=== PATIENT | male | born 1955 | race American Indian/Alaskan Native ===

== ENCOUNTER 2016-09-23 11:35 | Inpatient (IN) | payer BC, OTHER ==
[2016-09-23 11:38] VITALS: BMI 22.6
[2016-09-23] MEDS ORDERED: Albuterol-Ipratrop 3 mg / 0.5 (3 ml) UD ONE (11:41)
[2016-09-23] MEDS ORDERED: Amiodarone 150 mg/D5W 100 ml 150 MG/100 ML BAG ONE (11:45)
[2016-09-23] MEDS ORDERED: Amiodarone 360 mg/D5W 200 ml 360 MG/200 ML BAG IV ONE (11:45)
[2016-09-23] MEDS ORDERED: Amiodarone 150 mg/D5W 100 ml 150 MG/100 ML BAG IVPB ONE (11:51)
--- NOTE | 2016-09-23 11:56 | ED PDOC ---
Arrival/HPI - General Time Seen by Provider: 09/23/16 11:36 Historian: Patient EM Caveat: Respiratory Distress - Critical Care Critical Care Minutes: 45 minutes - History of Present Illness Narrative History of Present Illness (Text): 09/23/16 11:35 A 61 year old male whose past medical history includes a pacemaker, chf, alcoholic cardiomyopahty presents to the emergency department via EMS for shortness of breath and cough. pt was seen in his pmd office and sent to the er for tachypnea and tachycardia. upon arrival pt noted to be tachypneic with mild increased wob. pt placed on bipap on arrival. limted hx provided. PMD: Dr. Hermilo Ríos Time/Duration: 1/2 hour Symptom Onset: Sudden Symptom Course: Unchanged Activities at Onset: Rest, Light Context: Home Past Medical History - Provider Review Nursing Documentation Reviewed: Yes Family/Social History - Physician Review Nursing Documentation Reviewed: Yes Family/Social History: No Known Family HX Allergies/Home Meds Allergies/Adverse Reactions: Allergies No Known Allergies Allergy (Verified 09/23/16 17:21) Home Medications: Home Meds Medication Instructions Recorded Confirmed Furosemide [Lasix] 40 mg PO DAILY 09/23/16 09/23/16 Spironolactone [Aldactone] 25 mg PO DAILY 09/23/16 09/23/16 Review of Systems - Review of Systems Systems not reviewed;Unavailable: Respiratory Distress Respiratory: SOB Physical Exam - Physical Exam Physical Exam Limitations: Other (Respiratory Distress) Vital Signs Temp Pulse Resp BP Pulse Ox 09/23/16 16:04 105 H 16 110/69 95 09/23/16 15:43 112/67 09/23/16 15:01 118 H 09/23/16 15:00 105 H 18 112/67 95 09/23/16 14:35 118 H 123/77 09/23/16 14:30 110 H 16 108/59 L 95 09/23/16 14:00 118 H 16 123/77 93 L 09/23/16 13:30 135 H 20 98/69 L 93 L 09/23/16 13:00 140 H 09/23/16 12:59 140 H 34 H 131/72 93 L 09/23/16 11:45 98.9 F 135 H 36 H 117/81 88 L 09/23/16 11:39 22 93 L - Systems Exam Neck: Present: JVD Respiratory/Chest: Present: Rales (Rales Bilaterally) Medical Decision Making ED Course and Treatment: 09/23/16 12:03 Impression: A 61 year old male brought in via EMS for shortness of breath and cough. Differential Diagnosis included but are not limited to: ro chf, sepsis, cardiac , Plan: -- EKG -- Labs -- Chest X-ray -- Amiodarone -- Urinalysis -- Reassess and disposition Progress Notes: CHEST X-RAY IMPRESSION: Bilateral diffuse alveolar opacity with possible jade consolidation at right base. Nonspecific. Findings may reflect pulmonary edema , bilateral pneumonia, etc. Please correlate clinically. AICD. Dictator : Tyler Sahni MD Report Date : 09/23/2016 12:11:34 09/23/16 12:38: Code sepsis called. 09/23/16 12:47: Spoke hospitalist resident. 09/24/16 14:52 upon arrival, pt placed immediately on bipap. inital ekg concerning for wide complex tachycardia. amniodarone started. discussed case with dr george, who came bedside. recommends veraperil. ekg shows vt vs aflutter with bbb. during ed course. pt has loss of pulses. ACLS intiated, and rosc obtained after pea arreest, s/p 2 epi. pt intubated during code. icu bedside. recommends diuresis, ng tube, k replacement. dr ríos and icu attending accept case to icu. family updated about critical status of pt. - Critical Care Critical Care Minutes: 45 minutes - Lab Interpretations Microbiology Results: Microbiology Results 09/23/16 12:20 Blood Blood Culture - Preliminary NO GROWTH AFTER 24 HOURS 09/23/16 12:20 Blood Blood Culture - Preliminary NO GROWTH AFTER 24 HOURS Lab Results: 09/23/16 12:20 Lab Results 09/23/16 12:20: PT 19.9 H, INR 1.84 H, APTT 35.6 H 09/23/16 12:20: WBC 9.7, RBC 4.73, Hgb 16.8, Hct 48.1, MCV 101.7, MCH 35.5 H, MCHC 34.9, RDW 14.0, Plt Count 111 L, MPV 12.2 H, Gran % 66.0, Lymph % (Auto) 23.0, [place] % (Auto) 9.9 H, Eos % (Auto) 0.5 L, Baso % (Auto) 0.6, Gran # 6.43, Lymph # 2.2, [place] # 1.0 H, Eos # 0.1, Baso # 0.06 09/23/16 12:20: pO2 26 L, VBG pH 7.09 L*, VBG pCO2 71.0 H*, VBG HCO3 21.5, VBG Total CO2 23.7, VBG O2 Sat (Calc) 32.3 L, VBG Base Excess -9.5 L, VBG Potassium 4.3, Sodium 138.0, Chloride 90.0 L, Glucose 94, Lactate 12.0 H*, FiO2 21.0, Venous Blood Potassium 4.3 09/23/16 11:57: POC Glucose (mg/dL) 94 - RAD Interpretation Radiology Orders: 09/23/16 11:40 CXR [CHEST PORTABLE] [RAD] Stat - Medication Orders Current Medication Orders: Albuterol/Ipratropium (Duoneb 3 Mg/0.5 Mg (3 Ml) Ud) 3 ml IH [id number] [facility] Last Admin: 09/24/16 13:19 Dose: 3 ml Amiodarone HCl (Cordarone) 400 mg PO TID YEN Stop: 09/25/16 23:59 Last Admin: 09/24/16 17:47 Dose: 400 mg Amiodarone HCl (Cordarone) 200 mg PO DAILY [facility] Artificial Tears (Artificial Tears Opht Oint) 0 gm OU Q2 PRN PRN Reason: Dry eyes Last Admin: 09/24/16 15:29 Dose: 1 applic Aspirin (Aspirin Chewable) 81 mg PO DAILY [facility] Clopidogrel Bisulfate (Plavix) 75 mg PO DAILY [facility] Last Admin: 09/24/16 17:48 Dose: 75 mg Folic Acid (Folic Acid) 1 mg IVP DAILY [facility] Last Admin: 09/24/16 16:26 Dose: 1 mg Furosemide (Lasix) 40 mg IV 0800,1400 [facility] Last Admin: 09/24/16 15:12 Dose: 40 mg Propofol (Diprivan) 1,000 mg in 100 mls @ 2.395 mls/hr IV .Q24H PRN; Protocol; 5 MCG/KG/MIN PRN Reason: TITRATE PER MD ORDER Last Titration: 09/24/16 08:20 Dose: 18 mcg/kg/min, 8.622 mls/hr Midazolam 100 mg/100ml in NS (Midazolam 100 Mg/100ml In Ns) 100 mg in 100 mls @ 2 mls/hr IV .Q24H PRN; Protocol; 2 MG/HR PRN Reason: Sedation Last Admin: 09/23/16 18:30 Dose: 2 mg/hr, 2 mls/hr Azithromycin (Zithromax 500mg In Ns) 500 mg in 250 mls @ 167 mls/hr IVPB DAILY YEN PRN Reason: Protocol Last Admin: 09/24/16 10:00 Dose: 167 mls/hr Cefepime HCl (Maxipime 2gm) 2 gm in 100 mls @ 100 mls/hr IVPB Q8 YEN PRN Reason: Protocol Stop: 09/28/16 22:01 Last Admin: 09/24/16 15:00 Dose: 100 mls/hr Milrinone Lactate/Dextrose (Primacor 20mg/100ml D5w) 100 mls @ 5.987 mls/hr IV .[id number] PRN; Protocol; 0.25 MCG/KG/MIN PRN Reason: TITRATE PER MD ORDER Last Admin: 09/23/16 23:10 Dose: 0.25 mcg/kg/min, 5.987 mls/hr Clindamycin Phosphate 600 mg/ (Sodium Chloride) 54 mls @ 102 mls/hr IVPB Q8 YEN PRN Reason: Protocol Last Admin: 09/24/16 14:58 Dose: 102 mls/hr Heparin Sodium/Dextrose (Heparin 25,000 Units/250ml In D5w) 25,000 units in 250 mls @ 9.58 mls/hr IV .Q24H YEN; 12 UNITS/KG/HR PRN Reason: Protocol Last Admin: 09/24/16 15:25 Dose: 12 units/kg/hr, 9.58 mls/hr Pantoprazole Sodium (Protonix Inj) 40 mg IVP DAILY [facility] Last Admin: 09/24/16 09:02 Dose: 40 mg Spironolactone (Aldactone) 25 mg PO BID [facility] Last Admin: 09/24/16 17:46 Dose: 25 mg Thiamine HCl (Vitamin B1 Inj) 100 mg IM DAILY [facility] Last Admin: 09/24/16 09:02 Dose: 100 mg Discontinued Medications Albuterol/Ipratropium (Duoneb 3 Mg/0.5 Mg (3 Ml) Ud) Confirm Administered Dose 9 ml .ROUTE .STK-MED ONE Stop: 09/23/16 11:42 Last Admin: 09/23/16 11:58 Dose: 9 ml Aspirin (Ecotrin) 81 mg PO DAILY [facility] Last Admin: 09/24/16 15:47 Dose: 81 mg Comments: Barcode not scanning Digoxin (Lanoxin) 0.25 mg IVP STAT STA Stop: 09/23/16 13:52 Last Admin: 09/23/16 14:46 Dose: 0.25 mg Digoxin (Lanoxin) 0.25 mg IVP ONCE ONE Stop: 09/23/16 18:01 Last Admin: 09/23/16 18:46 Dose: 0.25 mg Diltiazem HCl (Cardizem) 10 mg IVP STAT STA Stop: 09/23/16 13:51 Last Admin: 09/23/16 14:35 Dose: 10 mg Enoxaparin Sodium (Lovenox) 30 mg SC DAILY [facility] PRN Reason: Protocol Last Admin: 09/24/16 09:03 Dose: 30 mg Furosemide (Lasix) 60 mg IVP STAT STA Stop: 09/23/16 14:53 Last Admin: 09/23/16 15:43 Dose: 60 mg Furosemide (Lasix) 40 mg IVP ONCE ONE Stop: 09/23/16 16:37 Last Admin: 09/23/16 16:39 Dose: 40 mg Heparin Sodium (Porcine) (Heparin) 5,600 units 70 units/kg (5600 units) IV ONCE ONE PRN Reason: Protocol Stop: 09/24/16 11:20 Last Admin: 09/24/16 15:15 Dose: 5,600 units Amiodarone HCl/Dextrose (Nexterone 360 Mg In D5w 200 Ml (Premix)) Confirm Administered Dose 360 mg in 200 mls @ ud IV .STK-MED ONE Stop: 09/23/16 11:46 Last Admin: 09/23/16 11:59 Dose: 360 mg Amiodarone HCl/Dextrose (Nexterone 150 Mg In Dextrose 100 Ml (Premix)) Confirm Administered Dose 150 mg in 100 mls @ ud .ROUTE .STK-MED ONE Stop: 09/23/16 11:46 Last Admin: 09/23/16 11:58 Dose: 150 mg Amiodarone HCl/Dextrose (Nexterone 150 Mg In Dextrose 100 Ml (Premix)) 150 mg in 100 mls @ 600 mls/hr IVPB ONCE ONE PRN Reason: Protocol Stop: 09/23/16 12:00 Last Admin: 09/23/16 11:58 Dose: 600 mls/hr Amiodarone HCl/Dextrose (Nexterone 360 Mg In D5w 200 Ml (Premix)) 360 mg in 200 mls @ 16.667 mls/hr IV .Q12H YEN; 0.5 MG/MIN PRN Reason: Protocol Last Admin: 09/23/16 12:10 Dose: 16.667 mls/hr Vancomycin HCl (Vancomycin 1gm) 1 gm in 250 mls @ 167 mls/hr IVPB STAT STA PRN Reason: Protocol Stop: 09/23/16 13:33 Last Admin: 09/23/16 13:15 Dose: 167 mls/hr Piperacillin Sod/Tazobactam Sod (Zosyn 3.375 In Ns 100ml) 100 mls @ 200 mls/hr IVPB STAT STA PRN Reason: Protocol Stop: 09/23/16 12:33 Last Admin: 09/23/16 12:24 Dose: 200 mls/hr Sodium Chloride (Sodium Chloride 0.9%) 1,000 mls @ 999 mls/hr IV .Q1H1M STA Stop: 09/23/16 14:47 Last Admin: 09/23/16 14:20 Dose: 999 mls/hr Potassium Chloride (Potassium Chloride 10 Meq/100 Ml) 10 meq in 100 mls @ 100 mls/hr IVPB Q2H YEN Stop: 09/23/16 16:59 diltiaZEM IVPB 100mg in NS (Cardizem 100mg In Ns) 100 mls @ 5 mls/hr IV .Q20H PRN; Protocol; 5 MG/HR PRN Reason: TITRATE PER MD ORDER Last Titration: 09/24/16 01:21 Dose: 0 mg/hr, 0 mls/hr Potassium Chloride (Potassium Chloride 20 Meq/100 Ml) 20 meq in 100 mls @ 50 mls/hr IVPB Q2H YEN Stop: 09/23/16 17:59 Last Admin: 09/23/16 19:37 Dose: Magnesium Sulfate 2 gm/ Sodium (Chloride) 104 mls @ 102 mls/hr IVPB ONCE ONE Stop: 09/23/16 18:25 Last Admin: 09/23/16 21:22 Dose: 102 mls/hr Multivitamins/Vitamin C 10 ml/ (Sodium Chloride) 1,010 mls @ 100 mls/hr IV ONCE ONE Stop: 09/24/16 03:42 Last Admin: 09/24/16 02:41 Dose: 100 mls/hr Cisatracurium Besylate 100 mg/ (Sodium Chloride) 260 mls @ 24.9 mls/hr IV .[id number] PRN; 2 MCG/KG/MIN PRN Reason: TITRATE PER MD ORDER Last Admin: 09/23/16 18:58 Dose: 24.9 mls/hr Potassium Chloride (Potassium Chloride 20 Meq/100 Ml) 20 meq in 100 mls @ 50 mls/hr IVPB Q2H YEN Stop: 09/24/16 00:44 Last Admin: 09/24/16 03:00 Dose: 50 mls/hr Sodium Chloride (Sodium Chloride 0.9%) 500 mls @ 500 mls/hr IV .Q1H ONE Stop: 09/24/16 15:59 Last Admin: 09/24/16 15:45 Dose: 500 mls/hr Sodium Chloride (Sodium Chloride 0.9%) 500 mls @ 999 mls/hr IV .Q31M STA Stop: 09/24/16 15:50 Last Admin: 09/24/16 16:30 Dose: Magnesium Sulfate 2 gm/ Sodium (Chloride) 104 mls @ 102 mls/hr IVPB ONCE ONE Stop: 09/24/16 17:55 Phytonadione (Vitamin K Inj) 10 mg SC ONCE ONE Stop: 09/24/16 11:08 Last Admin: 09/24/16 15:45 Dose: 10 mg Pneumococcal Polyvalent Vaccine (Pneumovax 23 Vaccine) 0.5 ml IM .ONCE ONE Stop: 09/23/16 19:23 Potassium Chloride (Potassium Chloride Oral Soln) 40 meq NG STAT STA Stop: 09/23/16 15:36 Last Admin: 09/23/16 15:45 Dose: 40 meq Verapamil HCl (Verapamil Inj) 2.5 mg IVP STAT STA Stop: 09/23/16 12:44 Last Admin: 09/23/16 13:00 Dose: 2.5 mg - Scribe Statement The provider has reviewed the documentation as recorded by the Gabiibe Maddi Pérez Provider Gabriel Attestation: All medical record entries made by the Gabriel were at my direction and personally dictated by me. I have reviewed the chart and agree that the record accurately reflects my personal performance of the history, physical exam, medical decision making, and the department course for this patient. I have also personally directed, reviewed, and agree with the discharge instructions and disposition. Disposition/Present on Arrival - Present on Arrival Any Indicators Present on Arrival: No - Disposition Have Diagnosis and Disposition been Completed?: Yes Diagnosis: Cardiac arrest, CHF (congestive heart failure), Pneumonia, Cardiomyopathy, Pulmonary edema Disposition: HOSPITALIZED Disposition Time: 03:00 Patient Problems: Current Active Problems Problem Status Onset Alcohol abuse Acute Aspiration pneumonia Acute Disseminated intravascular coagulation Acute Pulmonary edema Acute Ventilatory failure Acute Alcoholic cardiomyopathy Chronic Condition: CRITICAL
[2016-09-23] MEDS ORDERED: Amiodarone 360 mg/D5W 200 ml 360 MG/200 ML BAG IV SCH (12:00)
[2016-09-23] MEDS ORDERED: Vancomycin 1gm in NS 250ml 1 GM/250 ML BAG IVPB STA (12:04)
[2016-09-23] MEDS ORDERED: Piperacillin/Tazobact 3.375 gm 100 ML IVPB STA (12:04)
--- NOTE | 2016-09-23 12:13 | RAD ---
HISTORY: sob COMPARISON: No prior. FINDINGS: LUNGS: Bilateral flank pulmonary opacity, right greater than left. There is possible jade consolidation at the right base. Followup advised. PLEURA: No significant pleural effusion identified, no pneumothorax apparent. CARDIOVASCULAR: Normal heart size. No significant congestive change noted. AICD present. OSSEOUS STRUCTURES: No significant abnormalities. VISUALIZED UPPER ABDOMEN: Normal. OTHER FINDINGS: None. IMPRESSION: Bilateral diffuse alveolar opacity with possible jade consolidation at right base. Nonspecific. Findings may reflect pulmonary edema, bilateral pneumonia, etc. Please correlate clinically. AICD.
[2016-09-23 12:29] LABS: ADD MANUAL DIFF? NO
[2016-09-23 12:33] LABS: VENOUS BLOOD GAS BASE EXCESS -9.5 mmol/L (0.0-2.0)
[2016-09-23 12:37] LABS: VENOUS BLOOD PH 7.09 (7.32-7.43)
[2016-09-23 12:38] LABS: ARTERIAL BLOOD GAS HCO3 14.8 mmol/L (21-28); ARTERIAL BLOOD GAS O2 CAPACITY 23.4 mL/dl (16-24); ARTERIAL BLOOD GAS O2 CONTENT 20.8 ML/dl (15-23); ARTERIAL BLOOD GAS PH 7.21 (7.35-7.45); CARBOXYHEMOGLOBIN 2.6 % (0.5-1.5); HHB 10.7 % (0-5); METHEMOGLOBIN 0.7 % (0.0-3.0)
[2016-09-23 12:47] LABS: INR 1.84 (0.93-1.08); PARTIAL THROMBOPLASTIN TIME 35.6 Seconds (23.7-30.8)
[2016-09-23 13:24] LABS: BASO # 0.06 K/mm3 (0.0-2.0); BASO % 0.6 % (0.0-3.0); EOS # 0.1 (0.0-0.7); EOS % 0.5 % (1.5-5.0); GRAN # 6.43 (1.4-6.5); HEMATOCRIT 48.1 % (42.0-52.0); LYMPH # 2.2 (1.2-3.4); MEAN CELL VOLUME 101.7 fl (80.0-105.0); MEAN CORPUSCULAR HEMOGLOBIN 35.5 pg (25.0-35.0); MEAN CORPUSCULAR HGB CONC 34.9 g/dl (31.0-37.0); MEAN PLATELET VOLUME 12.2 fl (7.0-11.0); MONO % 9.9 % (1.0-6.0); PLATELET COUNT 111 10^3/uL (120.0-450.0); WHITE BLOOD COUNT 9.7 10^3/ul (4.5-11.0)
[2016-09-23 13:34] LABS: ALKALINE PHOSPHATASE 224 U/L (38-133); ALT/SGPT 94 U/L (7-56); AST/SGOT 302 U/L (15-59); BILIRUBIN,TOTAL 6.2 mg/dL (0.2-1.3); BLOOD UREA NITROGEN 9 mg/dL (7-21); CALCIUM 8.3 mg/dL (8.4-10.5); CARBON DIOXIDE 21 mmol/L (21-33); CHLORIDE 87 mmol/L (98-107); GFR AFRICAN-AMERICAN > 60; GLUCOSE,RANDOM 263 mg/dL (70-110); MAGNESIUM 1.6 mg/dL (1.7-2.2); SODIUM 134 mmol/L (132-148); TOTAL PROTEIN 8.4 g/dL (5.8-8.3)
[2016-09-23 13:44] LABS: TROPONIN I 0.09 ng/mL
[2016-09-23] MEDS ORDERED: Sodium Chloride 0.9% 1,000 ML IV STA (13:47)
[2016-09-23 13:49] LABS: POTASSIUM 2.7 mmol/L (3.6-5.0)
[2016-09-23] MEDS ORDERED: diltiaZEM IVPB 100mg in NS 100 ML IV PRN (13:50)
[2016-09-23] MEDS ORDERED: Digoxin 500 mcg/2ml (0.5 mg/2ml) Inj IVP STA (13:51)
--- NOTE | 2016-09-23 14:18 | RAD ---
HISTORY: intubation COMPARISON: 09/23/2016 at 12:01 p.m. FINDINGS: LUNGS: Extensive increased diffuse bilateral pulmonary opacity. The rapidity of change in this patient is concerning for pulmonary edema. However, this may also represent ARDS or bilateral pneumonia. PLEURA: Probable small bilateral pleural effusion. No pneumothorax.ll CARDIOVASCULAR: Mild cardiomegaly. Endotracheal tube tip 6.3 cm above tracheal blanquita. AICD noted. OSSEOUS STRUCTURES: No significant abnormalities. VISUALIZED UPPER ABDOMEN: Normal. OTHER FINDINGS: None. IMPRESSION: Extensive diffuse bilateral pulmonary alveolar opacity, nonspecific. Probable small bilateral pleural effusion. New endotracheal tube positioned 6.3 cm above the tracheal blanquita.
[2016-09-23 14:47] LABS: ABG MECHANICAL RATE 16; ARTERIAL BLOOD GAS HCO3 15.6 mmol/L (21-28); ATERIAL BLOOD GAS PEEP 10
[2016-09-23] MEDS: Propofol 10 mg/ml 1,000 MG/100 ML VIAL IV PRN ×3 (14:50→22:54)
[2016-09-23 15:01] LABS: ARTERIAL BLOOD GAS PH 7.11 (7.35-7.45)
[2016-09-23] MEDS ORDERED: Potassium Chloride 40 mEq/30 ml LIQ UD NG STA (15:35)
--- NOTE | 2016-09-23 15:37 | RAD ---
HISTORY: ng tube COMPARISON: 09/23/2016 at 1:55 p.m. FINDINGS: LUNGS: Extensive diffuse bilateral alveolar opacity mildly improved. . PLEURA: Possible trace bilateral pleural effusion. No pneumothorax. CARDIOVASCULAR: Normal heart size. AICD. ET tube unchanged. New nasogastric tube extends beyond the lower edge of this film, likely to the central abdomen. . OSSEOUS STRUCTURES: No significant abnormalities. VISUALIZED UPPER ABDOMEN: Normal. OTHER FINDINGS: None. IMPRESSION: Extensive diffuse bilateral alveolar opacity with mild improvement compared to earlier examination. Pulmonary edema versus ARDS versus bilateral pneumonia. ET tube, NG tube noted. AICD.
[2016-09-23 17:00] LABS: ABG MECHANICAL RATE 20; ATERIAL BLOOD GAS PEEP 12
[2016-09-23 17:00] LABS: URINE BILIRUBIN SMALL (NEGATIVE); URINE BLOOD LARGE (NEGATIVE); URINE GLUCOSE (UA) NEGATIVE (NEGATIVE); URINE KETONE NEGATIVE (NEGATIVE); URINE PROTEIN >=300 mg/dL (<30 mg/dL)
[2016-09-23 17:02] LABS: ARTERIAL BLOOD GAS PH 7.19 (7.35-7.45)
[2016-09-23 17:02] LABS: URINE APPEARANCE TURBID (CLEAR); URINE COLOR YELLOW (YELLOW)
[2016-09-23 17:12] LABS: VENOUS BLOOD GAS BASE EXCESS -13.5 mmol/L (0.0-2.0); VENOUS BLOOD PH 7.16 (7.32-7.43)
[2016-09-23] MEDS ORDERED: Midazolam 100 mg/100ml in NS 100 MG/100 ML SOL IV PRN (17:20)
[2016-09-23] MEDS ORDERED: Magnesium Sulfate 2 GM in Sodium Chloride 0.9% 100 ML IVPB ONE (17:24)
[2016-09-23 17:28] LABS: ALB/GLOB RATIO 0.9 (1.1-1.8); ALKALINE PHOSPHATASE 191 U/L (38-133); ALT/SGPT 125 U/L (7-56); AST/SGOT 398 U/L (15-59); BILIRUBIN,TOTAL 5.6 mg/dL (0.2-1.3); BLOOD UREA NITROGEN 12 mg/dL (7-21); CALCIUM 8.3 mg/dL (8.4-10.5); CARBON DIOXIDE 13 mmol/L (21-33); CHLORIDE 97 mmol/L (98-107); GFR AFRICAN-AMERICAN > 60; GLUCOSE,RANDOM 50 mg/dL (70-110); SODIUM 136 mmol/L (132-148); TOTAL PROTEIN 7.3 g/dL (5.8-8.3)
[2016-09-23 17:36] LABS: URINE RBC 20 - 25 /hpf (0-2)
[2016-09-23 17:37] LABS: URINE LEUKOCYTE ESTERASE MOD Leu/uL (NEGATIVE)
[2016-09-23] MEDS ORDERED: Multivitamin (MVI) 10 ML in Sodium Chloride 0.9% 1,000 ML IV ONE (17:37)
[2016-09-23 17:40] LABS: INR 3.17 (0.93-1.08); PARTIAL THROMBOPLASTIN TIME 58.2 Seconds (23.7-30.8)
[2016-09-23 17:46] LABS: HEMATOCRIT 45.9 % (42.0-52.0); MEAN CORPUSCULAR HEMOGLOBIN 37.8 pg (25.0-35.0); MEAN CORPUSCULAR HGB CONC 35.3 g/dl (31.0-37.0); MEAN PLATELET VOLUME 11.9 fl (7.0-11.0); PLATELET COUNT 109 10^3/uL (120.0-450.0); RED CELL DISTRIBUTION WIDTH 14.1 % (11.5-14.5); WHITE BLOOD COUNT 10.8 10^3/ul (4.5-11.0)
--- NOTE | 2016-09-23 17:47 | CP.PCM.CON ---
History of Present Illness - History of Present Illness History of Present Illness: Patient is 61yo male with PMhx of EtOH abuse, Systolic CHF, liver disease, HTN, presents fro PMDs office for SOB. History is limited to the ER staff and the patients /daughters who provided most of the history. In the ER patient was SOB, hypoxic, placed on BIPAP, went into wide complex tachycardia, given amiodarone, verapamil, converting back to NSR. Patient then had PEA arrest 2-3 min, given Epinephrine x 1, with ROSC, at which time pt was awake, and moving all 4 extremities, intubated. On the ventilator on 16/Peep10/100% peak pressure 35, Plateau 28-30, given Lasix 60mg IV, after K repleted. CXR with bilateral opacities, ARDS vs pulm edema. Bedside Echo done with EF 20-25%, RVSP 63, moderate MR/TR, office echo read pending. Currently the patient is intubated and sedated PMhx: EtOH abuse, Systolic CHF, Liver disease, HTN PSHx: NONE Allergies: NKDA FHx: NC ROS: pt intubated, cannot obtain Meds: as per EMR Review of Systems - Review of Systems Review of Systems: as per hpi Past Patient History - Past Social History Smoking Status: Never Smoked - CARDIAC Hx Cardiac Disorders: Yes Hx Congestive Heart Failure: Yes - PULMONARY Hx Respiratory Disorders: Yes Other/Comment: URI - PSYCHIATRIC Hx Substance Use: No - SURGICAL HISTORY Hx Surgeries: Yes Hx Cardiac Catheterization: Yes Meds Allergies/Adverse Reactions: Allergies Allergy/AdvReac Type Severity Reaction Status Date / Time No Known Allergies Allergy Verified 09/23/16 17:21 - Medications Medications: Current Medications Albuterol/Ipratropium (Duoneb 3 Mg/0.5 Mg (3 Ml) Ud) 3 ml IH [id number] YEN Amiodarone HCl (Cordarone) 400 mg PO TID YEN Stop: 09/25/16 23:59 Amiodarone HCl (Cordarone) 200 mg PO DAILY YEN Digoxin (Lanoxin) 0.25 mg IVP ONCE ONE Stop: 09/23/16 18:01 Furosemide (Lasix) 40 mg IV 0800,1400 YEN Heparin Sodium (Porcine) (Heparin) 5,000 units SC Q12 YEN PRN Reason: Protocol Amiodarone HCl/Dextrose (Nexterone 360 Mg In D5w 200 Ml (Premix)) 360 mg in 200 mls @ 16.667 mls/hr IV .Q12H YEN; 0.5 MG/MIN PRN Reason: Protocol Last Admin: 09/23/16 12:10 Dose: 16.667 mls/hr Propofol (Diprivan) 1,000 mg in 100 mls @ 2.395 mls/hr IV .Q24H PRN; Protocol; 5 MCG/KG/MIN PRN Reason: TITRATE PER MD ORDER Last Admin: 09/23/16 14:50 Dose: 20 mcg/kg/min, 9.58 mls/hr diltiaZEM IVPB 100mg in NS (Cardizem 100mg In Ns) 100 mls @ 5 mls/hr IV .Q20H PRN; Protocol; 5 MG/HR PRN Reason: TITRATE PER MD ORDER Last Admin: 09/23/16 15:00 Dose: 5 mg/hr, 5 mls/hr Potassium Chloride (Potassium Chloride 20 Meq/100 Ml) 20 meq in 100 mls @ 50 mls/hr IVPB Q2H YEN Stop: 09/23/16 17:59 Last Admin: 09/23/16 14:20 Dose: 50 mls/hr Lisinopril (Zestril) 2.5 mg PO DAILY YEN Pantoprazole Sodium (Protonix Inj) 40 mg IVP DAILY YEN Spironolactone (Aldactone) 25 mg PO BID YEN Verapamil HCl (Calan Tab) 40 mg PO TID YEN Physical Exam - Constitutional Additional comments: Intubated, sedated - Head Exam Head Exam: ATRAUMATIC - Eye Exam Eye Exam: Normal appearance - Neck Exam Additional comments: +JVD - Respiratory Exam Additional comments: bilateral rales - Cardiovascular Exam Cardiovascular Exam: JVD, RRR, +S1, +S2 - GI/Abdominal Exam GI & Abdominal Exam: Normal Bowel Sounds, Soft - Extremities Exam Additional comments: 3+ pitting edema bilateral - Neurological Exam Additional comments: intubated, sedated - Skin Skin Exam: Warm Results - Vital Signs Recent Vital Signs: Last Vital Signs Temp 98.9 F 09/23/16 11:45 Pulse 105 H 09/23/16 16:04 Resp 33 H 09/23/16 17:20 BP 103/45 L 09/23/16 16:39 Pulse Ox 93 L 09/23/16 17:20 - Labs Result Diagrams: 09/23/16 12:20 09/23/16 13:00 Labs: Laboratory Results - last 24 hr 09/23/16 09/23/16 09/23/16 12:30 13:00 14:40 pCO2 37 49 H pO2 62.0 L 51.0 L HCO3 14.8 L 15.6 L ABG pH 7.21 L 7.11 L* ABG Total CO2 15.9 L 17.1 L ABG O2 Saturation 88.9 L 79.3 L ABG O2 Content 20.8 ABG Base Excess -12.3 L -13.8 L ABG Hemoglobin 17.2 ABG Carboxyhemoglobin 2.6 H POC ABG HHb (Measured) 10.7 H ABG Methemoglobin 0.7 ABG O2 Capacity 23.4 ABG Potassium 2.9 L Hgb O2 Saturation 86.0 L Glucose 58 L Lactate 10.3 H* Mechanical Rate 16 FiO2 100.0 100.0 Tidal Volume 450 PEEP 10 Sodium 134 137.0 Potassium 2.7 L* Chloride 87 L 92.0 L Carbon Dioxide 21 Anion Gap 29 H BUN 9 Creatinine 1.2 Est GFR ( Amer) > 60 Est GFR (Non-Af Amer) > 60 Random Glucose 263 H Calcium 8.3 L Magnesium 1.6 L Total Bilirubin 6.2 H AST 302 H ALT 94 H Alkaline Phosphatase 224 H Lactate Dehydrogenase 1317 H Total Creatine Kinase 367 H CK-MB (CK-2) 2.3 CK-MB (CK-2) % Cancelled Troponin I 0.09 NT-Pro-B Natriuret Pep 86769 H Total Protein 8.4 H Albumin 4.3 Globulin 4.1 Albumin/Globulin Ratio 1.0 L Arterial Blood Potassium 2.9 L Urine Color Urine Appearance Urine pH Ur Specific [place] Urine Protein Urine Glucose (UA) Urine Ketones Urine Blood Urine Nitrate Urine Bilirubin Urine Urobilinogen 09/23/16 09/23/16 16:35 16:50 pCO2 34 L pO2 69.0 L HCO3 13.0 L ABG pH 7.19 L* ABG Total CO2 14.0 L ABG O2 Saturation 93.7 L ABG O2 Content ABG Base Excess -14.1 L ABG Hemoglobin ABG Carboxyhemoglobin POC ABG HHb (Measured) ABG Methemoglobin ABG O2 Capacity ABG Potassium 2.9 L Hgb O2 Saturation Glucose 50 L Lactate 10.5 H* Mechanical Rate 20 FiO2 100.0 Tidal Volume 450 PEEP 12 Sodium 137.0 Potassium Chloride 98.0 Carbon Dioxide Anion Gap BUN Creatinine Est GFR ( Amer) Est GFR (Non-Af Amer) Random Glucose Calcium Magnesium Total Bilirubin AST ALT Alkaline Phosphatase Lactate Dehydrogenase Total Creatine Kinase CK-MB (CK-2) CK-MB (CK-2) % Troponin I NT-Pro-B Natriuret Pep Total Protein Albumin Globulin Albumin/Globulin Ratio Arterial Blood Potassium 2.9 L Urine Color Yellow Urine Appearance Turbid Urine pH 6.0 Ur Specific [place] >= 1.030 Urine Protein >=300 H Urine Glucose (UA) Negative Urine Ketones Negative Urine Blood Large H Urine Nitrate Negative Urine Bilirubin Small H Urine Urobilinogen 2.0 H - Imaging and Cardiology Chest x-ray Status: Image reviewed by me, Report reviewed by me Assessment & Plan - Assessment and Plan (Free Text) Assessment: 61yo male a/w acute hypoxic resp failure Hypoxic Resp Failure Pulm edema vs ARDS PNA Lactic Acidosis Hypokalemia Systolic, CHF, acute decompensated EtOh abuse Severe Sepsis - currently intubated, sedated on PRVC 22/450/PEEP14/100% - CXR with bilateral opacities, ARDS vs Pulm edema, with superimposing PNA - currently afebrile, HD stable, in NSR - labs demonstrate hypokalemia, metablic acidosis with resp acidosis, lactate 10 - given broad spectrum abx in the ER Recommend: - keep intubated sedated - low tidal volume ventilation, 6cc/kg predicted body weight - patient with persistent pink frothy discharge from ETT, likely signifying pulm edema - keep plateu pressure <30 - may require paralytics - current Pplateu 28-30 - broad spectrum abx, Cefepime, Vanco, Azithro - check procalcitonin - ARDS vs Pulm edema, with concomitant PNA - broad spectrum abx, Cefepime, Vanco, Azithro - check procalcitonin - ID consult - patient with EF 20-25%, chronic, AICD - currently in NSR - Amiodarone per cardiology - would hold ionotropic agents for now as patient went into ventricular arrhythmia - given lasix 60mg IV x1, monitor UOP - follow up echo - follow up cardiology - repeat lactates, labs - renal sonogram - patient with elevated INR, likely 2/2 EtOH abuse vs congestion from CHF - RUQ sono - Folic Acid, MVT, Thiamine - monitor for EtOh withdrawal - keep NPO - DVT ppx - GI ppx - full code - family notified, , daughters - patient in critical condition, at high risk for morbidity motality Critical care time: 45minutes
[2016-09-23] MEDS ORDERED: Cisatracurium Besylate 100 MG in Sodium Chloride 0.9% 250 ML IV PRN (17:55)
[2016-09-23 17:56] LABS: ADD MANUAL DIFF? YES
[2016-09-23] MEDS ORDERED: Digoxin 500 mcg/2ml (0.5 mg/2ml) Inj IVP ONE (18:00)
[2016-09-23] MEDS: Thiamine 100 mg/ml Inj IM SCH (18:45)
[2016-09-23 18:56] LABS: BAND 8 % (0-2); NEUTROPHIL 79 % (50.0-70.0); PLATELET ESTIMATE LOW (NORMAL)
[2016-09-23] MEDS ORDERED: Pneumococcal 23-Valent Vaccine IM ONE (19:22)
[2016-09-23] MEDS: Albuterol-Ipratrop 3 mg / 0.5 (3 ml) UD IH SCH (20:00)
[2016-09-23 20:22] LABS: MAGNESIUM 1.4 mg/dL (1.7-2.2)
[2016-09-23 21:26] LABS: TROPONIN I 0.69 ng/mL
[2016-09-23] MEDS ORDERED: Cefepime 1gm in NS 100ml 1 GM/100 ML BAG IVPB SCH (22:00)
--- NOTE | 2016-09-23 22:31 | CARD ---
APPROVED REPORT EXAM: Two-dimensional and M-mode echocardiogram with Doppler and color Doppler. INDICATION CARDIAC ARREST 2D DIMENSIONS Left Atrium (2D)4.6 (1.6-4.0cm)IVSd1.4 (0.7-1.1cm) LVDd6.0 (3.9-5.9cm)PWd1.4 (0.7-1.1cm) LVDs5.4 (2.5-4.0cm)FS (%) 9.8 % LVEF (%)21.1 (>50%) M-Mode DIMENSIONS Aortic Root3.30 (2.2-3.7cm)Aortic Cusp Exc.2.10 (1.5-2.0cm) Aortic Valve AoV Peak Diexlnwr467.0cm/Timmy Peak GR.6mmHgAI P 1/2 [id number] Mitral Valve E/A ratio0.0 TDI E/Lateral E'0.0E/Medial E'0.0 Pulmonary Valve PV Peak Hwcpzybe75.9cm/sPV Peak Grad.3mmHg Tricuspid Valve TR Peak Dneqjetb419qi/sRAP [id number] Peak Gr.53mmHg [id number] LEFT VENTRICLE The Left Ventricle is moderately dilated. There is mild concentric left ventricular hypertrophy. The systolic function is severely impaired.EF-15 There is global hypokinesis of the left ventricle. A flutter No left ventricle thrombus noted on this study. There is no ventricular septal defect visualized. There is no left ventricular aneurysm. There is no mass noted in the left ventricle. RIGHT VENTRICLE The right ventricle is moderately to severely dilated. There is normal right ventricular wall thickness. Systolic function is moderately reduced. There is a pacemaker lead in the right ventricle. ATRIA The left atrium is severely dilated. The right atrium is severely dilated. There is a catheter/pacemaker lead seen in the right atrium. The interatrial septum is intact with no evidence for an atrial septal defect. AORTIC VALVE The aortic valve is thickened but opens well. There is mild aortic regurgitation. There is no aortic valvular stenosis. There is no aortic valvular vegetation. MITRAL VALVE The mitral valve is thickened but opens well. Mitral regurgitation is moderate. There is no mitral valve stenosis. There is no evidence of mitral valve prolapse. TRICUSPID VALVE The tricuspid valve leaflets are thickened , but open well. There is moderate to severe tricuspid regurgitation.RVSP-63 mmof hg. There is moderate to severe tricuspid regurgitation. There is no tricuspid valve stenosis. There is no tricuspid valve prolapse or vegetation. PULMONIC VALVE The pulmonic valve is not well visualized. GREAT VESSELS The aortic root is normal in size. The ascending aorta is normal in size. The pulmonary artery is normal. The IVC is dilated. PERICARDIAL EFFUSION There is large left pleural effusion. There is a trace circumferential pericardial effusion. <Conclusion> Four chamber dilatation. EF-15%. There is mild aortic regurgitation. Mitral regurgitation is moderate. There is moderate to severe tricuspid regurgitation.RVSP-63 mmof hg. There is moderate to severe tricuspid regurgitation. The IVC is dilated. There is large left pleural effusion. There is a trace circumferential pericardial effusion. No thrombus or vegetation noted.
[2016-09-23] MEDS: Cefepime IV 2 gm in NS 2 GM/100 ML BAG IVPB SCH (22:35)
[2016-09-23] MEDS: Milrinone 20mg/100ml D5W 100 ML IV PRN (23:10)
--- NOTE | 2016-09-24 00:19 | CARD ---
APPROVED REPORT EKG Measurement Heart [id number] <Conclusion> Wide complex tachycardia Left axis deviation Nonspecific intraventricular block Abnormal ECG
--- NOTE | 2016-09-24 00:24 | CARD ---
APPROVED REPORT EKG Measurement Heart [id number] <Conclusion> Wide QRS tachycardia Left axis deviation Nonspecific intraventricular block Lateral infarct, age undetermined Abnormal ECG
--- NOTE | 2016-09-24 00:27 | CARD ---
APPROVED REPORT EKG Measurement Heart [id number] <Conclusion> Wide QRS tachycardia with occasional premature ventricular complexes and fusion complexes Left axis deviation Nonspecific intraventricular block Inferior infarct, age undetermined Cannot rule out Anterior infarct, age undetermined Abnormal ECG
--- NOTE | 2016-09-24 01:58 | CON ---
DATE: 09/23/2016 CONSULTING PHYSICIAN: Dr. Meliton Saunders. REASON FOR CONSULTATION: Follow up wide complex tachycardia, shortness of breath, possible pneumonia, status post AICD, nonischemic cardiomyopathy. BRIEF CLINICAL HISTORY: This is a 61-year-old heavy alcohol abuse; occasional tobacco abuse; history of nonischemic cardiomyopathy, status post cardiac catheterization in 2005 with history of AICD, being followed by Dr. Hogan, EP, at [facility] last seen 3 months ago, came in with complaints of shortness of breath and wide complex tachycardia. Actually, EKG looks like bundle branch block, atrial flutter with 2:1 conduction. Family is at the bedside. Information obtained from the patient as well as the family, and 2 daughters. The patient on the CPAP. 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 History of nonischemic cardiomyopathy status post AICD, being followed by Dr. Hogan. SOCIAL HISTORY: Active alcohol abuse, heavy according to the family. Occasionally smokes cigarette as well. Denies any history of substance abuse. 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 CURRENT MEDICATIONS: The patient is taking at home is spironolactone and Lasix. REVIEW OF SYSTEMS: As per HPI. The patient is complaining of cough and shortness of breath of couple of days, went to Dr. Ríos, he thought it is pneumonia, so sent to the ER. PHYSICAL EXAMINATION VITAL SIGNS: Temperature is 98.5, heart rate 140, blood pressure 107/80. HEENT: PERRLA. Extraocular muscles are intact. NECK: Supple. No carotid bruit. No thyromegaly. CHEST: Clear to auscultation. E:A changes in the right lower lobe as well as left lower lobe, more so on the right lobe. Using accessory muscles. HEART: S1 and S2, tachycardic. ABDOMEN: Soft, distended. EXTREMITIES: 2+ pitting edema. DVT positive. LABORATORY DATA: Chest x-ray consistent with right and possibly left lower lobe pneumonia. EKG shows 2:1 flutter with a bundle branch block, heart rate 140. Blood workup as follows: WBC 9.7, hemoglobin 16.8, hematocrit 48.1, platelet count 111. Chemistry shows pending coagulation profile. INR 1.84. Blood gas shows pCO2 37, PO2 67, pH 7.21. IMPRESSION: Respiratory distress, bilateral possible pneumonia, congestive heart failure, cardiomyopathy, nonischemic cardiomyopathy, congestive heart failure secondary to acute on chronic systolic dysfunction, rule out sepsis, lactic level 12 on ABG, probably septic, decompensated congestive heart failure, wide complex tachycardia, possibly secondary to bundle branch block and atrial flutter. RECOMMENDATIONS: We will give 2.5 mg verapamil, continue IV amiodarone, CPAP, broad-spectrum antibiotics and panculture. Long-term prognosis guarded. Discuss with the and 2 daughters. Further recommendations when the labs are available. We will follow. Overall, the patient's condition is critical. Thank you Dr. Ríos for providing the opportunity in taking care of the patient. Meliton Saunders MD
[2016-09-24 01:59] LABS: ALB/GLOB RATIO 0.9 (1.1-1.8); BILIRUBIN,TOTAL 5.4 mg/dL (0.2-1.3); CALCIUM 7.7 mg/dL (8.4-10.5); POTASSIUM 3.8 mmol/L (3.6-5.0); TOTAL PROTEIN 6.3 g/dL (5.8-8.3)
[2016-09-24] MEDS: Albuterol-Ipratrop 3 mg / 0.5 (3 ml) UD IH SCH ×4 (02:25→20:10)
[2016-09-24 05:41] LABS: ARTERIAL BLOOD GAS HCO3 17.1 mmol/L (21-28); ARTERIAL BLOOD GAS PH 7.24 (7.35-7.45)
[2016-09-24] MEDS: Cefepime IV 2 gm in NS 2 GM/100 ML BAG IVPB SCH ×3 (05:47→21:56)
[2016-09-24 06:28] LABS: HEMATOCRIT 43.4 % (42.0-52.0); MEAN CELL VOLUME 104.3 fl (80.0-105.0); MEAN CORPUSCULAR HEMOGLOBIN 35.1 pg (25.0-35.0); MEAN CORPUSCULAR HGB CONC 33.6 g/dl (31.0-37.0); MEAN PLATELET VOLUME 11.1 fl (7.0-11.0); PLATELET COUNT 70 10^3/uL (120.0-450.0); RED CELL DISTRIBUTION WIDTH 14.1 % (11.5-14.5)
[2016-09-24 06:32] LABS: VENOUS BLOOD GAS BASE EXCESS -9.6 mmol/L (0.0-2.0)
[2016-09-24 06:38] LABS: VENOUS BLOOD PH 7.19 (7.32-7.43)
[2016-09-24 06:39] LABS: ALB/GLOB RATIO 0.9 (1.1-1.8); BILIRUBIN,TOTAL 5.5 mg/dL (0.2-1.3); CALCIUM 7.8 mg/dL (8.4-10.5); POTASSIUM 4.3 mmol/L (3.6-5.0); TOTAL PROTEIN 6.4 g/dL (5.8-8.3)
[2016-09-24 06:41] LABS: ADD MANUAL DIFF? YES
[2016-09-24] MEDS: Propofol 10 mg/ml 1,000 MG/100 ML VIAL IV PRN (06:41)
--- NOTE | 2016-09-24 08:22 | CON ---
ADDENDUM REASON FOR ADDENDUM: As soon as finishing the dictation, the patient was CODED in the ER. Family was at bedside. Also CPR in progress. A lab is not available. We will follow him closely after the CPR is completed. Meliton Saunders MD
[2016-09-24 08:28] LABS: TROPONIN I 1.37 ng/mL
[2016-09-24 08:52] LABS: BAND 7 % (0-2); METAMYELOCYTE 4 %; MYELOCYTE 1 %; NEUTROPHIL 59 % (50.0-70.0)
[2016-09-24] MEDS: Thiamine 100 mg/ml Inj IM SCH (09:02)
--- NOTE | 2016-09-24 09:09 | RAD ---
HISTORY: pulm edema COMPARISON: 09/23/2016 FINDINGS: LUNGS: Significant improvement in pulmonary edema. Residual infiltrates are still seen right greater than left PLEURA: No significant pleural effusion identified, no pneumothorax apparent. CARDIOVASCULAR: Mild cardiomegaly OSSEOUS STRUCTURES: No significant abnormalities. VISUALIZED UPPER ABDOMEN: Normal. OTHER FINDINGS: Endotracheal and nasogastric tube in satisfactory position IMPRESSION: Significant improvement in pulmonary edema. Residual infiltrates are still seen right greater than left
[2016-09-24] MEDS: Azithromycin 500MG/NS 250ml 500 MG/250 ML BAG IVPB SCH (10:00)
[2016-09-24] MEDS ORDERED: Enoxaparin 30 mg Syringe SC SCH (10:00)
--- NOTE | 2016-09-24 10:01 | CP.PCM.CON ---
History of Present Illness - History of Present Illness History of Present Illness: 61 year old male with PMH of alcohol abuse and alcoholic liver disease, CAD, chronic CHF, S/P pacemaker placement, HTN was brought in to [facility] because of SOB when he was seen in his PMD's office. Because he was in respiratory distress, he was immediately sent to the ED. In the ED, he had a cardiac arrest with PEA but was revived within a couple of minutes, and then he was placed on the ventilator and sent to the ICU for closer observation. There was no note of fevers, no convlusions, no head trauma, no diarrhea, no vomiting. CXR was done which showed pulmonary edema but cannot rule out pneumonia. Infectious diseases consult is requested to further evaluate and manage. Review of Systems - Review of Systems Systems not reviewed;Unavailable: Intubated Past Patient History - Past Social History Smoking Status: Never Smoked - CARDIAC Hx Cardiac Disorders: Yes Hx Congestive Heart Failure: Yes - PULMONARY Hx Respiratory Disorders: Yes Other/Comment: URI - PSYCHIATRIC Hx Substance Use: No - SURGICAL HISTORY Hx Surgeries: Yes Hx Cardiac Catheterization: Yes Meds Allergies/Adverse Reactions: Allergies Allergy/AdvReac Type Severity Reaction Status Date / Time No Known Allergies Allergy Verified 09/23/16 17:21 - Medications Medications: Current Medications Albuterol/Ipratropium (Duoneb 3 Mg/0.5 Mg (3 Ml) Ud) 3 ml IH [id number] YEN Amiodarone HCl (Cordarone) 400 mg PO TID YEN Stop: 09/25/16 23:59 Amiodarone HCl (Cordarone) 200 mg PO DAILY YEN Digoxin (Lanoxin) 0.25 mg IVP ONCE ONE Stop: 09/23/16 18:01 Folic Acid (Folic Acid) 1 mg IVP DAILY YEN Furosemide (Lasix) 40 mg IV 0800,1400 YEN Heparin Sodium (Porcine) (Heparin) 5,000 units SC Q12 YEN PRN Reason: Protocol Propofol (Diprivan) 1,000 mg in 100 mls @ 2.395 mls/hr IV .Q24H PRN; Protocol; 5 MCG/KG/MIN PRN Reason: TITRATE PER MD ORDER Last Admin: 09/23/16 14:50 Dose: 20 mcg/kg/min, 9.58 mls/hr diltiaZEM IVPB 100mg in NS (Cardizem 100mg In Ns) 100 mls @ 5 mls/hr IV .Q20H PRN; Protocol; 5 MG/HR PRN Reason: TITRATE PER MD ORDER Last Admin: 09/23/16 15:00 Dose: 5 mg/hr, 5 mls/hr Potassium Chloride (Potassium Chloride 20 Meq/100 Ml) 20 meq in 100 mls @ 50 mls/hr IVPB Q2H YEN Stop: 09/23/16 17:59 Last Admin: 09/23/16 14:20 Dose: 50 mls/hr Midazolam 100 mg/100ml in NS (Midazolam 100 Mg/100ml In Ns) 100 mg in 100 mls @ 2 mls/hr IV .Q24H PRN; Protocol; 2 MG/HR PRN Reason: Sedation Magnesium Sulfate 2 gm/ Sodium (Chloride) 104 mls @ 102 mls/hr IVPB ONCE ONE Stop: 09/23/16 18:25 Multivitamins/Vitamin C 10 ml/ (Sodium Chloride) 1,010 mls @ 100 mls/hr IV ONCE ONE Stop: 09/24/16 03:42 Azithromycin (Zithromax 500mg In Ns) 500 mg in 250 mls @ 167 mls/hr IVPB DAILY YEN PRN Reason: Protocol Cefepime HCl (Maxipime 2gm) 2 gm in 100 mls @ 100 mls/hr IVPB Q8 YEN PRN Reason: Protocol Stop: 09/28/16 22:01 Lisinopril (Zestril) 2.5 mg PO DAILY YEN Pantoprazole Sodium (Protonix Inj) 40 mg IVP DAILY YEN Spironolactone (Aldactone) 25 mg PO BID YEN Thiamine HCl (Vitamin B1 Inj) 100 mg IM DAILY YEN Verapamil HCl (Calan Tab) 40 mg PO TID YEN Physical Exam - Constitutional Appears: Other (on the ventilator, sedated and paralyzed) - Head Exam Head Exam: NORMAL INSPECTION - ENT Exam Additional comments: ET tube in place - Respiratory Exam Respiratory Exam: Rales (scattered) - Cardiovascular Exam Cardiovascular Exam: +S1, +S2 - GI/Abdominal Exam GI & Abdominal Exam: Soft. absent: Tenderness Results - Vital Signs Recent Vital Signs: Last Vital Signs Temp 98.9 F 09/23/16 11:45 Pulse 105 H 09/23/16 16:04 Resp 33 H 09/23/16 17:20 BP 103/45 L 09/23/16 16:39 Pulse Ox 93 L 09/23/16 17:20 - Labs Result Diagrams: 09/24/16 06:10 09/24/16 06:10 Labs: Laboratory Results - last 24 hr 09/23/16 09/23/16 09/23/16 12:30 13:00 14:40 pCO2 37 49 H pO2 62.0 L 51.0 L HCO3 14.8 L 15.6 L ABG pH 7.21 L 7.11 L* ABG Total CO2 15.9 L 17.1 L ABG O2 Saturation 88.9 L 79.3 L ABG O2 Content 20.8 ABG Base Excess -12.3 L -13.8 L ABG Hemoglobin 17.2 ABG Carboxyhemoglobin 2.6 H POC ABG HHb (Measured) 10.7 H ABG Methemoglobin 0.7 ABG O2 Capacity 23.4 ABG Potassium 2.9 L VBG pH VBG pCO2 VBG HCO3 VBG Total CO2 VBG O2 Sat (Calc) VBG Base Excess VBG Potassium Hgb O2 Saturation 86.0 L Glucose 58 L Lactate 10.3 H* Mechanical Rate 16 FiO2 100.0 100.0 Tidal Volume 450 PEEP 10 Sodium 134 137.0 Potassium 2.7 L* Chloride 87 L 92.0 L Carbon Dioxide 21 Anion Gap 29 H BUN 9 Creatinine 1.2 Est GFR ( Amer) > 60 Est GFR (Non-Af Amer) > 60 Random Glucose 263 H Lactic Acid Calcium 8.3 L Magnesium 1.6 L Total Bilirubin 6.2 H AST 302 H ALT 94 H Alkaline Phosphatase 224 H Lactate Dehydrogenase 1317 H Total Creatine Kinase 367 H CK-MB (CK-2) 2.3 CK-MB (CK-2) % Cancelled Troponin I 0.09 NT-Pro-B Natriuret Pep 49817 H Total Protein 8.4 H Albumin 4.3 Globulin 4.1 Albumin/Globulin Ratio 1.0 L Arterial Blood Potassium 2.9 L Venous Blood Potassium Urine Color Urine Appearance Urine pH Ur Specific [place] Urine Protein Urine Glucose (UA) Urine Ketones Urine Blood Urine Nitrate Urine Bilirubin Urine Urobilinogen Ur Leukocyte Esterase Urine RBC Urine WBC Ur Epithelial Cells Coarse Granular Casts Urine Other 09/23/16 09/23/16 09/23/16 16:35 16:50 17:08 pCO2 34 L pO2 69.0 L 57 H HCO3 13.0 L ABG pH 7.19 L* ABG Total CO2 14.0 L ABG O2 Saturation 93.7 L ABG O2 Content ABG Base Excess -14.1 L ABG Hemoglobin ABG Carboxyhemoglobin POC ABG HHb (Measured) ABG Methemoglobin ABG O2 Capacity ABG Potassium 2.9 L VBG pH 7.16 L* VBG pCO2 41.0 VBG HCO3 14.6 L VBG Total CO2 15.9 L VBG O2 Sat (Calc) 87.5 H VBG Base Excess -13.5 L VBG Potassium 3.1 L Hgb O2 Saturation Glucose 50 L 52 L Lactate 10.5 H* 12.4 H* Mechanical Rate 20 FiO2 100.0 21.0 Tidal Volume 450 PEEP 12 Sodium 137.0 137.0 Potassium Chloride 98.0 93.0 L Carbon Dioxide Anion Gap BUN Creatinine Est GFR ( Amer) Est GFR (Non-Af Amer) Random Glucose Lactic Acid Calcium Magnesium Total Bilirubin AST ALT Alkaline Phosphatase Lactate Dehydrogenase Total Creatine Kinase CK-MB (CK-2) CK-MB (CK-2) % Troponin I NT-Pro-B Natriuret Pep Total Protein Albumin Globulin Albumin/Globulin Ratio Arterial Blood Potassium 2.9 L Venous Blood Potassium 3.1 L Urine Color Yellow Urine Appearance Turbid Urine pH 6.0 Ur Specific [place] >= 1.030 Urine Protein >=300 H Urine Glucose (UA) Negative Urine Ketones Negative Urine Blood Large H Urine Nitrate Negative Urine Bilirubin Small H Urine Urobilinogen 2.0 H Ur Leukocyte Esterase Mod H Urine RBC 20 - 25 Urine WBC 10 - 15 Ur Epithelial Cells 1 - 3 Coarse Granular Casts Mod H Urine Other Usperm 09/23/16 17:08 pCO2 pO2 HCO3 ABG pH ABG Total CO2 ABG O2 Saturation ABG O2 Content ABG Base Excess ABG Hemoglobin ABG Carboxyhemoglobin POC ABG HHb (Measured) ABG Methemoglobin ABG O2 Capacity ABG Potassium VBG pH VBG pCO2 VBG HCO3 VBG Total CO2 VBG O2 Sat (Calc) VBG Base Excess VBG Potassium Hgb O2 Saturation Glucose Lactate Mechanical Rate FiO2 Tidal Volume PEEP Sodium Potassium Chloride Carbon Dioxide Anion Gap BUN Creatinine Est GFR ( Amer) Est GFR (Non-Af Amer) Random Glucose Lactic Acid 9.5 H* Calcium Magnesium Total Bilirubin AST ALT Alkaline Phosphatase Lactate Dehydrogenase Total Creatine Kinase CK-MB (CK-2) CK-MB (CK-2) % Troponin I NT-Pro-B Natriuret Pep Total Protein Albumin Globulin Albumin/Globulin Ratio Arterial Blood Potassium Venous Blood Potassium Urine Color Urine Appearance Urine pH Ur Specific [place] Urine Protein Urine Glucose (UA) Urine Ketones Urine Blood Urine Nitrate Urine Bilirubin Urine Urobilinogen Ur Leukocyte Esterase Urine RBC Urine WBC Ur Epithelial Cells Coarse Granular Casts Urine Other Assessment & Plan - Assessment and Plan (Free Text) Plan: Assessment systemic inflammatory response syndrome, consider due to acute decompensated heart failure with pulmonary edema, R/O severe sepsis with ventilator-dependent respiratory failure and acute renal failure from severe community-acquired pneumonia alcohol abuse and alcoholic liver disease CAD chronic CHF S/P pacemaker placement HTN Plan Gave a dose of IV Vancomycin and started Cefepime and Zithromax pending blood, sputum cx, urine Legionella Ag, PCT (which may be elevated because of the renal failure); reviewed CXR and will review repeat xrays will monitor clinically
[2016-09-24 10:20] LABS: ALB/GLOB RATIO 0.9 (1.1-1.8); BILIRUBIN,TOTAL 5.3 mg/dL (0.2-1.3); CALCIUM 7.8 mg/dL (8.4-10.5); MAGNESIUM 1.5 mg/dL (1.7-2.2); PHOSPHOROUS 6.8 mg/dL (2.5-4.5); POTASSIUM 4.3 mmol/L (3.6-5.0); TOTAL PROTEIN 6.4 g/dL (5.8-8.3)
--- NOTE | 2016-09-24 10:43 | RAD ---
HISTORY: F/U pulmonary edema COMPARISON: Earlier same day FINDINGS: LUNGS: Bilateral infiltrates are seen right greater than left. The findings are unchanged PLEURA: No significant pleural effusion identified, no pneumothorax apparent. CARDIOVASCULAR: Mild cardiomegaly OSSEOUS STRUCTURES: No significant abnormalities. VISUALIZED UPPER ABDOMEN: Normal. OTHER FINDINGS: Endotracheal tube and nasogastric tube in satisfactory position IMPRESSION: Bilateral infiltrates are seen right greater than left. The findings are unchanged
[2016-09-24] MEDS ORDERED: Phytonadione 10 mg/ml Inj (Adult) SC ONE (11:07)
--- NOTE | 2016-09-24 11:18 | CP.PCM.HP ---
History of Present Illness - History of Present Illness History of Present Illness: 61 yo male h/o alcoholic cardiomyopathy presents with vent failure, pulm edema, hemoptysis. Went on recent binge after in family. History of vent arrythmai s/b implanted defibrilator, COPD, alcoholic liver disease. Pt intubated and sedated at present Present on Admission - Present on Admission Any Indicators Present on Admission: No Past Patient History - Past Medical History & Family History Past Medical History?: No - Past Social History Smoking Status: Never Smoked Alcohol: > 2 Drinks/Day - CARDIAC Hx Cardiac Disorders: Yes Hx Congestive Heart Failure: Yes - PULMONARY Hx Respiratory Disorders: Yes Other/Comment: URI - MUSCULOSKELETAL/RHEUMATOLOGICAL Hx Falls: (UNKNOWN) - GASTROINTESTINAL Hx Gastrointestinal Disorders: Yes (HERNIORHAPPHY) - PSYCHIATRIC Hx Substance Use: No - SURGICAL HISTORY Hx Surgeries: Yes Hx Cardiac Catheterization: Yes Meds Allergies/Adverse Reactions: Allergies Allergy/AdvReac Type Severity Reaction Status Date / Time No Known Allergies Allergy Verified 09/23/16 17:21 Physical Exam - Constitutional Appears: Toxic - Head Exam Head Exam: ATRAUMATIC, NORMOCEPHALIC - Neck Exam Neck exam: Positive for: Normal Inspection - Respiratory Exam Respiratory Exam: Rales, Rhonchi - Cardiovascular Exam Cardiovascular Exam: Tachycardia - GI/Abdominal Exam GI & Abdominal Exam: Diminished Bowel Sounds - Extremities Exam Extremities exam: Positive for: pedal edema - Neurological Exam Neurological exam: Altered - Skin Skin Exam: Pallor Results - Vital Signs Recent Vital Signs: Last Vital Signs Temp 98.9 F 09/23/16 19:00 Pulse 92 H 09/24/16 08:20 Resp 24 09/24/16 07:29 BP 88/50 L 09/24/16 08:48 Pulse Ox 100 09/24/16 08:20 - Labs Result Diagrams: 09/24/16 06:10 09/24/16 06:10 Labs: Laboratory Results - last 24 hr 09/23/16 09/23/16 09/23/16 12:30 13:00 14:40 WBC RBC Hgb Hct MCV MCH MCHC RDW Plt Count MPV Neutrophils % (Manual) Band Neutrophils % Lymphocytes % (Manual) Monocytes % (Manual) Metamyelocytes % Myelocytes % Platelet Evaluation Macrocytosis (manual) PT INR APTT pCO2 37 49 H pO2 62.0 L 51.0 L HCO3 14.8 L 15.6 L ABG pH 7.21 L 7.11 L* ABG Total CO2 15.9 L 17.1 L ABG O2 Saturation 88.9 L 79.3 L ABG O2 Content 20.8 ABG Base Excess -12.3 L -13.8 L ABG Hemoglobin 17.2 ABG Carboxyhemoglobin 2.6 H POC ABG HHb (Measured) 10.7 H ABG Methemoglobin 0.7 ABG O2 Capacity 23.4 ABG Potassium 2.9 L VBG pH VBG pCO2 VBG HCO3 VBG Total CO2 VBG O2 Sat (Calc) VBG Base Excess VBG Potassium Hgb O2 Saturation 86.0 L Glucose 58 L Lactate 10.3 H* Mechanical Rate 16 FiO2 100.0 100.0 Tidal Volume 450 PEEP 10 Sodium 134 137.0 Potassium 2.7 L* Chloride 87 L 92.0 L Carbon Dioxide 21 Anion Gap 29 H BUN 9 Creatinine 1.2 Est GFR ( Amer) > 60 Est GFR (Non-Af Amer) > 60 Random Glucose 263 H Lactic Acid Calcium 8.3 L Phosphorus Magnesium 1.6 L Total Bilirubin 6.2 H AST 302 H ALT 94 H Alkaline Phosphatase 224 H Lactate Dehydrogenase 1317 H Total Creatine Kinase 367 H CK-MB (CK-2) 2.3 CK-MB (CK-2) % Cancelled Troponin I 0.09 NT-Pro-B Natriuret Pep 27594 H Total Protein 8.4 H Albumin 4.3 Globulin 4.1 Albumin/Globulin Ratio 1.0 L Triglycerides Cholesterol LDL Cholesterol Direct HDL Cholesterol Procalcitonin TSH 3rd Generation Arterial Blood Potassium 2.9 L Venous Blood Potassium Urine Color Urine Appearance Urine pH Ur Specific [place] Urine Protein Urine Glucose (UA) Urine Ketones Urine Blood Urine Nitrate Urine Bilirubin Urine Urobilinogen Ur Leukocyte Esterase Urine RBC Urine WBC Ur Epithelial Cells Coarse Granular Casts Urine Other 09/23/16 09/23/16 09/23/16 16:35 16:50 17:08 WBC RBC Hgb Hct MCV MCH MCHC RDW Plt Count MPV Neutrophils % (Manual) Band Neutrophils % Lymphocytes % (Manual) Monocytes % (Manual) Metamyelocytes % Myelocytes % Platelet Evaluation Macrocytosis (manual) PT INR APTT pCO2 34 L pO2 69.0 L HCO3 13.0 L ABG pH 7.19 L* ABG Total CO2 14.0 L ABG O2 Saturation 93.7 L ABG O2 Content ABG Base Excess -14.1 L ABG Hemoglobin ABG Carboxyhemoglobin POC ABG HHb (Measured) ABG Methemoglobin ABG O2 Capacity ABG Potassium 2.9 L VBG pH VBG pCO2 VBG HCO3 VBG Total CO2 VBG O2 Sat (Calc) VBG Base Excess VBG Potassium Hgb O2 Saturation Glucose 50 L Lactate 10.5 H* Mechanical Rate 20 FiO2 100.0 Tidal Volume 450 PEEP 12 Sodium 137.0 Potassium Chloride 98.0 Carbon Dioxide Anion Gap BUN Creatinine Est GFR ( Amer) Est GFR (Non-Af Amer) Random Glucose Lactic Acid Calcium Phosphorus Magnesium 1.4 L Total Bilirubin AST ALT Alkaline Phosphatase Lactate Dehydrogenase Total Creatine Kinase CK-MB (CK-2) CK-MB (CK-2) % Troponin I 0.69 H* D NT-Pro-B Natriuret Pep Total Protein Albumin Globulin Albumin/Globulin Ratio Triglycerides Cholesterol LDL Cholesterol Direct HDL Cholesterol Procalcitonin TSH 3rd Generation Arterial Blood Potassium 2.9 L Venous Blood Potassium Urine Color Yellow Urine Appearance Turbid Urine pH 6.0 Ur Specific [place] >= 1.030 Urine Protein >=300 H Urine Glucose (UA) Negative Urine Ketones Negative Urine Blood Large H Urine Nitrate Negative Urine Bilirubin Small H Urine Urobilinogen 2.0 H Ur Leukocyte Esterase Mod H Urine RBC 20 - 25 Urine WBC 10 - 15 Ur Epithelial Cells 1 - 3 Coarse Granular Casts Mod H Urine Other Usperm 09/23/16 09/23/16 09/23/16 17:08 17:08 17:08 WBC 10.8 RBC 4.29 Hgb 16.2 Hct 45.9 MCV 107.0 H D MCH 37.8 H MCHC 35.3 RDW 14.1 Plt Count 109 L MPV 11.9 H Neutrophils % (Manual) 79 H Band Neutrophils % 8 H Lymphocytes % (Manual) 4 L Monocytes % (Manual) 9 H Metamyelocytes % Myelocytes % Platelet Evaluation Low Macrocytosis (manual) Slight PT INR APTT pCO2 pO2 57 H HCO3 ABG pH ABG Total CO2 ABG O2 Saturation ABG O2 Content ABG Base Excess ABG Hemoglobin ABG Carboxyhemoglobin POC ABG HHb (Measured) ABG Methemoglobin ABG O2 Capacity ABG Potassium VBG pH 7.16 L* VBG pCO2 41.0 VBG HCO3 14.6 L VBG Total CO2 15.9 L VBG O2 Sat (Calc) 87.5 H VBG Base Excess -13.5 L VBG Potassium 3.1 L Hgb O2 Saturation Glucose 52 L Lactate 12.4 H* Mechanical Rate FiO2 21.0 Tidal Volume PEEP Sodium 137.0 136 Potassium 3.0 L Chloride 93.0 L 97 L Carbon Dioxide 13 L Anion Gap 29 H BUN 12 Creatinine 1.3 Est GFR ( Amer) > 60 Est GFR (Non-Af Amer) 56 Random Glucose 50 L Lactic Acid Calcium 8.3 L Phosphorus Magnesium Total Bilirubin 5.6 H AST 398 H ALT 125 H Alkaline Phosphatase 191 H Lactate Dehydrogenase Total Creatine Kinase CK-MB (CK-2) CK-MB (CK-2) % Troponin I NT-Pro-B Natriuret Pep Total Protein 7.3 Albumin 3.5 Globulin 3.8 Albumin/Globulin Ratio 0.9 L Triglycerides Cholesterol LDL Cholesterol Direct HDL Cholesterol Procalcitonin TSH 3rd Generation Arterial Blood Potassium Venous Blood Potassium 3.1 L Urine Color Urine Appearance Urine pH Ur Specific [place] Urine Protein Urine Glucose (UA) Urine Ketones Urine Blood Urine Nitrate Urine Bilirubin Urine Urobilinogen Ur Leukocyte Esterase Urine RBC Urine WBC Ur Epithelial Cells Coarse Granular Casts Urine Other 09/23/16 09/23/16 09/23/16 17:08 17:08 17:08 WBC RBC Hgb Hct MCV MCH MCHC RDW Plt Count MPV Neutrophils % (Manual) Band Neutrophils % Lymphocytes % (Manual) Monocytes % (Manual) Metamyelocytes % Myelocytes % Platelet Evaluation Macrocytosis (manual) PT 34.2 H* INR 3.17 H APTT 58.2 H pCO2 pO2 HCO3 ABG pH ABG Total CO2 ABG O2 Saturation ABG O2 Content ABG Base Excess ABG Hemoglobin ABG Carboxyhemoglobin POC ABG HHb (Measured) ABG Methemoglobin ABG O2 Capacity ABG Potassium VBG pH VBG pCO2 VBG HCO3 VBG Total CO2 VBG O2 Sat (Calc) VBG Base Excess VBG Potassium Hgb O2 Saturation Glucose Lactate Mechanical Rate FiO2 Tidal Volume PEEP Sodium Potassium Chloride Carbon Dioxide Anion Gap BUN Creatinine Est GFR ( Amer) Est GFR (Non-Af Amer) Random Glucose Lactic Acid 9.5 H* Calcium Phosphorus Magnesium Total Bilirubin AST ALT Alkaline Phosphatase Lactate Dehydrogenase Total Creatine Kinase CK-MB (CK-2) CK-MB (CK-2) % Troponin I NT-Pro-B Natriuret Pep Total Protein Albumin Globulin Albumin/Globulin Ratio Triglycerides Cholesterol LDL Cholesterol Direct HDL Cholesterol Procalcitonin 15.38 H TSH 3rd Generation Arterial Blood Potassium Venous Blood Potassium Urine Color Urine Appearance Urine pH Ur Specific [place] Urine Protein Urine Glucose (UA) Urine Ketones Urine Blood Urine Nitrate Urine Bilirubin Urine Urobilinogen Ur Leukocyte Esterase Urine RBC Urine WBC Ur Epithelial Cells Coarse Granular Casts Urine Other 09/24/16 09/24/16 09/24/16 01:30 05:20 06:00 WBC RBC Hgb Hct MCV MCH MCHC RDW Plt Count MPV Neutrophils % (Manual) Band Neutrophils % Lymphocytes % (Manual) Monocytes % (Manual) Metamyelocytes % Myelocytes % Platelet Evaluation Macrocytosis (manual) PT INR APTT pCO2 40 pO2 144.0 H HCO3 17.1 L ABG pH 7.24 L ABG Total CO2 18.3 L ABG O2 Saturation 99.8 H ABG O2 Content ABG Base Excess -9.8 L ABG Hemoglobin ABG Carboxyhemoglobin POC ABG HHb (Measured) ABG Methemoglobin ABG O2 Capacity ABG Potassium 4.1 VBG pH VBG pCO2 VBG HCO3 VBG Total CO2 VBG O2 Sat (Calc) VBG Base Excess VBG Potassium Hgb O2 Saturation Glucose 103 Lactate 7.4 H* Mechanical Rate FiO2 60.0 Tidal Volume PEEP Sodium 136 135.0 135 Potassium 3.8 4.3 Chloride 98 100.0 98 Carbon Dioxide 19 L 16 L Anion Gap 23 H 25 H BUN 16 18 Creatinine 1.7 H 2.0 H Est GFR ( Amer) 50 41 Est GFR (Non-Af Amer) 41 34 Random Glucose 83 94 Lactic Acid Calcium 7.7 L 7.8 L Phosphorus 6.8 H Magnesium 1.5 L Total Bilirubin 5.4 H 5.3 H AST 432 H 419 H ALT 137 H 134 H Alkaline Phosphatase 141 H 132 Lactate Dehydrogenase Total Creatine Kinase CK-MB (CK-2) CK-MB (CK-2) % Troponin I NT-Pro-B Natriuret Pep Total Protein 6.3 6.4 Albumin 2.9 L 2.9 L Globulin 3.4 3.4 Albumin/Globulin Ratio 0.9 L 0.9 L Triglycerides 161 H Cholesterol 87 L LDL Cholesterol Direct 36 HDL Cholesterol 29 Procalcitonin TSH 3rd Generation Arterial Blood Potassium 4.1 Venous Blood Potassium Urine Color Urine Appearance Urine pH Ur Specific [place] Urine Protein Urine Glucose (UA) Urine Ketones Urine Blood Urine Nitrate Urine Bilirubin Urine Urobilinogen Ur Leukocyte Esterase Urine RBC Urine WBC Ur Epithelial Cells Coarse Granular Casts Urine Other 09/24/16 09/24/16 09/24/16 06:10 06:10 06:10 WBC 12.0 H RBC 4.16 Hgb 14.6 Hct 43.4 MCV 104.3 MCH 35.1 H MCHC 33.6 RDW 14.1 Plt Count 70 L MPV 11.1 H Neutrophils % (Manual) 59 Band Neutrophils % 7 H Lymphocytes % (Manual) 5 L Monocytes % (Manual) 24 H Metamyelocytes % 4 Myelocytes % 1 Platelet Evaluation Macrocytosis (manual) Slight PT INR APTT pCO2 pO2 95 H HCO3 ABG pH ABG Total CO2 ABG O2 Saturation ABG O2 Content ABG Base Excess ABG Hemoglobin ABG Carboxyhemoglobin POC ABG HHb (Measured) ABG Methemoglobin ABG O2 Capacity ABG Potassium VBG pH 7.19 L* VBG pCO2 49.0 VBG HCO3 18.7 L VBG Total CO2 20.2 L VBG O2 Sat (Calc) 98.8 H VBG Base Excess -9.6 L VBG Potassium 4.3 Hgb O2 Saturation Glucose 104 Lactate 8.9 H* Mechanical Rate FiO2 21.0 Tidal Volume PEEP Sodium 134.0 Potassium Chloride 96.0 L Carbon Dioxide Anion Gap BUN Creatinine Est GFR ( Amer) Est GFR (Non-Af Amer) Random Glucose Lactic Acid Calcium Phosphorus Magnesium Total Bilirubin AST ALT Alkaline Phosphatase Lactate Dehydrogenase Total Creatine Kinase CK-MB (CK-2) CK-MB (CK-2) % Troponin I NT-Pro-B Natriuret Pep Total Protein Albumin Globulin Albumin/Globulin Ratio Triglycerides Cholesterol LDL Cholesterol Direct HDL Cholesterol Procalcitonin TSH 3rd Generation 0.81 Arterial Blood Potassium Venous Blood Potassium 4.3 Urine Color Urine Appearance Urine pH Ur Specific [place] Urine Protein Urine Glucose (UA) Urine Ketones Urine Blood Urine Nitrate Urine Bilirubin Urine Urobilinogen Ur Leukocyte Esterase Urine RBC Urine WBC Ur Epithelial Cells Coarse Granular Casts Urine Other 09/24/16 09/24/16 06:10 06:10 WBC RBC Hgb Hct MCV MCH MCHC RDW Plt Count MPV Neutrophils % (Manual) Band Neutrophils % Lymphocytes % (Manual) Monocytes % (Manual) Metamyelocytes % Myelocytes % Platelet Evaluation Macrocytosis (manual) PT INR APTT pCO2 pO2 HCO3 ABG pH ABG Total CO2 ABG O2 Saturation ABG O2 Content ABG Base Excess ABG Hemoglobin ABG Carboxyhemoglobin POC ABG HHb (Measured) ABG Methemoglobin ABG O2 Capacity ABG Potassium VBG pH VBG pCO2 VBG HCO3 VBG Total CO2 VBG O2 Sat (Calc) VBG Base Excess VBG Potassium Hgb O2 Saturation Glucose Lactate Mechanical Rate FiO2 Tidal Volume PEEP Sodium 136 Potassium 4.3 Chloride 98 Carbon Dioxide 17 L Anion Gap 25 H BUN 18 Creatinine 2.0 H Est GFR ( Amer) 41 Est GFR (Non-Af Amer) 34 Random Glucose 91 Lactic Acid Calcium 7.8 L Phosphorus Magnesium Total Bilirubin 5.5 H AST 401 H ALT 138 H Alkaline Phosphatase 128 Lactate Dehydrogenase 1186 H Total Creatine Kinase 477 H CK-MB (CK-2) 8.3 H CK-MB (CK-2) % 1.7 L Troponin I 1.37 H* D NT-Pro-B Natriuret Pep Total Protein 6.4 Albumin 3.0 Globulin 3.3 Albumin/Globulin Ratio 0.9 L Triglycerides Cholesterol LDL Cholesterol Direct HDL Cholesterol Procalcitonin TSH 3rd Generation Arterial Blood Potassium Venous Blood Potassium Urine Color Urine Appearance Urine pH Ur Specific [place] Urine Protein Urine Glucose (UA) Urine Ketones Urine Blood Urine Nitrate Urine Bilirubin Urine Urobilinogen Ur Leukocyte Esterase Urine RBC Urine WBC Ur Epithelial Cells Coarse Granular Casts Urine Other Assessment & Plan (1) Pulmonary edema Status: Acute (2) Alcoholic cardiomyopathy Status: Chronic (3) Ventilatory failure Status: Acute (4) Aspiration pneumonia Status: Acute (5) Disseminated intravascular coagulation Status: Acute (6) Alcohol abuse Status: Acute - Assessment and Plan (Free Text) Plan: continue mech vent/ICU, IV Abx, add clinda for anaerobic coverage, Vit K for coagulopathy, cardiology follow-up, prognosis poor, family aware - Date & Time Date: 09/24/16 Time: 11:00
[2016-09-24 11:36] LABS: ABG MECHANICAL RATE 24; ARTERIAL BLOOD GAS HCO3 16.2 mmol/L (21-28); ATERIAL BLOOD GAS PEEP 10
[2016-09-24 12:01] LABS: VENOUS BLOOD GAS BASE EXCESS -7.9 mmol/L (0.0-2.0); VENOUS BLOOD PH 7.28 (7.32-7.43)
--- NOTE | 2016-09-24 14:46 | CP.PCM.PN ---
<GIULIANO RODRIGUEZ - Last Filed: 09/24/16 14:59> Subjective - Date & Time of Evaluation Date of Evaluation: 09/24/16 Time of Evaluation: 07:30 - Subjective Subjective: Giuliano Rodriguez DO PGY1 - ICU Progress Note Patient seen and examined at bedside. Patient was admitted last night for hypoxic respiratory distress 2/2 ARDS vs cardiogenic pulmonary edema. Currently intubated, sedated and paralyzed on fentanyl, versed, and nimbex. Objective - Vital Signs/Intake and Output Vital Signs (last 24 hours): Temp Pulse Resp BP Pulse Ox 98.9 F 92 H 24 88/50 L 100 09/23/16 19:00 09/24/16 08:20 09/24/16 07:29 09/24/16 08:48 09/24/16 08:20 Intake and Output: 09/24/16 09/24/16 06:59 18:59 Intake Total 200 15 Balance 200 15 - Medications Medications: Current Medications Albuterol/Ipratropium (Duoneb 3 Mg/0.5 Mg (3 Ml) Ud) 3 ml IH [id number] [facility] Last Admin: 09/24/16 13:19 Dose: 3 ml Amiodarone HCl (Cordarone) 400 mg PO TID YEN Stop: 09/25/16 23:59 Last Admin: 09/23/16 18:45 Dose: 400 mg Amiodarone HCl (Cordarone) 200 mg PO DAILY [facility] Aspirin (Aspirin Supp) 600 mg RC DAILY [facility] Folic Acid (Folic Acid) 1 mg IVP DAILY [facility] Last Admin: 09/23/16 19:37 Dose: Not Given Furosemide (Lasix) 40 mg IV 0800,1400 [facility] Last Admin: 09/24/16 08:48 Dose: 40 mg Propofol (Diprivan) 1,000 mg in 100 mls @ 2.395 mls/hr IV .Q24H PRN; Protocol; 5 MCG/KG/MIN PRN Reason: TITRATE PER MD ORDER Last Titration: 09/24/16 08:20 Dose: 18 mcg/kg/min, 8.622 mls/hr [id number] IVPB 100mg in NS (Cardizem 100mg In Ns) 100 mls @ 5 mls/hr IV .Q20H PRN; Protocol; 5 MG/HR PRN Reason: TITRATE PER MD ORDER Last Titration: 09/24/16 01:21 Dose: Infused Midazolam 100 mg/100ml in NS (Midazolam 100 Mg/100ml In Ns) 100 mg in 100 mls @ 2 mls/hr IV .Q24H PRN; Protocol; 2 MG/HR PRN Reason: Sedation Last Admin: 09/23/16 18:30 Dose: 2 mg/hr, 2 mls/hr Azithromycin (Zithromax 500mg In Ns) 500 mg in 250 mls @ 167 mls/hr IVPB DAILY YEN PRN Reason: Protocol Cefepime HCl (Maxipime 2gm) 2 gm in 100 mls @ 100 mls/hr IVPB Q8 YEN PRN Reason: Protocol Stop: 09/28/16 22:01 Last Admin: 09/24/16 05:47 Dose: 100 mls/hr Cisatracurium Besylate 100 mg/ (Sodium Chloride) 260 mls @ 24.9 mls/hr IV .[id number] PRN; 2 MCG/KG/MIN PRN Reason: TITRATE PER MD ORDER Last Admin: 09/23/16 18:58 Dose: 24.9 mls/hr Milrinone Lactate/Dextrose (Primacor 20mg/100ml D5w) 100 mls @ 5.987 mls/hr IV .[id number] PRN; Protocol; 0.25 MCG/KG/MIN PRN Reason: TITRATE PER MD ORDER Last Admin: 09/23/16 23:10 Dose: 0.25 mcg/kg/min, 5.987 mls/hr Clindamycin Phosphate 600 mg/ (Sodium Chloride) 54 mls @ 102 mls/hr IVPB Q8 YEN PRN Reason: Protocol Heparin Sodium/Dextrose (Heparin 25,000 Units/250ml In D5w) 25,000 units in 250 mls @ 9.58 mls/hr IV .Q24H YEN; 12 UNITS/KG/HR PRN Reason: Protocol Lisinopril (Zestril) 2.5 mg PO DAILY [facility] Pantoprazole Sodium (Protonix Inj) 40 mg IVP DAILY [facility] Last Admin: 09/24/16 09:02 Dose: 40 mg Spironolactone (Aldactone) 25 mg PO BID [facility] Last Admin: 09/23/16 18:45 Dose: 25 mg Thiamine HCl (Vitamin B1 Inj) 100 mg IM DAILY YEN Last Admin: 09/24/16 09:02 Dose: 100 mg - Labs Labs: 09/24/16 06:10 09/24/16 06:10 PT 34.2 Seconds (9.9-11.8) H* 09/23/16 17:08 INR 3.17 (0.93-1.08) H 09/23/16 17:08 APTT 54.7 Seconds (23.7-30.8) H 09/24/16 11:40 - Constitutional Appears: Other (Currently sedated, intubated.) - Head Exam Head Exam: ATRAUMATIC, NORMOCEPHALIC - Eye Exam Eye Exam: PERRL Additional comments: Conjunctival edema - ENT Exam ENT Exam: Mucous Membranes Moist Additional comments: Currently intubated - Respiratory Exam Additional comments: Currently intubated, PRVC 45%/ - Cardiovascular Exam Cardiovascular Exam: Tachycardia, RRR, +S1, +S2 - GI/Abdominal Exam GI & Abdominal Exam: Soft. absent: Firm, Guarding, Rigid - Extremities Exam Extremities Exam: Normal Inspection. absent: Pedal Edema - Neurological Exam Additional comments: Sedated on fentanyl and versed - Skin Skin Exam: Dry, Intact Assessment and Plan - Assessment and Plan (Free Text) Assessment: 61 yo M with acute hypoxic respiratory failure 2/2 pulmonary edema vs ARDS, sepsis 2/2 PNA, acute decompensated CHF (LVEF 20% with severe pulm HTN) 2/2 NSTEMI vs arrhythmia vs PE in the setting of alcoholic cardiomyopathy, alcoholic hepatitis, and BARBRA. Neuro: - Patient is currently sedated on fentanyl and versed, with NMB on nimbex - Will d/c nimbex and wean off fentanyl and versed, and start propofol for sedation - Monitor neurological status CV: - Troponin 0.09>0.69>1.37, will continue trending - Repeat EKG shows wide complex NSR, with possible lateral wall ischemia - History of alcoholic cardiomyopathy. Echo completed yesterday shows LVEF 20% with severe tricuspid regurg and severe pulmonary HTN - Consider NSTEMI vs PE, will start heparin drip with bolus, ASA, plavix - Ordered LE venous duplex. Cannot order CTA due to renal status currently, will reconsider if renal status improves - Cardio (Chip) on consult, all recs appreciated - On amiodarone for vtach, milrinone for inotropic support, spironolactone - Maintain MAP>65 Pulm: - Acute hypoxic respiratory failure 2/2 pulmonary edema vs ARDS vs PE, improving - Currently intubated, PRVC 45%/24/10/400, on nimbex, which will be d/c'd - Question of flash pulmonary edema due to fluid overload in the setting of CHF vs ARDS vs PNA, but CXR today appears improved - On Duoneb PRN - Maintain O2 sat >90% - Continue with protective lung strategies, HOB>30 GI: - NG tube in place. Currently NPO except for meds. Will advance diet after extubation - Transaminitis, likely alcoholic hepatitis - Abdomen hyporesonant, distended, likely ascites 2/2 history of EtOH abuse, including recent binge drinking episode Renal: - BARBRA, likely prerenal 2/2 hypoperfusion and venous congestion 2/2 acute decompensation CHF - Poor urine output despite approximate 3L bolus and total 180mg Lasix, on milrinone drip - Will continue to hydrate gently, and diurese. Endo: - Maintain euglycemia with bg 140-180 Hem/Onc: - H/H stable - No signs of active bleeding - Mild thrombocytopenia, will continue to monitor ID: - SIRS, likely sepsis 2/2 CAP, vs ARDS vs acute decompensated CHF - Afebrile, mild leukocytosis, lactate downtrending - BCx no growth after 24hrs, UCx, Sputum Cx pending - On cleocin, cefepime, and zithromax - ID (Bubba) on consult, all recs appreciated. Ppx: Heparin drip covers for DVT, protonix for GI Seen, discussed, and reviewed with attending. <Onesimo OLIVAREZ,Inabo H - Last Filed: 09/24/16 18:34> Objective - Vital Signs/Intake and Output Vital Signs (last 24 hours): Temp Pulse Resp BP Pulse Ox 98.9 F 105 H 24 110/53 L 100 09/23/16 19:00 09/24/16 17:48 09/24/16 07:29 09/24/16 17:47 09/24/16 17:30 Intake and Output: 09/24/16 09/24/16 06:59 18:59 Intake Total 200 15 Balance 200 15 - Medications Medications: Current Medications Albuterol/Ipratropium (Duoneb 3 Mg/0.5 Mg (3 Ml) Ud) 3 ml IH [id number] [facility] Last Admin: 09/24/16 13:19 Dose: 3 ml Amiodarone HCl (Cordarone) 400 mg PO TID [facility] Stop: 09/25/16 23:59 Last Admin: 09/24/16 17:47 Dose: 400 mg Amiodarone HCl (Cordarone) 200 mg PO DAILY [facility] Artificial Tears (Artificial Tears Opht Oint) 0 gm OU Q2 PRN PRN Reason: Dry eyes Last Admin: 09/24/16 15:29 Dose: 1 applic Aspirin (Aspirin Chewable) 81 mg PO DAILY [facility] Clopidogrel Bisulfate (Plavix) 75 mg PO DAILY [facility] Last Admin: 09/24/16 17:48 Dose: 75 mg Folic Acid (Folic Acid) 1 mg IVP DAILY [facility] Last Admin: 09/24/16 16:26 Dose: 1 mg Furosemide (Lasix) 40 mg IV 0800,1400 [facility] Last Admin: 09/24/16 15:12 Dose: 40 mg Propofol (Diprivan) 1,000 mg in 100 mls @ 2.395 mls/hr IV .Q24H PRN; Protocol; 5 MCG/KG/MIN PRN Reason: TITRATE PER MD ORDER Last Titration: 09/24/16 08:20 Dose: 18 mcg/kg/min, 8.622 mls/hr Midazolam 100 mg/100ml in NS (Midazolam 100 Mg/100ml In Ns) 100 mg in 100 mls @ 2 mls/hr IV .Q24H PRN; Protocol; 2 MG/HR PRN Reason: Sedation Last Admin: 09/23/16 18:30 Dose: 2 mg/hr, 2 mls/hr Azithromycin (Zithromax 500mg In Ns) 500 mg in 250 mls @ 167 mls/hr IVPB DAILY [facility] PRN Reason: Protocol Last Admin: 09/24/16 10:00 Dose: 167 mls/hr Cefepime HCl (Maxipime 2gm) 2 gm in 100 mls @ 100 mls/hr IVPB Q8 YEN PRN Reason: Protocol Stop: 09/28/16 22:01 Last Admin: 09/24/16 15:00 Dose: 100 mls/hr Milrinone Lactate/Dextrose (Primacor 20mg/100ml D5w) 100 mls @ 5.987 mls/hr IV .[id number] PRN; Protocol; 0.25 MCG/KG/MIN PRN Reason: TITRATE PER MD ORDER Last Admin: 09/23/16 23:10 Dose: 0.25 mcg/kg/min, 5.987 mls/hr Clindamycin Phosphate 600 mg/ (Sodium Chloride) 54 mls @ 102 mls/hr IVPB Q8 YEN PRN Reason: Protocol Last Admin: 09/24/16 14:58 Dose: 102 mls/hr Heparin Sodium/Dextrose (Heparin 25,000 Units/250ml In D5w) 25,000 units in 250 mls @ 9.58 mls/hr IV .Q24H YEN; 12 UNITS/KG/HR PRN Reason: Protocol Last Admin: 09/24/16 15:25 Dose: 12 units/kg/hr, 9.58 mls/hr Pantoprazole Sodium (Protonix Inj) 40 mg IVP DAILY [facility] Last Admin: 09/24/16 09:02 Dose: 40 mg Spironolactone (Aldactone) 25 mg PO BID [facility] Last Admin: 09/24/16 17:46 Dose: 25 mg Thiamine HCl (Vitamin B1 Inj) 100 mg IM DAILY [facility] Last Admin: 09/24/16 09:02 Dose: 100 mg - Labs Labs: 09/24/16 06:10 09/24/16 06:10 PT 34.2 Seconds (9.9-11.8) H* 09/23/16 17:08 INR 3.17 (0.93-1.08) H 09/23/16 17:08 APTT 54.7 Seconds (23.7-30.8) H 09/24/16 11:40 Attending/Attestation - Attestation I have personally seen and examined this patient.: Yes I have fully participated in the care of the patient.: Yes I have reviewed all pertinent clinical information, including history, physical exam and plan: Yes Notes (Text): 09/24/16 18:25 61 y/o M admitted for Hypoxemic respiratory failure Presumed Cardiogenic Pulmonary edema w/ known low EF% and RV failure w/ Severe Pulm HTN On milrinone drip, heparin drip and Amiodarone . No further V-Tach noted. Post arrest 3 min , ROSC achieved. Barbra likely from ATN. Poor urine output oliguric. NSTEMI with elevated Troponin , unsure from post arrest, V-Tach or new ischemic coronary . Alcoholic liver Hepatitis w/ passive liver congestion. Hypoxemia improving on 40% 8 PEEP to keep Pao2> 55. Ph> 7.3 Lower ext doppler pending . cc nina e65 min
[2016-09-24] MEDS ORDERED: Sodium Chloride 0.9% 500 ML IV ONE (15:00)
[2016-09-24] MEDS ORDERED: Sodium Chloride 0.9% 500 ML IV STA (15:20)
[2016-09-24] MEDS: Heparin 25,000units in D5W 25,000 UNITS/250 ML BAG IV SCH (15:25)
[2016-09-24] MEDS: Mineral Oil/Petrolatum Opht Oint(3.5 gm) OU PRN (15:29)
[2016-09-24 15:30] LABS: VENOUS BLOOD GAS BASE EXCESS -4.5 mmol/L (0.0-2.0); VENOUS BLOOD PH 7.33 (7.32-7.43)
[2016-09-24] MEDS ORDERED: Magnesium Sulfate 2 GM in Sodium Chloride 0.9% 100 ML IVPB ONE (16:54)
[2016-09-24 18:10] LABS: ABG MECHANICAL RATE 24; ARTERIAL BLOOD GAS HCO3 19.9 mmol/L (21-28); ARTERIAL BLOOD GAS PH 7.35 (7.35-7.45); ATERIAL BLOOD GAS PEEP 10
--- NOTE | 2016-09-24 19:41 | US ---
HISTORY: Leg pain and swelling. Evaluate for DVT PHYSICIAN(S): Tyler Oleary MD. TECHNIQUE: Duplex sonography and color-flow Doppler with graded compression were used to evaluate the deep venous systems of both lower extremities. The exam is somewhat limited by edema. FINDINGS: The visualized deep venous systems of both lower extremities are sonographically normal and compressible. Normal wave forms and augmentation are seen. There is no sonographic evidence for deep venous thrombosis in the visualized segments of both lower extremities. IMPRESSION: No sonographic evidence for deep venous thrombosis in the visualized segments of both lower extremities.
--- NOTE | 2016-09-24 23:30 | CARD ---
APPROVED REPORT EKG Measurement Heart [id number] [id number] <Conclusion> Normal sinus rhythm Left axis deviation Nonspecific intraventricular block Possible Lateral infarct, age undetermined Abnormal ECG
[2016-09-25] MEDS: Albuterol-Ipratrop 3 mg / 0.5 (3 ml) UD IH SCH ×4 (02:35→19:15)
[2016-09-25] MEDS: Propofol 10 mg/ml 1,000 MG/100 ML VIAL IV PRN ×3 (02:38→22:32)
[2016-09-25] MEDS: Milrinone 20mg/100ml D5W 100 ML IV PRN (02:39)
[2016-09-25] MEDS: Cefepime IV 2 gm in NS 2 GM/100 ML BAG IVPB SCH ×3 (05:08→22:05)
[2016-09-25 05:39] LABS: HEMATOCRIT 36.1 % (42.0-52.0); MEAN CELL VOLUME 98.6 fl (80.0-105.0); MEAN CORPUSCULAR HEMOGLOBIN 34.4 pg (25.0-35.0); MEAN CORPUSCULAR HGB CONC 34.9 g/dl (31.0-37.0); MEAN PLATELET VOLUME 11.3 fl (7.0-11.0); PLATELET COUNT 77 10^3/uL (120.0-450.0); RED CELL DISTRIBUTION WIDTH 13.6 % (11.5-14.5); WHITE BLOOD COUNT 13.9 10^3/ul (4.5-11.0)
[2016-09-25 05:50] LABS: BILIRUBIN,TOTAL 5.8 mg/dL (0.2-1.3); CALCIUM 8.1 mg/dL (8.4-10.5); POTASSIUM 3.7 mmol/L (3.6-5.0); TOTAL PROTEIN 5.8 g/dL (5.8-8.3)
[2016-09-25 05:54] LABS: ADD MANUAL DIFF? YES
[2016-09-25 06:05] LABS: ARTERIAL BLOOD GAS HCO3 22.3 mmol/L (21-28)
[2016-09-25 07:56] LABS: NEUTROPHIL 77 % (50.0-70.0)
[2016-09-25 07:57] LABS: MYELOCYTE 2 %
[2016-09-25 07:58] LABS: GIANT PLATELETS PRESENT
[2016-09-25 07:59] LABS: PLATELET ESTIMATE LOW (NORMAL)
[2016-09-25 08:00] LABS: BAND 8 % (0-2)
[2016-09-25] MEDS: Azithromycin 500MG/NS 250ml 500 MG/250 ML BAG IVPB SCH (09:25)
--- NOTE | 2016-09-25 09:29 | CP.PCM.PN ---
Subjective - Date & Time of Evaluation Date of Evaluation: 09/25/16 Time of Evaluation: 09:00 - Subjective Subjective: on vent, sedated Objective - Vital Signs/Intake and Output Vital Signs (last 24 hours): Temp Pulse Resp BP Pulse Ox 98.3 F 111 H 24 109/55 L 98 09/25/16 04:00 09/25/16 05:38 09/24/16 07:29 09/25/16 05:30 09/25/16 05:30 Intake and Output: 09/25/16 09/25/16 06:59 18:59 Intake Total 1930 215 Output Total 600 Balance 1330 215 - Medications Medications: Current Medications Albuterol/Ipratropium (Duoneb 3 Mg/0.5 Mg (3 Ml) Ud) 3 ml IH [id number] [facility] Last Admin: 09/25/16 08:19 Dose: 3 ml Amiodarone HCl (Cordarone) 400 mg PO TID [facility] Stop: 09/25/16 23:59 Last Admin: 09/24/16 17:47 Dose: 400 mg Amiodarone HCl (Cordarone) 200 mg PO DAILY [facility] Artificial Tears (Artificial Tears Opht Oint) 0 gm OU Q2 PRN PRN Reason: Dry eyes Last Admin: 09/24/16 15:29 Dose: 1 applic Aspirin (Aspirin Chewable) 81 mg PO DAILY [facility] Clopidogrel Bisulfate (Plavix) 75 mg PO DAILY [facility] Last Admin: 09/24/16 17:48 Dose: 75 mg Folic Acid (Folic Acid) 1 mg IVP DAILY [facility] Last Admin: 09/24/16 16:26 Dose: 1 mg Furosemide (Lasix) 40 mg IV 0800,1400 [facility] Last Admin: 09/24/16 15:12 Dose: 40 mg Propofol (Diprivan) 1,000 mg in 100 mls @ 2.395 mls/hr IV .Q24H PRN; Protocol; 5 MCG/KG/MIN PRN Reason: TITRATE PER MD ORDER Last Admin: 09/25/16 02:38 Dose: 20 mcg/kg/min, 9.58 mls/hr Midazolam 100 mg/100ml in NS (Midazolam 100 Mg/100ml In Ns) 100 mg in 100 mls @ 2 mls/hr IV .Q24H PRN; Protocol; 2 MG/HR PRN Reason: Sedation Last Admin: 09/23/16 18:30 Dose: 2 mg/hr, 2 mls/hr Azithromycin (Zithromax 500mg In Ns) 500 mg in 250 mls @ 167 mls/hr IVPB DAILY YEN PRN Reason: Protocol Last Admin: 09/24/16 10:00 Dose: 167 mls/hr Cefepime HCl (Maxipime 2gm) 2 gm in 100 mls @ 100 mls/hr IVPB Q8 YEN PRN Reason: Protocol Stop: 09/28/16 22:01 Last Admin: 09/25/16 05:08 Dose: 100 mls/hr Milrinone Lactate/Dextrose (Primacor 20mg/100ml D5w) 100 mls @ 5.987 mls/hr IV .[id number] PRN; Protocol; 0.25 MCG/KG/MIN PRN Reason: TITRATE PER MD ORDER Last Admin: 09/25/16 02:39 Dose: 0.25 mcg/kg/min, 5.987 mls/hr Heparin Sodium/Dextrose (Heparin 25,000 Units/250ml In D5w) 25,000 units in 250 mls @ 9.58 mls/hr IV .Q24H YEN; 12 UNITS/KG/HR PRN Reason: Protocol Last Titration: 09/25/16 07:45 Dose: 4 units/kg/hr, 3.193 mls/hr Metronidazole (Flagyl) 500 mg in 100 mls @ 100 mls/hr IVPB Q8 YEN PRN Reason: Protocol Pantoprazole Sodium (Protonix Inj) 40 mg IVP DAILY YEN Last Admin: 09/24/16 09:02 Dose: 40 mg Spironolactone (Aldactone) 25 mg PO BID YEN Last Admin: 09/24/16 17:46 Dose: 25 mg Thiamine HCl (Vitamin B1 Inj) 100 mg IM DAILY YEN Last Admin: 09/24/16 09:02 Dose: 100 mg - Labs Labs: 09/25/16 05:00 09/25/16 05:00 PT 34.2 Seconds (9.9-11.8) H* 09/23/16 17:08 INR 3.17 (0.93-1.08) H 09/23/16 17:08 APTT 88.2 Seconds (23.7-30.8) H* 09/25/16 07:10 - Respiratory Exam Respiratory Exam: Rales Additional comments: ET tube intact - Cardiovascular Exam Cardiovascular Exam: Tachycardia - GI/Abdominal Exam GI & Abdominal Exam: Soft, Normal Bowel Sounds - Extremities Exam Extremities Exam: Pedal Edema - Neurological Exam Neurological Exam: Altered - Skin Skin Exam: Dry, Warm Assessment and Plan (1) Pulmonary edema Status: Acute (2) Alcoholic cardiomyopathy Status: Chronic (3) Ventilatory failure Status: Acute (4) Aspiration pneumonia Status: Acute (5) Disseminated intravascular coagulation Status: Acute (6) Alcohol abuse Status: Acute - Assessment and Plan (Free Text) Plan: cont vent support, IV Abx, cardiology follow-up, prognosis guarded, start enteral feeding
[2016-09-25 09:43] LABS: VENOUS BLOOD GAS BASE EXCESS 0.3 mmol/L (0.0-2.0); VENOUS BLOOD PH 7.39 (7.32-7.43)
[2016-09-25] MEDS: Thiamine 100 mg/ml Inj IM SCH (09:50)
--- NOTE | 2016-09-25 10:22 | CP.PCM.PN ---
Subjective - Date & Time of Evaluation Date of Evaluation: 09/25/16 Time of Evaluation: 10:00 - Subjective Subjective: Continues to be intubated and sedated. No fevers overnight. Objective - Vital Signs/Intake and Output Vital Signs (last 24 hours): Temp Pulse Resp BP Pulse Ox 98.3 F 103 H 24 113/60 98 09/25/16 04:00 09/25/16 09:53 09/24/16 07:29 09/25/16 09:53 09/25/16 09:50 Intake and Output: 09/25/16 09/25/16 06:59 18:59 Intake Total 1930 215 Output Total 600 Balance 1330 215 - Medications Medications: Current Medications Albuterol/Ipratropium (Duoneb 3 Mg/0.5 Mg (3 Ml) Ud) 3 ml IH [id number] [facility] Last Admin: 09/25/16 08:19 Dose: 3 ml Amiodarone HCl (Cordarone) 400 mg PO TID [facility] Stop: 09/25/16 23:59 Last Admin: 09/25/16 09:53 Dose: 400 mg Amiodarone HCl (Cordarone) 200 mg PO DAILY [facility] Artificial Tears (Artificial Tears Opht Oint) 0 gm OU Q2 PRN PRN Reason: Dry eyes Last Admin: 09/24/16 15:29 Dose: 1 applic Aspirin (Aspirin Chewable) 81 mg PO DAILY [facility] Last Admin: 09/25/16 09:53 Dose: 81 mg Clopidogrel Bisulfate (Plavix) 75 mg PO DAILY [facility] Last Admin: 09/25/16 09:52 Dose: 75 mg Folic Acid (Folic Acid) 1 mg IVP DAILY [facility] Last Admin: 09/24/16 16:26 Dose: 1 mg Furosemide (Lasix) 40 mg IV 0800,1400 [facility] Last Admin: 09/25/16 09:51 Dose: 40 mg Propofol (Diprivan) 1,000 mg in 100 mls @ 2.395 mls/hr IV .Q24H PRN; Protocol; 5 MCG/KG/MIN PRN Reason: TITRATE PER MD ORDER Last Admin: 09/25/16 02:38 Dose: 20 mcg/kg/min, 9.58 mls/hr Midazolam 100 mg/100ml in NS (Midazolam 100 Mg/100ml In Ns) 100 mg in 100 mls @ 2 mls/hr IV .Q24H PRN; Protocol; 2 MG/HR PRN Reason: Sedation Last Admin: 09/23/16 18:30 Dose: 2 mg/hr, 2 mls/hr Azithromycin (Zithromax 500mg In Ns) 500 mg in 250 mls @ 167 mls/hr IVPB DAILY YEN PRN Reason: Protocol Last Admin: 09/25/16 09:25 Dose: 167 mls/hr Cefepime HCl (Maxipime 2gm) 2 gm in 100 mls @ 100 mls/hr IVPB Q8 YEN PRN Reason: Protocol Stop: 09/28/16 22:01 Last Admin: 09/25/16 05:08 Dose: 100 mls/hr Milrinone Lactate/Dextrose (Primacor 20mg/100ml D5w) 100 mls @ 5.987 mls/hr IV .[id number] PRN; Protocol; 0.25 MCG/KG/MIN PRN Reason: TITRATE PER MD ORDER Last Admin: 09/25/16 02:39 Dose: 0.25 mcg/kg/min, 5.987 mls/hr Heparin Sodium/Dextrose (Heparin 25,000 Units/250ml In D5w) 25,000 units in 250 mls @ 9.58 mls/hr IV .Q24H YEN; 12 UNITS/KG/HR PRN Reason: Protocol Last Titration: 09/25/16 07:45 Dose: 4 units/kg/hr, 3.193 mls/hr Metronidazole (Flagyl) 500 mg in 100 mls @ 100 mls/hr IVPB Q8 YEN PRN Reason: Protocol Pantoprazole Sodium (Protonix Inj) 40 mg IVP DAILY YEN Last Admin: 09/25/16 09:50 Dose: 40 mg Spironolactone (Aldactone) 25 mg PO BID YEN Last Admin: 09/25/16 09:53 Dose: 25 mg Thiamine HCl (Vitamin B1 Inj) 100 mg IM DAILY YEN Last Admin: 09/25/16 09:50 Dose: 100 mg - Labs Labs: 09/25/16 05:00 09/25/16 05:00 PT 34.2 Seconds (9.9-11.8) H* 09/23/16 17:08 INR 3.17 (0.93-1.08) H 08/10/17 17:08 APTT 88.2 Seconds (23.7-30.8) H* 09/25/16 07:10 - Constitutional Appears: Other (Intubated, sedated and on the ventilator) - Head Exam Head Exam: NORMAL INSPECTION - ENT Exam Additional comments: ET tube in place - Neck Exam Neck Exam: absent: Meningismus - Respiratory Exam Respiratory Exam: Decreased Breath Sounds - Cardiovascular Exam Cardiovascular Exam: +S1, +S2 - GI/Abdominal Exam GI & Abdominal Exam: Soft. absent: Tenderness Assessment and Plan - Assessment and Plan (Free Text) Plan: Assessment systemic inflammatory response syndrome, consider due to acute decompensated heart failure with pulmonary edema, R/O severe sepsis with ventilator-dependent respiratory failure and acute renal failure from severe community-acquired pneumonia alcohol abuse and alcoholic liver disease CAD chronic CHF S/P pacemaker placement HTN Plan continue Cefepime and Zithromax and added Flagyl (day 2) pending final blood, sputum cx results (which are negative so far), urine Legionella Ag; PCT is elevated (but probably because of the renal failure); reviewed CXR and will review repeat xrays will continue to monitor clinically Patient continues to be in critical condition
--- NOTE | 2016-09-25 10:39 | RAD ---
HISTORY: Follow-up pneumonia COMPARISON: Multiple serial examinations preceding the most recent study: September 24, 2016. FINDINGS: LUNGS: Improving pulmonary infiltrates. PLEURA: No significant pleural effusion identified, no pneumothorax apparent. CARDIOVASCULAR: No radiographic findings to suggest acute or significant cardiovascular disease. Position/ configuration of pacemaker device: Satisfactory. OSSEOUS STRUCTURES: No significant abnormalities. VISUALIZED UPPER ABDOMEN: Normal. OTHER FINDINGS: Satisfactory position of endotracheal tube/nasogastric tube unchanged. IMPRESSION: Improving bilateral pulmonary infiltrates. Stable/ satisfactory position of support apparatus.
[2016-09-25 12:27] LABS: INR 2.25 (0.93-1.08); PARTIAL THROMBOPLASTIN TIME 65.8 Seconds (23.7-30.8)
[2016-09-25] MEDS: DOBUTamine 500mg/250ml D5W 500 MG/250 ML BAG IV PRN (12:29)
--- NOTE | 2016-09-25 13:48 | PN ---
DATE: 09/25/2016 CARBONIZER NOTE SUBJECTIVE: The patient is on ventilator of 40% FiO2 and unresponsive at this time. He is on sedation of Diprivan and is on IV heparin as well. Hemodynamically, the patient is stable. PHYSICAL EXAMINATION: VITAL SIGNS: Temperature is 98.3, pulse is 111, respirations are 14, BP is 109/55 and O2 saturation is 98%. HEENT: Head is atraumatic and normocephalic. Eyes reactive to light. Ears, nose and throat seem to be within normal limits. NECK: Supple. No JVD, no thyroid enlargement, no lymph nodes. HEART: Has regular rate and rhythm. Normal S1 and S2, but mildly tachycardic. LUNGS: Reveal good breath sounds bilaterally. ABDOMEN: Soft, nontender, normal bowel sounds. GENITALIA AND RECTAL: Deferred. MUSCULOSKELETAL: No joint deformities. EXTREMITIES: Reveal no significant edema. NEUROLOGIC: The patient is unresponsive, on a ventilator with sedation. LABORATORY DATA: White count is 13.9, hemoglobin is 12.6, hematocrit 36.1 with platelets of 177,000. Arterial blood gas reveals a pH of 7.40, pCO2 of 36, pO2 of 122. Sodium is 136, potassium 3.7, chloride 98, CO2 of 32 with a BUN of 35, creatinine of 3.0 and glucose of 99. Chest x-ray is pending. IMPRESSION: The patient has respiratory failure with pulmonary edema. The patient had an episode of cardiopulmonary resuscitation with ventricular tachycardia and has a history of acute tubular necrosis as well as liver disease. Note, the patient also has a history of ETOH abuse. He has coronary artery disease with past history of congestive heart failure. Noted cardiac ejection fraction being significantly decreased. The patient has a history of pacemaker being placed and hypotension. PLAN: We will continue with aspirin. The patient is getting spironolactone as well as amiodarone and bronchodilators of DuoNeb. He is on metronidazole as well as Zithromax and continues to get Protonix as well as Diprivan and milrinone. The patient is on antibiotics of cefepime, and he is getting Plavix and Lasix for appropriate diuresis. We will continue to treat aggressively along with the other consultants and the primary care doctor. Julio Rankin MD [facility] # [id number]
--- NOTE | 2016-09-25 15:10 | PN ---
CARDIOLOGY FOLLOWUP DATE: SUBJECTIVE: The patient is on a ventilator and sedated. PHYSICAL EXAMINATION: VITAL SIGNS: Blood pressure is 87 systolic, the heart rate is sinus tachycardia at 100. NECK: Negative JVD. LUNGS: Clear to auscultation. HEART: Reveal S1, S2. EXTREMITIES: Without edema. LABORATORY DATA: White count is 13.9, hemoglobin is 12.6. Chemistries: BUN is 35 with a creatinine of 3.0. LFTs are elevated. IMPRESSION: 1. Status post cardiopulmonary arrest. 2. End-stage dilated cardiomyopathy. 3. Hypotension. 4. Renal insufficiency. PLAN: Given these findings, we will discontinue his diuretics. Given his hypotension, we will change his milrinone to IV dobutamine. Tyler Chavira MD
[2016-09-25] MEDS: metroNIDAZOLE IV 500 mg/100 ml 500 MG/100 ML BAG IVPB SCH ×2 (16:10→22:05)
[2016-09-26] MEDS: Albuterol-Ipratrop 3 mg / 0.5 (3 ml) UD IH SCH ×4 (01:33→19:30)
[2016-09-26 05:55] LABS: ADD MANUAL DIFF? NO
[2016-09-26] MEDS: metroNIDAZOLE IV 500 mg/100 ml 500 MG/100 ML BAG IVPB SCH ×3 (06:01→22:05)
[2016-09-26] MEDS: Cefepime IV 2 gm in NS 2 GM/100 ML BAG IVPB SCH ×2 (06:01→18:23)
[2016-09-26 06:02] LABS: BASO # 0.03 K/mm3 (0.0-2.0); BASO % 0.2 % (0.0-3.0); EOS # 0.1 (0.0-0.7); EOS % 0.4 % (1.5-5.0); GRAN # 11.27 (1.4-6.5); GRAN % 86.3 % (50.0-68.0); HEMATOCRIT 33.7 % (42.0-52.0); LYMPH # 0.7 (1.2-3.4); LYMPH % 5.7 % (22.0-35.0); MEAN CELL VOLUME 97.1 fl (80.0-105.0); MEAN CORPUSCULAR HEMOGLOBIN 34.6 pg (25.0-35.0); MEAN CORPUSCULAR HGB CONC 35.6 g/dl (31.0-37.0); MEAN PLATELET VOLUME 11.2 fl (7.0-11.0); MONO % 7.4 % (1.0-6.0); PLATELET COUNT 73 10^3/uL (120.0-450.0); WHITE BLOOD COUNT 13.1 10^3/ul (4.5-11.0)
[2016-09-26 06:08] LABS: BILIRUBIN,TOTAL 6.2 mg/dL (0.2-1.3); CALCIUM 8.5 mg/dL (8.4-10.5); POTASSIUM 3.8 mmol/L (3.6-5.0); TOTAL PROTEIN 5.8 g/dL (5.8-8.3)
[2016-09-26 06:10] LABS: ARTERIAL BLOOD GAS HCO3 23.5 mmol/L (21-28)
[2016-09-26] MEDS: Mineral Oil/Petrolatum Opht Oint(3.5 gm) OU PRN ×2 (08:00→18:18)
[2016-09-26 08:11] LABS: MAGNESIUM 2.1 mg/dL (1.7-2.2); PHOSPHOROUS 4.1 mg/dL (2.5-4.5)
[2016-09-26] MEDS: Propofol 10 mg/ml 1,000 MG/100 ML VIAL IV PRN (08:13)
[2016-09-26] MEDS: DOBUTamine 500mg/250ml D5W 500 MG/250 ML BAG IV PRN (08:13)
[2016-09-26] MEDS: Heparin 25,000units in D5W 25,000 UNITS/250 ML BAG IV SCH ×2 (08:19→18:20)
[2016-09-26] MEDS: Azithromycin 500MG/NS 250ml 500 MG/250 ML BAG IVPB SCH (09:00)
--- NOTE | 2016-09-26 09:29 | PN ---
DATE: 09/26/2016 PUMP OPERATOR NOTE SUBJECTIVE: The patient is still on ventilator support and unresponsive, FiO2 of 40%. He is getting IV heparin and no noticeable blade changer the last 24 hours. PHYSICAL EXAMINATION: VITAL SIGNS: His temperature is 97.7, pulse is 102, respirations are 12 and his BP is 136/73. SKIN: Warm and dry. HEENT: Head is atraumatic and normocephalic. Eyes somewhat reactive to light. Ears, nose and throat seem to be within normal limits. NECK: Supple. No JVD, no thyroid enlargement, no lymph nodes. HEART: Has regular rate and rhythm. Normal S1 and S2, but tachycardic. LUNGS: Reveal mild rhonchi bilaterally. ABDOMEN: Soft, decreased bowel sounds. GENITALIA AND RECTAL: Deferred. MUSCULOSKELETAL: No joint deformities. EXTREMITIES: Reveal trace lower extremity edema. NEUROLOGIC: The patient is unresponsive, on a ventilator. LABORATORY DATA: White count is 13.1, hemoglobin is 12.0, hematocrit 33.7 with platelets of 73,000. Arterial blood gas reveals a pH of 7.40, pCO2 of 38, pO2 of 67. Sodium is 136, potassium 3.9, chloride 99, CO2 of 23 with a BUN of 56, creatinine of 3.9 and a glucose of 96. Chest x-ray is pending. IMPRESSION: The patient has respiratory failure with improving pulmonary edema. He is status post cardiopulmonary resuscitation secondary to ventricular tachycardia. The patient has increasing BUN and creatinine with acute tubular necrosis as well as liver disease. He has a history of ETOH abuse, coronary artery disease, congestive heart failure, pacemaker. The patient has respiratory failure and is ventilator dependent. PLAN: We will continue with vent support. Follow his chest x-ray and arterial blood gas closely. Continue with amiodarone and spironolactone as well as aspirin and DuoNeb. He is also getting metronidazole and Zithromax as well as Protonix and Diprivan and milrinone. The patient is on cefepime, Plavix and Lasix, and we will continue to treat along with the other consultants and the primary care doctor. Julio Rankin MD
[2016-09-26] MEDS: Thiamine 100 mg/ml Inj IM SCH (09:44)
[2016-09-26] MEDS ORDERED: Cefepime IV 2 gm in NS 2 GM/100 ML BAG IVPB SCH (10:00)
--- NOTE | 2016-09-26 12:17 | RAD ---
HISTORY: Follow-up pneumonia, edema. Portable study 06:29. COMPARISON: September 25, 2016. 05:04. Multiple serial examinations preceding the most recent study: FINDINGS: LUNGS: Stable bilateral pulmonary infiltrates bibasilar distribution. PLEURA: No significant interval change compared to the prior examination(s). CARDIOVASCULAR: Stable cardiomegaly. Position/ configuration of pacemaker device: Satisfactory. OSSEOUS STRUCTURES: No significant abnormalities. VISUALIZED UPPER ABDOMEN: Normal. OTHER FINDINGS: Stable position of endotracheal tube and nasogastric tube both in satisfactory position. IMPRESSION: No significant interval change compared to the prior examination(s).
--- NOTE | 2016-09-26 12:56 | CP.PCM.PN ---
Subjective - Date & Time of Evaluation Date of Evaluation: 09/26/16 Time of Evaluation: 12:30 - Subjective Subjective: on vent, sedated Objective - Vital Signs/Intake and Output Vital Signs (last 24 hours): Temp Pulse Resp BP Pulse Ox 97.7 F 102 H 24 126/70 98 09/25/16 16:36 09/26/16 09:50 09/24/16 07:29 09/26/16 09:43 09/26/16 09:50 Intake and Output: 09/26/16 09/26/16 06:59 18:59 Intake Total 100 1210 Output Total 925 Balance 100 285 - Medications Medications: Current Medications Albuterol/Ipratropium (Duoneb 3 Mg/0.5 Mg (3 Ml) Ud) 3 ml IH [id number] [facility] Last Admin: 09/26/16 07:52 Dose: 3 ml Amiodarone HCl (Cordarone) 200 mg PO DAILY [facility] Last Admin: 09/26/16 09:43 Dose: 200 mg Artificial Tears (Artificial Tears Opht Oint) 0 gm OU Q2 PRN PRN Reason: Dry eyes Last Admin: 09/24/16 15:29 Dose: 1 applic Aspirin (Aspirin Chewable) 81 mg PO DAILY [facility] Last Admin: 09/26/16 09:43 Dose: 81 mg Clopidogrel Bisulfate (Plavix) 75 mg PO DAILY [facility] Last Admin: 09/26/16 09:43 Dose: 75 mg Folic Acid (Folic Acid) 1 mg IVP DAILY [facility] Last Admin: 09/25/16 11:05 Dose: 1 mg Propofol (Diprivan) 1,000 mg in 100 mls @ 2.395 mls/hr IV .Q24H PRN; Protocol; 5 MCG/KG/MIN PRN Reason: TITRATE PER MD ORDER Last Admin: 09/26/16 08:13 Dose: 20 mcg/kg/min, 9.58 mls/hr Midazolam 100 mg/100ml in NS (Midazolam 100 Mg/100ml In Ns) 100 mg in 100 mls @ 2 mls/hr IV .Q24H PRN; Protocol; 2 MG/HR PRN Reason: Sedation Last Admin: 09/23/16 18:30 Dose: 2 mg/hr, 2 mls/hr Azithromycin (Zithromax 500mg In Ns) 500 mg in 250 mls @ 167 mls/hr IVPB DAILY YEN PRN Reason: Protocol Last Admin: 09/25/16 09:25 Dose: 167 mls/hr Heparin Sodium/Dextrose (Heparin 25,000 Units/250ml In D5w) 25,000 units in 250 mls @ 9.58 mls/hr IV .Q24H YEN; 12 UNITS/KG/HR PRN Reason: Protocol Last Admin: 09/26/16 08:19 Dose: 4 units/kg/hr, 3.193 mls/hr Metronidazole (Flagyl) 500 mg in 100 mls @ 100 mls/hr IVPB Q8 YEN PRN Reason: Protocol Last Admin: 09/26/16 06:01 Dose: 100 mls/hr Dobutamine HCl/Dextrose (Dobutamine/Dextrose 5% 500mg/250ml) 500 mg in 250 mls @ 12.9 mls/hr IV .[id number] PRN; Protocol; 5 MCG/KG/MIN PRN Reason: TITRATE PER PROTOCOL Last Admin: 09/26/16 08:13 Dose: 12.9 mls/hr Cefepime HCl (Maxipime 2gm) 2 gm in 100 mls @ 100 mls/hr IVPB 0600,1800 YEN PRN Reason: Protocol Stop: 10/01/16 10:01 Pantoprazole Sodium (Protonix Inj) 40 mg IVP DAILY [facility] Last Admin: 09/26/16 09:44 Dose: 40 mg Thiamine HCl (Vitamin B1 Inj) 100 mg IM DAILY [facility] Last Admin: 09/26/16 09:44 Dose: 100 mg - Labs Labs: 09/26/16 05:30 09/26/16 05:30 PT 24.3 Seconds (9.9-11.8) H 09/25/16 12:00 INR 2.25 (0.93-1.08) H 09/25/16 12:00 APTT 51.5 Seconds (23.7-30.8) H 09/26/16 05:30 - Respiratory Exam Respiratory Exam: Rhonchi Additional comments: on vent, ET tube intact - Cardiovascular Exam Cardiovascular Exam: REGULAR RHYTHM - GI/Abdominal Exam GI & Abdominal Exam: Soft, Normal Bowel Sounds - Extremities Exam Extremities Exam: Pedal Edema - Neurological Exam Neurological Exam: Altered - Skin Skin Exam: Dry, Warm Assessment and Plan (1) Pulmonary edema Status: Acute (2) Alcoholic cardiomyopathy Status: Chronic (3) Ventilatory failure Status: Acute (4) Aspiration pneumonia Status: Acute (5) Disseminated intravascular coagulation Status: Acute (6) Alcohol abuse Status: Acute (7) Acute renal failure Status: Acute - Assessment and Plan (Free Text) Plan: advance enteral feeding as tolerated, renal consult, cont vent support, IV Abx, prognosis remains guarded
--- NOTE | 2016-09-26 14:03 | CP.PCM.PN ---
Subjective - Date & Time of Evaluation Date of Evaluation: 09/26/16 Time of Evaluation: 10:00 - Subjective Subjective: Patient continues to be on the ventilator. Renal function is worsening. No fevers overnight. Objective - Vital Signs/Intake and Output Vital Signs (last 24 hours): Temp Pulse Resp BP Pulse Ox 97.7 F 102 H 24 136/73 96 09/25/16 16:36 09/26/16 07:00 09/24/16 07:29 09/26/16 07:00 09/26/16 07:00 Intake and Output: 09/26/16 09/26/16 06:59 18:59 Intake Total 100 1110 Output Total 800 Balance 100 310 - Medications Medications: Current Medications Albuterol/Ipratropium (Duoneb 3 Mg/0.5 Mg (3 Ml) Ud) 3 ml IH [id number] [facility] Last Admin: 09/26/16 01:33 Dose: 3 ml Amiodarone HCl (Cordarone) 200 mg PO DAILY [facility] Artificial Tears (Artificial Tears Opht Oint) 0 gm OU Q2 PRN PRN Reason: Dry eyes Last Admin: 09/24/16 15:29 Dose: 1 applic Aspirin (Aspirin Chewable) 81 mg PO DAILY [facility] Last Admin: 09/25/16 09:53 Dose: 81 mg Clopidogrel Bisulfate (Plavix) 75 mg PO DAILY [facility] Last Admin: 09/25/16 09:52 Dose: 75 mg Folic Acid (Folic Acid) 1 mg IVP DAILY [facility] Last Admin: 09/25/16 11:05 Dose: 1 mg Furosemide (Lasix) 40 mg IV DAILY [facility] Propofol (Diprivan) 1,000 mg in 100 mls @ 2.395 mls/hr IV .Q24H PRN; Protocol; 5 MCG/KG/MIN PRN Reason: TITRATE PER MD ORDER Last Admin: 09/25/16 22:32 Dose: 20 mcg/kg/min, 9.58 mls/hr Midazolam 100 mg/100ml in NS (Midazolam 100 Mg/100ml In Ns) 100 mg in 100 mls @ 2 mls/hr IV .Q24H PRN; Protocol; 2 MG/HR PRN Reason: Sedation Last Admin: 09/23/16 18:30 Dose: 2 mg/hr, 2 mls/hr Azithromycin (Zithromax 500mg In Ns) 500 mg in 250 mls @ 167 mls/hr IVPB DAILY YEN PRN Reason: Protocol Last Admin: 09/25/16 09:25 Dose: 167 mls/hr Cefepime HCl (Maxipime 2gm) 2 gm in 100 mls @ 100 mls/hr IVPB Q8 YEN PRN Reason: Protocol Stop: 09/28/16 22:01 Last Admin: 09/26/16 06:01 Dose: 100 mls/hr Heparin Sodium/Dextrose (Heparin 25,000 Units/250ml In D5w) 25,000 units in 250 mls @ 9.58 mls/hr IV .Q24H YEN; 12 UNITS/KG/HR PRN Reason: Protocol Last Titration: 09/25/16 07:45 Dose: 4 units/kg/hr, 3.193 mls/hr Metronidazole (Flagyl) 500 mg in 100 mls @ 100 mls/hr IVPB Q8 YEN PRN Reason: Protocol Last Admin: 09/26/16 06:01 Dose: 100 mls/hr Dobutamine HCl/Dextrose (Dobutamine/Dextrose 5% 500mg/250ml) 500 mg in 250 mls @ 12.9 mls/hr IV .[id number] PRN; Protocol; 5 MCG/KG/MIN PRN Reason: TITRATE PER PROTOCOL Last Admin: 09/25/16 12:29 Dose: 12.9 mls/hr Pantoprazole Sodium (Protonix Inj) 40 mg IVP DAILY [facility] Last Admin: 09/25/16 09:50 Dose: 40 mg Thiamine HCl (Vitamin B1 Inj) 100 mg IM DAILY [facility] Last Admin: 09/25/16 09:50 Dose: 100 mg - Labs Labs: 09/26/16 05:30 09/26/16 05:30 PT 24.3 Seconds (9.9-11.8) H 09/25/16 12:00 INR 2.25 (0.93-1.08) H 09/25/16 12:00 APTT 51.5 Seconds (23.7-30.8) H 09/26/16 05:30 - Constitutional Appears: Other (Intubated, sedated) - Head Exam Head Exam: NORMAL INSPECTION - ENT Exam Additional comments: ET tube in place - Neck Exam Neck Exam: absent: Meningismus - Respiratory Exam Respiratory Exam: Decreased Breath Sounds - Cardiovascular Exam Cardiovascular Exam: +S1, +S2 - GI/Abdominal Exam GI & Abdominal Exam: Soft. absent: Tenderness Assessment and Plan - Assessment and Plan (Free Text) Plan: Assessment systemic inflammatory response syndrome, consider due to acute decompensated heart failure with pulmonary edema, R/O severe sepsis with ventilator-dependent respiratory failure and worsening acute renal failure from severe community- acquired pneumonia alcohol abuse and alcoholic liver disease CAD chronic CHF S/P pacemaker placement HTN Plan continue Cefepime and Zithromax and added Flagyl (day 3) pending final blood, sputum cx results (which are negative so far), urine Legionella Ag; PCT is elevated (but probably because of the renal failure); reviewed CXR and will review repeat xrays will continue to monitor clinically follow up Renal recommendations Patient continues to be in critical condition
--- NOTE | 2016-09-26 15:35 | PN ---
DATE: 09/26/2016 Cardiology follow up for Dr. Saunders. SUBJECTIVE: The patient remains on a ventilator. Hemodynamics has improved with decreasing diuretics and change from milrinone to IV dobutamine. PHYSICAL EXAMINATION: VITAL SIGNS: Blood pressure is 126/70, heart rate is in the 90s. NECK: Negative JVD. LUNGS: No rales noted. HEART: Reveal S1 and S2. EXTREMITIES: Without change. LABORATORY DATA: Hemoglobin is 12. The white count is 13. BUN and creatinine is up to 56 and 3.9 IMPRESSION 1. Resolution of hypotension with change of inotropic therapy and decreasing diuretics. 2. End-stage dilated cardiomyopathy. 3. Prerenal azotemia. 4. Renal insufficiency. 5. Status post cardiopulmonary arrest. PLAN: Given these findings, we will discontinue diuretics completely today given his change of his renal numbers. We will continue the IV dobutamine. In the morning, we will transfer the care back to Dr. Saunders. Tyler Chavira MD
[2016-09-27] MEDS: Albuterol-Ipratrop 3 mg / 0.5 (3 ml) UD IH SCH ×4 (01:53→20:09)
[2016-09-27] MEDS: Propofol 10 mg/ml 1,000 MG/100 ML VIAL IV PRN ×2 (02:10→22:28)
[2016-09-27] MEDS: DOBUTamine 500mg/250ml D5W 500 MG/250 ML BAG IV PRN ×2 (04:03→22:33)
[2016-09-27] MEDS: metroNIDAZOLE IV 500 mg/100 ml 500 MG/100 ML BAG IVPB SCH ×3 (05:14→22:25)
[2016-09-27] MEDS: Cefepime IV 2 gm in NS 2 GM/100 ML BAG IVPB SCH ×2 (05:18→17:19)
[2016-09-27 05:45] LABS: ARTERIAL BLOOD GAS HCO3 22.8 mmol/L (21-28); ARTERIAL BLOOD GAS PH 7.41 (7.35-7.45)
[2016-09-27 05:54] LABS: ADD MANUAL DIFF? NO
[2016-09-27 06:03] LABS: BASO # 0.03 K/mm3 (0.0-2.0); BASO % 0.2 % (0.0-3.0); EOS # 0.1 (0.0-0.7); EOS % 0.8 % (1.5-5.0); GRAN # 10.02 (1.4-6.5); HEMATOCRIT 34.7 % (42.0-52.0); LYMPH # 0.6 (1.2-3.4); LYMPH % 4.7 % (22.0-35.0); MEAN CELL VOLUME 98.6 fl (80.0-105.0); MEAN CORPUSCULAR HEMOGLOBIN 34.9 pg (25.0-35.0); MEAN CORPUSCULAR HGB CONC 35.4 g/dl (31.0-37.0); MEAN PLATELET VOLUME 11.4 fl (7.0-11.0); MONO # 1.7 (0.1-0.6); MONO % 13.3 % (1.0-6.0); PLATELET COUNT 71 10^3/uL (120.0-450.0); RED CELL DISTRIBUTION WIDTH 14.6 % (11.5-14.5); WHITE BLOOD COUNT 12.4 10^3/ul (4.5-11.0)
[2016-09-27 06:44] LABS: ALB/GLOB RATIO 0.9 (1.1-1.8); CALCIUM 8.9 mg/dL (8.4-10.5); POTASSIUM 3.9 mmol/L (3.6-5.0); TOTAL PROTEIN 6.4 g/dL (5.8-8.3)
--- NOTE | 2016-09-27 07:42 | PN ---
DATE: 09/24/2016 REASON FOR THE CONSULTATION: Followup status post intubated, admitted with acute pulmonary edema, right lower lobe pneumonia, nonischemic cardiomyopathy, status post AICD. SUBJECTIVE: The patient is on the vent, intubated, sedated, Pulmicort started last night. OBJECTIVE: GENERAL: On vent, sedated. VITAL SIGNS: Temperature afebrile, heart rate 92, blood pressure 80/50. HEENT: PERRLA. Extraocular muscles intact. NECK: Supple. No carotid bruits or thyromegaly. CHEST: Clear to auscultation. HEART: S1 and S2 regular. ABDOMEN: Soft. EXTREMITIES: Clubbing and cyanosis negative. LABORATORY DATA: Blood workup as follows: WBC 12, hemoglobin 14, hematocrit 43.4, platelet count 70. Chemistry showed sodium 136, potassium 4.3, chloride 90, carbon dioxide 17, anion gap of 25, BUN 18, creatinine 2. Troponin 0.09, 0.69, now is 1.37. IMPRESSION: A 61-year-old male with the past medical history significant for alcohol-related nonischemic cardiomyopathy, status post cardiac catheterization, normal coronaries 2 to 3 years ago, history of AICD placement, being followed by Dr. Hogan, recently saw 3 months ago, who came in yesterday with shortness of breath found to be pulmonary edema as well as possible right lower lobe pneumonia. While the patient was in ER few minutes later on the patient was coded, cardiopulmonary resuscitation, intubated, IV amiodarone started, stat echo was done that shows significantly decreased LV function, ejection fraction of 15%, [id number] tricuspid regurgitation, moderate mitral regurgitation, significant large pleural effusion left pericardial effusion, RV systolic pressure 63. Positive troponin most likely secondary to CPR in the face of acute renal failure because the patient had a cardiac catheterization two or three years ago and was mentioned normal coronaries as per the patient before intubation. RECOMMENDATION: Continue p.o. amiodarone. Continue Verapamil to control heart rate. Continue digoxin. Continue broad-spectrum antibiotic. Continue Lasix, amiodarone. We will give 500 bolus since the patient has no urine output. We will follow with you. We will put Lovenox DVT prophylaxis dose, and we will hold lisinopril because of the worsening renal insufficiency. Received a call from [facility] and CCU referred Dr. Giuliano Carbajal. The plan for possible cardiac catheterization. Explained that the patient had a cardiac catheterization two or three years ago as per the patient before intubation and alcohol-related cardiomyopathy and AICD. Probably, this positive troponin is secondary to post CPR and most likely in face of acute renal failure whatever the troponin still in the system. So, at this point no plan is for cardiac catheterization as the troponin trend keeps on up. Aggressively treat pulmonary edema, broad-spectrum antibiotics for pneumonia, arrhythmia, and renal insufficiency will be treated aggressively. May be patient volume depleted, will give 500 bolus saline and monitor electrolytes and monitor lab closely. Overall, the patient's condition is critical, long-term prognosis is guarded. Total CPK is 477 and still CPK-MB is 1.7, so still does not fit into the significant STEMI. We will follow with you. Thank you Dr. Hermilo Ríos for providing us the opportunity in taking care of Mr. Garth Mariee. Meliton Saunders MD
--- NOTE | 2016-09-27 08:09 | RAD ---
HISTORY: fu pna edema COMPARISON: September 26, 2016. FINDINGS: LUNGS: Worsening pulmonary edema. PLEURA: No significant pleural effusion identified, no pneumothorax apparent. CARDIOVASCULAR: Cardiomegaly. Position/ configuration of pacemaker Satisfactory. OSSEOUS STRUCTURES: No significant abnormalities. VISUALIZED UPPER ABDOMEN: Normal. OTHER FINDINGS: Stable position of support apparatus including endotracheal tube and nasogastric tube. IMPRESSION: Worsening pulmonary edema presumed to be cardiogenic.
[2016-09-27] MEDS: Azithromycin 500MG/NS 250ml 500 MG/250 ML BAG IVPB SCH (09:30)
--- NOTE | 2016-09-27 10:02 | CP.PCM.PN ---
Subjective - Date & Time of Evaluation Date of Evaluation: 09/27/16 Time of Evaluation: 09:10 - Subjective Subjective: Patient is still on the ventilator but is a little more awake today. No fevers overnight. Objective - Vital Signs/Intake and Output Vital Signs (last 24 hours): Temp Pulse Resp BP Pulse Ox 97.8 F 84 24 124/77 92 L 09/26/16 16:00 09/27/16 04:03 09/24/16 07:29 09/27/16 04:03 09/27/16 01:40 Intake and Output: 09/26/16 09/27/16 18:59 06:59 Intake Total 2779 972 Output Total 2075 750 Balance 704 222 - Medications Medications: Current Medications Albuterol/Ipratropium (Duoneb 3 Mg/0.5 Mg (3 Ml) Ud) 3 ml IH [id number] [facility] Last Admin: 09/27/16 01:53 Dose: 3 ml Amiodarone HCl (Cordarone) 200 mg PO DAILY [facility] Last Admin: 09/26/16 09:43 Dose: 200 mg Artificial Tears (Artificial Tears Opht Oint) 0 gm OU Q2 PRN PRN Reason: Dry eyes Last Admin: 09/26/16 18:18 Dose: 1 applic Aspirin (Aspirin Chewable) 81 mg PO DAILY [facility] Last Admin: 09/26/16 09:43 Dose: 81 mg Clopidogrel Bisulfate (Plavix) 75 mg PO DAILY [facility] Last Admin: 09/26/16 09:43 Dose: 75 mg Folic Acid (Folic Acid) 1 mg IVP DAILY [facility] Last Admin: 09/25/16 11:05 Dose: 1 mg Propofol (Diprivan) 1,000 mg in 100 mls @ 2.395 mls/hr IV .Q24H PRN; Protocol; 5 MCG/KG/MIN PRN Reason: TITRATE PER MD ORDER Last Admin: 09/27/16 02:10 Dose: 20 mcg/kg/min, 9.58 mls/hr Midazolam 100 mg/100ml in NS (Midazolam 100 Mg/100ml In Ns) 100 mg in 100 mls @ 2 mls/hr IV .Q24H PRN; Protocol; 2 MG/HR PRN Reason: Sedation Last Admin: 09/23/16 18:30 Dose: 2 mg/hr, 2 mls/hr Azithromycin (Zithromax 500mg In Ns) 500 mg in 250 mls @ 167 mls/hr IVPB DAILY YEN PRN Reason: Protocol Last Admin: 09/26/16 09:00 Dose: 167 mls/hr Heparin Sodium/Dextrose (Heparin 25,000 Units/250ml In D5w) 25,000 units in 250 mls @ 9.58 mls/hr IV .Q24H YEN; 12 UNITS/KG/HR PRN Reason: Protocol Last Admin: 09/26/16 18:20 Dose: 4 units/kg/hr, 3.193 mls/hr Metronidazole (Flagyl) 500 mg in 100 mls @ 100 mls/hr IVPB Q8 YEN PRN Reason: Protocol Last Admin: 09/27/16 05:14 Dose: 100 mls/hr Dobutamine HCl/Dextrose (Dobutamine/Dextrose 5% 500mg/250ml) 500 mg in 250 mls @ 12.9 mls/hr IV .[id number] PRN; Protocol; 5 MCG/KG/MIN PRN Reason: TITRATE PER PROTOCOL Last Admin: 09/27/16 04:03 Dose: 12.9 mls/hr Cefepime HCl (Maxipime 2gm) 2 gm in 100 mls @ 100 mls/hr IVPB 0600,1800 YEN PRN Reason: Protocol Stop: 10/01/16 10:01 Last Admin: 09/27/16 05:18 Dose: 100 mls/hr Pantoprazole Sodium (Protonix Inj) 40 mg IVP DAILY [facility] Last Admin: 09/26/16 09:44 Dose: 40 mg Thiamine HCl (Vitamin B1 Inj) 100 mg IM DAILY [facility] Last Admin: 09/26/16 09:44 Dose: 100 mg - Labs Labs: 09/27/16 05:10 09/26/16 05:30 PT 24.3 Seconds (9.9-11.8) H 09/25/16 12:00 INR 2.25 (0.93-1.08) H 09/25/16 12:00 APTT 51.5 Seconds (23.7-30.8) H 09/26/16 05:30 - Constitutional Appears: Other (intubated and on the ventilator) - Head Exam Head Exam: NORMAL INSPECTION - ENT Exam Additional comments: ET tube in place - Neck Exam Neck Exam: absent: Meningismus - Respiratory Exam Respiratory Exam: Decreased Breath Sounds - Cardiovascular Exam Cardiovascular Exam: +S1, +S2 - GI/Abdominal Exam GI & Abdominal Exam: Soft. absent: Tenderness Assessment and Plan - Assessment and Plan (Free Text) Plan: Assessment systemic inflammatory response syndrome, consider due to acute decompensated heart failure with pulmonary edema, R/O severe sepsis with ventilator-dependent respiratory failure and worsening acute renal failure from severe community- acquired pneumonia alcohol abuse and alcoholic liver disease CAD chronic CHF S/P pacemaker placement HTN Plan continue Cefepime and Zithromax and added Flagyl (day 4) pending final blood, sputum cx results (which are negative so far), urine Legionella Ag; PCT is elevated (but probably because of the renal failure); reviewed CXR will continue to monitor clinically follow up Renal recommendations since his renal function is worsening Patient continues to be in critical condition
[2016-09-27] MEDS: Thiamine 100 mg/ml Inj IM SCH (11:02)
--- NOTE | 2016-09-27 13:08 | CP.PCM.PN ---
<JUANPABLOJOHNNYKATARINA - Last Filed: 09/27/16 12:59> Subjective - Date & Time of Evaluation Date of Evaluation: 09/27/16 Time of Evaluation: 07:30 - Subjective Subjective: Giuliano Rodriugez DO PGY1 - ICU Progress Note Patient seen and examined at bedside. Patient remains intubated, comfortably sedated on propofol, though arousable and responsive. Patient indicates no pain. Later, patient did well on reduced sedation and ventilator set to pressure support, without desaturating or tachypnea. He still has a high risk of reintubation due to poor respiratory effort. Objective - Vital Signs/Intake and Output Vital Signs (last 24 hours): Temp Pulse Resp BP Pulse Ox 97.8 F 107 H 24 151/76 H 96 09/26/16 16:00 09/27/16 11:10 09/24/16 07:29 09/27/16 11:02 09/27/16 11:10 Intake and Output: 09/27/16 09/27/16 06:59 18:59 Intake Total 972 392 Output Total 750 500 Balance 222 -108 - Medications Medications: Current Medications Albuterol/Ipratropium (Duoneb 3 Mg/0.5 Mg (3 Ml) Ud) 3 ml IH [id number] COUNT INCLUDES [facility] Last Admin: 09/27/16 07:36 Dose: 3 ml Amiodarone HCl (Cordarone) 200 mg PO DAILY [facility] Last Admin: 09/27/16 11:02 Dose: 200 mg Artificial Tears (Artificial Tears Opht Oint) 0 gm OU Q2 PRN PRN Reason: Dry eyes Last Admin: 09/26/16 18:18 Dose: 1 applic Aspirin (Aspirin Chewable) 81 mg PO DAILY [facility] Last Admin: 09/27/16 11:03 Dose: 81 mg Clopidogrel Bisulfate (Plavix) 75 mg PO DAILY [facility] Last Admin: 09/27/16 11:02 Dose: 75 mg Folic Acid (Folic Acid) 1 mg IVP DAILY [facility] Last Admin: 09/27/16 11:53 Dose: 1 mg Propofol (Diprivan) 1,000 mg in 100 mls @ 2.395 mls/hr IV .Q24H PRN; Protocol; 5 MCG/KG/MIN PRN Reason: TITRATE PER MD ORDER Last Admin: 09/27/16 02:10 Dose: 20 mcg/kg/min, 9.58 mls/hr Azithromycin (Zithromax 500mg In Ns) 500 mg in 250 mls @ 167 mls/hr IVPB DAILY YEN PRN Reason: Protocol Last Admin: 09/27/16 09:30 Dose: 167 mls/hr Heparin Sodium/Dextrose (Heparin 25,000 Units/250ml In D5w) 25,000 units in 250 mls @ 9.58 mls/hr IV .Q24H YEN; 12 UNITS/KG/HR PRN Reason: Protocol Last Admin: 09/26/16 18:20 Dose: 4 units/kg/hr, 3.193 mls/hr Metronidazole (Flagyl) 500 mg in 100 mls @ 100 mls/hr IVPB Q8 YEN PRN Reason: Protocol Last Admin: 09/27/16 05:14 Dose: 100 mls/hr Dobutamine HCl/Dextrose (Dobutamine/Dextrose 5% 500mg/250ml) 500 mg in 250 mls @ 12.9 mls/hr IV .[id number] PRN; Protocol; 5 MCG/KG/MIN PRN Reason: TITRATE PER PROTOCOL Last Admin: 09/27/16 04:03 Dose: 12.9 mls/hr Cefepime HCl (Maxipime 2gm) 2 gm in 100 mls @ 100 mls/hr IVPB 0600,1800 YEN PRN Reason: Protocol Stop: 10/01/16 10:01 Last Admin: 09/27/16 05:18 Dose: 100 mls/hr Pantoprazole Sodium (Protonix Inj) 40 mg IVP DAILY [facility] Last Admin: 09/27/16 11:02 Dose: 40 mg Thiamine HCl (Vitamin B1 Inj) 100 mg IM DAILY [facility] Last Admin: 09/27/16 11:02 Dose: 100 mg - Labs Labs: 09/27/16 05:10 09/27/16 05:10 PT 24.3 Seconds (9.9-11.8) H 09/25/16 12:00 INR 2.25 (0.93-1.08) H 09/25/16 12:00 APTT 51.5 Seconds (23.7-30.8) H 09/26/16 05:30 - Constitutional Appears: Chronically Ill, Other (intubated, sedated) - Head Exam Head Exam: ATRAUMATIC, NORMOCEPHALIC - Eye Exam Eye Exam: EOMI, Normal appearance, PERRL - ENT Exam ENT Exam: Mucous Membranes Moist - Neck Exam Neck Exam: absent: Lymphadenopathy, Meningismus - Respiratory Exam Respiratory Exam: Clear to Ausculation Bilateral. absent: Rales, Rhonchi - Cardiovascular Exam Cardiovascular Exam: RRR, +S1, +S2 - GI/Abdominal Exam GI & Abdominal Exam: Distended, Soft. absent: Firm, Guarding, Rigid Additional comments: Shifting dullness, fluid wave - Extremities Exam Extremities Exam: Pedal Edema - Neurological Exam Neuro motor strength exam: Left Upper Extremity: 5, Right Upper Extremity: 5, Left Lower Extremity: 5, Right Lower Extremity: 5 - Skin Skin Exam: Dry, Intact Assessment and Plan - Assessment and Plan (Free Text) Assessment: 61 yo M with acute hypoxic respiratory failure 2/2 pulmonary edema vs ARDS vs PNA, sepsis 2/2 PNA vs cholecystitis, acute decompensated CHF (LVEF 20% with severe pulm HTN) 2/2 NSTEMI vs arrhythmia vs PE in the setting of alcoholic cardiomyopathy, alcoholic hepatitis, and BARBRA. Plan: Neuro: - Patient is currently lightly sedated on propofol, arousable and responsive - Monitor neurological status CV: - Troponin 0.09>0.69>1.37, possible NSTEMI vs demand ischemia in acute decompensated CHF exacerbation - History of alcoholic cardiomyopathy. Echo shows LVEF 20% with severe tricuspid regurg and severe pulmonary HTN - LE venous duplex negative for DVT, unlikely to have PE - On heparin drip, ASA, plavix for NSTEMI - Cardio (Chip) on consult, all recs appreciated - On amiodarone for vtach, dobutamine for inotropic support - Maintain MAP>65 Pulm: - Acute hypoxic respiratory failure 2/2 pulmonary edema vs ARDS vs PNA, improving - Currently intubated, PRVC 45%/24/10/400 - CXR today appears worse, but clinically improving. Maintained O2 sat on pressure support on FiO2 40%, but had poor respiratory effort, so will maintain on PRVC for another day - Question of flash pulmonary edema due to fluid overload in the setting of CHF vs ARDS vs PNA - On Duoneb PRN - Maintain O2 sat >90% - Continue with protective lung strategies, HOB>30 GI: - NG tube in place, on tube feeds - Persistent transaminitis with increasing total bilirubin, cannot r/o gallbladder pathology as source of sepsis/SIRS - Will obtain abdominal US and hepatitis panel to evaluate further - Abdomen hyporesonant, distended, likely ascites 2/2 history of EtOH abuse, including recent binge drinking episode Renal: - BARBRA with worsening creatinine, but urine output improving - Likely ATN 2/2 hypoperfusion and venous congestion 2/2 acute decompensation CHF - Urine output improved, but still maintaining a positive fluid balance, d/c'd Lasix Endo: - Maintain euglycemia with bg 140-180 Hem/Onc: - H/H stable - Mild persistent thrombocytopenia likely 2/2 to chronic liver disease, will continue to monitor - On heparin drip, therapeutic PTT ID: - SIRS, likely sepsis 2/2 CAP vs cholecystitis - Afebrile, mild persistent leukocytosis - BCx no growth after 4 days, UCx no growth, Sputum Cx pending - On Flagyl, cefepime, and zithromax - ID (Bubba) on consult, all recs appreciated. Ppx: Heparin drip covers for DVT, protonix for GI Seen, discussed, and reviewed with attending. <Onesimo OLIVAREZ,Harriett - Last Filed: 09/27/16 16:09> Objective - Vital Signs/Intake and Output Vital Signs (last 24 hours): Temp Pulse Resp BP Pulse Ox 97.8 F 107 H 24 151/76 H 96 09/26/16 16:00 09/27/16 11:10 09/24/16 07:29 09/27/16 11:02 09/27/16 11:10 Intake and Output: 09/27/16 09/27/16 06:59 18:59 Intake Total 972 392 Output Total 750 500 Balance 222 -108 - Medications Medications: Current Medications Albuterol/Ipratropium (Duoneb 3 Mg/0.5 Mg (3 Ml) Ud) 3 ml IH [id number] COUNT [facility]CLUDES [facility] Last Admin: 09/27/16 13:52 Dose: 3 ml Amiodarone HCl (Cordarone) 200 mg PO DAILY [facility] Last Admin: 09/27/16 11:02 Dose: 200 mg Artificial Tears (Artificial Tears Opht Oint) 0 gm OU Q2 PRN PRN Reason: Dry eyes Last Admin: 09/26/16 18:18 Dose: 1 applic Aspirin (Aspirin Chewable) 81 mg PO DAILY [facility] Last Admin: 09/27/16 11:03 Dose: 81 mg Clopidogrel Bisulfate (Plavix) 75 mg PO DAILY [facility] Last Admin: 09/27/16 11:02 Dose: 75 mg Folic Acid (Folic Acid) 1 mg IVP DAILY [facility] Last Admin: 09/27/16 11:53 Dose: 1 mg Propofol (Diprivan) 1,000 mg in 100 mls @ 2.395 mls/hr IV .Q24H PRN; Protocol; 5 MCG/KG/MIN PRN Reason: TITRATE PER MD ORDER Last Admin: 09/27/16 02:10 Dose: 20 mcg/kg/min, 9.58 mls/hr Azithromycin (Zithromax 500mg In Ns) 500 mg in 250 mls @ 167 mls/hr IVPB DAILY YEN PRN Reason: Protocol Last Admin: 09/27/16 09:30 Dose: 167 mls/hr Heparin Sodium/Dextrose (Heparin 25,000 Units/250ml In D5w) 25,000 units in 250 mls @ 9.58 mls/hr IV .Q24H YEN; 12 UNITS/KG/HR PRN Reason: Protocol Last Admin: 09/26/16 18:20 Dose: 4 units/kg/hr, 3.193 mls/hr Metronidazole (Flagyl) 500 mg in 100 mls @ 100 mls/hr IVPB Q8 YEN PRN Reason: Protocol Last Admin: 09/27/16 05:14 Dose: 100 mls/hr Dobutamine HCl/Dextrose (Dobutamine/Dextrose 5% 500mg/250ml) 500 mg in 250 mls @ 12.9 mls/hr IV .[id number] PRN; Protocol; 5 MCG/KG/MIN PRN Reason: TITRATE PER PROTOCOL Last Admin: 09/27/16 04:03 Dose: 12.9 mls/hr Cefepime HCl (Maxipime 2gm) 2 gm in 100 mls @ 100 mls/hr IVPB 0600,1800 YEN PRN Reason: Protocol Stop: 10/01/16 10:01 Last Admin: 09/27/16 05:18 Dose: 100 mls/hr Pantoprazole Sodium (Protonix Inj) 40 mg IVP DAILY [facility] Last Admin: 09/27/16 11:02 Dose: 40 mg Thiamine HCl (Vitamin B1 Inj) 100 mg IM DAILY [facility] Last Admin: 09/27/16 11:02 Dose: 100 mg - Labs Labs: 09/27/16 05:10 09/27/16 05:10 PT 24.3 Seconds (9.9-11.8) H 09/25/16 12:00 INR 2.25 (0.93-1.08) H 09/25/16 12:00 APTT 51.5 Seconds (23.7-30.8) H 09/26/16 05:30 Attending/Attestation - Attestation I have personally seen and examined this patient.: Yes I have fully participated in the care of the patient.: Yes I have reviewed all pertinent clinical information, including history, physical exam and plan: Yes Notes (Text): 09/27/16 16:07 61 y/o M w/ Respiratory failure day #5 Intubated and hypoxemia is improved. Passed SBT today but was too weak to extubate. Continued on ABX without a source of infection. NSTEMI w/ reduced EF on Dobutamine and cardiology following Transaminitis w/ elevated T.Bili , could be from hepatic congestion and or obstruction. US RUQ pending. Plan for minimal sedation and SBT to ABT for possible extubation in the a.m ppi cc time 65 min
--- NOTE | 2016-09-27 15:53 | CP.PCM.PN ---
Subjective - Date & Time of Evaluation Date of Evaluation: 09/27/16 Time of Evaluation: 14:00 - Subjective Subjective: awake and responsive to verbal commands, remains intubated Objective - Vital Signs/Intake and Output Vital Signs (last 24 hours): Temp Pulse Resp BP Pulse Ox 97.8 F 107 H 24 151/76 H 96 09/26/16 16:00 09/27/16 11:10 09/24/16 07:29 09/27/16 11:02 09/27/16 11:10 Intake and Output: 09/27/16 09/27/16 06:59 18:59 Intake Total 972 392 Output Total 750 500 Balance 222 -108 - Medications Medications: Current Medications Albuterol/Ipratropium (Duoneb 3 Mg/0.5 Mg (3 Ml) Ud) 3 ml IH [id number] [facility] Last Admin: 09/27/16 13:52 Dose: 3 ml Amiodarone HCl (Cordarone) 200 mg PO DAILY [facility] Last Admin: 09/27/16 11:02 Dose: 200 mg Artificial Tears (Artificial Tears Opht Oint) 0 gm OU Q2 PRN PRN Reason: Dry eyes Last Admin: 09/26/16 18:18 Dose: 1 applic Aspirin (Aspirin Chewable) 81 mg PO DAILY [facility] Last Admin: 09/27/16 11:03 Dose: 81 mg Clopidogrel Bisulfate (Plavix) 75 mg PO DAILY [facility] Last Admin: 09/27/16 11:02 Dose: 75 mg Folic Acid (Folic Acid) 1 mg IVP DAILY [facility] Last Admin: 09/27/16 11:53 Dose: 1 mg Propofol (Diprivan) 1,000 mg in 100 mls @ 2.395 mls/hr IV .Q24H PRN; Protocol; 5 MCG/KG/MIN PRN Reason: TITRATE PER MD ORDER Last Admin: 09/27/16 02:10 Dose: 20 mcg/kg/min, 9.58 mls/hr Azithromycin (Zithromax 500mg In Ns) 500 mg in 250 mls @ 167 mls/hr IVPB DAILY [facility] PRN Reason: Protocol Last Admin: 09/27/16 09:30 Dose: 167 mls/hr Heparin Sodium/Dextrose (Heparin 25,000 Units/250ml In D5w) 25,000 units in 250 mls @ 9.58 mls/hr IV .Q24H YEN; 12 UNITS/KG/HR PRN Reason: Protocol Last Admin: 09/26/16 18:20 Dose: 4 units/kg/hr, 3.193 mls/hr Metronidazole (Flagyl) 500 mg in 100 mls @ 100 mls/hr IVPB Q8 YEN PRN Reason: Protocol Last Admin: 09/27/16 05:14 Dose: 100 mls/hr Dobutamine HCl/Dextrose (Dobutamine/Dextrose 5% 500mg/250ml) 500 mg in 250 mls @ 12.9 mls/hr IV .[id number] PRN; Protocol; 5 MCG/KG/MIN PRN Reason: TITRATE PER PROTOCOL Last Admin: 09/27/16 04:03 Dose: 12.9 mls/hr Cefepime HCl (Maxipime 2gm) 2 gm in 100 mls @ 100 mls/hr IVPB 0600,1800 YEN PRN Reason: Protocol Stop: 10/01/16 10:01 Last Admin: 09/27/16 05:18 Dose: 100 mls/hr Pantoprazole Sodium (Protonix Inj) 40 mg IVP DAILY [facility] Last Admin: 09/27/16 11:02 Dose: 40 mg Thiamine HCl (Vitamin B1 Inj) 100 mg IM DAILY [facility] Last Admin: 09/27/16 11:02 Dose: 100 mg - Labs Labs: 09/27/16 05:10 09/27/16 05:10 PT 24.3 Seconds (9.9-11.8) H 09/25/16 12:00 INR 2.25 (0.93-1.08) H 09/25/16 12:00 APTT 51.5 Seconds (23.7-30.8) H 09/26/16 05:30 - Respiratory Exam Respiratory Exam: Rhonchi - Cardiovascular Exam Cardiovascular Exam: REGULAR RHYTHM - GI/Abdominal Exam GI & Abdominal Exam: Soft, Normal Bowel Sounds - Extremities Exam Extremities Exam: Pedal Edema - Neurological Exam Neurological Exam: Awake - Skin Skin Exam: Dry, Warm Assessment and Plan (1) Pulmonary edema Status: Acute (2) Alcoholic cardiomyopathy Status: Chronic (3) Ventilatory failure Status: Acute (4) Aspiration pneumonia Status: Acute (5) Disseminated intravascular coagulation Status: Acute (6) Alcohol abuse Status: Acute (7) Acute renal failure Status: Acute - Assessment and Plan (Free Text) Assessment: r/o hepatorenal syndrome, renal w/u in progress Plan: wean as tolerated, advance enteral feeding, monitor kidney function
[2016-09-27 16:22] LABS: ADD MANUAL DIFF? NO
[2016-09-27 16:26] LABS: BASO # 0.03 K/mm3 (0.0-2.0); BASO % 0.3 % (0.0-3.0); EOS # 0.1 (0.0-0.7); EOS % 0.7 % (1.5-5.0); GRAN # 8.73 (1.4-6.5); GRAN % 77.8 % (50.0-68.0); HEMATOCRIT 35.4 % (42.0-52.0); LYMPH % 8.6 % (22.0-35.0); MEAN CELL VOLUME 96.7 fl (80.0-105.0); MEAN CORPUSCULAR HGB CONC 36.2 g/dl (31.0-37.0); MEAN PLATELET VOLUME 11.2 fl (7.0-11.0); MONO # 1.4 (0.1-0.6); MONO % 12.6 % (1.0-6.0); PLATELET COUNT 69 10^3/uL (120.0-450.0); RED CELL DISTRIBUTION WIDTH 14.4 % (11.5-14.5); WHITE BLOOD COUNT 11.2 10^3/ul (4.5-11.0)
[2016-09-27 16:59] LABS: TROPONIN I 0.23 ng/mL
[2016-09-27] MEDS: Heparin 25,000units in D5W 25,000 UNITS/250 ML BAG IV SCH (17:20)
[2016-09-27 17:42] LABS: ERYTHROCYTE SEDIMENTATION RATE 2 mm/hr (0.00-15.0)
--- NOTE | 2016-09-27 19:17 | US ---
HISTORY: transaminits COMPARISON: None. TECHNIQUE: Sonographic evaluation of the abdomen. FINDINGS: LIVER: Liver demonstrates increased echogenicity, likely representing hepatic parenchymal disease or fatty infiltration. This limits evaluation for small masses. No focal large liver mass is identified. No intrahepatic biliary ductal dilatation is identified. . Portal vein is patent with normal hepatopetal flow. Small perihepatic ascites. GALLBLADDER: The gallbladder is physiologically distended. Stones and sludge noted within the gallbladder. No gallbladder wall thickening, or pericholecystic fluid is identified.No sonographic Castillo's sign was appreciated during the exam. COMMON BILE DUCT: Normal in caliber measuring 0.5 cm. PANCREAS: The visualized portions are unremarkable in echogenicity. The remainder of the pancreas is obscured by bowel gas. RIGHT KIDNEY: Measures 12.6cm. Increased in echogenicity which can be seen in medical renal disease. No shadowing renal stone, cyst, or hydronephrosis is identified LEFT KIDNEY: Measures 11.6cm. Increased in echogenicity which can be seen in medical renal disease. No shadowing renal stone, cyst, or hydronephrosis is identified SPLEEN: Measures 11.2cm. Normal in size and unremarkable in echotexture. AORTA: No aneurysmal dilatation of the visualized portions. IVC: Visualized portions are unremarkable.. OTHER FINDINGS: Small volume ascites. IMPRESSION: Echogenic liver, likely representing fatty infiltration or hepatic parenchymal disease. Cholelithiasis and biliary sludge. Small volume ascites. Kidneys are Increased in echogenicity which can be seen in medical renal disease.
--- NOTE | 2016-09-27 19:27 | PN ---
DATE: 09/27/2016 REASON FOR THE CONSULTATION: Follow up status post respiratory failure, intubated; pulmonary edema; pneumonia; nonischemic cardiomyopathy, status post AICD. SUBJECTIVE: The patient is awake and alert. Denies any chest been. Still on vent. PHYSICAL EXAMINATION: VITAL SIGNS: Heart rate 107, blood pressure 151/76. HEENT: PERRLA. Extraocular muscles intact. NECK: Supple. No carotid bruits or thyromegaly. CHEST: Clear to auscultation. HEART: S1 and S2 regular. ABDOMEN: Soft. EXTREMITIES: Clubbing and cyanosis negative. LABORATORY DATA: Blood workup as follows: WBC 12.8, hemoglobin 12.7, hematocrit 34.7, platelet count 71. Chemistry shows sodium 130, potassium 3.9, chloride 100, carbon dioxide 21, anion gap of 21, BUN 73, creatinine 4.7. IMPRESSION: A 61-year-old male with past medical history of nonischemic cardiomyopathy, status post AICD, possibly related to alcohol-related cardiomyopathy, admitted with congestive heart failure, pneumonia requiring intubation status post cardiopulmonary resuscitation, coded, went into acute kidney injury, worsening, status post intubated, still on vent. Chest x-ray confirmed positive pulmonary infiltrate, aspiration pneumonia versus congestive heart failure. Echocardiography on admission shows severely decreased LV function, ejection fraction 15%, [id number] tricuspid regurgitation, cwdeauuy-vn-kppyty pulmonary hypertension, large pleural effusion, pericardial effusion, moderate mitral regurgitation, ejection fraction 15%, four-chamber dilatation, mild aortic regurgitation, history of AICD placed being followed by Dr. Headley, end-stage cardiomyopathy, status post cardiopulmonary resuscitation. RECOMMENDATION: Initially, the patient started changed to Dobutrex. Since then, the patient is hemodynamically a little bit stable. Continue p.o. amiodarone. The patient is still on heparin, changed to DVT prophylaxis. The borderline positive troponin is probably secondary to CPR and increase of acute renal failure. We will add on CPK troponin today. If the trend is down, we will change to subcu heparin 5000 for DVT prophylaxis. Try to wean off the vent as tolerated. Continue Dobutrex. Not on JUAN inhibitors because of renal insufficiency. Further recommendation based on hospital course. We will follow with you. Continue broad spectrum antibiotic. Overall, the patient's condition is critical, long-term prognosis is guarded. AST, ALT elevated but trending down. Overall, CPK was elevated, MB fraction was very low, so doubt it is VT because it was borderline troponin initially, then later on 1.375 in face of creatinine clearance 20 mL is not significant and also MB fraction was low, so doubt it is VT. Thank you Dr. Ríos for providing us the opportunity in taking care of the patient. Meliton Saunders MD cc: Dr. Ríos.
[2016-09-27 22:10] LABS: PH,URINE 5.5 (4.7-8.0); URINE BILIRUBIN NEGATIVE (NEGATIVE); URINE BLOOD LARGE (NEGATIVE); URINE GLUCOSE (UA) NEGATIVE (NEGATIVE); URINE KETONE NEGATIVE (NEGATIVE); URINE LEUKOCYTE ESTERASE TRACE Leu/uL (NEGATIVE); URINE PROTEIN 30 mg/dL (<30 mg/dL); URINE UROBILINOGEN 0.2 E.U./dL (<1 E.U./dL)
[2016-09-27 22:20] LABS: URINE APPEARANCE CLOUDY (CLEAR); URINE COLOR YELLOW (YELLOW)
[2016-09-27 22:39] LABS: URINE EPITHELIAL CELLS 0 - 2 /hpf (0-5); URINE RBC TNTC /hpf (0-2)
[2016-09-28] MEDS: Albuterol-Ipratrop 3 mg / 0.5 (3 ml) UD IH SCH ×4 (01:48→20:13)
--- NOTE | 2016-09-28 02:07 | CON ---
DATE: 09/27/2016 REASON FOR CONSULTATION: Acute kidney injury, worsening renal function, respiratory failure and ascites. HISTORY OF PRESENT ILLNESS: A 61-year-old male previously unknown to me. Initially, presented to the emergency room on 09/23/2016 because of shortness of breath. He was seen in PMD's office was found to be shortness of breath and was advising come to the emergency room. In the emergency room, he had a cardiac arrest with PEA, he was reviewed within a couple of minutes. Then, he was put on mechanical ventilation and sent to the ICU. There was no history of fever, chills, nausea, vomiting or diarrhea. There was no history of any urinary complaints. There was no history of head trauma nor convulsions. Initial x-ray showed pulmonary edema. He was found to be afebrile. Vital signs were within normal limits. Subsequently, the patient was found to have leukocytosis with bandemia. He was started on empiric antibiotics. His initial creatinine was 1.2. Creatinine has been progressively getting worse, today's creatinine is 4.7. Hence, consultation is requested. The patient is also found to be somewhat oliguric. His urine output is recorded as 600 mL on the 09/25/2016 and 700 mL on 09/26/2016. Subsequently, he was started on pressors and Lasix and his urine output in the last 24 hours was 2825. His cultures are all negative. He was started on cefepime yesterday. He was started on azithromycin on 09/24/2016. He also received clindamycin. Got a dose of vancomycin on 09/23/2016 and Zosyn on 09/23/2016. Currently, he is on dobutamine at 5 mcg per kg per minute also he is sedated with propofol. He was also receiving heparin for acute coronary syndrome/elevated troponins. PAST MEDICAL AND SURGICAL HISTORY: All obtained from the chart and is listed as; alcohol abuse, alcoholic liver disease, CAD, CHF, pacemaker placement, hypertension, history of herniorrhaphy. FAMILY HISTORY: Not available. SOCIAL HISTORY: Alcohol abuse, occasional smoker, no history of other substance abuse. MEDICATIONS AT HOME: Aldactone and Lasix. CURRENT MEDICATIONS: Aspirin, Cordarone 200 daily, Diprivan, dobutamine, DuoNeb, Flagyl 500 q. 8, folic acid, heparin at 40 units per kg per hour, Maxipime 2 g q. 12, Plavix 75, Protonix, thiamine and azithromycin 500. REVIEW OF SYSTEMS: Unavailable as the patient is sedated and intubated in the ICU. PHYSICAL EXAMINATION: GENERAL: Middle-aged male lying in the bed, in the ICU, eyes are open, seems to be awake. VITAL SIGNS: Blood pressure 151/76, heart rate 107, respiratory rate 24 and temperature 97.8. HEENT: Normocephalic and atraumatic, positive pallor. NECK: Supple. No JVD. LUNGS: Bilateral equal air entry. Bilateral rhonchi. Equal expansion. No rales appreciated in the anterior. CARDIAC: S1 and S2. Regular rate and rhythm, no murmur, no rub. ABDOMEN: Obese, distended, soft, positive fluid thrill. EXTREMITIES: 3+ pitting edema of the lower extremities. INTAKE AND OUTPUT: 3751/2825. LABORATORY DATA: WBC 12.4, hemoglobin 12.3, hematocrit 34.7 and platelets 71. Sodium 138, potassium 3.9, chloride 100, CO2 of 21, BUN 73, creatinine 4.7, glucose 118, calcium 8.9, phosphorous 4.2, magnesium 2.1. AST 183, ALT 109, albumin 3.0 and corrected calcium is 9.6. Blood gas; pH 7.4, pCO2 36 and pO2 122. Stool occult is positive. Urinalysis yellow turbid. PH 6.0, specific gravity greater than 1030, protein greater than 300, blood large, bilirubin small, leukocyte esterase moderate. ASSESSMENT: 1. Hypoxic respiratory failure. 2. Pulmonary edema versus acute respiratory distress syndrome. 3. Multiorgan dysfunction. 4. Progressive acute kidney injury, worsening renal function. 5. Systolic hear failure. 6. History of alcohol abuse, alcoholic liver disease/ascites. 7. Sepsis. 8. Proteinuria. 9. Hematuria. PLAN: 1. In the setting of acute kidney injury rapidly worsening renal function, proteinuria, hematuria, need to consider vasculitis in the deferential diagnosis. 2. Check ANCA, anti-GBM antibody, C3, C4. 3. Check rheumatoid factor. 4. Check cryoglobulins. 5. ? HUS versus TTP. 6. Monitor urine output closely. 7. Monitor daily labs. 8. Renal ultrasound STAT. 9. Kidney biopsy, if possible. 10. Case discussed with ICU residence at length at bedside. 11. Case discussed with ICU staff. 12. More than 35 minutes was spent on the care of this critically ill patient. Lakesha Enciso MD
[2016-09-28] MEDS: metroNIDAZOLE IV 500 mg/100 ml 500 MG/100 ML BAG IVPB SCH ×3 (05:27→21:54)
[2016-09-28] MEDS: Cefepime IV 2 gm in NS 2 GM/100 ML BAG IVPB SCH ×2 (05:28→11:01)
[2016-09-28 05:56] LABS: ARTERIAL BLOOD GAS HCO3 22.3 mmol/L (21-28)
[2016-09-28 06:32] LABS: HEMATOCRIT 35.5 % (42.0-52.0); MEAN CELL VOLUME 95.9 fl (80.0-105.0); MEAN CORPUSCULAR HEMOGLOBIN 33.8 pg (25.0-35.0); MEAN CORPUSCULAR HGB CONC 35.2 g/dl (31.0-37.0); MEAN PLATELET VOLUME 10.6 fl (7.0-11.0); PLATELET COUNT 62 10^3/uL (120.0-450.0); RED CELL DISTRIBUTION WIDTH 14.7 % (11.5-14.5); WHITE BLOOD COUNT 9.7 10^3/ul (4.5-11.0)
[2016-09-28 06:35] LABS: ADD MANUAL DIFF? YES
[2016-09-28 06:49] LABS: BILIRUBIN,TOTAL 5.2 mg/dL (0.2-1.3); CALCIUM 9.1 mg/dL (8.4-10.5)
[2016-09-28 06:59] LABS: TOTAL PROTEIN 6.4 g/dL (5.8-8.3)
[2016-09-28 07:47] LABS: TROPONIN I 0.25 ng/mL
--- NOTE | 2016-09-28 07:53 | CP.PCM.PN ---
Subjective - Date & Time of Evaluation Date of Evaluation: 09/28/16 Time of Evaluation: 07:20 - Subjective Subjective: awake and responsive, tolerating CPAP Objective - Vital Signs/Intake and Output Vital Signs (last 24 hours): Temp Pulse Resp BP Pulse Ox 97.6 F 101 H 24 140/87 98 09/27/16 16:00 09/28/16 07:10 09/28/16 07:39 09/28/16 07:00 09/28/16 07:39 Intake and Output: 09/28/16 09/28/16 06:59 18:59 Intake Total 100 0 Balance 100 0 - Medications Medications: Current Medications Albuterol/Ipratropium (Duoneb 3 Mg/0.5 Mg (3 Ml) Ud) 3 ml IH [id number] [facility] Last Admin: 09/28/16 07:28 Dose: 3 ml Amiodarone HCl (Cordarone) 200 mg PO DAILY [facility] Last Admin: 09/27/16 11:02 Dose: 200 mg Artificial Tears (Artificial Tears Opht Oint) 0 gm OU Q2 PRN PRN Reason: Dry eyes Last Admin: 09/26/16 18:18 Dose: 1 applic Aspirin (Aspirin Chewable) 81 mg PO DAILY [facility] Last Admin: 09/27/16 11:03 Dose: 81 mg Clopidogrel Bisulfate (Plavix) 75 mg PO DAILY [facility] Last Admin: 09/27/16 11:02 Dose: 75 mg Folic Acid (Folic Acid) 1 mg IVP DAILY [facility] Last Admin: 09/27/16 11:53 Dose: 1 mg Propofol (Diprivan) 1,000 mg in 100 mls @ 2.395 mls/hr IV .Q24H PRN; Protocol; 5 MCG/KG/MIN PRN Reason: TITRATE PER MD ORDER Last Admin: 09/27/16 22:28 Dose: 20 mcg/kg/min, 9.58 mls/hr Azithromycin (Zithromax 500mg In Ns) 500 mg in 250 mls @ 167 mls/hr IVPB DAILY [facility] PRN Reason: Protocol Last Admin: 09/27/16 09:30 Dose: 167 mls/hr Metronidazole (Flagyl) 500 mg in 100 mls @ 100 mls/hr IVPB Q8 YEN PRN Reason: Protocol Last Admin: 09/28/16 05:27 Dose: 100 mls/hr Dobutamine HCl/Dextrose (Dobutamine/Dextrose 5% 500mg/250ml) 500 mg in 250 mls @ 12.9 mls/hr IV .[id number] PRN; Protocol; 5 MCG/KG/MIN PRN Reason: TITRATE PER PROTOCOL Last Admin: 09/27/16 22:33 Dose: 12.9 mls/hr Cefepime HCl (Maxipime 2gm) 2 gm in 100 mls @ 100 mls/hr IVPB DAILY YEN PRN Reason: Protocol Stop: 10/03/16 10:01 Pantoprazole Sodium (Protonix Inj) 40 mg IVP DAILY [facility] Last Admin: 09/27/16 11:02 Dose: 40 mg Thiamine HCl (Vitamin B1 Inj) 100 mg IM DAILY [facility] Last Admin: 09/27/16 11:02 Dose: 100 mg - Labs Labs: 09/28/16 05:45 09/28/16 05:45 PT 24.3 Seconds (9.9-11.8) H 09/25/16 12:00 INR 2.25 (0.93-1.08) H 09/25/16 12:00 APTT 42.7 Seconds (23.7-30.8) H 09/28/16 05:45 - Respiratory Exam Respiratory Exam: Clear to Ausculation Bilateral Additional comments: ET tube intact - Cardiovascular Exam Cardiovascular Exam: REGULAR RHYTHM - GI/Abdominal Exam GI & Abdominal Exam: Soft, Normal Bowel Sounds - Extremities Exam Extremities Exam: Pedal Edema - Neurological Exam Neurological Exam: Alert, Awake - Skin Skin Exam: Dry, Warm Assessment and Plan (1) Pulmonary edema Status: Acute (2) Alcoholic cardiomyopathy Status: Chronic (3) Ventilatory failure Status: Acute (4) Aspiration pneumonia Status: Acute (5) Disseminated intravascular coagulation Status: Acute (6) Alcohol abuse Status: Acute (7) Acute renal failure Assessment & Plan: r/o hepatorenal synd Status: Acute - Assessment and Plan (Free Text) Plan: wean as tolerated, may need temporary hemodialysis
[2016-09-28] MEDS: Azithromycin 500MG/NS 250ml 500 MG/250 ML BAG IVPB SCH ×2 (08:15→11:05)
[2016-09-28] MEDS: Thiamine 100 mg/ml Inj IM SCH ×2 (08:19→11:05)
[2016-09-28 08:57] LABS: NEUTROPHIL 75 % (50.0-70.0)
[2016-09-28 08:58] LABS: ANISOCYTOSIS 1+; POIKILOCYTOSIS SLIGHT
--- NOTE | 2016-09-28 09:29 | RAD ---
HISTORY: intub COMPARISON: 09/27/2016 FINDINGS: LUNGS: There is an infiltrate at the left lung base that obscures the diaphragm. Endotracheal tube in satisfactory position. Nasogastric tube is just beyond the GE junction and should be advanced PLEURA: No significant pleural effusion identified, no pneumothorax apparent. CARDIOVASCULAR: Mild cardiomegaly. Single lead pacemaker OSSEOUS STRUCTURES: No significant abnormalities. VISUALIZED UPPER ABDOMEN: Normal. OTHER FINDINGS: None. IMPRESSION: There is an infiltrate at the left lung base that obscures the diaphragm. Endotracheal tube in satisfactory position. Nasogastric tube is just beyond the GE junction and should be advanced
--- NOTE | 2016-09-28 09:37 | CP.PCM.PN ---
Subjective - Date & Time of Evaluation Date of Evaluation: 09/28/16 Time of Evaluation: 09:30 - Subjective Subjective: Patient continues to be on the ventilator, arousable by verbal and tactile stimuli, no fevers overnight. Objective - Vital Signs/Intake and Output Vital Signs (last 24 hours): Temp Pulse Resp BP Pulse Ox 97.6 F 84 24 127/77 96 09/27/16 16:00 09/27/16 22:33 09/24/16 07:29 09/27/16 22:33 09/27/16 11:10 Intake and Output: 09/27/16 09/28/16 18:59 06:59 Intake Total 1399 100 Output Total 1550 Balance -151 100 - Medications Medications: Current Medications Albuterol/Ipratropium (Duoneb 3 Mg/0.5 Mg (3 Ml) Ud) 3 ml IH [id number] [facility] Last Admin: 09/28/16 01:48 Dose: 3 ml Amiodarone HCl (Cordarone) 200 mg PO DAILY [facility] [place] Last Admin: 09/27/16 11:02 Dose: 200 mg Artificial Tears (Artificial Tears Opht Oint) 0 gm OU Q2 PRN PRN Reason: Dry eyes Last Admin: 09/26/16 18:18 Dose: 1 applic Aspirin (Aspirin Chewable) 81 mg PO DAILY [facility] [place] Last Admin: 09/27/16 11:03 Dose: 81 mg Clopidogrel Bisulfate (Plavix) 75 mg PO DAILY [facility] [place] Last Admin: 09/27/16 11:02 Dose: 75 mg Folic Acid (Folic Acid) 1 mg IVP DAILY [facility] [place] Last Admin: 09/27/16 11:53 Dose: 1 mg Propofol (Diprivan) 1,000 mg in 100 mls @ 2.395 mls/hr IV .Q24H PRN; Protocol; 5 MCG/KG/MIN PRN Reason: TITRATE PER MD ORDER Last Admin: 09/27/16 22:28 Dose: 20 mcg/kg/min, 9.58 mls/hr Azithromycin (Zithromax 500mg In Ns) 500 mg in 250 mls @ 167 mls/hr IVPB DAILY [facility] [place] PRN Reason: Protocol Last Admin: 09/27/16 09:30 Dose: 167 mls/hr Heparin Sodium/Dextrose (Heparin 25,000 Units/250ml In D5w) 25,000 units in 250 mls @ 9.58 mls/hr IV .Q24H YEN; 12 UNITS/KG/HR PRN Reason: Protocol Last Admin: 09/27/16 17:20 Dose: 4 units/kg/hr, 3.193 mls/hr Metronidazole (Flagyl) 500 mg in 100 mls @ 100 mls/hr IVPB Q8 YEN PRN Reason: Protocol Last Admin: 09/28/16 05:27 Dose: 100 mls/hr Dobutamine HCl/Dextrose (Dobutamine/Dextrose 5% 500mg/250ml) 500 mg in 250 mls @ 12.9 mls/hr IV .[id number] PRN; Protocol; 5 MCG/KG/MIN PRN Reason: TITRATE PER PROTOCOL Last Admin: 09/27/16 22:33 Dose: 12.9 mls/hr Cefepime HCl (Maxipime 2gm) 2 gm in 100 mls @ 100 mls/hr IVPB DAILY YEN PRN Reason: Protocol Stop: 10/03/16 10:01 Pantoprazole Sodium (Protonix Inj) 40 mg IVP DAILY YEN Last Admin: 09/27/16 11:02 Dose: 40 mg Thiamine HCl (Vitamin B1 Inj) 100 mg IM DAILY YEN Last Admin: 09/27/16 11:02 Dose: 100 mg - Labs Labs: 09/28/16 05:45 09/27/16 05:10 PT 24.3 Seconds (9.9-11.8) H 09/25/16 12:00 INR 2.25 (0.93-1.08) H 09/25/16 12:00 APTT 42.7 Seconds (23.7-30.8) H 09/28/16 05:45 - Constitutional Appears: Other (Intubated ) - Head Exam Head Exam: NORMAL INSPECTION - ENT Exam Additional comments: ET tube in place - Neck Exam Neck Exam: absent: Meningismus - Respiratory Exam Respiratory Exam: Decreased Breath Sounds - Cardiovascular Exam Cardiovascular Exam: +S1, +S2 - GI/Abdominal Exam GI & Abdominal Exam: Soft. absent: Tenderness Assessment and Plan - Assessment and Plan (Free Text) Plan: Assessment systemic inflammatory response syndrome, consider due to acute decompensated heart failure with pulmonary edema, R/O severe sepsis with ventilator-dependent respiratory failure and worsening acute renal failure from severe community- acquired pneumonia alcohol abuse and alcoholic liver disease CAD chronic CHF S/P pacemaker placement HTN Plan continue Cefepime and Zithromax and added Flagyl (day 5) pending final blood, sputum cx results (which are negative so far), urine Legionella Ag; PCT is elevated (but probably because of the renal failure); reviewed repeat CXR's will continue to monitor clinically follow up Renal recommendations since his renal function is worsening Patient continues to be in critical condition
[2016-09-28] MEDS ORDERED: Albuterol-Ipratrop 3 mg / 0.5 (3 ml) UD IH PRN (10:43)
[2016-09-28] MEDS: Enoxaparin 30 mg Syringe SC SCH (11:04)
--- NOTE | 2016-09-28 14:07 | PN ---
DATE: 09/28/2016 REASON FOR THE CONSULTATION: Followup status post respiratory failure, intubated; pulmonary edema; pneumonia; nonischemic cardiomyopathy, status post AICD. SUBJECTIVE: The patient denies any chest pain. He is awake and alert, being intubated. OBJECTIVE: GENERAL: He is still being intubated, but he is awake and alert. Not in apparent distress. VITAL SIGNS: Temperature afebrile, heart rate 100, blood pressure 145/90. HEENT: PERRLA. Extraocular muscles intact. NECK: Supple. No carotid bruits or thyromegaly. CHEST: Clear to auscultation. HEART: S1 and S2 regular. ABDOMEN: Soft. EXTREMITIES: Clubbing and cyanosis negative. LABORATORY DATA: Blood workup as follows: WBC 9.7, hemoglobin 12.5, hematocrit 35.5, platelet count 62. Chemistry showed sodium 139, potassium 4, chloride 101, carbon dioxide 21, anion gap of 21, BUN 84, creatinine 5.5. Troponin 0.25. IMPRESSION: A 61-year-old male with past medical history significant for hypertension; nonischemic cardiomyopathy, possibly alcohol related; status post AICD, who came with shortness of breath, pneumonia, congestive heart failure, positive troponin most likely secondary to hemodynamic instability and acute renal failure because MB fraction was low at 1.7, I doubt is it CA, because the patient had a cardiac catheterization a couple of years ago, normal coronaries according to the patient before intubation, the patient mentioned. Acute kidney injury, hypertension, severely decreased LV function, echo shows ejection fraction 15% pulmonary pressure, [id number] pulmonary hypertension, RV systolic pressure 63, he was started on Primacor. The patient blood pressure changed to Dobutrex. RECOMMENDATIONS: Discontinue heparin. Continue p.o. amiodarone, continue Dobutrex, we will change to Lovenox 30 mg every 48 hours as the patient has worsening renal insufficiency. Continue aspirin, continue amiodarone, try to wean off the vent. I started to continue broad-spectrum antibiotic. Further recommendation after the patient is extubated. We will follow with you. Once the patient extubated we will put digoxin, diuretics, JUAN inhibitors depending on the renal function. The patient is being followed by Dr. Hogan as outpatient. History of heavy alcohol abuse as per family. Thank you Dr. Ríos for providing us the opportunity in taking care of the patient, Kodi Liang. Meliton Saunders MD
--- NOTE | 2016-09-28 15:20 | CP.PCM.PN ---
<JUANPABLOJOHNNYKATARINA - Last Filed: 09/28/16 15:06> Subjective - Date & Time of Evaluation Date of Evaluation: 09/28/16 Time of Evaluation: 07:30 - Subjective Subjective: Giuliano Rodriguez DO PGY1 - ICU Progress Note Patient seen and examined at bedside. Nurses report no acute events overnight. He is currently off sedation and feeds have been turned off for approximately 24 hours. He was following commands, and was switched to pressure support mode, which he tolerated well. Subsequently extubated to HFNC, which he is tolerating well, and maintain saturation on 40% FiO2. He denies confusion, CP, SOB, F/C, N/ V, abdominal pain. He is still somewhat lethargic. Objective - Vital Signs/Intake and Output Vital Signs (last 24 hours): Temp Pulse Resp BP Pulse Ox 98.2 F 96 H 24 134/86 98 09/28/16 12:00 09/28/16 12:40 09/28/16 13:20 09/28/16 12:30 09/28/16 12:40 Intake and Output: 09/28/16 09/28/16 06:59 18:59 Intake Total 100 0 Balance 100 0 - Medications Medications: Current Medications Albuterol/Ipratropium (Duoneb 3 Mg/0.5 Mg (3 Ml) Ud) 3 ml IH [id number] [facility] Last Admin: 09/28/16 13:17 Dose: 3 ml Albuterol/Ipratropium (Duoneb 3 Mg/0.5 Mg (3 Ml) Ud) 3 ml IH Q2H PRN PRN Reason: Shortness of Breath Last Admin: 09/28/16 11:21 Dose: 3 ml Amiodarone HCl (Cordarone) 200 mg PO DAILY [facility] Last Admin: 09/28/16 11:00 Dose: Not Given Artificial Tears (Artificial Tears Opht Oint) 0 gm OU Q2 PRN PRN Reason: Dry eyes Last Admin: 09/26/16 18:18 Dose: 1 applic Aspirin (Aspirin Chewable) 81 mg PO DAILY [facility] Last Admin: 09/28/16 10:59 Dose: Not Given Clopidogrel Bisulfate (Plavix) 75 mg PO DAILY [facility] Last Admin: 09/28/16 11:04 Dose: Not Given Enoxaparin Sodium (Lovenox) 30 mg SC QOTHERDAY [facility] PRN Reason: Protocol Last Admin: 09/28/16 11:04 Dose: 30 mg Fentanyl (Fentanyl) 100 mcg IVP Q1 PRN PRN Reason: Agitation Folic Acid (Folic Acid) 1 mg IVP DAILY [facility] Last Admin: 09/28/16 11:00 Dose: 1 mg Propofol (Diprivan) 1,000 mg in 100 mls @ 2.395 mls/hr IV .Q24H PRN; Protocol; 5 MCG/KG/MIN PRN Reason: TITRATE PER MD ORDER Last Admin: 09/27/16 22:28 Dose: 20 mcg/kg/min, 9.58 mls/hr Azithromycin (Zithromax 500mg In Ns) 500 mg in 250 mls @ 167 mls/hr IVPB DAILY [facility] PRN Reason: Protocol Last Admin: 09/28/16 11:05 Dose: Not Given Metronidazole (Flagyl) 500 mg in 100 mls @ 100 mls/hr IVPB Q8 [facility] PRN Reason: Protocol Last Admin: 09/28/16 05:27 Dose: 100 mls/hr Dobutamine HCl/Dextrose (Dobutamine/Dextrose 5% 500mg/250ml) 500 mg in 250 mls @ 12.9 mls/hr IV .[id number] PRN; Protocol; 5 MCG/KG/MIN PRN Reason: TITRATE PER PROTOCOL Last Admin: 09/27/16 22:33 Dose: 12.9 mls/hr Cefepime HCl (Maxipime 2gm) 2 gm in 100 mls @ 100 mls/hr IVPB DAILY [facility] PRN Reason: Protocol Stop: 10/03/16 10:01 Last Admin: 09/28/16 11:01 Dose: 100 mls/hr Pantoprazole Sodium (Protonix Inj) 40 mg IVP DAILY [facility] Last Admin: 09/28/16 11:05 Dose: Not Given Thiamine HCl (Vitamin B1 Inj) 100 mg IM DAILY [facility] Last Admin: 09/28/16 11:05 Dose: Not Given - Labs Labs: 09/28/16 05:45 09/28/16 05:45 PT 24.3 Seconds (9.9-11.8) H 09/25/16 12:00 INR 2.25 (0.93-1.08) H 09/25/16 12:00 APTT 39.9 Seconds (23.7-30.8) H 09/28/16 13:30 - Constitutional Appears: Non-toxic, No Acute Distress, Chronically Ill - Head Exam Head Exam: ATRAUMATIC, NORMOCEPHALIC - Eye Exam Eye Exam: EOMI, Normal appearance, PERRL - ENT Exam ENT Exam: Mucous Membranes Moist, Normal Exam - Respiratory Exam Respiratory Exam: Clear to Ausculation Bilateral. absent: Rales, Rhonchi, Wheezes - Cardiovascular Exam Cardiovascular Exam: RRR, +S1, +S2 - GI/Abdominal Exam GI & Abdominal Exam: Distended, Soft. absent: Firm, Guarding, Rigid - Extremities Exam Extremities Exam: absent: Calf Tenderness, Pedal Edema - Neurological Exam Neurological Exam: Awake Neuro motor strength exam: Left Upper Extremity: 5, Right Upper Extremity: 5, Left Lower Extremity: 5, Right Lower Extremity: 5 Additional comments: Lethargic. Oriented to person and time. - Skin Skin Exam: Dry, Intact Assessment and Plan - Assessment and Plan (Free Text) Assessment: 61 yo M with acute hypoxic respiratory failure 2/2 pulmonary edema vs ARDS vs PNA, sepsis 2/2 PNA vs cholecystitis, acute decompensated CHF (LVEF 20% with severe pulm HTN) 2/2 NSTEMI vs arrhythmia vs PE in the setting of alcoholic cardiomyopathy, alcoholic hepatitis, and BARBRA. Plan: Neuro: - Patient is currently off sedation, awake, but lethargic. AAOx2. - Continue to monitor neurological status CV: - Troponin 0.09>0.69>1.37, possible NSTEMI vs demand ischemia in acute decompensated CHF exacerbation - History of alcoholic cardiomyopathy. Echo shows LVEF 20% with severe tricuspid regurg and severe pulmonary HTN - LE venous duplex negative for DVT, unlikely to have PE - On ASA, plavix for NSTEMI. Heparin drip stopped by cardio. Started SQ Lovenox 30mg QOD - Cardio (Chip) on consult, all recs appreciated - On amiodarone for vtach, dobutamine for inotropic support - Maintain MAP>65 Pulm: - Acute hypoxic respiratory failure 2/2 pulmonary edema vs ARDS vs PNA, improving - Now extubated, maintaining O2 sat>90% on HFNC 40% - CXR today appears improved. - Question of flash pulmonary edema due to fluid overload in the setting of CHF vs ARDS vs PNA - On Duoneb PRN - Maintain O2 sat >90% - Continue with protective lung strategies, HOB>30 GI: - NG tube out after extubation, will advance diet as tolerated - Persistent transaminitis and elevated total bilirubin, though improved since yesterday - Abdominal US shows no cholecystitis or cholangitis, hepatitis panel negative, unlikely to be source of SIRS - Abdomen hyporesonant, distended, likely ascites 2/2 history of EtOH abuse, including recent binge drinking episode Renal: - BARBRA with worsening creatinine, but urine output improving - Likely ATN 2/2 hypoperfusion and venous congestion 2/2 acute decompensation CHF - Urine output improved, small negative fluid balance past 24 hours - Continue to monitor fluid output Endo: - Maintain euglycemia with bg 140-180 Hem/Onc: - H/H stable - Mild persistent thrombocytopenia likely 2/2 to chronic liver disease, will continue to monitor - On SQ Lovenox, therapeutic PTT ID: - SIRS, likely sepsis 2/2 CAP, resolved - Afebrile, leukocytosis resolved - BCx no growth after 4 days, UCx no growth, Sputum Cx pending - On cefepime, and zithromax - ID (Bubba) on consult, all recs appreciated. Ppx: Lovenox covers for DVT, protonix for GI Seen, discussed, and reviewed with attending. <Onesimo OLIVAREZ,[facility], [facility] - Last Filed: 09/28/16 19:05> Objective - Vital Signs/Intake and Output Vital Signs (last 24 hours): Temp Pulse Resp BP Pulse Ox 98.8 F 94 H 26 H 132/90 98 09/28/16 16:00 09/28/16 18:40 09/28/16 18:40 09/28/16 18:30 09/28/16 18:40 Intake and Output: 09/28/16 09/28/16 06:59 18:59 Intake Total 100 200 Output Total 450 Balance 100 -250 - Medications Medications: Current Medications Albuterol/Ipratropium (Duoneb 3 Mg/0.5 Mg (3 Ml) Ud) 3 ml IH [id number] Last Admin: 09/28/16 13:17 Dose: 3 ml Albuterol/Ipratropium (Duoneb 3 Mg/0.5 Mg (3 Ml) Ud) 3 ml IH Q2H PRN PRN Reason: Shortness of Breath Last Admin: 09/28/16 11:21 Dose: 3 ml Amiodarone HCl (Cordarone) 200 mg PO DAILY [facility] Last Admin: 09/28/16 11:00 Dose: Not Given Artificial Tears (Artificial Tears Opht Oint) 0 gm OU Q2 PRN PRN Reason: Dry eyes Last Admin: 09/26/16 18:18 Dose: 1 applic Aspirin (Aspirin Chewable) 81 mg PO DAILY [facility] Last Admin: 09/28/16 10:59 Dose: Not Given Clopidogrel Bisulfate (Plavix) 75 mg PO DAILY [facility] Last Admin: 09/28/16 11:04 Dose: Not Given Enoxaparin Sodium (Lovenox) 30 mg SC QOTHERDAY [facility] PRN Reason: Protocol Last Admin: 09/28/16 11:04 Dose: 30 mg Fentanyl (Fentanyl) 100 mcg IVP Q1 PRN PRN Reason: Agitation Folic Acid (Folic Acid) 1 mg IVP DAILY [facility] Last Admin: 09/28/16 11:00 Dose: 1 mg Propofol (Diprivan) 1,000 mg in 100 mls @ 2.395 mls/hr IV .Q24H PRN; Protocol; 5 MCG/KG/MIN PRN Reason: TITRATE PER MD ORDER Last Admin: 09/27/16 22:28 Dose: 20 mcg/kg/min, 9.58 mls/hr Azithromycin (Zithromax 500mg In Ns) 500 mg in 250 mls @ 167 mls/hr IVPB DAILY [facility] PRN Reason: Protocol Last Admin: 09/28/16 11:05 Dose: Not Given Metronidazole (Flagyl) 500 mg in 100 mls @ 100 mls/hr IVPB Q8 [facility] PRN Reason: Protocol Last Admin: 09/28/16 17:59 Dose: 100 mls/hr Dobutamine HCl/Dextrose (Dobutamine/Dextrose 5% 500mg/250ml) 500 mg in 250 mls @ 12.9 mls/hr IV .[id number] PRN; Protocol; 5 MCG/KG/MIN PRN Reason: TITRATE PER PROTOCOL Last Admin: 09/28/16 18:48 Dose: 12.9 mls/hr Cefepime HCl (Maxipime 2gm) 2 gm in 100 mls @ 100 mls/hr IVPB DAILY [facility] PRN Reason: Protocol Stop: 10/03/16 10:01 Last Admin: 09/28/16 11:01 Dose: 100 mls/hr Pantoprazole Sodium (Protonix Inj) 40 mg IVP DAILY [facility] Last Admin: 09/28/16 11:05 Dose: Not Given Thiamine HCl (Vitamin B1 Inj) 100 mg IM DAILY [facility] Last Admin: 09/28/16 11:05 Dose: Not Given - Labs Labs: 09/28/16 05:45 09/28/16 05:45 PT 24.3 Seconds (9.9-11.8) H 09/25/16 12:00 INR 2.25 (0.93-1.08) H 09/25/16 12:00 APTT 39.9 Seconds (23.7-30.8) H 09/28/16 13:30 Attending/Attestation - Attestation I have personally seen and examined this patient.: Yes I have fully participated in the care of the patient.: Yes I have reviewed all pertinent clinical information, including history, physical exam and plan: Yes Notes (Text): 09/28/16 18:57 61 y/o M w/ Resolved ARDS and extubated on HFNC to keep o2 sat > 92% Lethargic due to prolonged ICu stay , ICu polyneuropathy and mild encephalopathy On empiric abx w/ ID coverage. Need Pt/Ot needed ICS and flutter valve needed Marked transaminitis w/ T Bili elevation . US shows liver congestion in the setting of alcohol . Thrombocytopenia without bleeding, off heparin currently . Low EF on Dobutamine drip on cardiology . cc time 65 min
[2016-09-28] MEDS ORDERED: Phenylephrine 10 mg/ml Inj ONE (17:04)
[2016-09-28] MEDS: DOBUTamine 500mg/250ml D5W 500 MG/250 ML BAG IV PRN (18:48)
--- NOTE | 2016-09-28 22:07 | PN ---
DATE: 09/28/2016 SUBJECTIVE: The patient is currently seen together with his daughter in ICU bed 3. The patient was extubated earlier today. He remains on Dobutrex to improve his cardiac output. He remains on IV antibiotics. His renal parameters are worsening. MEDICATIONS: Medication lists reviewed. The patient is on Artificial Tears, chewable aspirin, amiodarone, Diprivan, Dobutrex, DuoNeb, fentanyl p.r.n., Flagyl, folic acid, Lovenox, dose was adjusted for renal failure, Maxipime, Plavix, Protonix, vitamin B1, thiamine injection, and Zithromax. PHYSICAL EXAMINATION INTAKE/OUTPUT: Intake 1499, output 1550. VITAL SIGNS: Blood pressure 134/86, heart rate 91 and regular, temperature 98.2, respiratory rate is 24, with an oxygen saturation 98%. The patient is on high flow oxygen. HEENT: The patient is normocephalic, atraumatic. Conjunctivae pink. Sclerae nonicteric. NECK: Supple. No neck vein distention. CHEST: Decreased breath sounds at the left base. Scattered rhonchi. No wheezing. CARDIOVASCULAR: Normal S1 and S2. No S3, no S4. No rub. Tricuspid regurgitation, mitral regurgitation. ABDOMEN: Soft. Bowel sounds are normal. No rebound. No guarding. No masses. EXTREMITIES: Show puffy lower extremity, but no pitting edema. No cyanosis. No clubbing. NEUROLOGIC: Minimally responsive post sedation, post intubation. LABORATORY DATA AND IMAGING: Abdominal ultrasound showed echogenic liver and increased echogenicity of his kidneys, no obstructive uropathy. Chest x-ray showed a left lower lobe infiltrate. CBC; white blood cell count 9.7, hemoglobin 12.5 with a platelet count down to 62,000 which was down from a high of 111,000. ESR is 2. Coags show a PTT of 39.9, admitting PT was 24.3. Blood gas today; pH 7.40, PO2 of 155, PCO2 of 36, calculated bicarb is 23.4. Lactic acid is now normal, it was 4.5 on admission. Chemistry showed normal electrolytes. BUN is up to 84 with a creatinine of 5.5. Glucose is 79, calcium 91, previous phosphorus 4.11, magnesium of 2.1. Elevated liver enzymes bilirubin is 5.2. Troponin levels are mildly elevated, but flat. CK-MB is negative. Repeat urinalysis trace protein. Admitting urine showed coarse granular casts. Urine electrolytes were not done. Stool is positive for blood. WILSON was negative. ANCA titers are pending, anti GBM is pending. C3 level is low at 47, C4 level is normal at 15. Hepatitis serologies were negative. Urine legionella antigen was negative. ASSESSMENT: Acute renal failure in a patient who presents with a cardiac arrest in the emergency room with pulseless electrical activity. His presentation might be consistent with renal hypoperfusion with acute tubular necrosis. There was also some concern that this might be consistent with sepsis, possible disseminated intravascular coagulation with low platelet counts and elevated PT/PTT. Performance of blood products will be checked. There was also a concern that the patient might be developing hemolytic uremic syndrome or thrombotic thrombocytopenic purpura. Peripheral smear needs to be looked at for schistocytes. There is also some consideration that he might have a pulmonary renal syndrome, vasculitis, such as Goodpasture's syndrome. Anti-GBM titers are pending. Concern is that he has a raising creatinine. As discussed with his daughter and intensive care unit staff, we can support the patient with dialysis if necessary, hoping this will not be the case. His urine output appears to be picking up. Underlying liver disease likely from alcohol consumption. No evidence presently for cirrhosis. There was some possible concern of hepatorenal syndrome. We will obtain urine electrolytes to rule this out. The patients with hepatorenal syndrome have extremely well urine sodium levels. The patients with acute tubular necrosis have elevated sodium levels. History of alcoholic cardiomyopathy status post permanent pacemaker, automatic implantable cardioverter-defibrillator 10 years ago. The patient has an ejection fraction of approximately 15% with global hypokinesis of all four chambers. Apparently, he had a cardiac catheterization several years ago, which showed no significant coronary artery disease. His echocardiogram shows pulmonary hypertension with significant tricuspid regurgitation and mitral regurgitation. Possible left lower lobe community acquired pneumonia. The patient is being treated with appropriate antibiotics. Status post hypoxic respiratory failure in the setting of cardiac arrest with pulseless electrical activity. PLAN: 1. Await for serologies to return. 2. Differential diagnoses for his acute renal failure was noted above. 3. Encouraging to see increase in his urine output; however, we would like to see plateauing of his creatinine. If not, the patient might require a short course of dialysis as noted in Dr. Ríos's note. This also had been discussed with the patient's daughter. 4. If it appears that the patient has a pulmonary renal vasculitis, if the patient should stabilize further a renal biopsy would be indicated. I will order a 24-hour urine for creatinine clearance and protein, mostly interested in the amount of protein in the urine. 5. Continue antibiotic therapy for his community-acquired pneumonia. 6. Discussed with the patient's daughter the need for him to curtail all alcohol intake. Apparently, he continues to drink heavily, even at this point in time. 7. Continue ionotropic support with Dobutrex as per cardiology note. 8. All medications should be dosed to his level of renal function. 9. Case discussed with ICU house staff in detail. Greater than 35 minutes was spent in the care of this critically ill patient. Kenan Dvais MD
[2016-09-29] MEDS: Albuterol-Ipratrop 3 mg / 0.5 (3 ml) UD IH SCH ×4 (02:20→20:49)
[2016-09-29 07:30] LABS: BILIRUBIN,TOTAL 5.3 mg/dL (0.2-1.3); CALCIUM 9.3 mg/dL (8.4-10.5); MAGNESIUM 2.5 mg/dL (1.7-2.2); PHOSPHOROUS 6.7 mg/dL (2.5-4.5); POTASSIUM 4.9 mmol/L (3.6-5.0); TOTAL PROTEIN 6.9 g/dL (5.8-8.3); URIC ACID 9.8 mg/dL (3.5-8.5)
[2016-09-29] MEDS ORDERED: Sodium Bicarbonate (8.4%) 50 Meq Syringe IVP STA (07:39)
[2016-09-29 07:57] LABS: MEAN CORPUSCULAR HEMOGLOBIN 34.2 pg (25.0-35.0); MEAN CORPUSCULAR HGB CONC 35.2 g/dl (31.0-37.0); MEAN PLATELET VOLUME 10.6 fl (7.0-11.0); PLATELET COUNT 71 10^3/uL (120.0-450.0); RED CELL DISTRIBUTION WIDTH 14.9 % (11.5-14.5); WHITE BLOOD COUNT 11.8 10^3/ul (4.5-11.0)
[2016-09-29 08:05] LABS: ADD MANUAL DIFF? YES
[2016-09-29 08:37] LABS: BAND 2 % (0-2); NEUTROPHIL 78 % (50.0-70.0); PLATELET ESTIMATE D (NORMAL)
[2016-09-29 08:38] LABS: ANISOCYTOSIS 1+; LARGE PLATELETS PRESENT; POLYCHROMASIA SLIGHT
[2016-09-29 08:43] LABS: HEMATOCRIT 38.3 % (42.0-52.0)
--- NOTE | 2016-09-29 09:42 | CP.PCM.PN ---
Subjective - Date & Time of Evaluation Date of Evaluation: 09/29/16 Time of Evaluation: 09:30 - Subjective Subjective: lethargic, poorly responsive, confused ?s/p IV fentanyl, extubated, on nasal CPAP Objective - Vital Signs/Intake and Output Vital Signs (last 24 hours): Temp Pulse Resp BP Pulse Ox 98.8 F 89 24 138/91 H 98 09/28/16 16:00 09/29/16 06:40 09/29/16 07:25 09/29/16 08:38 09/29/16 06:40 - Medications Medications: Current Medications Albuterol/Ipratropium (Duoneb 3 Mg/0.5 Mg (3 Ml) Ud) 3 ml IH [id number] [facility] Last Admin: 09/29/16 07:22 Dose: 3 ml Albuterol/Ipratropium (Duoneb 3 Mg/0.5 Mg (3 Ml) Ud) 3 ml IH Q2H PRN PRN Reason: Shortness of Breath Last Admin: 09/28/16 11:21 Dose: 3 ml Amiodarone HCl (Cordarone) 200 mg PO DAILY [facility] Last Admin: 09/28/16 11:00 Dose: Not Given Artificial Tears (Artificial Tears Opht Oint) 0 gm OU Q2 PRN PRN Reason: Dry eyes Last Admin: 09/26/16 18:18 Dose: 1 applic Aspirin (Aspirin Chewable) 81 mg PO DAILY [facility] Last Admin: 09/28/16 10:59 Dose: Not Given Clopidogrel Bisulfate (Plavix) 75 mg PO DAILY [facility] Last Admin: 09/28/16 11:04 Dose: Not Given Enoxaparin Sodium (Lovenox) 30 mg SC QOTHERDAY [facility] PRN Reason: Protocol Last Admin: 09/28/16 11:04 Dose: 30 mg Fentanyl (Fentanyl) 100 mcg IVP Q1 PRN PRN Reason: Agitation Folic Acid (Folic Acid) 1 mg IVP DAILY [facility] Last Admin: 09/28/16 11:00 Dose: 1 mg Propofol (Diprivan) 1,000 mg in 100 mls @ 2.395 mls/hr IV .Q24H PRN; Protocol; 5 MCG/KG/MIN PRN Reason: TITRATE PER MD ORDER Last Admin: 09/27/16 22:28 Dose: 20 mcg/kg/min, 9.58 mls/hr Azithromycin (Zithromax 500mg In Ns) 500 mg in 250 mls @ 167 mls/hr IVPB DAILY [facility] PRN Reason: Protocol Last Admin: 09/28/16 11:05 Dose: Not Given Metronidazole (Flagyl) 500 mg in 100 mls @ 100 mls/hr IVPB Q8 [facility] PRN Reason: Protocol Last Admin: 09/28/16 21:54 Dose: 100 mls/hr Dobutamine HCl/Dextrose (Dobutamine/Dextrose 5% 500mg/250ml) 500 mg in 250 mls @ 12.9 mls/hr IV .[id number] PRN; Protocol; 5 MCG/KG/MIN PRN Reason: TITRATE PER PROTOCOL Last Admin: 09/28/16 18:48 Dose: 12.9 mls/hr Cefepime HCl (Maxipime 2gm) 2 gm in 100 mls @ 100 mls/hr IVPB DAILY [facility] PRN Reason: Protocol Stop: 10/03/16 10:01 Last Admin: 09/28/16 11:01 Dose: 100 mls/hr Lactulose (Enulose) 10 gm PO TID [facility] Pantoprazole Sodium (Protonix Inj) 40 mg IVP DAILY [facility] Last Admin: 09/28/16 11:05 Dose: Not Given Thiamine HCl (Vitamin B1 Inj) 100 mg IM DAILY [facility] Last Admin: 09/28/16 11:05 Dose: Not Given - Labs Labs: 09/29/16 06:15 09/29/16 06:15 PT 24.3 Seconds (9.9-11.8) H 09/25/16 12:00 INR 2.25 (0.93-1.08) H 09/25/16 12:00 APTT 39.5 Seconds (23.7-30.8) H 09/29/16 06:15 - Respiratory Exam Respiratory Exam: Rhonchi - Cardiovascular Exam Cardiovascular Exam: REGULAR RHYTHM - GI/Abdominal Exam GI & Abdominal Exam: Soft, Normal Bowel Sounds - Extremities Exam Extremities Exam: Pedal Edema - Neurological Exam Neurological Exam: Altered - Skin Skin Exam: Dry, Warm Assessment and Plan (1) Pulmonary edema Status: Acute (2) Alcoholic cardiomyopathy Status: Chronic (3) Ventilatory failure Status: Acute (4) Aspiration pneumonia Status: Acute (5) Disseminated intravascular coagulation Status: Acute (6) Alcohol abuse Status: Acute (7) Acute renal failure Status: Acute (8) Encephalopathy due to metabolic factor or toxin Status: Acute - Assessment and Plan (Free Text) Plan: dc fentanyl, observe mental status, may need hemodialysis
--- NOTE | 2016-09-29 10:37 | RAD ---
HISTORY: NGT placement COMPARISON: 09/28/2016 at 5:10 a.m. FINDINGS: LUNGS: The bibasilar infiltrate appear increased. The central pulmonary vascular congestion appears slightly increased as well. These findings are probably in part due to differences in technique and more shallow inspiration. PLEURA: Bilateral pleural effusions are present that on the right appears increased. The left is probably similar. No pneumothorax apparent. CARDIOVASCULAR: Cardiomegaly with AICD pacemaker device in place. OSSEOUS STRUCTURES: No significant abnormalities. VISUALIZED UPPER ABDOMEN: Normal. OTHER FINDINGS: Endotracheal tube removal. NG tube tip probably at or just distal to the GE junction. IMPRESSION: Interval increased basilar infiltrates. Interval increased pulmonary vascular congestion. Interval increased right pleural effusion. Left pleural effusion similar. Interval more shallow inspiration -possibly contributing to some of the accentuated changes above Interval endotracheal tube removal NG tube tip probably at or just distal to the GE junction
[2016-09-29] MEDS: metroNIDAZOLE IV 500 mg/100 ml 500 MG/100 ML BAG IVPB SCH ×4 (10:40→21:49)
[2016-09-29] MEDS: Thiamine 100 mg/ml Inj IM SCH (10:44)
[2016-09-29] MEDS: Digoxin 125 mcg (0.125 mg) Tab PO SCH (10:45)
[2016-09-29] MEDS: Cefepime IV 2 gm in NS 2 GM/100 ML BAG IVPB SCH (10:47)
[2016-09-29] MEDS: Azithromycin 500MG/NS 250ml 500 MG/250 ML BAG IVPB SCH (11:00)
[2016-09-29 11:17] LABS: INR 1.5 (0.93-1.08)
--- NOTE | 2016-09-29 12:12 | CT ---
PROCEDURE: CT HEAD WITHOUT CONTRAST. HISTORY: ams COMPARISON: None available. TECHNIQUE: Axial computed tomography images were obtained through the head/brain without intravenous contrast. Radiation dose: Total exam DLP = 757 mGy-cm. This CT exam was performed using one or more of the following dose reduction techniques: Automated exposure control, adjustment of the mA and/or kV according to patient size, and/or use of iterative reconstruction technique. FINDINGS: HEMORRHAGE: No intracranial hemorrhage. BRAIN: No mass effect or edema. Mild atrophy. VENTRICLES: Unremarkable. No hydrocephalus. CALVARIUM: Unremarkable. PARANASAL SINUSES: There is extensive sinusitis. There is complete opacification of the sphenoid sinuses MASTOID AIR CELLS: There is left-sided mastoiditis with bony sclerosis and opacification of the mastoid air cells. There is also cholescintigraphy cells. There is also opacification of the middle ear cavity OTHER FINDINGS: None. IMPRESSION: Left-sided otomastoiditis. Pansinusitis. No acute intracranial findings
--- NOTE | 2016-09-29 15:09 | CP.PCM.PN ---
Subjective - Date & Time of Evaluation Date of Evaluation: 09/29/16 Time of Evaluation: 09:20 - Subjective Subjective: Patient is now extubated, still a little groggy, afebrile overnight. Objective - Vital Signs/Intake and Output Vital Signs (last 24 hours): Temp Pulse Resp BP Pulse Ox 98.8 F 89 23 136/85 98 09/28/16 16:00 09/29/16 06:40 09/29/16 06:40 09/29/16 06:30 09/29/16 06:40 - Medications Medications: Current Medications Albuterol/Ipratropium (Duoneb 3 Mg/0.5 Mg (3 Ml) Ud) 3 ml IH [id number] [facility] Last Admin: 09/29/16 02:20 Dose: 3 ml Albuterol/Ipratropium (Duoneb 3 Mg/0.5 Mg (3 Ml) Ud) 3 ml IH Q2H PRN PRN Reason: Shortness of Breath Last Admin: 09/28/16 11:21 Dose: 3 ml Amiodarone HCl (Cordarone) 200 mg PO DAILY [facility] Last Admin: 09/28/16 11:00 Dose: Not Given Artificial Tears (Artificial Tears Opht Oint) 0 gm OU Q2 PRN PRN Reason: Dry eyes Last Admin: 09/26/16 18:18 Dose: 1 applic Aspirin (Aspirin Chewable) 81 mg PO DAILY [facility] Last Admin: 09/28/16 10:59 Dose: Not Given Clopidogrel Bisulfate (Plavix) 75 mg PO DAILY [facility] Last Admin: 09/28/16 11:04 Dose: Not Given Enoxaparin Sodium (Lovenox) 30 mg SC QOTHERDAY [facility] PRN Reason: Protocol Last Admin: 09/28/16 11:04 Dose: 30 mg Fentanyl (Fentanyl) 100 mcg IVP Q1 PRN PRN Reason: Agitation Folic Acid (Folic Acid) 1 mg IVP DAILY [facility] Last Admin: 09/28/16 11:00 Dose: 1 mg Propofol (Diprivan) 1,000 mg in 100 mls @ 2.395 mls/hr IV .Q24H PRN; Protocol; 5 MCG/KG/MIN PRN Reason: TITRATE PER MD ORDER Last Admin: 09/27/16 22:28 Dose: 20 mcg/kg/min, 9.58 mls/hr Azithromycin (Zithromax 500mg In Ns) 500 mg in 250 mls @ 167 mls/hr IVPB DAILY [facility]EN PRN Reason: Protocol Last Admin: 09/28/16 11:05 Dose: Not Given Metronidazole (Flagyl) 500 mg in 100 mls @ 100 mls/hr IVPB Q8 [facility]EN PRN Reason: Protocol Last Admin: 09/28/16 21:54 Dose: 100 mls/hr Dobutamine HCl/Dextrose (Dobutamine/Dextrose 5% 500mg/250ml) 500 mg in 250 mls @ 12.9 mls/hr IV .[id number] PRN; Protocol; 5 MCG/KG/MIN PRN Reason: TITRATE PER PROTOCOL Last Admin: 09/28/16 18:48 Dose: 12.9 mls/hr Cefepime HCl (Maxipime 2gm) 2 gm in 100 mls @ 100 mls/hr IVPB DAILY [facility]EN PRN Reason: Protocol Stop: 10/03/16 10:01 Last Admin: 09/28/16 11:01 Dose: 100 mls/hr Lactulose (Enulose) 10 gm PO TID [facility] Pantoprazole Sodium (Protonix Inj) 40 mg IVP DAILY [facility] Last Admin: 09/28/16 11:05 Dose: Not Given Thiamine HCl (Vitamin B1 Inj) 100 mg IM DAILY [facility] Last Admin: 09/28/16 11:05 Dose: Not Given - Labs Labs: 09/28/16 05:45 09/28/16 05:45 PT 24.3 Seconds (9.9-11.8) H 09/25/16 12:00 INR 2.25 (0.93-1.08) H 09/25/16 12:00 APTT 39.9 Seconds (23.7-30.8) H 09/28/16 13:30 - Constitutional Appears: Non-toxic, No Acute Distress - Head Exam Head Exam: NORMAL INSPECTION - ENT Exam ENT Exam: Mucous Membranes Moist - Neck Exam Neck Exam: absent: Lymphadenopathy, Meningismus - Respiratory Exam Respiratory Exam: Decreased Breath Sounds - Cardiovascular Exam Cardiovascular Exam: +S1, +S2 - GI/Abdominal Exam GI & Abdominal Exam: Soft. absent: Tenderness Assessment and Plan - Assessment and Plan (Free Text) Plan: Assessment systemic inflammatory response syndrome, consider due to acute decompensated heart failure with pulmonary edema, R/O severe sepsis S/P ventilator-dependent respiratory failure and worsening acute renal failure from severe community- acquired pneumonia - clinically improving and now extubarted alcohol abuse and alcoholic liver disease CAD chronic CHF S/P pacemaker placement HTN Plan continue Cefepime and Zithromax (day 6) to complete 7 days of therapy; cultures have been negative; PCT is elevated (but probably because of the renal failure) ; reviewed repeat CXR's will continue to monitor clinically follow up Renal recommendations since his renal function is worsening
[2016-09-29] MEDS: DOBUTamine 500mg/250ml D5W 500 MG/250 ML BAG IV PRN (15:13)
--- NOTE | 2016-09-29 15:13 | PN ---
DATE: 09/29/2016 REASON FOR CONSULTATION: Followup status post respiratory failure, intubated; pulmonary edema; pneumonia; nonischemic cardiomyopathy, status post successfully extubated, status post AICD. SUBJECTIVE: Denies any chest pain, shortness of breath, or any palpitations. OBJECTIVE: GENERAL: Status post extubated. lying flat in the bed. VITAL SIGNS: As follows; temperature afebrile, heart rate 80, and blood pressure 132/85. HEENT: PERRLA. Extraocular muscles intact. NECK: Supple. No carotid bruit or thyromegaly. CHEST: Clear to auscultation. HEART: S1 and S2 regular. ABDOMEN: Soft. EXTREMITIES: Clubbing and cyanosis negative. LABORATORY DATA: Blood workup; WBC 11.8, hemoglobin 13.5, hematocrit 38.3, and platelet count 71. Chemistry shows sodium 130, potassium 4.3, chloride 104, carbon dioxide 17, anion gap of 13, BUN 105, and creatinine 6.1. IMPRESSION: Acute kidney injury, hypertension, cardiomyopathy, severely decreased left ventricular function, ejection fraction 15%, status post automatic implantable cardioverter-defibrillator, nonischemic cardiomyopathy, status post cardiac catheterization, nonobstructive coronary artery disease, positive troponin secondary to patient's cardiopulmonary resuscitation and shock. Maximum troponin was 0.25. History of automatic implantable cardioverter-defibrillator being followed by Dr. Hogan at [facility]. RECOMMENDATIONS: Avoid nephrotoxic medication. Continue Lovenox 30 subcutaneously q.48 hours, renal dose, avoid because of renal insufficiency, continue Dobutrex for now, possible the patient may need the dialysis if renal function keeps her deteriorating. We will put hydralazine p.r.n. for systolic blood pressure more than 170. Also, we will put digoxin every 48 hours Tuesday, Tuesday, and Tuesday. We will follow with you. Thank you Dr. Ríos for providing the opportunity in taking care of the patient, Garth Mariee. Meliton Saunders MD
--- NOTE | 2016-09-29 15:30 | CP.PCM.PN ---
<JUANPABLOGIULIANO - Last Filed: 09/29/16 16:19> Subjective - Date & Time of Evaluation Date of Evaluation: 09/29/16 Time of Evaluation: 07:30 - Subjective Subjective: Giuliano Rodriguez DO PGY1 - ICU Progress Note Patient seen and examined at bedside. Nurses report that patient had some weakness, difficulty moving whenever trying to clean or reposition him. Continues to be slightly confused, lethargic, slow responses. AAOx2. He denies any CP, SOB, abdominal pain, n/v/d. Later in the day, daughter at bedside, consented to port placement for emergent dialysis. Also, throughout the day, neuro status gradually worsened. Objective - Vital Signs/Intake and Output Vital Signs (last 24 hours): Temp Pulse Resp BP Pulse Ox 98.8 F 86 29 H 134/85 97 09/28/16 16:00 09/29/16 15:13 09/29/16 14:50 09/29/16 15:13 09/29/16 14:30 - Medications Medications: Current Medications Albuterol/Ipratropium (Duoneb 3 Mg/0.5 Mg (3 Ml) Ud) 3 ml IH [id number] [facility] Last Admin: 09/29/16 13:21 Dose: 3 ml Albuterol/Ipratropium (Duoneb 3 Mg/0.5 Mg (3 Ml) Ud) 3 ml IH Q2H PRN PRN Reason: Shortness of Breath Last Admin: 09/28/16 11:21 Dose: 3 ml Amiodarone HCl (Cordarone) 200 mg PO DAILY [facility] Last Admin: 09/29/16 10:48 Dose: 200 mg Artificial Tears (Artificial Tears Opht Oint) 0 gm OU Q2 PRN PRN Reason: Dry eyes Last Admin: 09/26/16 18:18 Dose: 1 applic Carvedilol (Coreg) 3.125 mg PO BID [facility] Last Admin: 09/29/16 10:45 Dose: 3.125 mg Digoxin (Lanoxin) 0.125 mg PO MWF [facility] Last Admin: 09/29/16 10:45 Dose: 0.125 mg Enoxaparin Sodium (Lovenox) 30 mg SC QOTHERDAY [facility] PRN Reason: Protocol Last Admin: 09/28/16 11:04 Dose: 30 mg Folic Acid (Folic Acid) 1 mg IVP DAILY [facility] Last Admin: 09/29/16 12:42 Dose: 1 mg Azithromycin (Zithromax 500mg In Ns) 500 mg in 250 mls @ 167 mls/hr IVPB DAILY [facility] PRN Reason: Protocol Last Admin: 09/28/16 11:05 Dose: Not Given Metronidazole (Flagyl) 500 mg in 100 mls @ 100 mls/hr IVPB Q8 [facility] PRN Reason: Protocol Last Admin: 09/29/16 10:40 Dose: Not Given Dobutamine HCl/Dextrose (Dobutamine/Dextrose 5% 500mg/250ml) 500 mg in 250 mls @ 12.9 mls/hr IV .[id number] PRN; Protocol; 5 MCG/KG/MIN PRN Reason: TITRATE PER PROTOCOL Last Admin: 09/29/16 15:13 Dose: 12.9 mls/hr Cefepime HCl (Maxipime 2gm) 2 gm in 100 mls @ 100 mls/hr IVPB DAILY [facility] PRN Reason: Protocol Stop: 10/03/16 10:01 Last Admin: 09/29/16 10:47 Dose: 100 mls/hr Lactulose (Enulose) 10 gm PO TID [facility] Last Admin: 09/29/16 10:50 Dose: 10 gm Pantoprazole Sodium (Protonix Inj) 40 mg IVP DAILY [facility] Last Admin: 09/29/16 10:44 Dose: 40 mg Thiamine HCl (Vitamin B1 Inj) 100 mg IM DAILY [facility] Last Admin: 09/29/16 10:44 Dose: 100 mg - Labs Labs: 09/29/16 06:15 09/29/16 06:15 PT 16.2 Seconds (9.9-11.8) H 09/29/16 10:50 INR 1.50 (0.93-1.08) H 09/29/16 10:50 APTT 39.5 Seconds (23.7-30.8) H 09/29/16 06:15 - Constitutional Appears: No Acute Distress, Confused, Chronically Ill - Head Exam Head Exam: ATRAUMATIC, NORMOCEPHALIC - Eye Exam Eye Exam: PERRL - ENT Exam ENT Exam: Mucous Membranes Moist - Neck Exam Neck Exam: absent: Lymphadenopathy, Thyromegaly - Respiratory Exam Respiratory Exam: Clear to Ausculation Bilateral Additional comments: Irregular breathing pattern, likely 2/2 to costochondral pain 2/2 CPR - Cardiovascular Exam Cardiovascular Exam: JVD, RRR, +S1, +S2 - GI/Abdominal Exam GI & Abdominal Exam: Distended, Soft. absent: Firm, Guarding Additional comments: Mild diffuse tenderness, worst is suprapubic, mild involuntary gaurding. No rigidity, no rebound. - Extremities Exam Extremities Exam: Pedal Edema (mild). absent: Calf Tenderness - Neurological Exam Neurological Exam: Alert, Awake Additional comments: Oriented x2 this AM GCS 13-14, later in the day, no longer responding verbally, but opens eyes to verbal stimuli, GCS 11-12 - Skin Skin Exam: Dry, Intact Assessment and Plan - Assessment and Plan (Free Text) Assessment: 61 yo M with acute hypoxic respiratory failure 2/2 pulmonary edema vs ARDS vs PNA, now resolved, extubated; sepsis 2/2 PNA vs cholecystitis, acute decompensated CHF (LVEF 20% with severe pulm HTN) 2/2 NSTEMI vs arrhythmia in the setting of alcoholic cardiomyopathy, alcoholic hepatitis, and BARBRA. On empiric abx w/ ID coverage. Need Pt/Ot needed ICS and flutter valve needed Marked transaminitis w/ T Bili elevation . US shows liver congestion in the setting of alcohol . Thrombocytopenia without bleeding, off heparin currently . Low EF on Dobutamine drip on cardiology . Plan: Neuro: - Patient is currently off sedation, awake, but lethargic. GCS 13-14 this AM, worsened to 11-12 later in the day. Likely 2/2 hypoxic brain injury vs encephalopathy 2/2 acute hepatic congestion and hepatitis vs uremia, with ICu polyneuropathy and prolonged ICu stay. - Head CT done today to r/o CVA, negative for acute abnormalities - Ammonia level 14, not grossly elevated, but does not r/o hepatic encephalopathy. Will start lactulose today. - Uremia worsening, likely cause of AMS, will start dialysis today. - Continue to monitor neurological status CV: - Troponin 0.09>0.69>1.37, possible NSTEMI vs demand ischemia in acute decompensated CHF exacerbation - History of alcoholic cardiomyopathy. Echo shows LVEF 20% with severe tricuspid regurg and severe pulmonary HTN - LE venous duplex negative for DVT, unlikely to have PE - On ASA, plavix, Lovenox 30mg QOD for NSTEMI. - Cardio (Chip) on consult, all recs appreciated - On amiodarone for vtach, dobutamine for inotropic support - Maintain MAP>65 Pulm: - Acute hypoxic respiratory failure 2/2 pulmonary edema vs ARDS vs PNA, resolved - On 3LNC, maintaining saturations well, s/p extubation yesterday - CXR today shows worsened vascular congestion - Question of flash pulmonary edema due to fluid overload in the setting of CHF vs ARDS vs PNA - Given lasix once to improve fluid overload. Cannot continue scheduled lasix due to poor renal function, maintaining good urine output. Will start dialysis today. - On Duoneb PRN - Maintain O2 sat >90% - Continue with protective lung strategies, HOB>30 GI: - NG tube replaced, will advance diet as tolerated - Persistent transaminitis and elevated total bilirubin, though improved since yesterday. - Abdominal US shows no cholecystitis or cholangitis, hepatitis panel negative, unlikely to be source of SIRS. - Ammonia 14 today. Will start lactulose today to treat for possible hepatic encephalopathy - Abdomen hyporesonant, distended, likely ascites 2/2 history of EtOH abuse, including recent binge drinking episode Renal: - BARBRA with worsening creatinine and BUN, but urine output improving - Likely ATN 2/2 hypoperfusion and venous congestion 2/2 acute decompensation CHF - FeNa 5.9%, but no obstruction, indicates ATN. - Noted eosinophiluria today, may indicate AIN - Nephro on consult, all recs appreciated - Urine output improved, small negative fluid balance past 24 hours - Daughter consented for catheter placement and emergent dialysis, maxwell start today - Continue to monitor fluid output Endo: - Maintain euglycemia with bg 140-180 Hem/Onc: - H/H stable - Mild persistent thrombocytopenia likely 2/2 to chronic liver disease, will continue to monitor - On SQ Lovenox, therapeutic PTT ID: - SIRS, likely sepsis 2/2 CAP, resolved - Afebrile, with leukocytosis 11.8, on empiric abx - BCx no growth after 4 days, UCx no growth, Sputum Cx pending - On cefepime, zithromax, and flagyl - ID (Bubba) on consult, all recs appreciated. Ppx: Lovenox covers for DVT, protonix for GI Seen, discussed, and reviewed with attending. <Onesimo OLIVAREZ,Harriett H - Last Filed: 09/29/16 18:01> Objective - Vital Signs/Intake and Output Vital Signs (last 24 hours): Temp Pulse Resp BP Pulse Ox 98.0 F 86 26 H 122/77 95 09/29/16 16:00 09/29/16 16:50 09/29/16 16:50 09/29/16 16:49 09/29/16 16:50 - Medications Medications: Current Medications Albuterol/Ipratropium (Duoneb 3 Mg/0.5 Mg (3 Ml) Ud) 3 ml IH [id number] [facility] Last Admin: 09/29/16 13:21 Dose: 3 ml Albuterol/Ipratropium (Duoneb 3 Mg/0.5 Mg (3 Ml) Ud) 3 ml IH Q2H PRN PRN Reason: Shortness of Breath Last Admin: 09/28/16 11:21 Dose: 3 ml Amiodarone HCl (Cordarone) 200 mg PO DAILY [facility] Last Admin: 09/29/16 10:48 Dose: 200 mg Artificial Tears (Artificial Tears Opht Oint) 0 gm OU Q2 PRN PRN Reason: Dry eyes Last Admin: 09/26/16 18:18 Dose: 1 applic Carvedilol (Coreg) 3.125 mg PO BID [facility] Last Admin: 09/29/16 17:15 Dose: Not Given Digoxin (Lanoxin) 0.125 mg PO MWF [facility] Last Admin: 09/29/16 10:45 Dose: 0.125 mg Enoxaparin Sodium (Lovenox) 30 mg SC QOTHERDAY [facility] PRN Reason: Protocol Last Admin: 09/28/16 11:04 Dose: 30 mg Folic Acid (Folic Acid) 1 mg IVP DAILY [facility] Last Admin: 09/29/16 12:42 Dose: 1 mg Azithromycin (Zithromax 500mg In Ns) 500 mg in 250 mls @ 167 mls/hr IVPB DAILY [facility] PRN Reason: Protocol Last Admin: 09/29/16 11:00 Dose: 167 mls/hr Metronidazole (Flagyl) 500 mg in 100 mls @ 100 mls/hr IVPB Q8 [facility] PRN Reason: Protocol Last Admin: 09/29/16 17:14 Dose: Not Given Dobutamine HCl/Dextrose (Dobutamine/Dextrose 5% 500mg/250ml) 500 mg in 250 mls @ 12.9 mls/hr IV .[id number] PRN; Protocol; 5 MCG/KG/MIN PRN Reason: TITRATE PER PROTOCOL Last Admin: 09/29/16 15:13 Dose: 12.9 mls/hr Cefepime HCl (Maxipime 2gm) 2 gm in 100 mls @ 100 mls/hr IVPB DAILY [facility] PRN Reason: Protocol Stop: 10/03/16 10:01 Last Admin: 09/29/16 10:47 Dose: 100 mls/hr Lactulose (Enulose) 10 gm PO TID [facility] Last Admin: 09/29/16 17:21 Dose: 10 gm Pantoprazole Sodium (Protonix Inj) 40 mg IVP DAILY [facility] Last Admin: 09/29/16 10:44 Dose: 40 mg Thiamine HCl (Vitamin B1 Inj) 100 mg IM DAILY [facility] Last Admin: 09/29/16 10:44 Dose: 100 mg - Labs Labs: 09/29/16 06:15 09/29/16 06:15 PT 16.2 Seconds (9.9-11.8) H 09/29/16 10:50 INR 1.50 (0.93-1.08) H 09/29/16 10:50 APTT 39.5 Seconds (23.7-30.8) H 09/29/16 06:15 Attending/Attestation - Attestation I have personally seen and examined this patient.: Yes I have fully participated in the care of the patient.: Yes I have reviewed all pertinent clinical information, including history, physical exam and plan: Yes Notes (Text): 09/29/16 17:54 61 y/o M w/ resolving ARDS S/P extubation and on NC. AMS with signs of Uremia and possible hepatic encephalopathy . BARBRA w/ increasing BUN w/ likely ATN Plan for HD today MODS - CHF , Likely alcoholic hepatic cirrhosis and now Renal failure Plans to place HD catheter and to start HD. Poor prognosis . I had a discussion with the daughter at bedside . cc time 65 min
--- NOTE | 2016-09-29 16:31 | PCM.PROC ---
Procedures Attestation:: I certify that I have explained the specified Operation(s) or Procedure(s), risks, benefits and reasonable alternatives to the Patient and/or other person responsible. The opportunity was given to ask questions and all questions answered - Central Line Placement Right Internal Jugular Hemodialysis Access Aseptic technique was employed throughout the procedure: Hand Hygiene done prior to procedure, Full sterile barriers (mask, hair cover, sterile gown, sterile gloves), Chloraprep Antiseptic: 30 second prep for IJ or SC sites, Chloraprep Antiseptic: 2 minute prep for Femoral CVP Time Out Performed: Yes Pt. Placed on Pulse Ox Monitor: Yes Central Line Prep: Chlorhexidine-Alcohol Combination Local Anesthesia Used: Lidocaine 1% Ultrasound Used for Placement: Yes Central Line Lumen Inserted: triple Central Line Length: 16 cm Post Procedure: Sutured in Place, Good Blood Return, All Ports Aspirated, Flushed, Capped, Sterile Dressing Applied Secured by: Suture Post Procedure X-Ray: Yes Patient Tolerated Procedure: Well Immediate Complications: None
--- NOTE | 2016-09-29 17:38 | RAD ---
HISTORY: dialysis cath insertion COMPARISON: 09/29/2016 FINDINGS: The right jugular line terminates in the SVC. The nasogastric tube terminates in the stomach. LUNGS: There is haziness in both perihilar regions and lower lobes. PLEURA: There are moderate pleural effusions. No pneumothorax. CARDIOVASCULAR: There is mild cardiomegaly. Stable position of a left-sided AICD. OSSEOUS STRUCTURES: No significant abnormalities. VISUALIZED UPPER ABDOMEN: Normal. OTHER FINDINGS: None. IMPRESSION: Findings are most compatible with perihilar and lower lobe pulmonary edema and moderate pleural effusions. Follow-up is advised.
--- NOTE | 2016-09-29 18:44 | PN ---
DATE: 09/29/2016 SUBJECTIVE: The patient is seen in the ICU. He is sitting up in bed. He has nebulizer. He is very groggy. He is not really following commands. Daughter is at bedside. He is responding to pain. He appears to be in mild to moderate respiratory distress. PHYSICAL EXAMINATION GENERAL: Thinly-built elderly male lying in bed in the ICU with nebulizer on right now. VITAL SIGNS: Blood pressure 133/89, heart rate 88, respiratory rate 20, temperature 98.2. HEENT: Normocephalic, atraumatic, positive pallor, positive icterus. NECK: Supple, no JVD. LUNGS: Bilateral crackles, coarse breath sounds, bilateral rhonchi. CARDIAC: S1 and S2, regular rate and rhythm, no murmur, no rub. ABDOMEN: Distended, soft, bowel sounds present, positive fluid thrill. EXTREMITIES: 3+ pitting edema of the lower extremities. No clubbing, no cyanosis. INTAKE AND OUTPUT: 1499/1550. LABORATORY DATA: WBC 11.8, hemoglobin 13.5, hematocrit 38, platelets 71. Sodium 139, potassium 4.9, chloride 104, CO2 is 17, BUN 105, creatinine 6.1, glucose 103, uric acid 9.8, calcium 9.3, phosphorus 6.7, magnesium 2.5, AST 110, ALT 82. Troponin 0.25 yesterday. Urine eosinophils positive, urine sodium 64, urine creatinine 48. Stool occults positive. C3 is 47 which is low. C4 15, which is borderline low. WILSON negative. Rheumatoid factor pending. ANCA pending. Hepatitis negative. Cultures no growth so far. CT of the head left-sided otomastoiditis, pansinusitis, no intracranial findings. CURRENT MEDICATIONS: Cordarone 200 mg daily, Coreg 3.125 b.i.d., dobutamine is discontinued, DuoNeb, lactulose, Flagyl 500 q. 8 hours, folic acid, digoxin, Lovenox, Maxipime 2 g daily, Protonix, thiamine, Zithromax. ASSESSMENT AND PLAN: Acute kidney injury status post cardiac arrest in the emergency room with pulseless electrical activity. Suspect renal hypoperfusion, acute tubular necrosis. Urine electrolytes also consistent with acute tubular necrosis. ? sepsis/disseminated intravascular coagulation/thrombocytopenia. Cultures are all negative. TTP? ? vasculitis, hypocomplementemia, but ESR is normal, WILSON is negative. Cirrhosis of the liver, transaminitis, coagulopathy. Unlikely hepatorenal syndrome because urine sodium is 68. History of alcoholic cardiomyopathy, pacemaker placement, AICD. Severe CHF, EF 15%, global hypokinesis. Acute hypoxic respiratory failure, improving. Possible left lower lobe pneumonia. At this time, a long discussion has had with ICU team. The patient has deteriorating renal function. His mental status is deteriorating. There may be a component of uremia which is contributing to his altered mental status. His urine output is improved. But in light of worsening uremia, we will consider dialysis. Case is discussed at the bedside with daughter at length. Case is discussed with the via phone. Consent is obtained for dialysis. Case was discussed with dialysis staff. We will initiate dialysis when catheter is available. At this time. the patient is critically ill. He has worsening renal function. He has worsening liver function. Prognosis is grave. We will continue to follow closely. More than 35 minutes was spent in the care of this critically ill patient. Lakesha Enciso MD
[2016-09-30] MEDS: Albuterol-Ipratrop 3 mg / 0.5 (3 ml) UD IH SCH ×4 (02:50→19:55)
[2016-09-30] MEDS: metroNIDAZOLE IV 500 mg/100 ml 500 MG/100 ML BAG IVPB SCH ×3 (05:40→21:42)
[2016-09-30 06:26] LABS: ADD MANUAL DIFF? NO
[2016-09-30 06:32] LABS: BASO # 0.05 K/mm3 (0.0-2.0); BASO % 0.5 % (0.0-3.0); EOS # 0.2 (0.0-0.7); EOS % 1.6 % (1.5-5.0); GRAN # 7.96 (1.4-6.5); GRAN % 72.6 % (50.0-68.0); HEMATOCRIT 36.6 % (42.0-52.0); LYMPH # 0.6 (1.2-3.4); LYMPH % 5.7 % (22.0-35.0); MEAN CELL VOLUME 97.3 fl (80.0-105.0); MEAN CORPUSCULAR HEMOGLOBIN 34.6 pg (25.0-35.0); MEAN CORPUSCULAR HGB CONC 35.5 g/dl (31.0-37.0); MEAN PLATELET VOLUME 12.1 fl (7.0-11.0); MONO # 2.1 (0.1-0.6); MONO % 19.6 % (1.0-6.0); PLATELET COUNT 66 10^3/uL (120.0-450.0); RED CELL DISTRIBUTION WIDTH 14.9 % (11.5-14.5); WHITE BLOOD COUNT 10.9 10^3/ul (4.5-11.0)
[2016-09-30 07:05] LABS: ALB/GLOB RATIO 0.9 (1.1-1.8); BILIRUBIN,TOTAL 4.5 mg/dL (0.2-1.3); POTASSIUM 4.2 mmol/L (3.6-5.0)
--- NOTE | 2016-09-30 07:46 | CP.PCM.PN ---
<GIULIANO GERONIMO - Last Filed: 09/30/16 11:22> Subjective - Date & Time of Evaluation Date of Evaluation: 09/30/16 Time of Evaluation: 07:30 - Subjective Subjective: Giuliano Michael DO PGY1 - ICU Progress Note Patient seen and examined at bedside. Nurses report that overnight, he was responsive, obeying simple commands, including movements of his left hand, which was weak previously. Also reported several loose green BMs through the night. Today, he is minimally responsive to verbal stimuli, not obeying simple commands. But he appears to be awake, with spontaneous eye opening and movements. Continues to have abdominal pain and tenderness Objective - Vital Signs/Intake and Output Vital Signs (last 24 hours): Temp Pulse Resp BP Pulse Ox 98.0 F 89 25 H 131/82 96 09/29/16 16:00 09/30/16 05:30 09/30/16 05:30 09/30/16 05:30 09/30/16 05:30 - Medications Medications: Current Medications Albuterol/Ipratropium (Duoneb 3 Mg/0.5 Mg (3 Ml) Ud) 3 ml [id number] Last Admin: 09/30/16 02:50 Dose: 3 ml Albuterol/Ipratropium (Duoneb 3 Mg/0.5 Mg (3 Ml) Ud) 3 ml IH Q2H PRN PRN Reason: Shortness of Breath Last Admin: 09/28/16 11:21 Dose: 3 ml Amiodarone HCl (Cordarone) 200 mg PO DAILY [facility] Last Admin: 09/29/16 10:48 Dose: 200 mg Artificial Tears (Artificial Tears Opht Oint) 0 gm OU Q2 PRN PRN Reason: Dry eyes Last Admin: 09/26/16 18:18 Dose: 1 applic Carvedilol (Coreg) 3.125 mg PO BID [facility] Last Admin: 09/29/16 19:04 Dose: 3.125 mg Digoxin (Lanoxin) 0.125 mg PO MWF [facility] Last Admin: 09/29/16 10:45 Dose: 0.125 mg Enoxaparin Sodium (Lovenox) 30 mg SC QOTHERDAY [facility] PRN Reason: Protocol Last Admin: 09/28/16 11:04 Dose: 30 mg Folic Acid (Folic Acid) 1 mg IVP DAILY [facility] Last Admin: 09/29/16 12:42 Dose: 1 mg Azithromycin (Zithromax 500mg In Ns) 500 mg in 250 mls @ 167 mls/hr IVPB DAILY [facility] PRN Reason: Protocol Last Admin: 09/29/16 11:00 Dose: 167 mls/hr Metronidazole (Flagyl) 500 mg in 100 mls @ 100 mls/hr IVPB Q8 [facility] PRN Reason: Protocol Last Admin: 09/30/16 05:40 Dose: 100 mls/hr Dobutamine HCl/Dextrose (Dobutamine/Dextrose 5% 500mg/250ml) 500 mg in 250 mls @ 12.9 mls/hr IV .[id number] PRN; Protocol; 5 MCG/KG/MIN PRN Reason: TITRATE PER PROTOCOL Last Admin: 09/29/16 15:13 Dose: 12.9 mls/hr Cefepime HCl (Maxipime 2gm) 2 gm in 100 mls @ 100 mls/hr IVPB DAILY [facility] PRN Reason: Protocol Stop: 10/03/16 10:01 Last Admin: 09/29/16 10:47 Dose: 100 mls/hr Lactulose (Enulose) 10 gm PO TID [facility] Last Admin: 09/29/16 17:21 Dose: 10 gm Pantoprazole Sodium (Protonix Inj) 40 mg IVP DAILY [facility] Last Admin: 09/29/16 10:44 Dose: 40 mg Thiamine HCl (Vitamin B1 Inj) 100 mg IM DAILY [facility] Last Admin: 09/29/16 10:44 Dose: 100 mg - Labs Labs: 09/30/16 06:20 09/30/16 06:20 PT 16.2 Seconds (9.9-11.8) H 09/29/16 10:50 INR 1.50 (0.93-1.08) H 09/29/16 10:50 APTT 37.4 Seconds (23.7-30.8) H 09/30/16 06:20 - Constitutional Appears: Non-toxic, Confused, Chronically Ill - Head Exam Head Exam: ATRAUMATIC, NORMOCEPHALIC - Eye Exam Eye Exam: EOMI, PERRL - ENT Exam ENT Exam: Mucous Membranes Moist - Neck Exam Neck Exam: absent: Lymphadenopathy, Thyromegaly - Respiratory Exam Respiratory Exam: Clear to Ausculation Bilateral. absent: Rales, Rhonchi, Wheezes - Cardiovascular Exam Cardiovascular Exam: RRR, +S1, +S2 - GI/Abdominal Exam GI & Abdominal Exam: Distended Additional comments: Hyperresonant with shifting dullness. Diffusely tender, especially RLQ - Extremities Exam Extremities Exam: Normal Inspection. absent: Calf Tenderness, Pedal Edema - Neurological Exam Additional comments: Awake, but lethargic, confused, not obeying simple commands. Few spontaneous movements. Wincing and grimacing to pain. - Psychiatric Exam Psychiatric exam: Flat Affect - Skin Skin Exam: Dry, Intact Assessment and Plan - Assessment and Plan (Free Text) Assessment: 61 yo M with acute hypoxic respiratory failure 2/2 pulmonary edema vs ARDS vs PNA, now resolved, extubated; sepsis 2/2 PNA vs cholecystitis, acute decompensated CHF (LVEF 20% with severe pulm HTN) 2/2 NSTEMI vs arrhythmia in the setting of alcoholic cardiomyopathy, alcoholic hepatitis, and BARBRA. Worsening neurological status despite improving vitals and lab values. Plan: Neuro: - Patient is currently off sedation, awake, but lethargic. GCS 10-11. Likely 2/ 2 hypoxic brain injury vs encephalopathy 2/2 acute hepatic congestion and hepatitis vs uremia, with ICu polyneuropathy and prolonged ICu stay. - Head CT done yesterday negative for acute abnormalities. Consider EEG and MRI if no improvement after dialysis today. - No change in mental status after one day of lactulose. Will d/c that today. - Uremia improved slightly after dialysis yesterday, likely cause of AMS, HD again today. - Continue to monitor neurological status CV: - Troponin 0.09>0.69>1.37, possible NSTEMI vs demand ischemia in acute decompensated CHF exacerbation - History of alcoholic cardiomyopathy. Echo shows LVEF 20% with severe tricuspid regurg and severe pulmonary HTN - On ASA, plavix, Lovenox 30mg QOD for NSTEMI. - Cardio (Chip) on consult, all recs appreciated - On amiodarone for vtach, dobutamine for inotropic support - Maintain MAP>65 Pulm: - Acute hypoxic respiratory failure 2/2 pulmonary edema vs ARDS vs PNA, resolved - On 3LNC, maintaining saturations well, s/p extubation two days ago - Resolving pulmonary edema due to fluid overload in the setting of CHF vs ARDS vs PNA - Fluid status improving, continues to make urine, will take off more fluid today during HD - On Duoneb PRN - Maintain O2 sat >90% - Continue with protective lung strategies, HOB>30 GI: - NG tube in place, advance diet as tolerated - Persistent transaminitis and elevated total bilirubin, though improved slightly since yesterday. - Abdominal US shows no cholecystitis or cholangitis, hepatitis panel negative, unlikely to be source of SIRS. - d/c lactulose - Abdomen hyporesonant with shifting dullness, distended, likely ascites 2/2 history of EtOH abuse, including recent binge drinking episode Renal: - BARBRA improving slightly since starting HD, maintaining urine output - Likely ATN 2/2 hypoperfusion and venous congestion 2/2 acute decompensation CHF, but serologic workup pending to r/o autoimmune diseases, vasculopathies, and other reversible causes - FeNa 5.9%, but no obstruction, indicates ATN. - Nephro on consult, all recs appreciated - Urine output improved, small negative fluid balance past 24 hours - Continue daily HD per nephro - Continue to monitor fluid output Endo: - Maintain euglycemia with bg 140-180 Hem/Onc: - H/H stable - Mild persistent thrombocytopenia likely 2/2 to chronic liver disease, will continue to monitor - On SQ Lovenox, therapeutic PTT ID: - SIRS, likely sepsis 2/2 CAP vs SBP, resolved - Afebrile, with leukocytosis 11.8, on empiric abx - BCx no growth after 5 days, UCx no growth, Sputum Cx no growth, stool for C diff negative - On cefepime, zithromax, and flagyl - ID (Bubba) on consult, all recs appreciated. Ppx: Lovenox covers for DVT, protonix for GI Seen, discussed, and reviewed with attending. <Onesimo OLIVAREZ,Damarisoctavio H - Last Filed: 09/30/16 12:39> Objective - Vital Signs/Intake and Output Vital Signs (last 24 hours): Temp Pulse Resp BP Pulse Ox 98.0 F 98 H 25 H 140/87 96 09/29/16 16:00 09/30/16 10:10 09/30/16 05:30 09/30/16 10:10 09/30/16 05:30 - Medications Medications: Current Medications Albuterol/Ipratropium (Duoneb 3 Mg/0.5 Mg (3 Ml) Ud) 3 ml [id number] Last Admin: 09/30/16 08:26 Dose: 3 ml Albuterol/Ipratropium (Duoneb 3 Mg/0.5 Mg (3 Ml) Ud) 3 ml IH Q2H PRN PRN Reason: Shortness of Breath Last Admin: 09/28/16 11:21 Dose: 3 ml Amiodarone HCl (Cordarone) 200 mg PO DAILY [facility] Last Admin: 09/30/16 10:09 Dose: 200 mg Artificial Tears (Artificial Tears Opht Oint) 0 gm OU Q2 PRN PRN Reason: Dry eyes Last Admin: 09/26/16 18:18 Dose: 1 applic Carvedilol (Coreg) 3.125 mg PO BID [facility] Last Admin: 09/30/16 10:10 Dose: 3.125 mg Digoxin (Lanoxin) 0.125 mg PO MWF [facility] Last Admin: 09/29/16 10:45 Dose: 0.125 mg Enoxaparin Sodium (Lovenox) 30 mg SC QOTHERDAY [facility] PRN Reason: Protocol Last Admin: 09/30/16 10:09 Dose: 30 mg Folic Acid (Folic Acid) 1 mg IVP DAILY [facility] Last Admin: 09/29/16 12:42 Dose: 1 mg Azithromycin (Zithromax 500mg In Ns) 500 mg in 250 mls @ 167 mls/hr IVPB [facility] PRN Reason: Protocol Last Admin: 09/30/16 10:11 Dose: 167 mls/hr Metronidazole (Flagyl) 500 mg in 100 mls @ 100 mls/hr IVPB Q8 [facility] PRN Reason: Protocol Last Admin: 09/30/16 05:40 Dose: 100 mls/hr Dobutamine HCl/Dextrose (Dobutamine/Dextrose 5% 500mg/250ml) 500 mg in 250 mls @ 12.9 mls/hr IV .[id number] PRN; Protocol; 5 MCG/KG/MIN PRN Reason: TITRATE PER PROTOCOL Last Admin: 09/29/16 15:13 Dose: 12.9 mls/hr Cefepime HCl (Maxipime 2gm) 2 gm in 100 mls @ 100 mls/hr IVPB [facility] PRN Reason: Protocol Stop: 10/03/16 10:01 Last Admin: 09/30/16 10:08 Dose: 100 mls/hr Pantoprazole Sodium (Protonix Inj) 40 mg IVP DAILY [facility] Last Admin: 09/30/16 10:08 Dose: 40 mg Thiamine HCl (Vitamin B1 Inj) 100 mg IM DAILY [facility] Last Admin: 09/30/16 10:10 Dose: 100 mg - Labs Labs: 09/30/16 06:20 09/30/16 06:20 PT 16.2 Seconds (9.9-11.8) H 09/29/16 10:50 INR 1.50 (0.93-1.08) H 09/29/16 10:50 APTT 37.4 Seconds (23.7-30.8) H 09/30/16 06:20 Attending/Attestation - Attestation I have personally seen and examined this patient.: Yes I have fully participated in the care of the patient.: Yes I have reviewed all pertinent clinical information, including history, physical exam and plan: Yes Notes (Text): 09/30/16 12:36 61 y/o M w/ MODS Cardiac cirrhosis EF20% Likely alcohololic hepatitis and early signs of Cirrhosis BARBRA w/ New renal failure started on HD yesterday . Uremia present. Mental status not improved despite lactulose and HD x1. Renal workup pending for all other secondary causes of Renal failure. Poor prognosis. Family meeting has taken place and prognosis has been discussed. If stable in the near future , the family will have to discuss goals fo care, residential HD, PEG placement if swallow is not safe. and LTAC placement. cc time 65 min
--- NOTE | 2016-09-30 08:41 | CT ---
PROCEDURE: CT Abdomen and Pelvis without intravenous contrast HISTORY: abdominal pain COMPARISON: None. TECHNIQUE: Without contrast.. Contrast Dose: 0 Radiation dose: Total exam DLP = 863.05 mGy-cm. This CT exam was performed using one or more of the following dose reduction techniques: Automated exposure control, adjustment of the mA and/or kV according to patient size, and/or use of iterative reconstruction technique. FINDINGS: LOWER THORAX: Marked cardiomegaly. AICD. Bilateral pleural effusion. Bilateral lower lobe atelectasis, right greater than left. AICD. Nasogastric tube traverses the thoracic esophagus. LIVER: Unremarkable. No gross lesion or ductal dilatation. GALLBLADDER AND BILE DUCTS: Possible tiny dependent calculi. Versus high density bile. PANCREAS: Unremarkable. No gross lesion or ductal dilatation. SPLEEN: Unremarkable. ADRENALS: Unremarkable. No mass. KIDNEYS AND URETERS: Unremarkable. No hydronephrosis. No solid mass. VASCULATURE: Unremarkable. No aortic aneurysm. BOWEL: No bowel obstruction. Nasogastric tube extends to duodenum. APPENDIX: Not identified. No findings to suggest acute appendicitis. PERITONEUM: Extensive ascites. LYMPH NODES: Unremarkable. No enlarged lymph nodes. BLADDER: Bladder decompressed around a French catheter balloon. Gas seen within urinary bladder anteriorly, possibly from recent French catheter placement or instrumentation. Alternatively, this could represent a gas-filled bladder diverticulum. REPRODUCTIVE: Unremarkable prostate. BONES: No acute fracture. OTHER FINDINGS: None. IMPRESSION: No evidence of bowel obstruction. Extensive ascites. Bilateral pleural effusion with lower lobe atelectasis, right greater than left. Marked cardiomegaly. AICD. Nasogastric tube. Possible tiny gallstones versus high density bile. Questionable anterior bladder diverticulum.
[2016-09-30 08:50] LABS: ARTERIAL BLOOD GAS HCO3 21.7 mmol/L (21-28); ARTERIAL BLOOD GAS O2 CAPACITY 18.7 mL/dl (16-24); ARTERIAL BLOOD GAS O2 CONTENT 18.6 ML/dl (15-23)
[2016-09-30 08:51] LABS: ARTERIAL BLOOD HGB O2 SAT 95.9 % (95.0-98.0); CARBOXYHEMOGLOBIN 2.6 % (0.5-1.5); HHB 0.4 % (0-5); METHEMOGLOBIN 1.2 % (0.0-3.0)
--- NOTE | 2016-09-30 09:28 | CP.PCM.PN ---
Subjective - Date & Time of Evaluation Date of Evaluation: 09/30/16 Time of Evaluation: 09:10 - Subjective Subjective: Comfortable in bed, but somewhat lethargic, no fevers overnight, off the ventilator. Objective - Vital Signs/Intake and Output Vital Signs (last 24 hours): Temp Pulse Resp BP Pulse Ox 98.0 F 89 25 H 131/82 96 09/29/16 16:00 09/30/16 05:30 09/30/16 05:30 09/30/16 05:30 09/30/16 05:30 Intake and Output: 09/29/16 09/30/16 18:59 06:59 Intake Total 500 Output Total 475 Balance 25 - Medications Medications: Current Medications Albuterol/Ipratropium (Duoneb 3 Mg/0.5 Mg (3 Ml) Ud) 3 ml IH [id number] [facility] Last Admin: 09/30/16 02:50 Dose: 3 ml Albuterol/Ipratropium (Duoneb 3 Mg/0.5 Mg (3 Ml) Ud) 3 ml IH Q2H PRN PRN Reason: Shortness of Breath Last Admin: 09/28/16 11:21 Dose: 3 ml Amiodarone HCl (Cordarone) 200 mg PO DAILY [facility] Last Admin: 09/29/16 10:48 Dose: 200 mg Artificial Tears (Artificial Tears Opht Oint) 0 gm OU Q2 PRN PRN Reason: Dry eyes Last Admin: 09/26/16 18:18 Dose: 1 applic Carvedilol (Coreg) 3.125 mg PO BID [facility] Last Admin: 09/29/16 19:04 Dose: 3.125 mg Digoxin (Lanoxin) 0.125 mg PO MWF [facility] Last Admin: 09/29/16 10:45 Dose: 0.125 mg Enoxaparin Sodium (Lovenox) 30 mg SC QOTHERDAY [facility] PRN Reason: Protocol Last Admin: 09/28/16 11:04 Dose: 30 mg Folic Acid (Folic Acid) 1 mg IVP DAILY [facility] Last Admin: 09/29/16 12:42 Dose: 1 mg Azithromycin (Zithromax 500mg In Ns) 500 mg in 250 mls @ 167 mls/hr IVPB DAILY [facility] PRN Reason: Protocol Last Admin: 09/29/16 11:00 Dose: 167 mls/hr Metronidazole (Flagyl) 500 mg in 100 mls @ 100 mls/hr IVPB Q8 [facility] PRN Reason: Protocol Last Admin: 09/30/16 05:40 Dose: 100 mls/hr Dobutamine HCl/Dextrose (Dobutamine/Dextrose 5% 500mg/250ml) 500 mg in 250 mls @ 12.9 mls/hr IV .[id number] PRN; Protocol; 5 MCG/KG/MIN PRN Reason: TITRATE PER PROTOCOL Last Admin: 09/29/16 15:13 Dose: 12.9 mls/hr Cefepime HCl (Maxipime 2gm) 2 gm in 100 mls @ 100 mls/hr IVPB DAILY [facility] PRN Reason: Protocol Stop: 10/03/16 10:01 Last Admin: 09/29/16 10:47 Dose: 100 mls/hr Lactulose (Enulose) 10 gm PO TID [facility] Last Admin: 09/29/16 17:21 Dose: 10 gm Pantoprazole Sodium (Protonix Inj) 40 mg IVP DAILY [facility] Last Admin: 09/29/16 10:44 Dose: 40 mg Thiamine HCl (Vitamin B1 Inj) 100 mg IM DAILY [facility] Last Admin: 09/29/16 10:44 Dose: 100 mg - Labs Labs: 09/29/16 06:15 09/29/16 06:15 PT 16.2 Seconds (9.9-11.8) H 09/29/16 10:50 INR 1.50 (0.93-1.08) H 09/29/16 10:50 APTT 39.5 Seconds (23.7-30.8) H 09/29/16 06:15 - Constitutional Appears: Non-toxic, No Acute Distress - Head Exam Head Exam: NORMAL INSPECTION - Neck Exam Neck Exam: absent: Meningismus - Respiratory Exam Respiratory Exam: Decreased Breath Sounds - Cardiovascular Exam Cardiovascular Exam: +S1, +S2 - GI/Abdominal Exam GI & Abdominal Exam: Soft. absent: Tenderness Assessment and Plan - Assessment and Plan (Free Text) Plan: Assessment systemic inflammatory response syndrome, consider due to acute decompensated heart failure with pulmonary edema, R/O severe sepsis S/P ventilator-dependent respiratory failure and worsening acute renal failure from severe community- acquired pneumonia - clinically improving and now extubated but has encephalopathy consider secondary to uremia, for dialysis but need to rule out other causes alcohol abuse and alcoholic liver disease CAD chronic CHF S/P pacemaker placement HTN Plan continue Cefepime and Zithromax and Flagyl (day 7) to complete 7-10 days of therapy; cultures have been negative; PCT is elevated (but probably because of the renal failure); reviewed repeat CXR's CT head done which shows left sided mastoiditis will continue to monitor clinically patient is for dialysis today suggest Neurology evaluation for encephalopathy
[2016-09-30] MEDS: Cefepime IV 2 gm in NS 2 GM/100 ML BAG IVPB SCH (10:08)
[2016-09-30] MEDS: Enoxaparin 30 mg Syringe SC SCH (10:09)
[2016-09-30] MEDS: Thiamine 100 mg/ml Inj IM SCH (10:10)
[2016-09-30] MEDS: Azithromycin 500MG/NS 250ml 500 MG/250 ML BAG IVPB SCH (10:11)
--- NOTE | 2016-09-30 13:22 | PN ---
DATE: 09/30/2016 SUBJECTIVE: The patient is seen in the ICU. He is sitting up in the bed, eyes are open, he does not follow any commands. He is nonresponsive to any verbal commands. He responds to pain. He is receiving dialysis today. He received the first dialysis treatment yesterday. There seems to be no improvement in his mental status. He remains on dobutamine at 5 mcg/kg per minute. PHYSICAL EXAMINATION GENERAL: Thinly built, elderly male, sitting up in bed in the ICU. VITAL SIGNS: Blood pressure 140/87, heart rate 98, respiratory rate 25, temperature 98. HEENT: Normocephalic, atraumatic. Pupils sluggish, reactive to light, positive pallor, positive icterus. NECK: Supple, no JVD, no bruits. LUNGS: Bilateral equal air entry, bilateral rhonchi, bilateral crackles. CARDIAC: S1, S2, regular rate and rhythm, no murmur, no rub. ABDOMEN: Distended, soft, bowel sounds present, positive fluid thrill. EXTREMITIES: 2+ pitting edema of the lower extremities. INTAKE AND OUTPUT: 500/475. LABORATORY DATA: WBC 10.9, hemoglobin 13, hematocrit 36.6, platelets 66. Sodium 142, potassium 4.2, chloride 102, CO2 of 21, BUN 88, creatinine 5.7, glucose 97. Uric acid 9.3, calcium 9.3, phosphorus 6.7, magnesium 2.5, AST 95, ALT 77, total bilirubin 4.5, albumin 3.4. Cultures negative. CT of the abdomen and pelvis, marked cardiomegaly, bilateral pleural effusions, bilateral lower lobe atelectasis, AICD. No evidence of bowel obstruction, extensive ascites, bilateral pleural effusions. CURRENT MEDICATIONS: Amiodarone 200 mg, Coreg 3.125 b.i.d., dobutamine, DuoNeb, Enulose, Flagyl 500 q.8, folic acid, Lanoxin, Lovenox, cefepime 2 g daily, Protonix, vitamin, Zithromax 500 daily. ASSESSMENT AND PLAN: A 61-year-old male with alcoholic cardiomyopathy, AICD placement, severe CHF, ejection fraction of 15%, is status post cardiac arrest in the emergency room with pulseless electrical activity. Multiorgan dysfunction. Progressive acute kidney injury. Transaminitis, ascites, alcoholic cirrhosis, coagulopathy, thrombocytopenia. The patient is critically ill. The patient has altered mental status. CAT scan is normal. His ammonia level is normal. There has been no improvement after one dialysis treatment. The patient is currently receiving the second dialysis treatment. 1. Continue empiric antibiotics. 2. Continue daily dialysis. 3. Ultrafiltration 1 kg on dialysis tomorrow. 4. Continue inotropic support. 5. Dose all antibiotics for creatinine clearance less than 10 mL/minute. 6. Remains critically ill. 7. Case discussed with ICU team at length. 8. Case discussed with dialysis staff at length. More than 35 minutes was spent in the care of this critically ill patient. Lakesha Enciso MD
--- NOTE | 2016-09-30 13:45 | CP.PCM.PN ---
Subjective - Date & Time of Evaluation Date of Evaluation: 09/30/16 Time of Evaluation: 13:00 - Subjective Subjective: remains obtunded, no distress Objective - Vital Signs/Intake and Output Vital Signs (last 24 hours): Temp Pulse Resp BP Pulse Ox 98.0 F 98 H 25 H 140/87 96 09/29/16 16:00 09/30/16 10:10 09/30/16 05:30 09/30/16 10:10 09/30/16 05:30 - Medications Medications: Current Medications Albuterol/Ipratropium (Duoneb 3 Mg/0.5 Mg (3 Ml) Ud) 3 ml IH [id number] [facility] Last Admin: 09/30/16 13:16 Dose: 3 ml Albuterol/Ipratropium (Duoneb 3 Mg/0.5 Mg (3 Ml) Ud) 3 ml IH Q2H PRN PRN Reason: Shortness of Breath Last Admin: 09/28/16 11:21 Dose: 3 ml Amiodarone HCl (Cordarone) 200 mg PO DAILY [facility] Last Admin: 09/30/16 10:09 Dose: 200 mg Artificial Tears (Artificial Tears Opht Oint) 0 gm OU Q2 PRN PRN Reason: Dry eyes Last Admin: 09/26/16 18:18 Dose: 1 applic Carvedilol (Coreg) 3.125 mg PO BID [facility] Last Admin: 09/30/16 10:10 Dose: 3.125 mg Digoxin (Lanoxin) 0.125 mg PO MWF [facility] Last Admin: 09/29/16 10:45 Dose: 0.125 mg Enoxaparin Sodium (Lovenox) 30 mg SC QOTHERDAY [facility] PRN Reason: Protocol Last Admin: 09/30/16 10:09 Dose: 30 mg Folic Acid (Folic Acid) 1 mg IVP DAILY [facility] Last Admin: 09/29/16 12:42 Dose: 1 mg Azithromycin (Zithromax 500mg In Ns) 500 mg in 250 mls @ 167 mls/hr IVPB DAILY [facility] PRN Reason: Protocol Last Admin: 09/30/16 10:11 Dose: 167 mls/hr Metronidazole (Flagyl) 500 mg in 100 mls @ 100 mls/hr IVPB Q8 [facility] PRN Reason: Protocol Last Admin: 09/30/16 05:40 Dose: 100 mls/hr Dobutamine HCl/Dextrose (Dobutamine/Dextrose 5% 500mg/250ml) 500 mg in 250 mls @ 12.9 mls/hr IV .[id number] PRN; Protocol; 5 MCG/KG/MIN PRN Reason: TITRATE PER PROTOCOL Last Admin: 09/29/16 15:13 Dose: 12.9 mls/hr Cefepime HCl (Maxipime 2gm) 2 gm in 100 mls @ 100 mls/hr IVPB DAILY [facility] PRN Reason: Protocol Stop: 10/03/16 10:01 Last Admin: 09/30/16 10:08 Dose: 100 mls/hr Pantoprazole Sodium (Protonix Inj) 40 mg IVP DAILY [facility] Last Admin: 09/30/16 10:08 Dose: 40 mg Thiamine HCl (Vitamin B1 Inj) 100 mg IM DAILY [facility] Last Admin: 09/30/16 10:10 Dose: 100 mg - Labs Labs: 09/30/16 06:20 09/30/16 06:20 PT 16.2 Seconds (9.9-11.8) H 09/29/16 10:50 INR 1.50 (0.93-1.08) H 09/29/16 10:50 APTT 37.4 Seconds (23.7-30.8) H 09/30/16 06:20 - Respiratory Exam Respiratory Exam: Clear to Ausculation Bilateral, NORMAL BREATHING PATTERN - Cardiovascular Exam Cardiovascular Exam: REGULAR RHYTHM - GI/Abdominal Exam GI & Abdominal Exam: Soft, Normal Bowel Sounds - Extremities Exam Extremities Exam: Pedal Edema - Neurological Exam Neurological Exam: Altered - Skin Skin Exam: Dry, Warm Assessment and Plan (1) Pulmonary edema Status: Resolved (2) Alcoholic cardiomyopathy Status: Chronic (3) Ventilatory failure Status: Resolved (4) Aspiration pneumonia Status: Resolved (5) Disseminated intravascular coagulation Status: Resolved (6) Alcohol abuse Status: Chronic (7) Acute renal failure Status: Acute (8) Encephalopathy due to metabolic factor or toxin Status: Acute - Assessment and Plan (Free Text) Plan: continue dialysis, CT head if mental status doesn't improve, prognosis remains guarded, family aware
--- NOTE | 2016-09-30 18:47 | PN ---
DATE: 09/30/2016 REASON FOR CONSULTATION: Followup, status post respiratory failure, extubated, cardiomyopathy with multiorgan dysfunction, status post AICD. SUBJECTIVE: Minimally responsive to verbal stimuli. OBJECTIVE: GENERAL: Not in apparent distress. Lying flat on the bed. VITAL SIGNS: Temperature afebrile, heart rate 98, blood pressure 140/87. HEENT: PERRLA. Extraocular muscles intact. NECK: Supple. No carotid bruits or thyromegaly. CHEST: Clear to auscultation. HEART: S1 and S2 regular. ABDOMEN: Soft. EXTREMITIES: Clubbing and cyanosis negative. LABORATORY DATA: Blood workup as follows: WBC 10.9, hemoglobin 13, hematocrit 36.6, platelet count 66. Chemistry showed sodium 140, potassium 4.2, chloride 102, carbon dioxide 21, anion gap of 23, BUN 88, creatinine 5.7. IMPRESSION: A 61-year-old male with history of nonischemic cardiomyopathy, status post AICD, status post cardiac catheterization couple of years ago; nonischemic, nonobstructive coronary artery disease, being followed by Dr. Hogan at [facility], admitted with acute pulmonary edema, multilobar pneumonia, intubated . The patient is now minimally responsive to verbal stimuli, not following simple command, multiorgan dysfunction, elevated LFTs, acute kidney injury. RECOMMENDATION: Continue Dobutrex, monitor renal function, possible dialysis. Once the dialysis start, we will discontinue Dobutrex. Overall, the patient's condition is critical, long-term prognosis guarded. Continue subcu heparin q.48 hours, continue amiodarone 200 mg daily. The patient had the dialysis yesterday and further dialysis as per switchboard troubleshooter. I discussed with dental technology advisor, Dr. Bass will followup with you. Thank you Dr. Ríos for providing us the opportunity in taking care of the patient. Overall, the patient's condition critical, prognosis is extremely guarded. Meliton Saunders MD
[2016-10-01] MEDS: Albuterol-Ipratrop 3 mg / 0.5 (3 ml) UD IH SCH ×4 (01:49→20:01)
[2016-10-01] MEDS: metroNIDAZOLE IV 500 mg/100 ml 500 MG/100 ML BAG IVPB SCH ×4 (05:24→21:16)
[2016-10-01 06:38] LABS: HEMATOCRIT 35.8 % (42.0-52.0); MEAN CELL VOLUME 103.8 fl (80.0-105.0); MEAN CORPUSCULAR HEMOGLOBIN 37.7 pg (25.0-35.0); MEAN CORPUSCULAR HGB CONC 36.3 g/dl (31.0-37.0); MEAN PLATELET VOLUME 12.5 fl (7.0-11.0); PLATELET COUNT 64 10^3/uL (120.0-450.0); RED CELL DISTRIBUTION WIDTH 16.5 % (11.5-14.5); WHITE BLOOD COUNT 12.6 10^3/ul (4.5-11.0)
[2016-10-01 06:44] LABS: ADD MANUAL DIFF? YES
[2016-10-01 06:59] LABS: BILIRUBIN,TOTAL 4.4 mg/dL (0.2-1.3); POTASSIUM 4.4 mmol/L (3.6-5.0); TOTAL PROTEIN 7.1 g/dL (5.8-8.3)
[2016-10-01 07:22] LABS: ANISOCYTOSIS 1+; EOSINOPHIL 2 % (0.0-3.0); NEUTROPHIL 80 % (50.0-70.0); PLATELET ESTIMATE LOW (NORMAL)
[2016-10-01 07:23] LABS: LARGE PLATELETS PRESENT
[2016-10-01] MEDS: Digoxin 125 mcg (0.125 mg) Tab PO SCH (09:55)
[2016-10-01] MEDS: Cefepime IV 2 gm in NS 2 GM/100 ML BAG IVPB SCH (09:56)
[2016-10-01] MEDS: Thiamine 100 mg/ml Inj IM SCH (09:56)
[2016-10-01] MEDS: Azithromycin 500MG/NS 250ml 500 MG/250 ML BAG IVPB SCH (09:57)
--- NOTE | 2016-10-01 11:05 | CP.PCM.PN ---
Subjective - Date & Time of Evaluation Date of Evaluation: 10/01/16 Time of Evaluation: 09:10 - Subjective Subjective: Comfortable in bed, no fevers, still confused, no respiratory distress, no vomiting, no diarrhea. Objective - Vital Signs/Intake and Output Vital Signs (last 24 hours): Temp Pulse Resp BP Pulse Ox 99.9 F H 102 H 35 H 143/86 94 L 10/01/16 00:00 10/01/16 02:15 10/01/16 02:15 10/01/16 02:15 10/01/16 02:15 Intake and Output: 09/30/16 10/01/16 18:59 06:59 Intake Total 610 Output Total 125 Balance 485 - Medications Medications: Current Medications Albuterol/Ipratropium (Duoneb 3 Mg/0.5 Mg (3 Ml) Ud) 3 ml IH [id number] [facility] Last Admin: 10/01/16 01:49 Dose: 3 ml Albuterol/Ipratropium (Duoneb 3 Mg/0.5 Mg (3 Ml) Ud) 3 ml IH Q2H PRN PRN Reason: Shortness of Breath Last Admin: 09/28/16 11:21 Dose: 3 ml Amiodarone HCl (Cordarone) 200 mg PO DAILY [facility] Last Admin: 09/30/16 10:09 Dose: 200 mg Artificial Tears (Artificial Tears Opht Oint) 0 gm OU Q2 PRN PRN Reason: Dry eyes Last Admin: 09/26/16 18:18 Dose: 1 applic Carvedilol (Coreg) 3.125 mg PO BID [facility] Last Admin: 09/30/16 18:35 Dose: 3.125 mg Digoxin (Lanoxin) 0.125 mg PO MWF [facility] Last Admin: 09/29/16 10:45 Dose: 0.125 mg Enoxaparin Sodium (Lovenox) 30 mg SC QOTHERDAY [facility] PRN Reason: Protocol Last Admin: 09/30/16 10:09 Dose: 30 mg Folic Acid (Folic Acid) 1 mg IVP DAILY [facility] Last Admin: 09/30/16 18:24 Dose: Not Given Azithromycin (Zithromax 500mg In Ns) 500 mg in 250 mls @ 167 mls/hr IVPB DAILY [facility] PRN Reason: Protocol Last Admin: 09/30/16 10:11 Dose: 167 mls/hr Metronidazole (Flagyl) 500 mg in 100 mls @ 100 mls/hr IVPB Q8 [facility] PRN Reason: Protocol Last Admin: 10/01/16 05:24 Dose: 100 mls/hr Dobutamine HCl/Dextrose (Dobutamine/Dextrose 5% 500mg/250ml) 500 mg in 250 mls @ 12.9 mls/hr IV .[id number] PRN; Protocol; 5 MCG/KG/MIN PRN Reason: TITRATE PER PROTOCOL Last Admin: 09/29/16 15:13 Dose: 12.9 mls/hr Cefepime HCl (Maxipime 2gm) 2 gm in 100 mls @ 100 mls/hr IVPB DAILY [facility] PRN Reason: Protocol Stop: 10/03/16 10:01 Last Admin: 09/30/16 10:08 Dose: 100 mls/hr Pantoprazole Sodium (Protonix Inj) 40 mg IVP DAILY [facility] Last Admin: 09/30/16 10:08 Dose: 40 mg Thiamine HCl (Vitamin B1 Inj) 100 mg IM DAILY [facility] Last Admin: 09/30/16 10:10 Dose: 100 mg - Labs Labs: 09/30/16 06:20 09/30/16 06:20 PT 16.2 Seconds (9.9-11.8) H 09/29/16 10:50 INR 1.50 (0.93-1.08) H 09/29/16 10:50 APTT 37.4 Seconds (23.7-30.8) H 09/30/16 06:20 - Constitutional Appears: Non-toxic, Confused - Head Exam Head Exam: NORMAL INSPECTION - ENT Exam ENT Exam: Mucous Membranes Moist - Neck Exam Neck Exam: absent: Meningismus Additional comments: right sided HD catheter in place - Respiratory Exam Respiratory Exam: Decreased Breath Sounds - Cardiovascular Exam Cardiovascular Exam: +S1, +S2 - GI/Abdominal Exam GI & Abdominal Exam: Soft. absent: Tenderness Assessment and Plan - Assessment and Plan (Free Text) Plan: Assessment systemic inflammatory response syndrome, consider due to acute decompensated heart failure with pulmonary edema, R/O severe sepsis S/P ventilator-dependent respiratory failure and worsening acute renal failure from severe community- acquired pneumonia - clinically improving and now extubated but has encephalopathy probably multifactorial alcohol abuse and alcoholic liver disease CAD chronic CHF S/P pacemaker placement HTN Plan on Cefepime and Zithromax and Flagyl (day 8) to complete 7-10 days of therapy ( CT head also showing left sided mastoiditis); cultures have been negative; PCT is elevated (but probably because of the renal failure); reviewed repeat CXR's will continue to monitor clinically patient is on intermittent dialysis for now follow up Neurology evaluation for encephalopathy (awaiting EEG results)
--- NOTE | 2016-10-01 11:08 | CP.PCM.PN ---
<GIULIANO RODRIGUEZ - Last Filed: 10/01/16 12:11> Subjective - Date & Time of Evaluation Date of Evaluation: 10/01/16 Time of Evaluation: 07:30 - Subjective Subjective: Giuliano Rodriguez DO PGY1 - ICU Progress Note Patient seen and examined at bedside. Nurses report no acute events overnight. Patient remains verbally unresponsive. Appears to be awake, but totally unalert. Reponsive to painful stimuli, but otherwise unresponsive. No change in mental status since yesterday. Objective - Vital Signs/Intake and Output Vital Signs (last 24 hours): Temp Pulse Resp BP Pulse Ox 99.9 F H 105 H 37 H 142/92 H 90 L 10/01/16 00:00 10/01/16 10:15 10/01/16 10:15 10/01/16 10:15 10/01/16 10:15 Intake and Output: 10/01/16 10/01/16 06:59 18:59 Intake Total 544 Output Total 500 Balance 44 - Medications Medications: Current Medications Albuterol/Ipratropium (Duoneb 3 Mg/0.5 Mg (3 Ml) Ud) 3 ml IH [id number] [facility] Last Admin: 10/01/16 07:20 Dose: 3 ml Albuterol/Ipratropium (Duoneb 3 Mg/0.5 Mg (3 Ml) Ud) 3 ml IH Q2H PRN PRN Reason: Shortness of Breath Last Admin: 09/28/16 11:21 Dose: 3 ml Amiodarone HCl (Cordarone) 200 mg PO DAILY [facility] Last Admin: 10/01/16 09:58 Dose: 200 mg Artificial Tears (Artificial Tears Opht Oint) 0 gm OU Q2 PRN PRN Reason: Dry eyes Last Admin: 09/26/16 18:18 Dose: 1 applic Carvedilol (Coreg) 3.125 mg PO BID [facility] Last Admin: 10/01/16 09:57 Dose: 3.125 mg Digoxin (Lanoxin) 0.125 mg PO MWF [facility] Last Admin: 10/01/16 09:55 Dose: 0.125 mg Enoxaparin Sodium (Lovenox) 30 mg SC QOTHERDAY [facility] PRN Reason: Protocol Last Admin: 09/30/16 10:09 Dose: 30 mg Folic Acid (Folic Acid) 1 mg IVP DAILY [facility] Last Admin: 10/01/16 10:14 Dose: 1 mg Azithromycin (Zithromax 500mg In Ns) 500 mg in 250 mls @ 167 mls/hr IVPB DAILY [facility] PRN Reason: Protocol Last Admin: 10/01/16 09:57 Dose: 167 mls/hr Metronidazole (Flagyl) 500 mg in 100 mls @ 100 mls/hr IVPB Q8 [facility] PRN Reason: Protocol Last Admin: 10/01/16 05:24 Dose: 100 mls/hr Cefepime HCl (Maxipime 2gm) 2 gm in 100 mls @ 100 mls/hr IVPB DAILY [facility] PRN Reason: Protocol Stop: 10/03/16 10:01 Last Admin: 10/01/16 09:56 Dose: 100 mls/hr Lactulose (Enulose) 20 gm PO BID [facility] Multivitamins/Minerals (Therapeutic-M Tab) 1 tab PO 0800 [facility] Pantoprazole Sodium (Protonix Ec Tab) 40 mg PO 0600,1600 [facility] Thiamine HCl (Vitamin B1 Inj) 100 mg IM DAILY [facility] Last Admin: 10/01/16 09:56 Dose: 100 mg - Labs Labs: 10/01/16 06:20 10/01/16 06:20 PT 16.2 Seconds (9.9-11.8) H 09/29/16 10:50 INR 1.50 (0.93-1.08) H 09/29/16 10:50 APTT 37.4 Seconds (23.7-30.8) H 09/30/16 06:20 - Constitutional Appears: Non-toxic, Confused, Chronically Ill - Head Exam Head Exam: ATRAUMATIC, NORMOCEPHALIC - Eye Exam Eye Exam: PERRL - ENT Exam ENT Exam: Mucous Membranes Moist - Respiratory Exam Respiratory Exam: Clear to Ausculation Bilateral, Rales (mild, diffuse). absent : Rhonchi, Wheezes - Cardiovascular Exam Cardiovascular Exam: RRR, +S1, +S2 - GI/Abdominal Exam GI & Abdominal Exam: Distended, Soft, Tenderness. absent: Firm, Guarding, Rigid Additional comments: Diffuse, but mostly in RLQ - Extremities Exam Extremities Exam: Pedal Edema (mild, b/l) - Neurological Exam Neurological Exam: Awake. absent: Alert, Oriented x3 Additional comments: GCS 10 - Skin Skin Exam: Dry, Intact, Normal Color Assessment and Plan - Assessment and Plan (Free Text) Assessment: 61 yo M with acute hypoxic respiratory failure 2/2 pulmonary edema vs ARDS vs PNA, now resolved, extubated; sepsis 2/2 PNA vs cholecystitis, acute decompensated CHF (LVEF 20% with severe pulm HTN) 2/2 NSTEMI vs arrhythmia in the setting of alcoholic cardiomyopathy, alcoholic hepatitis, and BARBRA. Worsening neurological status despite improving vitals and lab values. Plan: Neuro: - Patient is currently off sedation, awake, but lethargic. GCS 10. Neuro status unchanged since yesterday, despite lactulose and HDx2. Likely 2/2 anoxic brain injury vs encephalopathy 2/2 acute hepatic congestion and hepatitis vs uremia, with ICu polyneuropathy and prolonged ICu stay. - Head CT negative for acute abnormalities. EEG done yesterday, pending read, to r/o nonconvulsive status epilipticus - Uremia improved slightly after dialysis yesterday, likely cause of AMS, HD again today. - Continue to monitor neurological status - Will require further discussion with family to discuss goals for care, including half-way HD, possible PEG placement if no improvement in neuro status , and possible LTAC placement. CV: - Troponin 0.09>0.69>1.37, possible NSTEMI vs demand ischemia in acute decompensated CHF exacerbation - History of alcoholic cardiomyopathy. Echo shows LVEF 20% with severe tricuspid regurg and severe pulmonary HTN - On ASA, plavix, for NSTEMI. - Cardio (Chip) on consult, all recs appreciated - On amiodarone and started on coreg for vtach. Dobutamine stopped by cardio. - Maintain MAP>65 Pulm: - Acute hypoxic respiratory failure 2/2 pulmonary edema vs ARDS vs PNA, resolved - On 3LNC, maintaining saturations well, s/p extubation two days ago - Resolving pulmonary edema due to fluid overload in the setting of CHF vs ARDS vs PNA - Fluid status improving, continues to make urine, will take off more fluid today during HD - On Duoneb PRN - Start chest PT - Maintain O2 sat >90% - Continue with protective lung strategies, HOB>30 GI: - NG tube in place, advance diet as tolerated, consult sports agent - Persistent transaminitis and elevated total bilirubin, though improved slightly since yesterday. - Likely cirrhosis 2/2 alcoholic hepatitis, will start steroids today - Abdominal US shows no cholecystitis or cholangitis, hepatitis panel negative, unlikely to be source of SIRS. - Restart lactulose 20 BID to treat hepatic encephalopathy as potential cause of AMS - Abdomen hyporesonant with shifting dullness, distended, likely ascites 2/2 history of EtOH abuse, including recent binge drinking episode Renal: - BARBRA improving slightly since starting HD, maintaining urine output - Likely ATN 2/2 hypoperfusion and venous congestion 2/2 acute decompensation CHF, but serologic workup pending to r/o autoimmune diseases, vasculopathies, and other reversible causes, though negative so far. - FeNa 5.9%, but no obstruction, indicates ATN. - Nephro on consult, all recs appreciated - Urine output improved, small negative fluid balance past 24 hours - Continue daily HD per nephro - Continue to monitor fluid output Endo: - Maintain euglycemia with bg 140-180 Hem/Onc: - H/H stable - Mild persistent thrombocytopenia likely 2/2 to chronic liver disease, will continue to monitor - On SQ Lovenox, therapeutic PTT ID: - SIRS, likely sepsis 2/2 CAP vs SBP, resolved - Afebrile, with leukocytosis 11.8, on empiric abx - Repeat procal - BCx no growth after 5 days, UCx no growth, Sputum Cx no growth, stool for C diff negative - On cefepime, zithromax, and flagyl - ID (Bubba) on consult, all recs appreciated. Ppx: SCDs for DVT, protonix for GI Seen, discussed, and reviewed with attending <Ke Hawthorne - Last Filed: 10/01/16 14:30> Objective - Vital Signs/Intake and Output Vital Signs (last 24 hours): Temp Pulse Resp BP Pulse Ox 99.9 F H 105 H 37 H 142/92 H 90 L 10/01/16 00:00 10/01/16 10:15 10/01/16 10:15 10/01/16 10:15 10/01/16 10:15 Intake and Output: 10/01/16 10/01/16 06:59 18:59 Intake Total 544 Output Total 500 Balance 44 - Medications Medications: Current Medications Albuterol/Ipratropium (Duoneb 3 Mg/0.5 Mg (3 Ml) Ud) 3 ml IH [id number] [facility] Last Admin: 10/01/16 13:41 Dose: 3 ml Albuterol/Ipratropium (Duoneb 3 Mg/0.5 Mg (3 Ml) Ud) 3 ml IH Q2H PRN PRN Reason: Shortness of Breath Last Admin: 09/28/16 11:21 Dose: 3 ml Amiodarone HCl (Cordarone) 200 mg PO DAILY [facility] Last Admin: 10/01/16 09:58 Dose: 200 mg Artificial Tears (Artificial Tears Opht Oint) 0 gm OU Q2 PRN PRN Reason: Dry eyes Last Admin: 09/26/16 18:18 Dose: 1 applic Carvedilol (Coreg) 3.125 mg PO BID [facility] Last Admin: 10/01/16 09:57 Dose: 3.125 mg Digoxin (Lanoxin) 0.125 mg PO MWF [facility] Last Admin: 10/01/16 09:55 Dose: 0.125 mg Enoxaparin Sodium (Lovenox) 30 mg SC QOTHERDAY [facility] PRN Reason: Protocol Last Admin: 09/30/16 10:09 Dose: 30 mg Folic Acid (Folic Acid) 1 mg IVP DAILY [facility] Last Admin: 10/01/16 10:14 Dose: 1 mg Azithromycin (Zithromax 500mg In Ns) 500 mg in 250 mls @ 167 mls/hr IVPB DAILY [facility] PRN Reason: Protocol Last Admin: 10/01/16 09:57 Dose: 167 mls/hr Cefepime HCl (Maxipime 2gm) 2 gm in 100 mls @ 100 mls/hr IVPB DAILY [facility] PRN Reason: Protocol Stop: 10/03/16 10:01 Last Admin: 10/01/16 09:56 Dose: 100 mls/hr Lactulose (Enulose) 20 gm PO BID [facility] Methylprednisolone (Solu-Medrol) 100 mg IVP Q12 [facility] Multivitamins/Minerals (Therapeutic-M Tab) 1 tab PO 0800 [facility] Pantoprazole Sodium (Protonix Ec Tab) 40 mg PO 0600,1600 [facility] Thiamine HCl (Vitamin B1 Inj) 100 mg IM DAILY [facility] Last Admin: 10/01/16 09:56 Dose: 100 mg - Labs Labs: 10/01/16 06:20 10/01/16 06:20 PT 16.2 Seconds (9.9-11.8) H 09/29/16 10:50 INR 1.50 (0.93-1.08) H 09/29/16 10:50 APTT 37.4 Seconds (23.7-30.8) H 09/30/16 06:20 Assessment and Plan - Assessment and Plan (Free Text) Assessment: Patient seen and examined on rounds with resident, agree with A/P. m Patient remains minimally interactive, responsive to painful stimuli. AMS likely 2/2 anoxic brain injury, encephalopathy, uremia, with ICu polyneuropathy and prolonged ICu stay. Currently off pressors, dobutamine, tolerating HD well, resp status stable Head CT negative for acute abnormalities. EEG done yesterday, pending read, to r /o nonconvulsive status epilipticus AMS Renal Failure, on HD Systolic CHF, EF 20% Pulm HTN PNA ARDS, resolved Pulm edema Alcoholic hepatitis Recommend: - cont with supp o2, monitor resp status - abx as per ID, repeat procalcitonin - follow up VEEG - Lactulose - DC dobutamine - cont with Coreg - Chest PT - HD today as per renal - monitor HH, Platelets - PPI BID - Duonebs - follow up cultures - poor prognosis, patient will likely need PEG placement, and half-way care center, will discuss with family critcal care time: 40minutes
--- NOTE | 2016-10-01 13:47 | CP.PCM.PN ---
Subjective - Date & Time of Evaluation Date of Evaluation: 10/01/16 Time of Evaluation: 10:30 - Subjective Subjective: more responsive this am Objective - Vital Signs/Intake and Output Vital Signs (last 24 hours): Temp Pulse Resp BP Pulse Ox 99.9 F H 105 H 37 H 142/92 H 90 L 10/01/16 00:00 10/01/16 10:15 10/01/16 10:15 10/01/16 10:15 10/01/16 10:15 Intake and Output: 10/01/16 10/01/16 06:59 18:59 Intake Total 544 Output Total 500 Balance 44 - Medications Medications: Current Medications Albuterol/Ipratropium (Duoneb 3 Mg/0.5 Mg (3 Ml) Ud) 3 ml IH [id number] [facility] Last Admin: 10/01/16 13:41 Dose: 3 ml Albuterol/Ipratropium (Duoneb 3 Mg/0.5 Mg (3 Ml) Ud) 3 ml IH Q2H PRN PRN Reason: Shortness of Breath Last Admin: 09/28/16 11:21 Dose: 3 ml Amiodarone HCl (Cordarone) 200 mg PO DAILY [facility] Last Admin: 10/01/16 09:58 Dose: 200 mg Artificial Tears (Artificial Tears Opht Oint) 0 gm OU Q2 PRN PRN Reason: Dry eyes Last Admin: 09/26/16 18:18 Dose: 1 applic Carvedilol (Coreg) 3.125 mg PO BID [facility] Last Admin: 10/01/16 09:57 Dose: 3.125 mg Digoxin (Lanoxin) 0.125 mg PO MWF [facility] Last Admin: 10/01/16 09:55 Dose: 0.125 mg Enoxaparin Sodium (Lovenox) 30 mg SC QOTHERDAY [facility] PRN Reason: Protocol Last Admin: 09/30/16 10:09 Dose: 30 mg Folic Acid (Folic Acid) 1 mg IVP DAILY [facility] Last Admin: 10/01/16 10:14 Dose: 1 mg Azithromycin (Zithromax 500mg In Ns) 500 mg in 250 mls @ 167 mls/hr IVPB DAILY [facility] PRN Reason: Protocol Last Admin: 10/01/16 09:57 Dose: 167 mls/hr Metronidazole (Flagyl) 500 mg in 100 mls @ 100 mls/hr IVPB Q8 [facility] PRN Reason: Protocol Last Admin: 10/01/16 05:24 Dose: 100 mls/hr Cefepime HCl (Maxipime 2gm) 2 gm in 100 mls @ 100 mls/hr IVPB DAILY [facility] PRN Reason: Protocol Stop: 10/03/16 10:01 Last Admin: 10/01/16 09:56 Dose: 100 mls/hr Lactulose (Enulose) 20 gm PO BID [facility] Methylprednisolone (Solu-Medrol) 100 mg IVP Q12 [facility] Multivitamins/Minerals (Therapeutic-M Tab) 1 tab PO 0800 [facility] Pantoprazole Sodium (Protonix Ec Tab) 40 mg PO 0600,1600 [facility] Thiamine HCl (Vitamin B1 Inj) 100 mg IM DAILY [facility] Last Admin: 10/01/16 09:56 Dose: 100 mg - Labs Labs: 10/01/16 06:20 10/01/16 06:20 PT 16.2 Seconds (9.9-11.8) H 09/29/16 10:50 INR 1.50 (0.93-1.08) H 09/29/16 10:50 APTT 37.4 Seconds (23.7-30.8) H 09/30/16 06:20 - Constitutional Appears: Cachectic - Respiratory Exam Respiratory Exam: Rhonchi - Cardiovascular Exam Cardiovascular Exam: REGULAR RHYTHM - GI/Abdominal Exam GI & Abdominal Exam: Soft, Normal Bowel Sounds - Extremities Exam Extremities Exam: Pedal Edema - Neurological Exam Neurological Exam: Altered - Skin Skin Exam: Dry, Warm Assessment and Plan (1) Pulmonary edema Status: Resolved (2) Alcoholic cardiomyopathy Status: Chronic (3) Ventilatory failure Status: Resolved (4) Aspiration pneumonia Status: Resolved (5) Disseminated intravascular coagulation Status: Resolved (6) Alcohol abuse Status: Chronic (7) Acute renal failure Status: Acute (8) Encephalopathy due to metabolic factor or toxin Status: Acute - Assessment and Plan (Free Text) Plan: continue dialysis, enteral feeding as tolerated, prognosis very poor
--- NOTE | 2016-10-01 14:37 | PN ---
DATE: 10/01/2016 REASON FOR CONSULTATION: Status post respiratory failure, extubated; cardiomyopathy; multiorgan dysfunction, status pos AICD; not responsive appropriately to verbal stimuli. SUBJECTIVE: The patient is minimally responsive to verbal stimuli. OBJECTIVE: GENERAL: Lying flat in the bed. Not in apparent distress. VITAL SIGNS: Temperature afebrile, heart rate 100, blood pressure 136/96. HEENT: PERRLA. Extraocular muscles intact. NECK: Supple. No carotid bruits or thyromegaly. CHEST: Clear to auscultation. HEART: S1 and S2 regular. ABDOMEN: Soft. EXTREMITIES: Clubbing and cyanosis negative. LABORATORY DATA: Blood workup as follows: WBC 12.6, hemoglobin 13, hematocrit 35.8, platelet count 64. Chemistry showed sodium 140, potassium 4.4, chloride 103, carbon dioxide 21, anion gap of 23, BUN 82, creatinine 5.6. IMPRESSION: A 61-year-old male with past medical history significant for nonobstructive coronary artery disease; nonischemic cardiomyopathy most likely secondary to alcohol related; cardiomyopathy, status post AICD, being followed by Dr. Hogan at [facility], admitted with acute pulmonary edema, multilobar pneumonia, intubated, hospitalized because of complicated multiorgan dysfunction, acute kidney injury, status post dialysis. Now the patient has change in mental status, status post extubated, not responsive to verbal stimuli. RECOMMENDATIONS: Continue dialyzable, discontinue Dobutrex, continue Tuesday, Tuesday, Tuesday. Continue Lovenox every other day. Overall, the patient's condition is critical. Prognosis is guarded. If the patient remains unresponsive, I will consider PEG and tracheostomy. I will start NG feeding to prevent malnutrition. Continue carvedilol, continue p.o. amiodarone, continue digoxin. We will follow with you. The patient's condition is critical. Long-term prognosis is guarded. Thank you, Dr. Ríos, for providing us the opportunity in taking care of the patient. We will start feeding. Meliton Saunders MD
[2016-10-01] MEDS ORDERED: Pantoprazole 40 mg EC Tab PO SCH (16:00)
[2016-10-01 16:57] LABS: INR 1.53 (0.93-1.08)
[2016-10-01] MEDS ORDERED: metroNIDAZOLE IV 500 mg/100 ml 500 MG/100 ML BAG IVPB SCH (17:45)
--- NOTE | 2016-10-01 20:39 | PN ---
DATE: 10/01/2016 SUBJECTIVE: The patient is seen sitting up in bed in the ICU. His eyes are open. He responds to painful stimuli. He grimaces to pain. The patient is not following any commands. Daughter is at bedside. He is receiving dialysis. He had an EEG done. PHYSICAL EXAMINATION: GENERAL: Cachectic, thinly built elderly male sitting up in bed in the ICU. VITAL SIGNS: Blood pressure 142/92, heart rate 105, respiratory rate 36, temperature 99.8, T max is 99.9. HEENT: Normocephalic, atraumatic, positive pallor, positive icterus. NECK: Supple, no JVD. LUNGS: Bilateral equal air entry, bilateral crackles, bilateral rhonchi. CARDIAC: S1 and S2, regular rate and rhythm, no murmur, no rub. ABDOMEN: Obese, distended, soft, positive fluid thrill, bowel sounds present. EXTREMITIES: 3+ pitting edema of the lower extremities. INTAKE AND OUTPUT: 500/475. LABORATORY DATA: WBC 12.6, hemoglobin 13, hematocrit 36, platelets 64. Sodium 143, potassium 4.4, chloride 103, CO2 21, BUN 82, creatinine 5.6, glucose 98, calcium 9.0, phosphorus 6.7, magnesium 2.5, total bilirubin 4.4, AST 74, ALT 68, albumin 3.5. Stool occults positive. CURRENT MEDICATIONS: Cordarone, Coreg 3.125 mg b.i.d., DuoNeb, Enulose, folic acid, digoxin, Lovenox, cefepime, Protonix, Solu-Medrol, multivitamin, Zithromax. ASSESSMENT: 1. Altered mental status, status post cardiac arrest, severe cardiomyopathy. 2. Multiorgan dysfunction. 3. Respiratory failure. 4. Acute kidney injury, decreased urine output. 5. History of alcoholic cardiomyopathy. 6. Alcoholic liver disease, cirrhosis, ascites. 7. ?sepsis/pneumonia. 8. Workup for vasculitis all negative, including WILSON is negative, ANCA is negative, ESR is 5, rheumatoid factor is negative. C3 is low. C4 is borderline. PLAN: 1. The patient remains critically ill. Mental status is not improving with dialysis. 2. The patient is receiving third dialysis treatment now. 3. Follow up EEG. 4. Continue empiric antibiotics. 5. Continue amiodarone/Coreg. 6. Prognosis is guarded. Case discussed with daughter at bedside. Case discussed with dental hygiene professor. Case discussed with dialysis nurse. More than 35 minutes spent in the care of this critically ill patient. Lakesha Enciso MD
[2016-10-02] MEDS: Albuterol-Ipratrop 3 mg / 0.5 (3 ml) UD IH SCH ×4 (01:13→20:05)
[2016-10-02] MEDS: metroNIDAZOLE IV 500 mg/100 ml 500 MG/100 ML BAG IVPB SCH ×3 (05:49→22:21)
[2016-10-02] MEDS: Pantoprazole 40 mg Susp UD GT SCH ×2 (06:09→15:59)
[2016-10-02 06:18] LABS: ALB/GLOB RATIO 0.9 (1.1-1.8); BILIRUBIN,TOTAL 3.7 mg/dL (0.2-1.3); CALCIUM 8.9 mg/dL (8.4-10.5); POTASSIUM 4.5 mmol/L (3.6-5.0); TOTAL PROTEIN 7.1 g/dL (5.8-8.3)
[2016-10-02 08:01] LABS: BASO # 0.03 K/mm3 (0.0-2.0); BASO % 0.2 % (0.0-3.0); EOS % 0.1 % (1.5-5.0); GRAN # 11.74 (1.4-6.5); GRAN % 91.7 % (50.0-68.0); LYMPH # 0.7 (1.2-3.4); LYMPH % 5.3 % (22.0-35.0); MEAN CELL VOLUME 96.9 fl (80.0-105.0); MEAN CORPUSCULAR HEMOGLOBIN 34.1 pg (25.0-35.0); MEAN CORPUSCULAR HGB CONC 35.1 g/dl (31.0-37.0); MEAN PLATELET VOLUME 11.9 fl (7.0-11.0); MONO # 0.4 (0.1-0.6); MONO % 2.7 % (1.0-6.0); WHITE BLOOD COUNT 12.8 10^3/ul (4.5-11.0)
[2016-10-02 08:13] LABS: HEMATOCRIT 40.4 % (42.0-52.0)
[2016-10-02] MEDS: Cefepime IV 2 gm in NS 2 GM/100 ML BAG IVPB SCH ×2 (09:37→12:00)
[2016-10-02] MEDS: Azithromycin 500MG/NS 250ml 500 MG/250 ML BAG IVPB SCH ×2 (09:37→12:00)
[2016-10-02] MEDS: Enoxaparin 30 mg Syringe SC SCH (09:54)
[2016-10-02] MEDS: Multivitamin With Minerals Tab PO SCH (09:55)
[2016-10-02] MEDS: Thiamine 100 mg/ml Inj IM SCH (10:16)
--- NOTE | 2016-10-02 11:04 | PN ---
DATE: 10/02/2016 SUBJECTIVE: The patient is resting in bed with O2 support, still very, very lethargic and at present hemodynamically stable. O2 saturation is good and no obvious distress. PHYSICAL EXAMINATION: VITAL SIGNS: His temperature is 98, his pulse is 88, respirations are 22 and BP is 136/87. SKIN: Warm and dry. HEENT: Head is atraumatic, normocephalic. Eyes reactive to light. Ears, nose and throat seen to be within normal limits. NECK: Supple, no JVD, no thyroid enlargement, no lymph nodes. HEART: Has regular rate and rhythm. Normal S1 and S2. LUNGS: Reveal mild bilateral rhonchi. ABDOMEN: Soft, nontender, decreased bowel sounds. GENITALIA AND RECTAL: Deferred. MUSCULOSKELETAL: No joint deformities. EXTREMITIES: Revealed positive lower extremity edema. NEUROLOGIC: He is very, very lethargic and response with movement to painful stimuli. LABORATORY DATA: Reveal a white count of 12.6, hemoglobin of 13.0, hematocrit 35.8 with platelets of 64,000. His sodium is 141, potassium 4.5, chloride 103, CO2 of 20 with a BUN of 71, creatinine of 5.0 and a glucose of 165. IMPRESSION: The patient has respiratory failure with pulmonary edema. He is status post cardiopulmonary resuscitation secondary to ventricular tachycardia. The patient has acute tubular necrosis and has a history of liver disease. He also has a history of EtOH abuse, coronary artery disease, congestive heart failure and has a pacemaker. PLAN: We will continue with O2 support and aggressive pulmonary toilet. We will follow his O2 saturation closely as well as his chest x-ray. The patient is on amiodarone as well as DuoNeb and he is getting metronidazole, digoxin, Lovenox as well as antibiotics of cefepime and azithromycin. Also, the patient is on Solu-Medrol. We will continue to treat aggressively along with the other consultants and the primary care doctor. Julio Rankin MD
--- NOTE | 2016-10-02 11:56 | CP.PCM.CON ---
History of Present Illness - History of Present Illness History of Present Illness: Mr. Mariee is a 61-year-old man with multiple medical co-morbidities including ESRD, CHF, cirrhosis, s/p vent dependent respiratory failure after cardiac arrest who was intubated on the and extubated on the . Currently, he is responsive, but does not follow commands and has generalized weakness that is worse on the left with anasarca. Review of Systems - Review of Systems All systems: reviewed and no additional remarkable complaints except Past Patient History - Past Medical History & Family History Past Medical History?: No - Past Social History Smoking Status: Never Smoked Alcohol: > 2 Drinks/Day - CARDIAC Hx Cardiac Disorders: Yes Hx Congestive Heart Failure: Yes - PULMONARY Hx Respiratory Disorders: Yes Other/Comment: URI - MUSCULOSKELETAL/RHEUMATOLOGICAL Hx Falls: (UNKNOWN) - GASTROINTESTINAL Hx Gastrointestinal Disorders: Yes (HERNIORHAPPHY) - PSYCHIATRIC Hx Substance Use: No - SURGICAL HISTORY Hx Surgeries: Yes Hx Cardiac Catheterization: Yes Meds Allergies/Adverse Reactions: Allergies Allergy/AdvReac Type Severity Reaction Status Date / Time No Known Allergies Allergy Verified 09/23/16 17:21 - Medications Medications: Current Medications Albuterol/Ipratropium (Duoneb 3 Mg/0.5 Mg (3 Ml) Ud) 3 ml IH [id number] [facility] Last Admin: 10/02/16 07:02 Dose: 3 ml Albuterol/Ipratropium (Duoneb 3 Mg/0.5 Mg (3 Ml) Ud) 3 ml IH Q2H PRN PRN Reason: Shortness of Breath Last Admin: 09/28/16 11:21 Dose: 3 ml Amiodarone HCl (Cordarone) 200 mg PO DAILY [facility] Last Admin: 10/02/16 09:56 Dose: 200 mg Artificial Tears (Artificial Tears Opht Oint) 0 gm OU Q2 PRN PRN Reason: Dry eyes Last Admin: 09/26/16 18:18 Dose: 1 applic Carvedilol (Coreg) 6.25 mg PO BID [facility] Digoxin (Lanoxin) 0.125 mg PO MWF [facility] Last Admin: 10/01/16 09:55 Dose: 0.125 mg Enoxaparin Sodium (Lovenox) 30 mg SC QOTHERDAY [facility] PRN Reason: Protocol Last Admin: 10/02/16 09:54 Dose: 30 mg Folic Acid (Folic Acid) 1 mg IVP DAILY [facility] Last Admin: 10/01/16 10:14 Dose: 1 mg Azithromycin (Zithromax 500mg In Ns) 500 mg in 250 mls @ 167 mls/hr IVPB DAILY [facility] PRN Reason: Protocol Last Admin: 10/02/16 09:37 Dose: Not Given Cefepime HCl (Maxipime 2gm) 2 gm in 100 mls @ 100 mls/hr IVPB DAILY [facility] PRN Reason: Protocol Stop: 10/03/16 10:01 Last Admin: 10/02/16 09:37 Dose: Not Given Metronidazole (Flagyl) 500 mg in 100 mls @ 100 mls/hr IVPB Q8 [facility] PRN Reason: Protocol Last Admin: 10/02/16 05:49 Dose: 100 mls/hr Lactulose (Enulose) 20 gm PO BID [facility] Last Admin: 10/02/16 09:54 Dose: 20 gm Methylprednisolone (Solu-Medrol) 100 mg IVP Q12 [facility] Last Admin: 10/02/16 09:54 Dose: 100 mg Multivitamins/Minerals (Therapeutic-M Tab) 1 tab PO 0800 [facility] Last Admin: 10/02/16 09:55 Dose: 1 tab Pantoprazole Sodium (Protonix Susp) 40 mg GT 0600,1600 [facility] Last Admin: 10/02/16 06:09 Dose: 40 mg Thiamine HCl (Vitamin B1 Inj) 100 mg IM DAILY [facility] Last Admin: 10/02/16 10:16 Dose: 100 mg Physical Exam - Constitutional Appears: No Acute Distress - Head Exam Head Exam: ATRAUMATIC, NORMAL INSPECTION, NORMOCEPHALIC - Eye Exam Eye Exam: EOMI, Normal appearance, PERRL - ENT Exam ENT Exam: Mucous Membranes Moist, Normal Exam - Respiratory Exam Respiratory Exam: Clear to Auscultation Bilateral, NORMAL BREATHING PATTERN - Cardiovascular Exam Cardiovascular Exam: REGULAR RHYTHM, +S1, +S2 - GI/Abdominal Exam GI & Abdominal Exam: Normal Bowel Sounds, Soft. absent: Tenderness - Rectal Exam Rectal Exam: Deferred - Neurological Exam Additional comments: Opens eyes spontaneously, tracks, but does not follow any commands. Grimaces to pain, and withdraws on the right, but not the left. Plantar responses are muted on the right and downgoing on the right. Hyporeflexive throughout. - Psychiatric Exam Psychiatric exam: Flat Affect - Skin Skin Exam: Dry, Intact, Normal Color, Warm Results - Vital Signs Recent Vital Signs: Last Vital Signs Temp 97.3 F L 10/02/16 08:00 Pulse 88 10/02/16 10:45 Resp 27 H 10/02/16 10:45 BP 133/88 10/02/16 10:45 Pulse Ox 95 10/02/16 10:45 - Labs Result Diagrams: 10/02/16 05:30 10/02/16 05:30 Labs: Laboratory Results - last 24 hr 10/01/16 10/01/16 10/02/16 16:43 16:43 05:30 WBC 12.8 H RBC 4.17 Hgb 14.2 Hct 40.4 L MCV 96.9 D MCH 34.1 MCHC 35.1 RDW 15.0 H Plt Count 57 L MPV 11.9 H Gran % 91.7 H Lymph % (Auto) 5.3 L [place] % (Auto) 2.7 Eos % (Auto) 0.1 L Baso % (Auto) 0.2 Gran # 11.74 H Lymph # 0.7 L [place] # 0.4 Eos # 0.0 Baso # 0.03 PT 16.5 H INR 1.53 H Sodium Potassium Chloride Carbon Dioxide Anion Gap BUN Creatinine Est GFR ( Amer) Est GFR (Non-Af Amer) Random Glucose Calcium Total Bilirubin AST ALT Alkaline Phosphatase Total Protein Albumin Globulin Albumin/Globulin Ratio Digoxin 1.4 10/02/16 05:30 WBC RBC Hgb Hct MCV MCH MCHC RDW Plt Count MPV Gran % Lymph % (Auto) [place] % (Auto) Eos % (Auto) Baso % (Auto) Gran # Lymph # [place] # Eos # Baso # PT INR Sodium 141 Potassium 4.5 Chloride 103 Carbon Dioxide 20 L Anion Gap 23 H BUN 71 H Creatinine 5.0 H Est GFR ( Amer) 14 Est GFR (Non-Af Amer) 12 Random Glucose 165 H Calcium 8.9 Total Bilirubin 3.7 H AST 72 H ALT 65 H Alkaline Phosphatase 196 H Total Protein 7.1 Albumin 3.3 Globulin 3.8 Albumin/Globulin Ratio 0.9 L Digoxin - Imaging and Cardiology CT scan - head Status: Image reviewed by me, Report reviewed by me (No acute findings on CTH from 09/29) Assessment & Plan (1) Encephalopathy due to metabolic factor or toxin Assessment and Plan: Continue conservative management to treat underlying metabolic derangements. Obtain repeat CT head to evaluate. Thank you. Status: Acute Priority: Medium
--- NOTE | 2016-10-02 12:06 | CP.PCM.PN ---
Subjective - Date & Time of Evaluation Date of Evaluation: 10/02/16 Time of Evaluation: 11:30 - Subjective Subjective: NAD, remains somewhat lethargic and confused Objective - Vital Signs/Intake and Output Vital Signs (last 24 hours): Temp Pulse Resp BP Pulse Ox 97.3 F L 88 27 H 133/88 95 10/02/16 08:00 10/02/16 10:45 10/02/16 10:45 10/02/16 10:45 10/02/16 10:45 Intake and Output: 10/02/16 10/02/16 06:59 18:59 Intake Total 620 Output Total 100 Balance 520 - Medications Medications: Current Medications Albuterol/Ipratropium (Duoneb 3 Mg/0.5 Mg (3 Ml) Ud) 3 ml IH [id number] [facility] Last Admin: 10/02/16 07:02 Dose: 3 ml Albuterol/Ipratropium (Duoneb 3 Mg/0.5 Mg (3 Ml) Ud) 3 ml IH Q2H PRN PRN Reason: Shortness of Breath Last Admin: 09/28/16 11:21 Dose: 3 ml Amiodarone HCl (Cordarone) 200 mg PO DAILY [facility] Last Admin: 10/02/16 09:56 Dose: 200 mg Artificial Tears (Artificial Tears Opht Oint) 0 gm OU Q2 PRN PRN Reason: Dry eyes Last Admin: 09/26/16 18:18 Dose: 1 applic Carvedilol (Coreg) 6.25 mg PO BID [facility] Digoxin (Lanoxin) 0.125 mg PO MWF [facility] Last Admin: 10/01/16 09:55 Dose: 0.125 mg Enoxaparin Sodium (Lovenox) 30 mg SC QOTHERDAY [facility] PRN Reason: Protocol Last Admin: 10/02/16 09:54 Dose: 30 mg Folic Acid (Folic Acid) 1 mg IVP DAILY [facility] Last Admin: 10/02/16 11:58 Dose: 1 mg Azithromycin (Zithromax 500mg In Ns) 500 mg in 250 mls @ 167 mls/hr IVPB DAILY [facility] PRN Reason: Protocol Last Admin: 10/02/16 12:00 Dose: 167 mls/hr Cefepime HCl (Maxipime 2gm) 2 gm in 100 mls @ 100 mls/hr IVPB DAILY [facility] PRN Reason: Protocol Stop: 10/03/16 10:01 Last Admin: 10/02/16 12:00 Dose: 100 mls/hr Metronidazole (Flagyl) 500 mg in 100 mls @ 100 mls/hr IVPB Q8 [facility] PRN Reason: Protocol Last Admin: 10/02/16 05:49 Dose: 100 mls/hr Lactulose (Enulose) 20 gm PO BID [facility] Last Admin: 10/02/16 09:54 Dose: 20 gm Methylprednisolone (Solu-Medrol) 100 mg IVP Q12 [facility] Last Admin: 10/02/16 09:54 Dose: 100 mg Multivitamins/Minerals (Therapeutic-M Tab) 1 tab PO 0800 [facility] Last Admin: 10/02/16 09:55 Dose: 1 tab Pantoprazole Sodium (Protonix Susp) 40 mg GT 0600,1600 [facility] Last Admin: 10/02/16 06:09 Dose: 40 mg Thiamine HCl (Vitamin B1 Inj) 100 mg IM DAILY [facility] Last Admin: 10/02/16 10:16 Dose: 100 mg - Labs Labs: 10/02/16 05:30 10/02/16 05:30 PT 16.5 Seconds (9.9-11.8) H 10/01/16 16:43 INR 1.53 (0.93-1.08) H 10/01/16 16:43 APTT 37.4 Seconds (23.7-30.8) H 09/30/16 06:20 - Respiratory Exam Respiratory Exam: Rhonchi - Cardiovascular Exam Cardiovascular Exam: REGULAR RHYTHM - GI/Abdominal Exam GI & Abdominal Exam: Soft, Normal Bowel Sounds - Extremities Exam Extremities Exam: Pedal Edema - Neurological Exam Neurological Exam: Altered - Skin Skin Exam: Dry, Warm Assessment and Plan (1) Pulmonary edema Status: Resolved (2) Alcoholic cardiomyopathy Status: Chronic (3) Ventilatory failure Status: Resolved (4) Aspiration pneumonia Status: Resolved (5) Disseminated intravascular coagulation Status: Resolved (6) Alcohol abuse Status: Chronic (7) Acute renal failure Status: Acute (8) Encephalopathy due to metabolic factor or toxin Status: Acute - Assessment and Plan (Free Text) Plan: IV Abx restarted for poss recurrent aspiration, continue hemodialysis, prognosis remains poor
--- NOTE | 2016-10-02 14:04 | CT ---
PROCEDURE: CT HEAD WITHOUT CONTRAST. HISTORY: ich prog COMPARISON: 09/29/2016 TECHNIQUE: Axial computed tomography images were obtained through the head/brain without intravenous contrast. Radiation dose: Total exam DLP = 813.15 mGy-cm. This CT exam was performed using one or more of the following dose reduction techniques: Automated exposure control, adjustment of the mA and/or kV according to patient size, and/or use of iterative reconstruction technique. FINDINGS: HEMORRHAGE: No intracranial hemorrhage. BRAIN: No mass effect or edema. Mild atrophy consistent with age. No evidence of acute infarct. VENTRICLES: Unremarkable. No hydrocephalus. CALVARIUM: Unremarkable. PARANASAL SINUSES: Chronic frontal, ethmoid and maxillary sinusitis. Air-fluid levels in both sphenoid sinuses are concerning for acute sinusitis. Please correlate. MASTOID AIR CELLS: Left otomastoiditis as described on prior examination with opacification of mastoid air cells and opacification of left middle ear cavity. There is trace right mastoid effusion as well. OTHER FINDINGS: None. IMPRESSION: No intracranial mass, hemorrhage or evidence of acute infarct. Possible acute sphenoid sinusitis. Please correlate. Extensive chronic paranasal sinusitis elsewhere. Left otomastoiditis. No significant change from 09/29/2016.
--- NOTE | 2016-10-02 16:47 | PN ---
DATE OF SERVICE: 10/02/2016 CONSULTING PHYSICIAN: Dr. Saunders. REASON FOR CONSULTATION: Followup, status post respiratory failure, status post extubated, not properly responsive to verbal stimuli, nonischemic cardiomyopathy, status post AICD. SUBJECTIVE: The patient responded to verbal stimuli, opened eye, but did not communicate, having dialysis now. OBJECTIVE: GENERAL: Lying flat in the bed, having dialysis. VITAL SIGNS: Temperature afebrile, heart rate 91, blood pressure 136/90. HEENT: PERRLA. Extraocular muscles intact. NECK: Supple. No carotid bruits. No thyromegaly. CHEST: Clear to auscultation. HEART: S1 and S2 regular. ABDOMEN: Soft. EXTREMITIES: Clubbing and cyanosis negative. LABORATORY DATA: Blood workup as follows, WBC 12.8, hemoglobin 14, hematocrit 40.4, platelet count 57. Chemistry shows sodium 141, potassium 4.5, chloride 103, carbon dioxide 20, anion gap of 23, BUN 71, creatinine 5. IMPRESSION: A 61-year-old male with past medical history significant for active tobacco abuse, nonischemic cardiomyopathy, status post cardiac catheterization, nonobstructive coronary artery disease, followed by Dr. Victoria Hobson's group and Dr. Beth, admitted with pneumonia, congestive heart failure, intubated, hospital course complicated by acute kidney injury, now on dialysis, multiorgan dysfunction. RECOMMENDATIONS: Continue dialysis. Discontinue Dobutrex. Continue digoxin Tuesday, Tuesday, Tuesday. Continue Lovenox for DVT prophylaxis every 24. Continue Coreg, we will increase. Continue amiodarone. The patient is not on JUAN because of renal insufficiency, because of acute kidney injury. We will monitor. If kidney function is either improved or becomes dialysis dependent, start JUAN for now, his JUAN is on hold. We will change Coreg to 6.25 b.i.d. from afternoon with holding parameter. Meliton Saunders MD
--- NOTE | 2016-10-02 19:56 | PN ---
DATE: 10/02/2016 SUBJECTIVE: The patient seen earlier this morning in the ICU, 128, bed #3. The patient is responsive somewhat, does not verbalize. There has been no fevers reported. No diarrhea reported. PHYSICAL EXAMINATION: VITAL SIGNS: Temperature is 97, blood pressure is 141/96, respiratory rate of 22, heart rate of 93. HEENT: There is an NG tube. NECK: Supple. LUNGS: Decreased breath sounds. HEART: Sounds normal S1 and S2. ABDOMEN: Soft and nontender. LABORATORY DATA: Examination reveals a white count of 12,800, hemoglobin of 14, and platelets of 57. Coagulation is noted. BUN of 71, creatinine of 5.0. LFTs are noted. Troponin is elevated at 0.25 and the patient does have an elevated procalcitonin of 15.38. Urinalysis is noted and immunology is reviewed. Urine for Legionella antigen is negative. Hepatitis profile is negative. MEDICATIONS: On reviewing medications reveal the patient to be on Flagyl, , cefepime, Solu-Medrol, IV azithromycin. IMAGING: Review of the patient's CAT scan of the abdomen and pelvis from the , no evidence of bowel obstruction, extensive ascites, bilateral pleural effusion, lower atelectasis, and LFTs are mildly elevated; alk phos of 196. ASSESSMENT AND PLAN: This is a 61-year-old male, seen earlier this morning in the ICU with systemic inflammatory response syndrome due to acute decompensated congestive heart failure with pulmonary edema, status post ventilatory dependant respiratory failure and acute renal failure with severe community-acquired pneumonia. The patient is extubated and does have encephalopathy. History of alcohol abuse, liver disease, day #9 of Flagyl, cefepime and Zithromax. With the last x-ray from the , right jugular line terminates in superior vena cava, haziness in both perihilar regions and with negative blood cultures, negative nasal MRSA and negative urine cultures, negative C. diff antigen and toxin. We will continue present course. Feliz Montalvo MD
[2016-10-03] MEDS: Albuterol-Ipratrop 3 mg / 0.5 (3 ml) UD IH SCH ×4 (02:17→19:50)
--- NOTE | 2016-10-03 04:00 | PN ---
DATE: 10/02/2016 SUBJECTIVE: The patient is seen in the ICU. He is awake. Eyes are open. Minimal response. He turns his head to name calling, but does not follow any commands. The patient received dialysis three days in a row. Today, he received his fourth dialysis session. Ultrafiltration about [address] scan of his head did not reveal any acute abnormality. PHYSICAL EXAMINATION: GENERAL: Thinly built, cachectic-appearing, elderly male, lying in bed. VITAL SIGNS: Blood pressure 130/83, heart rate 80, respiratory rate 26, temperature 97.3. HEENT: Normocephalic, atraumatic. Pupils are sluggishly reactive to light. NECK: Supple, no JVD. LUNGS: Bilateral equal air entry, bilateral rhonchi, bilateral coarse crackles. CARDIAC: S1 and S2, regular rate and rhythm, no murmur, no rub. ABDOMEN: Obese, distended, soft, bowel sounds present, positive fluid thrill. EXTREMITIES: 2+ pitting edema of the lower extremities. INTAKE AND OUTPUT: 1140/ , urine output only 200 cc. LABORATORY DATA: WBC 12.8, hemoglobin 14, hematocrit 40, and platelets 57. Sodium 141, potassium 4.5, chloride 103, CO2 of 20, BUN 71, creatinine 5.0, glucose 165, calcium 8.9, total bili 3.7, AST 72, and ALT 65. Stool occult positive. Digoxin 1.4. Rheumatoid factor is negative. WILSON negative. ANCA negative. Anti-GBM negative. Hepatitis profile negative. CURRENT MEDICATIONS: Cordarone 200 mg daily, Coreg 6.25 b.i.d., DuoNeb inhalers, Flagyl, folic acid, digoxin, Lovenox, cefepime, Protonix, Solu-Medrol, thiamine, and Zithromax. ASSESSMENT: 1. Alcoholic cardiomyopathy, decreased ejection fraction, history of automatic implantable cardioverter defibrillator. 2. Status post cardiac arrest. 3. Anoxic brain injury? 4. Multiorgan dysfunction. 5. Alcoholic cirrhosis/transaminitis/ascites. 6. Oliguric acute kidney injury. 7. Altered mental status. 8. Leukocytosis. 9. Thrombocytopenia. PLAN: 1. Continue empiric antibiotics, although cultures are all negative. 2. Dose all antibiotics for creatinine clearance less than 10 mL/minute. 3. Dialysis today, ultrafiltration 1500. 4. ? EEG. 5. Prognosis remains guarded. 6. Case discussed with ICU nurses. 7. Case discussed with dialysis nurse at length. 8. More than 35 minutes was spent in the care of this critically ill patient. Lakesha Enciso MD
[2016-10-03] MEDS: metroNIDAZOLE IV 500 mg/100 ml 500 MG/100 ML BAG IVPB SCH ×3 (05:33→21:35)
[2016-10-03 05:35] LABS: BASO # 0.02 K/mm3 (0.0-2.0); BASO % 0.1 % (0.0-3.0); EOS % 0.1 % (1.5-5.0); GRAN # 17.19 (1.4-6.5); LYMPH # 0.6 (1.2-3.4); MEAN CORPUSCULAR HEMOGLOBIN 35.4 pg (25.0-35.0); MEAN CORPUSCULAR HGB CONC 35.8 g/dl (31.0-37.0); MEAN PLATELET VOLUME 13.1 fl (7.0-11.0); MONO # 1.3 (0.1-0.6); MONO % 6.8 % (1.0-6.0); RED CELL DISTRIBUTION WIDTH 14.7 % (11.5-14.5); WHITE BLOOD COUNT 19.1 10^3/ul (4.5-11.0)
[2016-10-03 05:44] LABS: ALB/GLOB RATIO 0.9 (1.1-1.8); BILIRUBIN,TOTAL 2.9 mg/dL (0.2-1.3); CALCIUM 8.8 mg/dL (8.4-10.5); POTASSIUM 4.1 mmol/L (3.6-5.0); TOTAL PROTEIN 6.7 g/dL (5.8-8.3)
[2016-10-03] MEDS: Pantoprazole 40 mg Susp UD GT SCH ×2 (05:54→18:20)
[2016-10-03] MEDS: Multivitamin With Minerals Tab PO SCH (07:54)
--- NOTE | 2016-10-03 10:00 | CP.PCM.PN ---
Subjective - Date & Time of Evaluation Date of Evaluation: 10/03/16 Time of Evaluation: 09:45 - Subjective Subjective: more awake and responsive today Objective - Vital Signs/Intake and Output Vital Signs (last 24 hours): Temp Pulse Resp BP Pulse Ox 98.3 F 69 18 122/75 97 10/03/16 04:00 10/03/16 07:00 10/03/16 07:00 10/03/16 07:00 10/03/16 07:00 Intake and Output: 10/03/16 10/03/16 06:59 18:59 Intake Total 1715 Output Total 85 Balance 1630 - Medications Medications: Current Medications Albuterol/Ipratropium (Duoneb 3 Mg/0.5 Mg (3 Ml) Ud) 3 ml IH [id number] [facility] Last Admin: 10/03/16 07:09 Dose: 3 ml Albuterol/Ipratropium (Duoneb 3 Mg/0.5 Mg (3 Ml) Ud) 3 ml IH Q2H PRN PRN Reason: Shortness of Breath Last Admin: 09/28/16 11:21 Dose: 3 ml Amiodarone HCl (Cordarone) 200 mg PO DAILY [facility] Last Admin: 10/02/16 09:56 Dose: 200 mg Artificial Tears (Artificial Tears Opht Oint) 0 gm OU Q2 PRN PRN Reason: Dry eyes Last Admin: 09/26/16 18:18 Dose: 1 applic Carvedilol (Coreg) 6.25 mg PO BID [facility] Last Admin: 10/02/16 17:14 Dose: 6.25 mg Digoxin (Lanoxin) 0.125 mg PO MWF [facility] Last Admin: 10/01/16 09:55 Dose: 0.125 mg Enoxaparin Sodium (Lovenox) 30 mg SC QOTHERDAY [facility] PRN Reason: Protocol Last Admin: 10/02/16 09:54 Dose: 30 mg Folic Acid (Folic Acid) 1 mg IVP DAILY [facility] Last Admin: 10/02/16 11:58 Dose: 1 mg Azithromycin (Zithromax 500mg In Ns) 500 mg in 250 mls @ 167 mls/hr IVPB DAILY [facility] PRN Reason: Protocol Last Admin: 10/02/16 12:00 Dose: 167 mls/hr Cefepime HCl (Maxipime 2gm) 2 gm in 100 mls @ 100 mls/hr IVPB DAILY [facility] PRN Reason: Protocol Stop: 10/03/16 10:01 Last Admin: 10/02/16 12:00 Dose: 100 mls/hr Metronidazole (Flagyl) 500 mg in 100 mls @ 100 mls/hr IVPB Q8 [facility] PRN Reason: Protocol Last Admin: 10/03/16 05:33 Dose: 100 mls/hr Lactulose (Enulose) 20 gm PO BID [facility] Last Admin: 10/02/16 17:15 Dose: Not Given Methylprednisolone (Solu-Medrol) 100 mg IVP Q12 [facility] Last Admin: 10/02/16 23:00 Dose: 100 mg Multivitamins/Minerals (Therapeutic-M Tab) 1 tab PO 0800 [facility] Last Admin: 10/03/16 07:54 Dose: 1 tab Pantoprazole Sodium (Protonix Susp) 40 mg GT 0600,1600 [facility] Last Admin: 10/02/16 15:59 Dose: 40 mg Thiamine HCl (Vitamin B1 Inj) 100 mg IM DAILY [facility] Last Admin: 10/02/16 10:16 Dose: 100 mg - Labs Labs: 10/03/16 05:15 10/03/16 05:15 PT 16.5 Seconds (9.9-11.8) H 10/01/16 16:43 INR 1.53 (0.93-1.08) H 10/01/16 16:43 APTT 37.4 Seconds (23.7-30.8) H 09/30/16 06:20 - Respiratory Exam Respiratory Exam: Rhonchi - Cardiovascular Exam Cardiovascular Exam: REGULAR RHYTHM - GI/Abdominal Exam GI & Abdominal Exam: Soft, Normal Bowel Sounds - Extremities Exam Extremities Exam: Pedal Edema - Neurological Exam Neurological Exam: Awake - Skin Skin Exam: Dry, Warm Assessment and Plan (1) Pulmonary edema Status: Resolved (2) Alcoholic cardiomyopathy Status: Chronic (3) Ventilatory failure Status: Resolved (4) Aspiration pneumonia Status: Resolved (5) Disseminated intravascular coagulation Status: Resolved (6) Alcohol abuse Status: Chronic (7) Acute renal failure Status: Acute (8) Encephalopathy due to metabolic factor or toxin Status: Acute - Assessment and Plan (Free Text) Plan: continue hemodialysis, OOB as tolerated, SW for dc planning
[2016-10-03] MEDS: Cefepime IV 2 gm in NS 2 GM/100 ML BAG IVPB SCH (10:09)
[2016-10-03] MEDS: Thiamine 100 mg/ml Inj IM SCH (10:11)
[2016-10-03] MEDS: Azithromycin 500MG/NS 250ml 500 MG/250 ML BAG IVPB SCH (10:12)
--- NOTE | 2016-10-03 12:27 | PN ---
DATE: 10/03/2016 SUBJECTIVE: The patient is resting in bed, awake, and responding to the spoken word, still seems to be slightly confused. The patient has no respiratory distress at this time with O2 via nasal cannula and continues to have the NG tube in place. No nausea, vomiting. No complaints of pain, but still continues to have some loose stool. PHYSICAL EXAMINATION: VITAL SIGNS: Temperature is 98.3, his pulse is 68, respirations are 18, and BP is 122/75. SKIN: Warm and dry. HEAD: Atraumatic, normocephalic. Eyes: Reactive to light. Ears, nose, and throat seemed to be within normal limits. NECK: Supple. No JVD. No thyroid enlargement. No lymph nodes. HEART: Has regular rate, and rhythm. Normal S1 and S2. LUNGS: Reveal rare rhonchi at the bases. ABDOMEN: Soft, decreased bowel sounds. GENITALIA: Deferred. RECTAL: Deferred. MUSCULOSKELETAL: No joint deformities. EXTREMITIES: Reveal lower extremity edema. NEUROLOGIC: He is awake, but slightly confused, moving all extremities. LABORATORY DATA: Reveal a white count of 19.1, hemoglobin of 13.6, hematocrit 38.0, with platelets of 60,000. Sodium is 133, potassium 4.1, chloride 102, CO2 of 23 with a BUN of 72, creatinine of 4.5, and a glucose of 182. IMPRESSION: This patient is status post respiratory failure with pulmonary edema, status post cardiopulmonary resuscitation secondary to ventricular tachycardia. He has acute tubular necrosis with a history of liver disease, and EtOH abuse. The patient also has a history of coronary artery disease, congestive heart failure, and has a pacemaker. PLAN: As far as our plan, we will continue with O2 support, continue with aggressive pulmonary toilet and he will continue on his amiodarone, DuoNeb, metronidazole, digoxin, Lovenox, cefepime, and azithromycin. The patient is also on Solu-Medrol and we will continue to treat aggressively and follow closely along with the consultants and the primary care doctor. Julio Rankin MD
--- NOTE | 2016-10-03 14:47 | PN ---
DATE: 10/03/2016 SUBJECTIVE: The patient is on bed in room 128, bed 3. He is awake. He feels better, more responsive with no fevers documented. PHYSICAL EXAMINATION: VITAL SIGNS: Temperature is 98, blood pressure is 126/70, respiratory rate of 21, and heart rate of 73. HEENT: Unremarkable. NECK: Supple. LUNGS: Decreased breath sounds. HEART: Exam normal S1 and S2. ABDOMEN: Soft and nontender. LABORATORY DATA: Examination reveals the patient's white count of 19,000, hemoglobin of 13, and platelets of 60. Chemistry reveals BUN of 72, creatinine of 4.5. Alkaline phosphatase is 218. Blood cultures are negative. Stool for C. diff negative. Dr. Enciso's note is reviewed from yesterday. Dr. Ríos's note is reviewed from yesterday. The patient had CAT scan of the head yesterday and results are noted, no change from earlier CAT scan. Review of orders; reveals the patient to be on Flagyl, Solu-Medrol, azithromycin, and cefepime, cefepime requiring renewal, i will order so. ASSESSMENT AND PLAN: This is a 61-year-old male with systemic inflammatory response syndrome, acute decompensated congestive heart failure with pulmonary edema, status post ventilatory dependant respiratory failure, acute renal failure with severe community-acquired pneumonia. The patient is extubated now and appears to be comfortable, history of alcohol abuse, liver disease, day #10 of Flagyl, cefepime and Zithromax, and the patient is also on Solu-Medrol which may explain the increasing leukocytosis in case of antibiotic therapy. We will follow with you. Feliz Montalvo MD
--- NOTE | 2016-10-03 15:38 | US ---
HISTORY: Arm pain and swelling. Evaluate for deep venous thrombosis. PHYSICIAN(S): Tyler Oleary MD. FINDINGS: The visualized internal jugular veins are sonographically normal and compressible. No evidence of obstruction or thrombus this is seen. The visualized segments of the subclavian veins are patent with normal waveforms. No sonographic evidence of obstruction or thrombosis is seen. The visualized deep venous systems of both upper extremities proximally are sonographically normal and compressible. IMPRESSION: 1. No sonographic evidence for deep venous thrombosis in the visualized segments of both upper strategies.
--- NOTE | 2016-10-03 22:30 | PN ---
DATE: 10/03/2016 SUBJECTIVE: The patient is seen in the ICU. He is awake, he is alert. He is sitting up in bed. is at bedside. He is answering simple questions. Not really following complex commands. That is definitely a delayed mentation, but he is much more awake than before. PHYSICAL EXAMINATION: GENERAL: Elderly male, thinly built, sitting in bed. VITAL SIGNS: Blood pressure 133/82, heart rate 71, respiratory rate 18, and temperature 97.6. HEENT: Normocephalic and atraumatic. NECK: Supple. No JVD. LUNGS: Bilateral rhonchi, bilateral crackles, equal expansion bilaterally. CARDIOVASCULAR: S1 and S2, regular rate and rhythm. No murmurs, no rub. ABDOMEN: Distended, soft, nontender, bowel sounds present. EXTREMITIES: 2+ pitting edema of the lower extremities. INTAKE AND OUTPUT: 1750/85. LABORATORY DATA: WBC 19, hemoglobin 13.6, hematocrit 38, platelets 60. Sodium 139, potassium 4.1, chloride 102, CO2 of 23, BUN 72, creatinine 4.5, glucose 182, calcium 8.8, total bilirubin 2.9, AST 83, ALT 66, albumin 3.1. CURRENT MEDICATIONS: Cordarone, Coreg 6.25 mg b.i.d., DuoNeb, Ecotrin, lactulose, Flagyl, folic acid, Lanoxin, Lovenox, Protonix, Solu-Medrol, thiamine, Zithromax, and cefepime 2 g daily. ASSESSMENT: 1. Oliguric acute kidney injury, statue post dialysis x4. 2. Altered mental status, etiology likely anoxic encephalopathy. 3. Alcoholic cardiomyopathy, decreased ejection fraction, congestive heart failure, history of automatic implantable cardioverter defibrillator. 4. Alcoholic cirrhosis, transaminitis, ascites, coagulopathy. 5. Status post cardiac arrest. 6. Sepsis. 7. Thrombocytopenia. 8. Anemia. PLAN: 1. No dialysis today. 2. Continue to monitor closely in the ICU. 3. Next dialysis will be tomorrow. We will try to ultrafiltrate 2 kg. 4. Neurological followup. 5. Continue antibiotic. 6. Case discussed at bedside at length with . 7. Case discussed with the ICU attending and residence. 8. Case discussed with the ICU nurses. More than 35 minutes was spent in the care of this critically ill patient. Lakesha Enciso MD [facility] # [id number]
[2016-10-04] MEDS: Albuterol-Ipratrop 3 mg / 0.5 (3 ml) UD IH SCH ×4 (02:45→20:20)
[2016-10-04] MEDS: metroNIDAZOLE IV 500 mg/100 ml 500 MG/100 ML BAG IVPB SCH (05:55)
[2016-10-04] MEDS: Pantoprazole 40 mg Susp UD GT SCH ×2 (05:56→16:35)
[2016-10-04 06:50] LABS: BASO # 0.01 K/mm3 (0.0-2.0); BASO % 0.1 % (0.0-3.0); GRAN # 16.22 (1.4-6.5); GRAN % 94.1 % (50.0-68.0); HEMATOCRIT 40.4 % (42.0-52.0); LYMPH # 0.5 (1.2-3.4); LYMPH % 2.7 % (22.0-35.0); MEAN CELL VOLUME 99.8 fl (80.0-105.0); MEAN CORPUSCULAR HEMOGLOBIN 35.3 pg (25.0-35.0); MEAN CORPUSCULAR HGB CONC 35.4 g/dl (31.0-37.0); MONO # 0.5 (0.1-0.6); MONO % 3.1 % (1.0-6.0); PLATELET COUNT 68 10^3/uL (120.0-450.0); WHITE BLOOD COUNT 17.2 10^3/ul (4.5-11.0)
[2016-10-04 07:01] LABS: ALB/GLOB RATIO 0.9 (1.1-1.8); BILIRUBIN,TOTAL 2.6 mg/dL (0.2-1.3); CALCIUM 8.6 mg/dL (8.4-10.5); MAGNESIUM 2.6 mg/dL (1.7-2.2); PHOSPHOROUS 7.4 mg/dL (2.5-4.5); POTASSIUM 4.2 mmol/L (3.6-5.0); TOTAL PROTEIN 6.7 g/dL (5.8-8.3)
--- NOTE | 2016-10-04 07:27 | PN ---
DATE: 10/03/2016 REASON FOR CONSULTATION: Followup status post respiratory failure, status post extubated, nonischemic cardiomyopathy, status post AICD and status post dialysis. SUBJECTIVE: The patient has minimal response to verbal stimuli, opened eye, but does not follow simple command. OBJECTIVE: GENERAL: Lying flat in the bed, not on apparent distress, had dialysis yesterday. VITAL SIGNS: Temperature afebrile, heart rate 71, blood pressure 133/82. HEENT: PERRLA. Extraocular muscles intact. NECK: Supple. No carotid bruits. No thyromegaly. CHEST: Clear to auscultation. HEART: S1 and S2 regular. ABDOMEN: Soft. EXTREMITIES: Clubbing and cyanosis negative. LABORATORY DATA: Blood workup as follows, WBC 19.1, hemoglobin 13.6, hematocrit 38, platelet count 60. Chemistry shows sodium 139, potassium 4.1, chloride 102, carbon dioxide 23, anion gap of 18, BUN 72, creatinine 4.5. IMPRESSION: Acute kidney injury, status post dialysis x2-3, nonischemic cardiomyopathy, normal coronaries, status post automatic implantable cardioverter-defibrillator, status post respiratory failure, pneumonia, pulmonary edema, mentally sluggish, not responding properly to verbal stimuli, and does not follow simple command, history of catheterization in 2 to 3 years ago, nonobstructive coronary artery disease, being followed by Dr. Victoria Hobson's group and Dr. Beth. RECOMMENDATIONS: Continue dialysis as noted. Dobutrex was discontinued. Continue digoxin Tuesday, Tuesday, Tuesday. Continue Lovenox for DVT prophylaxis every 48 hours. Continue amiodarone. The patient is not on JUAN inhibitor because of acute kidney injury. When the renal function stabilizes, we will resume back Coumadin for the heart failure treatment. For now, he is not on JUAN inhibitors. We will continue Coreg, add on the aspirin as well. We will follow with you. Continue antibiotic. Overall, the patient's condition is critical. Long-term prognosis is guarded and needs some point of rehab facility for discharge planning. Thank you Dr. Ríos for providing us the opportunity in taking care of the patient, Garth. Meliton Saunders MD
[2016-10-04] MEDS: Enoxaparin 30 mg Syringe SC SCH (09:20)
[2016-10-04] MEDS: Thiamine 100 mg/ml Inj IM SCH (09:20)
[2016-10-04] MEDS: Digoxin 125 mcg (0.125 mg) Tab PO SCH (09:25)
[2016-10-04] MEDS: Multivitamin With Minerals Tab PO SCH (09:25)
--- NOTE | 2016-10-04 09:35 | CP.PCM.PN ---
Subjective - Date & Time of Evaluation Date of Evaluation: 10/04/16 Time of Evaluation: 09:15 - Subjective Subjective: awake and responsive Objective - Vital Signs/Intake and Output Vital Signs (last 24 hours): Temp Pulse Resp BP Pulse Ox 97.7 F 75 18 122/89 97 10/04/16 08:00 10/04/16 09:25 10/04/16 08:00 10/04/16 09:25 10/04/16 08:00 Intake and Output: 10/04/16 10/04/16 06:59 18:59 Intake Total 750 Output Total 45 Balance 705 - Medications Medications: Current Medications Albuterol/Ipratropium (Duoneb 3 Mg/0.5 Mg (3 Ml) Ud) 3 ml IH [id number] REPLACED BY [facility] Last Admin: 10/04/16 07:42 Dose: 3 ml Albuterol/Ipratropium (Duoneb 3 Mg/0.5 Mg (3 Ml) Ud) 3 ml IH Q2H PRN PRN Reason: Shortness of Breath Last Admin: 09/28/16 11:21 Dose: 3 ml Amiodarone HCl (Cordarone) 200 mg PO DAILY REPLACED BY [facility] Last Admin: 10/04/16 09:24 Dose: 200 mg Artificial Tears (Artificial Tears Opht Oint) 0 gm OU Q2 PRN PRN Reason: Dry eyes Last Admin: 09/26/16 18:18 Dose: 1 applic Aspirin (Ecotrin) 81 mg PO DAILY REPLACED BY [facility] Last Admin: 10/04/16 09:24 Dose: 81 mg Carvedilol (Coreg) 6.25 mg PO BID REPLACED BY [facility] Last Admin: 10/04/16 09:25 Dose: 6.25 mg Digoxin (Lanoxin) 0.125 mg PO MWF REPLACED BY [facility] Last Admin: 10/04/16 09:25 Dose: 0.125 mg Enoxaparin Sodium (Lovenox) 30 mg SC QOTHERDAY REPLACED BY [facility] PRN Reason: Protocol Last Admin: 10/04/16 09:20 Dose: 30 mg Folic Acid (Folic Acid) 1 mg PO DAILY REPLACED BY [facility] Lactulose (Enulose) 20 gm PO BID REPLACED BY [facility] Last Admin: 10/02/16 17:15 Dose: Not Given Methylprednisolone (Solu-Medrol) 100 mg IVP Q12 REPLACED BY [facility] Last Admin: 10/04/16 09:21 Dose: 100 mg Multivitamins/Minerals (Therapeutic-M Tab) 1 tab PO 0800 REPLACED BY [facility] Last Admin: 10/04/16 09:25 Dose: 1 tab Pantoprazole Sodium (Protonix Susp) 40 mg GT 0600,1600 REPLACED BY [facility] Last Admin: 10/04/16 05:56 Dose: 40 mg Thiamine HCl (Vitamin B1 Inj) 100 mg IM DAILY REPLACED BY [facility] Last Admin: 10/04/16 09:20 Dose: 100 mg - Labs Labs: 10/04/16 06:20 10/04/16 06:20 PT 16.5 Seconds (9.9-11.8) H 10/01/16 16:43 INR 1.53 (0.93-1.08) H 10/01/16 16:43 APTT 37.4 Seconds (23.7-30.8) H 09/30/16 06:20 - Respiratory Exam Respiratory Exam: Rhonchi - Cardiovascular Exam Cardiovascular Exam: REGULAR RHYTHM - GI/Abdominal Exam GI & Abdominal Exam: Soft, Normal Bowel Sounds - Extremities Exam Extremities Exam: Pedal Edema - Neurological Exam Neurological Exam: Altered, Awake - Skin Skin Exam: Dry, Warm Assessment and Plan (1) Pulmonary edema Status: Resolved (2) Alcoholic cardiomyopathy Status: Chronic (3) Ventilatory failure Status: Resolved (4) Aspiration pneumonia Status: Resolved (5) Disseminated intravascular coagulation Status: Resolved (6) Alcohol abuse Status: Chronic (7) Acute renal failure Status: Acute (8) Encephalopathy due to metabolic factor or toxin Status: Acute - Assessment and Plan (Free Text) Plan: continue hemodialysis, THERESA rushing dc planning
--- NOTE | 2016-10-04 09:42 | CP.PCM.PN ---
Subjective - Date & Time of Evaluation Date of Evaluation: 10/04/16 Time of Evaluation: 09:10 - Subjective Subjective: Patient is awake but does not follow commands. No fevers overnight, not in distress. Objective - Vital Signs/Intake and Output Vital Signs (last 24 hours): Temp Pulse Resp BP Pulse Ox 97.9 F 68 20 126/83 89 L 10/04/16 04:00 10/04/16 04:00 10/04/16 02:00 10/04/16 02:00 10/04/16 02:00 - Medications Medications: Current Medications Albuterol/Ipratropium (Duoneb 3 Mg/0.5 Mg (3 Ml) Ud) 3 ml IH [id number] [facility] Last Admin: 10/04/16 02:45 Dose: 3 ml Albuterol/Ipratropium (Duoneb 3 Mg/0.5 Mg (3 Ml) Ud) 3 ml IH Q2H PRN PRN Reason: Shortness of Breath Last Admin: 09/28/16 11:21 Dose: 3 ml Amiodarone HCl (Cordarone) 200 mg PO DAILY [facility] Last Admin: 10/03/16 10:10 Dose: 200 mg Artificial Tears (Artificial Tears Opht Oint) 0 gm OU Q2 PRN PRN Reason: Dry eyes Last Admin: 09/26/16 18:18 Dose: 1 applic Aspirin (Ecotrin) 81 mg PO DAILY [facility] Carvedilol (Coreg) 6.25 mg PO BID [facility] Last Admin: 10/03/16 18:20 Dose: 6.25 mg Digoxin (Lanoxin) 0.125 mg PO MWF [facility] Last Admin: 10/01/16 09:55 Dose: 0.125 mg Enoxaparin Sodium (Lovenox) 30 mg SC QOTHERDAY [facility] PRN Reason: Protocol Last Admin: 10/02/16 09:54 Dose: 30 mg Folic Acid (Folic Acid) 1 mg IVP DAILY [facility] Last Admin: 10/03/16 12:51 Dose: 1 mg Azithromycin (Zithromax 500mg In Ns) 500 mg in 250 mls @ 167 mls/hr IVPB DAILY [facility] PRN Reason: Protocol Last Admin: 10/03/16 10:12 Dose: 167 mls/hr Metronidazole (Flagyl) 500 mg in 100 mls @ 100 mls/hr IVPB Q8 [facility] PRN Reason: Protocol Last Admin: 10/04/16 05:55 Dose: 100 mls/hr Lactulose (Enulose) 20 gm PO BID [facility] Last Admin: 10/02/16 17:15 Dose: Not Given Methylprednisolone (Solu-Medrol) 100 mg IVP Q12 [facility] Last Admin: 10/03/16 21:37 Dose: 100 mg Multivitamins/Minerals (Therapeutic-M Tab) 1 tab PO 0800 [facility] Last Admin: 10/03/16 07:54 Dose: 1 tab Pantoprazole Sodium (Protonix Susp) 40 mg GT 0600,1600 [facility] Last Admin: 10/04/16 05:56 Dose: 40 mg Thiamine HCl (Vitamin B1 Inj) 100 mg IM DAILY [facility] Last Admin: 10/03/16 10:11 Dose: 100 mg - Labs Labs: 10/03/16 05:15 10/03/16 05:15 PT 16.5 Seconds (9.9-11.8) H 10/01/16 16:43 INR 1.53 (0.93-1.08) H 10/01/16 16:43 APTT 37.4 Seconds (23.7-30.8) H 09/30/16 06:20 - Constitutional Appears: Non-toxic, No Acute Distress - Head Exam Head Exam: NORMAL INSPECTION - ENT Exam ENT Exam: Mucous Membranes Moist - Neck Exam Neck Exam: absent: Meningismus - Respiratory Exam Respiratory Exam: Decreased Breath Sounds - Cardiovascular Exam Cardiovascular Exam: +S1, +S2 - GI/Abdominal Exam GI & Abdominal Exam: Soft. absent: Tenderness Assessment and Plan - Assessment and Plan (Free Text) Plan: Assessment systemic inflammatory response syndrome, consider due to acute decompensated heart failure with pulmonary edema, R/O severe sepsis S/P ventilator-dependent respiratory failure and worsening acute renal failure from severe community- acquired pneumonia - clinically improved and now extubated but has encephalopathy probably multifactorial alcohol abuse and alcoholic liver disease CAD chronic CHF S/P pacemaker placement HTN Plan on Cefepime and Zithromax and Flagyl (day 10) - will d/c antibiotics today and observe (CT head also showing left sided mastoiditis); cultures have been negative; PCT is elevated (but probably because of the renal failure); reviewed repeat CXR's will continue to monitor clinically patient is on intermittent dialysis for now reviewed Neurology evaluation for encephalopathy (toxic-metabolic encephalopahty )
--- NOTE | 2016-10-04 13:48 | CP.PCM.PN ---
<GIULIANO RODRIGUEZ - Last Filed: 10/04/16 13:43> Subjective - Date & Time of Evaluation Date of Evaluation: 10/04/16 Time of Evaluation: 07:30 - Subjective Subjective: Giuliano Rodriguez DO PGY1 - ICU Progress Note Patient seen and examined at bedside. No acute events reported overnight. Patient is awake, alert, responsive to verbal commands. Mental status is significantly improved. He is still not answering questions verbally, except for occasional echolalia. ROS is limited by mental status, but he appears to have no particular somatic complaints. Objective - Vital Signs/Intake and Output Vital Signs (last 24 hours): Temp Pulse Resp BP Pulse Ox 97.7 F 67 18 114/77 91 L 10/04/16 08:00 10/04/16 12:45 10/04/16 12:45 10/04/16 12:45 10/04/16 12:45 Intake and Output: 10/04/16 10/04/16 06:59 18:59 Intake Total 750 Output Total 45 Balance 705 - Medications Medications: Current Medications Albuterol/Ipratropium (Duoneb 3 Mg/0.5 Mg (3 Ml) Ud) 3 ml IH [id number] [facility] Last Admin: 10/04/16 13:42 Dose: 3 ml Albuterol/Ipratropium (Duoneb 3 Mg/0.5 Mg (3 Ml) Ud) 3 ml IH Q2H PRN PRN Reason: Shortness of Breath Last Admin: 09/28/16 11:21 Dose: 3 ml Amiodarone HCl (Cordarone) 200 mg PO DAILY [facility] Last Admin: 10/04/16 09:24 Dose: 200 mg Artificial Tears (Artificial Tears Opht Oint) 0 gm OU Q2 PRN PRN Reason: Dry eyes Last Admin: 09/26/16 18:18 Dose: 1 applic Aspirin (Ecotrin) 81 mg PO DAILY [facility] Last Admin: 10/04/16 09:24 Dose: 81 mg Carvedilol (Coreg) 6.25 mg PO BID [facility] Last Admin: 10/04/16 09:25 Dose: 6.25 mg Digoxin (Lanoxin) 0.125 mg PO MWF [facility] Last Admin: 10/04/16 09:25 Dose: 0.125 mg Enoxaparin Sodium (Lovenox) 30 mg SC DAILY [facility] PRN Reason: Protocol Folic Acid (Folic Acid) 1 mg PO DAILY [facility] Last Admin: 10/04/16 09:32 Dose: 1 mg Lactulose (Enulose) 20 gm PO BID [facility] Last Admin: 10/04/16 10:22 Dose: 20 gm Multivitamins/Minerals (Therapeutic-M Tab) 1 tab PO 0800 [facility] Last Admin: 10/04/16 09:25 Dose: 1 tab Pantoprazole Sodium (Protonix Susp) 40 mg GT 0600,1600 [facility] Last Admin: 10/04/16 05:56 Dose: 40 mg Prednisolone (Prednisolone Oral Soln) 40 mg PO DAILY [facility] Thiamine HCl (Vitamin B1 Inj) 100 mg IM DAILY [facility] Last Admin: 10/04/16 09:20 Dose: 100 mg - Labs Labs: 10/04/16 06:20 10/04/16 06:20 PT 16.5 Seconds (9.9-11.8) H 10/01/16 16:43 INR 1.53 (0.93-1.08) H 10/01/16 16:43 APTT 37.4 Seconds (23.7-30.8) H 09/30/16 06:20 - Constitutional Appears: Non-toxic, No Acute Distress, Confused - Head Exam Head Exam: ATRAUMATIC, NORMOCEPHALIC - Eye Exam Eye Exam: PERRL - ENT Exam ENT Exam: Mucous Membranes Moist - Neck Exam Neck Exam: absent: Lymphadenopathy, Meningismus, Thyromegaly - Respiratory Exam Respiratory Exam: Clear to Ausculation Bilateral. absent: Rales, Rhonchi, Wheezes - Cardiovascular Exam Cardiovascular Exam: RRR, +S1, +S2 - GI/Abdominal Exam GI & Abdominal Exam: Distended, Soft. absent: Guarding, Rigid, Tenderness Additional comments: Shifting dullness. Positive fluid wave. - Extremities Exam Extremities Exam: absent: Calf Tenderness, Pedal Edema - Neurological Exam Neurological Exam: Alert, Awake Neuro motor strength exam: Left Upper Extremity: 4, Right Upper Extremity: 5, Left Lower Extremity: 4, Right Lower Extremity: 5 Additional comments: Obeying simple commands, but not answering questions except for occasional echolalia - Psychiatric Exam Psychiatric exam: Flat Affect - Skin Skin Exam: Dry, Intact Assessment and Plan - Assessment and Plan (Free Text) Assessment: 61 yo M with altered mental status 2/2 uremic vs hepatic enecephalopathy, previously acute hypoxic respiratory failure 2/2 pulmonary edema vs ARDS vs PNA , now resolved, extubated; resolved sepsis 2/2 PNA vs cholecystitis; acute decompensated CHF (LVEF 20% with severe pulm HTN) 2/2 NSTEMI vs arrhythmia in the setting of alcoholic cardiomyopathy; acute on chronic alcoholic hepatitis, and BARBRA. Plan: Neuro: - Patient is currently awake, but confused. GCS 13. Neuro status improved slightly. Likely 2/2 anoxic brain injury vs encephalopathy 2/2 acute hepatic congestion and hepatitis vs uremia, with ICu polyneuropathy and prolonged ICu stay. - Head CT negative for acute abnormalities. EEG completed and read, diffuse slowing, no epileptiform activity. - Neuro (Lauraya) consulted, all recs appreciated - Azotemia/Uremia again worsened, no HD yesterday; likely cause of AMS, HD again today. - On thiamine, folate - Continue to monitor neurological status - Will order speech and swallow evaluation prior to removing NG tube - Will require further discussion with family to discuss goals for care, including half-way HD, possible PEG placement if no improvement in neuro status and fails swallow eval, and possible LTAC placement. CV: - Troponin 0.09>0.69>1.37, likely demand ischemia in acute decompensated CHF exacerbation - History of alcoholic cardiomyopathy. Echo shows LVEF 20% with severe tricuspid regurg and severe pulmonary HTN - On ASA, plavix, for NSTEMI. - Cardio (Chip) on consult, all recs appreciated - On amiodarone and coreg for vtach. - Maintain MAP>65 Pulm: - Acute hypoxic respiratory failure 2/2 pulmonary edema vs ARDS vs PNA, resolved - On 3LNC, maintaining saturations well, s/p extubation 5 days ago - Resolving pulmonary edema due to fluid overload in the setting of CHF vs ARDS vs PNA - Fluid status improving, will take off more fluid today during HD - On Duoneb PRN - Continue chest PT - Maintain O2 sat >90% - Continue with protective lung strategies, HOB>30 GI: - NG tube in place, advance diet as tolerated, consult movie shot camera operator. Will have speech and swallow eval done today to potentially remove NG tube - Persistent transaminitis and elevated total bilirubin, worsened again. - Likely cirrhosis 2/2 alcoholic hepatitis, day 3 on steroids, will switch to prednisolone 40 QD - Abdominal US shows no cholecystitis or cholangitis, hepatitis panel negative, unlikely to be source of SIRS. - Continue lactulose 20 BID to treat hepatic encephalopathy as potential cause of AMS, titrate to BMs - Abdomen hyporesonant with shifting dullness, distended, likely cirrhotic ascites 2/2 history of EtOH abuse, including recent binge drinking episode Renal: - Azotemia worsened again today, likely because no dialysis yesterday, with poor urine output - Likely ATN 2/2 hypoperfusion and venous congestion 2/2 acute decompensation CHF, serologic workup negative - FeNa 5.9%, but no obstruction, indicates ATN. - Nephro (Enciso) on consult, all recs appreciated - Poor urine output, significant positive fluid balance past 24 hours - Continue daily HD per nephro - Continue to monitor fluid output Endo: - Maintain euglycemia with bg 140-180 Hem/Onc: - H/H stable - Mild persistent thrombocytopenia likely 2/2 to chronic liver disease, will continue to monitor - On SQ Lovenox, therapeutic PTT ID: - SIRS, likely sepsis 2/2 CAP vs SBP, resolved - Afebrile, leukocytosis improving, abx courses completed to 7-10 days - Repeat procal was elevated, but decreased since last checked. - BCx no growth after 5 days, UCx no growth, Sputum Cx no growth, stool for C diff negative - ID (Bubba) on consult, all recs appreciated. Ppx: SCDs for DVT, protonix for GI Seen, discussed, and reviewed with attending <Ke Hawthorne - Last Filed: 10/04/16 14:49> Objective - Vital Signs/Intake and Output Vital Signs (last 24 hours): Temp Pulse Resp BP Pulse Ox 97.7 F 67 18 114/77 91 L 10/04/16 08:00 10/04/16 12:45 10/04/16 12:45 10/04/16 12:45 10/04/16 12:45 Intake and Output: 10/04/16 10/04/16 06:59 18:59 Intake Total 750 Output Total 45 Balance 705 - Medications Medications: Current Medications Albuterol/Ipratropium (Duoneb 3 Mg/0.5 Mg (3 Ml) Ud) 3 ml IH [id number] [facility] Last Admin: 10/04/16 13:42 Dose: 3 ml Albuterol/Ipratropium (Duoneb 3 Mg/0.5 Mg (3 Ml) Ud) 3 ml IH Q2H PRN PRN Reason: Shortness of Breath Last Admin: 09/28/16 11:21 Dose: 3 ml Amiodarone HCl (Cordarone) 200 mg PO DAILY [facility] Last Admin: 10/04/16 09:24 Dose: 200 mg Artificial Tears (Artificial Tears Opht Oint) 0 gm OU Q2 PRN PRN Reason: Dry eyes Last Admin: 09/26/16 18:18 Dose: 1 applic Aspirin (Ecotrin) 81 mg PO DAILY [facility] Last Admin: 10/04/16 09:24 Dose: 81 mg Carvedilol (Coreg) 6.25 mg PO BID [facility] Last Admin: 10/04/16 09:25 Dose: 6.25 mg Digoxin (Lanoxin) 0.125 mg PO MWF [facility] Last Admin: 10/04/16 09:25 Dose: 0.125 mg Enoxaparin Sodium (Lovenox) 30 mg SC DAILY [facility] PRN Reason: Protocol Folic Acid (Folic Acid) 1 mg PO DAILY [facility] Last Admin: 10/04/16 09:32 Dose: 1 mg Lactulose (Enulose) 20 gm PO BID [facility] Last Admin: 10/04/16 10:22 Dose: 20 gm Multivitamins/Minerals (Therapeutic-M Tab) 1 tab PO 0800 [facility] Last Admin: 10/04/16 09:25 Dose: 1 tab Pantoprazole Sodium (Protonix Susp) 40 mg GT 0600,1600 [facility] Last Admin: 10/04/16 05:56 Dose: 40 mg Prednisolone (Prednisolone Oral Soln) 40 mg PO DAILY [facility] Thiamine HCl (Vitamin B1 Inj) 100 mg IM DAILY [facility] Last Admin: 10/04/16 09:20 Dose: 100 mg - Labs Labs: 10/04/16 06:20 10/04/16 06:20 PT 16.5 Seconds (9.9-11.8) H 10/01/16 16:43 INR 1.53 (0.93-1.08) H 10/01/16 16:43 APTT 37.4 Seconds (23.7-30.8) H 09/30/16 06:20 Assessment and Plan - Assessment and Plan (Free Text) Assessment: Patient seen and examined, case discussed on rounds with resident. Agree with resident's note and A/P. Patient is afebrile, HD stable, comfortable, not on pressors. Pt is awake, alert , follows commands, mental status significantly improved. Tolerated HD today. Completed a day course of broad spectrum abx. Cltures thus far negative. AMS, resolved Renal Failure, on HD Systolic CHF, EF 20% Pulm HTN PNA ARDS, resolved Pulm edema, resolved Alcoholic hepatitis Recommend: - cont with supp o2, monitor resp status - finished 10 day course of abx, ID following - follow up official VEEG - Lactulose, titrate to BMs - cont with Coreg, NO ACEI 2/2 renal dysfunction - Chest PT - Prednisolone for alcoholic hepatitis - speech/swallow eval - may need phosphate binders - HD today as per renal tolerated well - monitor HH, Platelets - PPI BID - Duonebs - OOB to chair - transfer to regular medical floor, patient stable, PMD notified critical care time 35minutes
--- NOTE | 2016-10-04 17:39 | PN ---
DATE: 10/04/2016 SUBJECTIVE: The patient is seen lying in bed in the ICU. He is awake. His eyes are open. He seems to be following some commands. There is a delay in his response. He nods no to when I ask him if he has pain. When I ask him where he is, he tries to say something, which is unintelligible. It looks like he was more awake yesterday. He does not appear to be in any kind of physical distress. PHYSICAL EXAMINATION: GENERAL: Elderly male, cachectic, sitting in bed in ICU. VITAL SIGNS: Blood pressure 124/82, heart rate 76, respiratory rate 23, and temperature 97.7. HEENT: Normocephalic, atraumatic. NECK: Supple. No JVD. LUNGS: Bilaterally equal air entry, bilateral rhonchi, no rales. CARDIAC: S1, S2, regular rhythm, no murmur, no rub. ABDOMEN: Distended, soft, nontender, bowel sound is present, positive NG tube to drainage. EXTREMITIES: 2+ pitting edema of the lower extremities. INTAKE AND OUTPUT: 750/45. LABORATORY DATA: WBC 17, hemoglobin 14, hematocrit 40, platelets 68,000. Sodium 142, potassium 4.2, chloride 103, CO2 of 21, BUN 102, creatinine 5.5, glucose 181, calcium 8.6, phosphorus 7.4, magnesium 2.6, AST 120, ALT 90, albumin 3.2, and digoxin 1.4. Blood cultures, urine culture all negative. Left upper extremity ultrasound: No sonographic evidence of DVT. CURRENT MEDICATIONS: Cordarone, Coreg 6.25 b.i.d., DuoNeb, Ecotrin, lactulose 20 b.i.d., digoxin, Lovenox 30 mg subcutaneous daily, prednisolone 40 daily, Protonix 40, thiamine, Flagyl 500 q.8 hours, folic acid 1 mg daily, Solu-Medrol 100 mg q.12 hours; discontinued this morning, and Zithromax 500 daily; discontinued yesterday. ASSESSMENT: 1. Alcoholic cardiomyopathy, decreased ejection fraction, automatic implantable cardioverter-defibrillator. 2. Status post cardiac arrest. 3. Anoxic encephalopathy? 4. Oliguric acute kidney injury. 5. Respiratory failure? pneumonia. 6. Thrombocytopenia. 7. Alcoholic cirrhosis, transaminitis, coagulopathy. 8. Leukocytosis, likely secondary to steroids. 9. Elevated BUN as compared to creatinine, also secondary to steroids possibly. 10. Hyperphosphatemia, suspect secondary hyperparathyroidism. PLAN: 1. Dialysis today, 3 hours, potassium 3, calcium 2.5, ultrafiltration 1500. 2. Check in toxic pH levels. 3. Mental status waxing and waning, hypoxic encephalopathy suspect. 4. Swallow evaluation? 5. Continue Coreg and Cordarone. 6. Off antibiotics for ID? 7. Case discussed at bedside with ICU team, ICU attending and residents. 8. Case discussed with dialysis staff. More than 35 minutes spent in the care of this critically ill patient. Lakesha Enciso MD
--- NOTE | 2016-10-05 00:47 | PN ---
DATE: 10/04/2016 REASON FOR CONSULTATION: Followup with status post respiratory failure, status post extubated, nonischemic cardiomyopathy, status post AICD, status post dialysis. SUBJECTIVE: The patient with minimal response to verbal stimuli, getting rehab at the bedside, awaiting for dialysis today. OBJECTIVE: GENERAL: Lying flat in the bed, not in apparent distress, minimal response to the verbal stimuli, opens eyes and look toward us, but does not communicate. VITAL SIGNS: Temperature afebrile, heart rate 67, blood pressure 114/76. HEENT: PERRLA. Extraocular muscles intact. NECK: Supple. No carotid bruits. No thyromegaly. CHEST: Clear to auscultation. HEART: S1 and S2 regular. ABDOMEN: Soft. EXTREMITIES: Clubbing and cyanosis negative. LABORATORY DATA: Blood workup as follows; WBC 17.2, hemoglobin 14.3, hematocrit 40.4, platelet count 68. Chemistry shows sodium 140, potassium 4.2, chloride 103, carbon dioxide of 21, anion gap of 22, BUN 102, creatinine 5.5. IMPRESSION: Status post cardiopulmonary resuscitation, status post pulmonary edema, status post pneumonia, cardiomyopathy, nonischemic; status post nonobstructive coronary artery disease, status post automatic implantable cardioverter defibrillator history of alcohol abuse possible secondary to alcohol related cardiomyopathy, history cardiac catheterization 2-3 years ago, nonobstructive coronary artery disease, being followed by Dr. Victoria Hobson's group and Dr. Beth. RECOMMENDATIONS: Continue dialysis. Continue rehab. Continue digoxin Tuesday, Tuesday, Tuesday. Continue Lovenox for DVT prophylaxis every 48 hours. Continue amiodarone. The patient is not on JUAN inhibitor for acute kidney injury. When the renal function stabilizes or dialysis permanently stabilize and we can restart JUAN. For now, the patient is off JUAN. Continue digoxin as mentioned Tuesday, Tuesday, Tuesday. Continue Coreg as tolerated blood pressure. We will follow with you. Overall, the patient's condition is critical. Long-term prognosis is guarded, needs a definite plan for long-term including PEG placement if need to be placed to some rehab facility. We will follow with you. Meliton Saunders MD
--- NOTE | 2016-10-05 01:27 | CP.PCM.PN ---
Subjective - Date & Time of Evaluation Date of Evaluation: 10/05/16 Time of Evaluation: 01:26 - Subjective Subjective: Nurse Vladimir calls me and asks to evaluate right jugular dialysis cath site where catheter is lamost out and there is some blood that ashutosh clotted around insertion site. Patient has no complaints. Does not explain how it happened. Medical record was reviewed. This 61 year old male was admitted with hemoptysis, pulmonary edema, ventricular failure. Has PMH of ESRD,(last dialysis was done yesterday),CHF, COPD, alcoholic cardiomyopathy,herniorrhaphy. Platelet coung is 68 , Coags : 16.5/1.53/37.4 On , ASA, Lovenox. Objective - Vital Signs/Intake and Output Vital Signs (last 24 hours): Temp Pulse Resp BP Pulse Ox 97.7 F 65 24 112/66 93 L 10/04/16 12:00 10/04/16 16:00 10/04/16 16:00 10/04/16 15:23 10/04/16 15:23 Last Vital Signs Temp 97.4 F L 10/05/16 01:20 Pulse 71 10/05/16 01:20 Resp 18 10/05/16 01:20 BP 122/85 10/05/16 01:20 Pulse Ox 97 10/05/16 01:20 Intake and Output: 10/04/16 10/05/16 18:59 06:59 Intake Total 550 0 Output Total 40 Balance 510 0 - Medications Medications: Current Medications Albuterol/Ipratropium (Duoneb 3 Mg/0.5 Mg (3 Ml) Ud) 3 ml IH [id number] [facility] Last Admin: 10/04/16 20:20 Dose: 3 ml Albuterol/Ipratropium (Duoneb 3 Mg/0.5 Mg (3 Ml) Ud) 3 ml IH Q2H PRN PRN Reason: Shortness of Breath Last Admin: 09/28/16 11:21 Dose: 3 ml Amiodarone HCl (Cordarone) 200 mg PO DAILY [facility] Last Admin: 10/04/16 09:24 Dose: 200 mg Artificial Tears (Artificial Tears Opht Oint) 0 gm OU Q2 PRN PRN Reason: Dry eyes Last Admin: 09/26/16 18:18 Dose: 1 applic Aspirin (Ecotrin) 81 mg PO DAILY [facility] Last Admin: 10/04/16 09:24 Dose: 81 mg Carvedilol (Coreg) 6.25 mg PO BID [facility] Last Admin: 10/04/16 18:38 Dose: 6.25 mg Digoxin (Lanoxin) 0.125 mg PO MWF [facility] Last Admin: 10/04/16 09:25 Dose: 0.125 mg Enoxaparin Sodium (Lovenox) 30 mg SC DAILY [facility] PRN Reason: Protocol Folic Acid (Folic Acid) 1 mg PO DAILY [facility] Last Admin: 10/04/16 09:32 Dose: 1 mg Lactulose (Enulose) 20 gm PO BID [facility] Last Admin: 10/04/16 18:38 Dose: 20 gm Multivitamins/Minerals (Therapeutic-M Tab) 1 tab PO 0800 [facility] Last Admin: 10/04/16 09:25 Dose: 1 tab Pantoprazole Sodium (Protonix Susp) 40 mg GT 0600,1600 [facility] Last Admin: 10/04/16 16:35 Dose: 40 mg Prednisolone (Prednisolone Oral Soln) 40 mg PO DAILY [facility] Thiamine HCl (Vitamin B1 Inj) 100 mg IM DAILY [facility] Last Admin: 10/04/16 09:20 Dose: 100 mg - Labs Labs: 10/04/16 06:20 10/04/16 06:20 PT 16.5 Seconds (9.9-11.8) H 10/01/16 16:43 INR 1.53 (0.93-1.08) H 10/01/16 16:43 APTT 37.4 Seconds (23.7-30.8) H 09/30/16 06:20 - Constitutional Appears: Well, No Acute Distress - Head Exam Head Exam: ATRAUMATIC, NORMAL INSPECTION, NORMOCEPHALIC - Eye Exam Eye Exam: Normal appearance - Neck Exam Additional comments: Right neck insertion site of [place] catheter has some blood clot. Catheter is almost out.It was noticed that it was a1" in in when it was removed. - Respiratory Exam Respiratory Exam: NORMAL BREATHING PATTERN - Cardiovascular Exam Cardiovascular Exam: absent: JVD - GI/Abdominal Exam GI & Abdominal Exam: absent: Distended - Rectal Exam Rectal Exam: Deferred - Exam Additional comments: Deferred. - Extremities Exam Extremities Exam: Normal Inspection - Back Exam Back Exam: NORMAL INSPECTION - Neurological Exam Neurological Exam: Alert, Oriented x3 - Psychiatric Exam Psychiatric exam: Normal Affect, Normal Mood - Skin Skin Exam: Normal Color Assessment and Plan - Assessment and Plan (Free Text) Assessment: Hemorrahge from dialysis catheter. Accidental removal of UD[place] catheter. Anemia. Thrombocytopenia. CHF. COPD. Alcoholic cardiomyopathy. ESRD. Leukocytosis. Plan: [place] cather was removed. Manual pressure was applied for more than 15 minutes. An one litre bag of IV fluid was kept at site to exert pressure for about an hour . Continue present management. Nurse will notify PMD when he makes round.
[2016-10-05] MEDS: Albuterol-Ipratrop 3 mg / 0.5 (3 ml) UD IH SCH ×2 (02:36→07:55)
--- NOTE | 2016-10-05 04:40 | CP.PCM.PN ---
Subjective - Date & Time of Evaluation Date of Evaluation: 10/05/16 Time of Evaluation: 04:39 - Subjective Subjective: 16 guage Nasogastric tube was reinserted as patient had pulled it out. Position confirmed with CXR. Position was confirmed by viewing CXR which is further deep in stomach. Objective - Vital Signs/Intake and Output Vital Signs (last 24 hours): Temp Pulse Resp BP Pulse Ox 97.4 F L 71 18 122/85 97 10/05/16 01:20 10/05/16 01:20 10/05/16 01:20 10/05/16 01:20 10/05/16 01:20 Intake and Output: 10/04/16 10/05/16 18:59 06:59 Intake Total 550 0 Output Total 40 Balance 510 0 - Medications Medications: Current Medications Albuterol/Ipratropium (Duoneb 3 Mg/0.5 Mg (3 Ml) Ud) 3 ml IH [id number] [facility] Last Admin: 10/05/16 02:36 Dose: 3 ml Albuterol/Ipratropium (Duoneb 3 Mg/0.5 Mg (3 Ml) Ud) 3 ml IH Q2H PRN PRN Reason: Shortness of Breath Last Admin: 09/28/16 11:21 Dose: 3 ml Amiodarone HCl (Cordarone) 200 mg PO DAILY [facility] Last Admin: 10/04/16 09:24 Dose: 200 mg Artificial Tears (Artificial Tears Opht Oint) 0 gm OU Q2 PRN PRN Reason: Dry eyes Last Admin: 09/26/16 18:18 Dose: 1 applic Aspirin (Ecotrin) 81 mg PO DAILY [facility] Last Admin: 10/04/16 09:24 Dose: 81 mg Carvedilol (Coreg) 6.25 mg PO BID [facility] Last Admin: 10/04/16 18:38 Dose: 6.25 mg Digoxin (Lanoxin) 0.125 mg PO MWF [facility] Last Admin: 10/04/16 09:25 Dose: 0.125 mg Enoxaparin Sodium (Lovenox) 30 mg SC DAILY [facility] PRN Reason: Protocol Folic Acid (Folic Acid) 1 mg PO DAILY [facility] Last Admin: 10/04/16 09:32 Dose: 1 mg Lactulose (Enulose) 20 gm PO BID [facility] Last Admin: 10/04/16 18:38 Dose: 20 gm Multivitamins/Minerals (Therapeutic-M Tab) 1 tab PO 0800 [facility] Last Admin: 10/04/16 09:25 Dose: 1 tab Pantoprazole Sodium (Protonix Susp) 40 mg GT 0600,1600 [facility] Last Admin: 10/04/16 16:35 Dose: 40 mg Prednisolone (Prednisolone Oral Soln) 40 mg PO DAILY [facility] Thiamine HCl (Vitamin B1 Inj) 100 mg IM DAILY [facility] Last Admin: 10/04/16 09:20 Dose: 100 mg - Labs Labs: 10/04/16 06:20 10/04/16 06:20 PT 16.5 Seconds (9.9-11.8) H 10/01/16 16:43 INR 1.53 (0.93-1.08) H 10/01/16 16:43 APTT 37.4 Seconds (23.7-30.8) H 09/30/16 06:20
[2016-10-05] MEDS: Pantoprazole 40 mg Susp UD GT SCH (06:10)
--- NOTE | 2016-10-05 07:16 | RAD ---
HISTORY: ng tube insertion COMPARISON: 09/29/2016 1631 hours FINDINGS: LUNGS: The bilateral patchy coalescent airspace opacities have significantly cleared. Still residual opacity persists at the right lung base. A 4 x 2 cm oval gas like lucency also projects over the right lung base. A peripheral rim of relative increased density here is noted- summation of shadows of bronchovascular markings surrounding a potential pneumatocele is 1 consideration. Conceivably an abscess cannot be excluded. No history of infection is provided. No prior CTs for clarification are available. No dense consolidation suggested. PLEURA: The bilateral pleural effusions have largely cleared. , no pneumothorax apparent. CARDIOVASCULAR: Cardiomegaly as before OSSEOUS STRUCTURES: No significant abnormalities. VISUALIZED UPPER ABDOMEN: An NG tube tip in the stomach noted. OTHER FINDINGS: The AICD pacemaker device is unchanged. No internal jugular line vein lines are suggested. IMPRESSION: Marked improvement in the prior moderate bilateral pulmonary edema. . Currently minimal central pulmonary venous congestion is suggested Marked interval improvement/ clearance the prior bilateral pleural effusions. Cardiomegaly as before The oval radiolucency projecting over the right lung base just above the minor fissure is increasing conspicuity-a pneumatocele surrounded by a broncho g is 1 consideration. Conceivably an early abscess could simulate this.
[2016-10-05 08:13] LABS: BASO # 0.01 K/mm3 (0.0-2.0); BASO % 0.1 % (0.0-3.0); GRAN # 16.87 (1.4-6.5); GRAN % 93.8 % (50.0-68.0); HEMATOCRIT 36.7 % (42.0-52.0); LYMPH # 0.4 (1.2-3.4); LYMPH % 2.1 % (22.0-35.0); MEAN CORPUSCULAR HEMOGLOBIN 35.7 pg (25.0-35.0); MEAN CORPUSCULAR HGB CONC 35.7 g/dl (31.0-37.0); MONO # 0.7 (0.1-0.6); PLATELET COUNT 44 10^3/uL (120.0-450.0); RED CELL DISTRIBUTION WIDTH 14.8 % (11.5-14.5)
[2016-10-05 08:26] LABS: ALB/GLOB RATIO 0.9 (1.1-1.8); BILIRUBIN,TOTAL 2.4 mg/dL (0.2-1.3); CALCIUM 8.3 mg/dL (8.4-10.5); MAGNESIUM 2.5 mg/dL (1.7-2.2); PHOSPHOROUS 5.5 mg/dL (2.5-4.5); POTASSIUM 3.9 mmol/L (3.6-5.0); TOTAL PROTEIN 6.6 g/dL (5.8-8.3)
[2016-10-05 08:56] LABS: ANISOCYTOSIS 1+; HYPOCHROMIA 1+; LARGE PLATELETS PRESENT; NEUTROPHIL 91 % (50.0-70.0); PLATELET ESTIMATE LOW (NORMAL)
[2016-10-05 08:57] LABS: TEAR DROP CELLS SLIGHT
--- NOTE | 2016-10-05 09:40 | CP.PCM.PN ---
Subjective - Date & Time of Evaluation Date of Evaluation: 10/05/16 Time of Evaluation: 09:25 - Subjective Subjective: awake and responsive Objective - Vital Signs/Intake and Output Vital Signs (last 24 hours): Temp Pulse Resp BP Pulse Ox 98.4 F 80 20 133/95 H 94 L 10/05/16 08:04 10/05/16 08:04 10/05/16 08:04 10/05/16 08:04 10/05/16 08:04 Intake and Output: 10/05/16 10/05/16 06:59 18:59 Intake Total 0 Balance 0 - Medications Medications: Current Medications Amiodarone HCl (Cordarone) 200 mg PO DAILY [facility] Last Admin: 10/04/16 09:24 Dose: 200 mg Artificial Tears (Artificial Tears Opht Oint) 0 gm OU Q2 PRN PRN Reason: Dry eyes Last Admin: 09/26/16 18:18 Dose: 1 applic Aspirin (Ecotrin) 81 mg PO DAILY [facility] Last Admin: 10/04/16 09:24 Dose: 81 mg Carvedilol (Coreg) 6.25 mg PO BID [facility] Last Admin: 10/04/16 18:38 Dose: 6.25 mg Digoxin (Lanoxin) 0.125 mg PO MWF [facility] Last Admin: 10/04/16 09:25 Dose: 0.125 mg Enoxaparin Sodium (Lovenox) 30 mg SC DAILY [facility] PRN Reason: Protocol Folic Acid (Folic Acid) 1 mg PO DAILY [facility] Last Admin: 10/04/16 09:32 Dose: 1 mg Multivitamins/Minerals (Therapeutic-M Tab) 1 tab PO 0800 [facility] Last Admin: 10/04/16 09:25 Dose: 1 tab Thiamine HCl (Vitamin B1 Inj) 100 mg IM DAILY [facility] Last Admin: 10/04/16 09:20 Dose: 100 mg - Labs Labs: 10/05/16 07:45 10/05/16 07:45 PT 16.5 Seconds (9.9-11.8) H 10/01/16 16:43 INR 1.53 (0.93-1.08) H 10/01/16 16:43 APTT 37.4 Seconds (23.7-30.8) H 09/30/16 06:20 - Respiratory Exam Respiratory Exam: Clear to Ausculation Bilateral, NORMAL BREATHING PATTERN - Cardiovascular Exam Cardiovascular Exam: REGULAR RHYTHM - GI/Abdominal Exam GI & Abdominal Exam: Soft, Normal Bowel Sounds - Extremities Exam Extremities Exam: Normal Inspection - Neurological Exam Neurological Exam: Awake - Skin Skin Exam: Dry, Warm Assessment and Plan (1) Pulmonary edema Status: Resolved (2) Alcoholic cardiomyopathy Status: Chronic (3) Ventilatory failure Status: Resolved (4) Aspiration pneumonia Status: Resolved (5) Disseminated intravascular coagulation Status: Resolved (6) Alcohol abuse Status: Chronic (7) Acute renal failure Status: Acute (8) Encephalopathy due to metabolic factor or toxin Status: Acute
[2016-10-05] MEDS ORDERED: PrednisoLONE 15 mg/5 ml Oral Syrup (240 ml) PO SCH (10:00)
[2016-10-05] MEDS: Enoxaparin 30 mg Syringe SC SCH (11:12)
[2016-10-05] MEDS: Multivitamin With Minerals Tab PO SCH (11:12)
[2016-10-05] MEDS: Thiamine 100 mg/ml Inj IM SCH (11:14)
--- NOTE | 2016-10-05 13:28 | CT ---
PROCEDURE: CT Chest, Abdomen and Pelvis without intravenous contrast HISTORY: rule out abscess, fluid collection COMPARISON: 09/30/2016 TECHNIQUE: Radiation dose: Total exam DLP = 1249 mGy-cm. This CT exam was performed using one or more of the following dose reduction techniques: Automated exposure control, adjustment of the mA and/or kV according to patient size, and/or use of iterative reconstruction technique. FINDINGS: CT CHEST WITHOUT CONTRAST: LUNGS: Bilateral pleural effusions and bibasilar consolidation can be seen unchanged. MEDIASTINUM: Severe cardiomegaly. LYMPH NODES: Unremarkable. PLEURA: Unremarkable. No pneumothorax. No pleural fluid. BONES: Unremarkable. OTHER FINDINGS: None. CT ABDOMEN AND PELVIS: LIVER: Unremarkable. No gross lesion or ductal dilatation. GALLBLADDER AND BILE DUCTS: Unremarkable. PANCREAS: Unremarkable. No gross lesion or ductal dilatation. SPLEEN: Unremarkable. ADRENALS: Unremarkable. No mass. KIDNEYS AND URETERS: Unremarkable. No hydronephrosis. No solid mass. VASCULATURE: Unremarkable. No aortic aneurysm. BOWEL: Unremarkable. No obstruction. No gross mural thickening. A rectal tube is present APPENDIX: Normal appendix. PERITONEUM: Moderate ascites LYMPH NODES: Unremarkable. No enlarged lymph nodes. BLADDER: Unremarkable. REPRODUCTIVE: Unremarkable. BONES: No acute fracture. OTHER FINDINGS: None. IMPRESSION: Moderate ascites. Bilateral pleural effusions with bibasilar consolidation. No acute changes. No evidence of a discrete abscess
--- NOTE | 2016-10-05 14:18 | CP.PCM.PN ---
Subjective - Date & Time of Evaluation Date of Evaluation: 10/05/16 Time of Evaluation: 11:20 - Subjective Subjective: Comfortable in bed, not in distress, afebrile, more awake and more alert, but still slow to respond. Objective - Vital Signs/Intake and Output Vital Signs (last 24 hours): Temp Pulse Resp BP Pulse Ox 98.4 F 80 20 133/95 H 94 L 10/05/16 08:04 10/05/16 08:04 10/05/16 08:04 10/05/16 08:04 10/05/16 08:04 Intake and Output: 10/05/16 10/05/16 06:59 18:59 Intake Total 0 Balance 0 - Medications Medications: Current Medications Amiodarone HCl (Cordarone) 200 mg PO DAILY [facility] Last Admin: 10/04/16 09:24 Dose: 200 mg Artificial Tears (Artificial Tears Opht Oint) 0 gm OU Q2 PRN PRN Reason: Dry eyes Last Admin: 09/26/16 18:18 Dose: 1 applic Aspirin (Ecotrin) 81 mg PO DAILY [facility] Last Admin: 10/04/16 09:24 Dose: 81 mg Carvedilol (Coreg) 6.25 mg PO BID [facility] Last Admin: 10/04/16 18:38 Dose: 6.25 mg Digoxin (Lanoxin) 0.125 mg PO MWF [facility] Last Admin: 10/04/16 09:25 Dose: 0.125 mg Enoxaparin Sodium (Lovenox) 30 mg SC DAILY [facility] PRN Reason: Protocol Folic Acid (Folic Acid) 1 mg PO DAILY [facility] Last Admin: 10/04/16 09:32 Dose: 1 mg Multivitamins/Minerals (Therapeutic-M Tab) 1 tab PO 0800 [facility] Last Admin: 10/04/16 09:25 Dose: 1 tab Thiamine HCl (Vitamin B1 Inj) 100 mg IM DAILY [facility] Last Admin: 10/04/16 09:20 Dose: 100 mg - Labs Labs: 10/05/16 07:45 10/05/16 07:45 PT 16.5 Seconds (9.9-11.8) H 10/01/16 16:43 INR 1.53 (0.93-1.08) H 10/01/16 16:43 APTT 37.4 Seconds (23.7-30.8) H 08/17/17 06:20 - Constitutional Appears: Non-toxic, No Acute Distress - Head Exam Head Exam: NORMAL INSPECTION - ENT Exam ENT Exam: Mucous Membranes Moist - Neck Exam Neck Exam: absent: Meningismus - Respiratory Exam Respiratory Exam: Decreased Breath Sounds - Cardiovascular Exam Cardiovascular Exam: +S1, +S2 - GI/Abdominal Exam GI & Abdominal Exam: Soft. absent: Tenderness Assessment and Plan - Assessment and Plan (Free Text) Plan: Assessment systemic inflammatory response syndrome, consider due to acute decompensated heart failure with pulmonary edema, R/O severe sepsis S/P ventilator-dependent respiratory failure and worsening acute renal failure from severe community- acquired pneumonia - clinically improved and now extubated alcohol abuse and alcoholic liver disease CAD chronic CHF S/P pacemaker placement HTN Plan S/P 10 days of Cefepime and Zithromax and Flagyl - will continue to monitor off antibiotics (CT head also showing left sided mastoiditis - but should be treated with the 10 days of antibiotics); cultures have been negative; PCT is elevated (but probably because of the renal failure); reviewed CT chest/abdomen and pelvis today which is still showing the bibasilar consolidations will continue to monitor clinically patient is on intermittent dialysis for now reviewed Neurology evaluation for encephalopathy (toxic-metabolic encephalopahty ) will continue to trend WBC count
[2016-10-05] MEDS ORDERED: Lidocaine 2% Inj (20ml) ONE ×2 (14:21→14:25)
[2016-10-05] MEDS ORDERED: Midazolam 2 MG/2 ML VIAL ONE (15:14)
--- NOTE | 2016-10-05 16:06 | PN ---
DATE: SUBJECTIVE: The patient is currently seen on 5-R. He appears to be somewhat responsive to my verbal communication answering and one word answers. Apparently, patient became agitated last night and pulled his right IJ ureteral catheter out. The patient had uneventful dialysis yesterday, but will require a placement of a new catheter prior to dialysis tomorrow. MEDICATIONS: Medications lists reviewed. The patient is currently on Artificial Tears, amiodarone, Coreg, Ecotrin, folic acid, Lanoxin, Lovenox, multivitamin, and B1 vitamin. OBJECTIVE: INTAKE AND OUTPUT: Intake 550 and output 40 mL post dialysis. VITAL SIGNS: Blood pressure 133/95, temperature 98.4, respiratory rate is 20 with a pulse ox 94%. HEENT: Normocephalic, atraumatic. Conjunctivae are pink. Sclerae nonicteric. NECK: Supple. No neck vein distention. CHEST: Decrease breath sounds at the basis. Occasional rhonchi. No wheezing. No rales. CARDIOVASCULAR: Shows S1 and S2, which are normal. No S3, no S4 or rub. TR/MR. ABDOMEN: Soft. Bowel sounds normal. No rebound. No guarding. No masses. EXTREMITIES: Showed 2+ pitting edema of the lower extremity. No cyanosis. No clubbing. NEUROLOGIC: Shows him to be responsive to verbal communication, but only answering in grunts and one word answers. LABORATORY DATA AND IMAGING: Labs from today showed a white blood cell count of 18.0, hemoglobin 13.1, and platelet count is 44,000. Chemistries; electrolytes are normal. BUN 90 with creatinine of 4.5, and glucose is 217. Calcium 8.3, phosphorus 5.5, magnesium 2.5, bilirubin 2.4, liver enzymes are mildly elevated. Microbiology; all cultures are negative. ASSESSMENT: 1. Acute renal failure patient remains dialysis dependent. The patient remains oliguric. 2. Alcoholic cardiomyopathy with an ejection fraction of 15% status post permanent pacemaker placement status post automatic implantable cardioverter defibrillator. Verbal hypokinesis. Pulmonary hypertension with tricuspid regurgitation, mitral regurgitation. 3. Negative serological workup for his acute renal failure. 4. Status post lower lobe infiltrate with community-acquired pneumonia status post antibiotic therapy. 5. Status post hypoxic respiratory failure in the setting of cardiac arrest in the emergency room on admission with pulseless electrical activity. The patient likely has some mild anoxic encephalopathy. 6. Continue thrombocytopenia. 7. Nutrition; pain given by Nepro via an nasogastric tube. PLAN: 1. Discussed with step on 5-R dialysis stay, the patient will continue three times a week dialysis for the time being. Presently his urine output remains low and could not support him without dialysis. 2. The patient will be started on binder therapy, once oral nutrition starts. Presently, he is receiving feeding via an NG tube. 3. Continue current cardiac medications. 4. The patient we will require a PermCath placed prior to dialysis tomorrow. Kenan Davis MD
[2016-10-05 16:58] VITALS: O2SAT 98
--- NOTE | 2016-10-05 17:12 | PN ---
DATE: 10/05/2016 REASON FOR CONSULTATION: Followup with status post respiratory failure, status post extubated, nonischemic cardiomyopathy, status post AICD, status post acute kidney injury, status post dialysis. SUBJECTIVE: The patient is minimally responsive to verbal stimuli nodding his head, now is in the . Denies any chest pain. OBJECTIVE: GENERAL: Lying flat in the bed, not in apparent distress, minimal response to the verbal stimuli and answering by blinking his eyes or nodding his head. PHYSICAL EXAMINATION: VITAL SIGNS: Temperature afebrile, heart rate 80, blood pressure 133/95. HEENT: PERRLA. Intact. NECK: Supple. No carotid bruits. No thyromegaly. CHEST: Clear to auscultation. HEART: S1 and S2 regular. ABDOMEN: Soft. EXTREMITIES: Clubbing and cyanosis negative. LABORATORY DATA: Blood workup as follows; WBC 18, hemoglobin 13.2, hematocrit 36.7, platelet count 44. Chemistry shows sodium 140, potassium 3.9, chloride 101, carbon dioxide of 20, anion gap of 20, BUN 90, creatinine 4.5. IMPRESSION: Ischemic cardiomyopathy possibly secondary to alcohol related, history of heavy alcohol abuse, history of cardiac catheterization two to three days ago being followed by Dr. Victoria Hobson and Dr. Beth, cardiac catheterization two to three years ago, nonischemic cardiomyopathy, history of automatic implantable cardioverter-defibrillator, admitted with a multilobar pneumonia, respiratory failure, intubated, now successfully extubated, high risk aspiration pneumonia, decreased left ventricular function. A recent echo 09/23/2016 on admission shows ejection fraction 15% mild aortic regurgitation, moderate mitral regurgitation, [id number] tricuspid regurgitation, right ventricular systolic pressure of 63, the patient on the vent, thrombocytopenia. RECOMMENDATIONS: Continue amiodarone, continue Coreg, continue aspirin, continue dialysis Tuesday, Tuesday, Tuesday. Platelet is low since 09/27/2016, closely monitor. Patient is on high dose of Lovenox. Monitor spontaneous bleeding. Now acute kidney injury on dialysis. We will follow closely. Overall, the patient's condition is critical. Long-term prognosis is guarded. We will follow with you. Meliton Saunders MD
--- NOTE | 2016-10-05 21:01 | VASCULAR ---
PROCEDURE: Ultrasound and fluoroscopic tunneled right IJ dialysis catheter. CLINICAL HISTORY: ESRD PHYSICIAN(S): Tyler Oleary M.D. TECHNIQUE: The relative risks and indications for the procedure were explained to the patient's family and informed written consent obtained. The patient was placed supine on the arteriography table and the right neck/chest was prepped and draped in the usual sterile fashion. 1% Xylocaine was used to anesthetize the skin and soft tissues at the puncture site. Conscious sedation and monitoring were provided throughout the procedure by a nurse. Under direct ultrasound guidance, the rightinternal jugular vein was punctured with a micropuncture set. A 0.035 Glidewire was advanced into the IVC. Sequential dilatation was performed with subsequent placement of a 28cm Marc II catheter with its tip in the right atrium. A retrograde tunnel below the right clavicle was performed. The catheter was trimmed and the hub attached. Both ports aspirate and inject easily. The catheter was secured and a dressing applied. The patient tolerated the procedure well. IMPRESSION: 1. Ultrasound and fluoroscopically placed right IJ tunneled dialysis catheter.
[2016-10-06] MEDS ORDERED: Levalbuterol 0.63 MG/3 ML Inhal Soln UD IH ONE (01:49)
--- NOTE | 2016-10-06 06:18 | CP.PCM.PN ---
Subjective - Date & Time of Evaluation Date of Evaluation: 10/06/16 Time of Evaluation: 06:14 - Subjective Subjective: Patient had spontaneous bleeding from right shoulder prior hd cath site, which was removed yesterday, pt has h/o thrombocytopenia, h/o caoagulopathy, on prophylactic lovenox, esrd on hd. Bleeding stopped with pressure, and pressure dressing being applied, patient has b/l wrist restraint as he has baseline confusion. Stat pt/ptt added to the other labs ordered, if pt/ptt high may need to hold on lovenox. Communicated with the nurse. Objective - Vital Signs/Intake and Output Vital Signs (last 24 hours): Temp Pulse Resp BP Pulse Ox 98.4 F 73 13 121/86 98 10/05/16 16:55 10/05/16 19:08 10/05/16 16:55 10/05/16 19:08 10/05/16 16:55 Intake and Output: 10/05/16 10/06/16 18:59 06:59 Intake Total 0 Output Total 0 Balance 0 - Medications Medications: Current Medications Amiodarone HCl (Cordarone) 200 mg PO DAILY [facility] Last Admin: 10/05/16 11:14 Dose: 200 mg Artificial Tears (Artificial Tears Opht Oint) 0 gm OU Q2 PRN PRN Reason: Dry eyes Last Admin: 09/26/16 18:18 Dose: 1 applic Aspirin (Ecotrin) 81 mg PO DAILY [facility] Last Admin: 10/05/16 11:13 Dose: 81 mg Carvedilol (Coreg) 6.25 mg PO BID [facility] Last Admin: 10/05/16 19:08 Dose: 6.25 mg Digoxin (Lanoxin) 0.125 mg PO MWF [facility] Last Admin: 10/04/16 09:25 Dose: 0.125 mg Enoxaparin Sodium (Lovenox) 30 mg SC DAILY [facility] PRN Reason: Protocol Last Admin: 10/05/16 11:12 Dose: 30 mg Folic Acid (Folic Acid) 1 mg PO DAILY [facility] Last Admin: 10/05/16 11:14 Dose: 1 mg Multivitamins/Minerals (Therapeutic-M Tab) 1 tab PO 0800 [facility] Last Admin: 10/05/16 11:12 Dose: 1 tab Thiamine HCl (Vitamin B1 Inj) 100 mg IM DAILY [facility] Last Admin: 10/05/16 11:14 Dose: 100 mg - Labs Labs: 10/05/16 07:45 10/05/16 07:45 PT 16.5 Seconds (9.9-11.8) H 10/01/16 16:43 INR 1.53 (0.93-1.08) H 10/01/16 16:43 APTT 37.4 Seconds (23.7-30.8) H 09/30/16 06:20
[2016-10-06 07:13] LABS: BASO # 0.01 K/mm3 (0.0-2.0); BASO % 0.1 % (0.0-3.0); GRAN # 14.99 (1.4-6.5); LYMPH # 0.9 (1.2-3.4); LYMPH % 5.3 % (22.0-35.0); MEAN CELL VOLUME 101.4 fl (80.0-105.0); MEAN CORPUSCULAR HGB CONC 36.5 g/dl (31.0-37.0); MONO # 1.1 (0.1-0.6); MONO % 6.6 % (1.0-6.0); PLATELET COUNT 78 10^3/uL (120.0-450.0); RED CELL DISTRIBUTION WIDTH 15.2 % (11.5-14.5)
[2016-10-06 07:15] LABS: INR 1.3 (0.93-1.08); PARTIAL THROMBOPLASTIN TIME 29.8 Seconds (23.7-30.8)
[2016-10-06 07:27] LABS: BILIRUBIN,TOTAL 2.4 mg/dL (0.2-1.3); CALCIUM 8.4 mg/dL (8.4-10.5); MAGNESIUM 2.6 mg/dL (1.7-2.2); PHOSPHOROUS 6.8 mg/dL (2.5-4.5); POTASSIUM 4.2 mmol/L (3.6-5.0); TOTAL PROTEIN 6.7 g/dL (5.8-8.3)
[2016-10-06 08:59] VITALS: BP 136/99; PULSE 88; RESP 22; TEMP 97.6
[2016-10-06] MEDS ORDERED: PrednisoLONE 15 mg/5 ml Oral Syrup (240 ml) PO SCH (10:00)
[2016-10-06] MEDS: Digoxin 125 mcg (0.125 mg) Tab PO SCH (10:17)
[2016-10-06] MEDS: Multivitamin With Minerals Tab PO SCH (10:17)
[2016-10-06] MEDS: Thiamine 100 mg/ml Inj IM SCH (10:18)
[2016-10-06] MEDS: Enoxaparin 30 mg Syringe SC SCH (10:18)
[2016-10-06 10:24] VITALS: PULSE 88
--- NOTE | 2016-10-06 11:06 | CP.PCM.DIS ---
Provider - Provider Date of Admission: 09/23/16 12:29 Attending physician: Hermilo Ríos JD, MD Time Spent in preparation of Discharge (in minutes): 30 Diagnosis - Discharge Diagnosis (1) Pulmonary edema Status: Resolved (2) Alcoholic cardiomyopathy Status: Chronic (3) Ventilatory failure Status: Resolved (4) Aspiration pneumonia Status: Resolved (5) Disseminated intravascular coagulation Status: Resolved (6) Alcohol abuse Status: Chronic (7) Acute renal failure Status: Acute (8) Encephalopathy due to metabolic factor or toxin Status: Acute Priority: Medium Hospital Course - Lab Results Lab Results: Micro Results 09/27/16 21:43 Trachasp Gram Stain - Final 09/27/16 21:43 Trachasp Sputum Culture - Final No growth. 09/29/16 10:30 Stool C. difficile Antigen & Toxin A,B (M - Final 09/27/16 11:41 Stool C. difficile Antigen & Toxin A,B (M - Final 09/23/16 16:40 Urine,French Urine Culture - Final No Growth (<1,000 CFU/ML) 09/23/16 16:45 Nose MRSA Culture (Admit) - Final MRSA NOT DETECTED Most Recent Lab Values WBC 17.0 10^3/ul (4.5-11.0) H 10/06/16 06:30 RBC 3.65 10^6/uL (3.5-6.1) 10/06/16 06:30 Hgb 13.5 g/dL (14.0-18.0) L 10/06/16 06:30 Hct 37.0 % (42.0-52.0) L 10/06/16 06:30 MCV 101.4 fl (80.0-105.0) 10/06/16 06:30 MCH 37.0 pg (25.0-35.0) H 10/06/16 06:30 MCHC 36.5 g/dl (31.0-37.0) 10/06/16 06:30 RDW 15.2 % (11.5-14.5) H 10/06/16 06:30 Plt Count 78 10^3/uL (120.0-450.0) L 10/06/16 06:30 MPV 13.1 fl (7.0-11.0) H 10/03/16 05:15 Gran % 88.0 % (50.0-68.0) H 10/06/16 06:30 Lymph % (Auto) 5.3 % (22.0-35.0) L 10/06/16 06:30 [place] % (Auto) 6.6 % (1.0-6.0) H 10/06/16 06:30 Eos % (Auto) 0.0 % (1.5-5.0) L 10/06/16 06:30 Baso % (Auto) 0.1 % (0.0-3.0) 10/06/16 06:30 Gran # 14.99 (1.4-6.5) H 10/06/16 06:30 Lymph # 0.9 (1.2-3.4) L 10/06/16 06:30 [place] # 1.1 (0.1-0.6) H 10/06/16 06:30 Eos # 0.0 (0.0-0.7) 10/06/16 06:30 Baso # 0.01 K/mm3 (0.0-2.0) 10/06/16 06:30 Neutrophils % (Manual) 91 % (50.0-70.0) H 10/05/16 07:45 Band Neutrophils % 2 % (0-2) 09/29/16 06:15 Lymphocytes % (Manual) 4 % (22.0-35.0) L 10/05/16 07:45 Monocytes % (Manual) 5 % (1.0-6.0) 10/05/16 07:45 Eosinophils % (Manual) 2 % (0.0-3.0) 10/01/16 06:20 Metamyelocytes % 4 % 09/24/16 06:10 Myelocytes % 2 % 09/25/16 05:00 Platelet Evaluation Low (NORMAL) 10/05/16 07:45 Large Platelets Present 10/05/16 07:45 Giant Platelets Present 09/25/16 05:00 Polychromasia Slight 09/29/16 06:15 Hypochromasia 1+ 10/05/16 07:45 Poikilocytosis (manual Slight 09/28/16 05:45 Anisocytosis (manual) 1+ 10/05/16 07:45 Macrocytosis (manual) 1+ 10/01/16 06:20 Tear Drop Cells Slight 10/05/16 07:45 ESR 2 mm/hr (0.00-15.0) 09/27/16 16:21 PT 14.0 Seconds (9.9-11.8) H 10/06/16 06:30 INR 1.30 (0.93-1.08) H 10/06/16 06:30 APTT 29.8 Seconds (23.7-30.8) 10/06/16 06:30 Fibrin Degrad Products >40 ug/ml (< 10 ug/mL) 09/28/16 18:20 pCO2 35 mm/Hg (35-45) 09/30/16 08:43 pO2 120.0 mm/Hg (80-100) H 09/30/16 08:43 HCO3 21.7 mmol/L (21-28) 09/30/16 08:43 ABG pH 7.40 (7.35-7.45) 09/30/16 08:43 ABG Total CO2 22.8 mmol.L (22-28) 09/30/16 08:43 ABG O2 Saturation 99.6 % (95-98) H 09/30/16 08:43 ABG O2 Content 18.6 ML/dl (15-23) 09/30/16 08:43 ABG Base Excess -2.5 mmol/L (-2.0-3.0) L 09/30/16 08:43 ABG Hemoglobin 13.7 g/dL (11.7-17.4) 09/30/16 08:43 ABG Carboxyhemoglobin 2.6 % (0.5-1.5) H 09/30/16 08:43 POC ABG HHb (Measured) 0.4 % (0-5) 09/30/16 08:43 ABG Methemoglobin 1.2 % (0.0-3.0) 09/30/16 08:43 ABG O2 Capacity 18.7 mL/dl (16-24) 09/30/16 08:43 ABG Potassium 4.1 mmol/L (3.6-5.2) 09/28/16 05:45 VBG pH 7.39 (7.32-7.43) 09/25/16 09:30 VBG pCO2 42.0 (40-60) 09/25/16 09:30 VBG HCO3 25.4 mmol/l (21-28) 09/25/16 09:30 VBG Total CO2 26.7 mmol.L (22-28) 09/25/16 09:30 VBG O2 Sat (Calc) 98.3 % (40-65) H 09/25/16 09:30 VBG Base Excess 0.3 mmol/L (0.0-2.0) 09/25/16 09:30 VBG Potassium 3.9 mmol/L (3.6-5.2) 09/25/16 09:30 Hgb O2 Saturation 95.9 % (95.0-98.0) 09/30/16 08:43 Sodium 137.0 mmol/L (132-148) 09/28/16 05:45 Chloride 104.0 mmol/L (98-107) 09/28/16 05:45 Glucose 84 mg/dl (75-110) 09/28/16 05:45 Lactate 0.9 mmol/L (0.7-2.1) 09/28/16 05:45 Mechanical Rate 24 09/24/16 18:08 FiO2 40.0 % 09/30/16 08:43 Tidal Volume 450 09/24/16 18:08 PEEP 10 09/24/16 18:08 Sodium 139 mmol/L (132-148) 10/06/16 06:30 Potassium 4.2 mmol/L (3.6-5.0) 10/06/16 06:30 Chloride 102 mmol/L (98-107) 10/06/16 06:30 Carbon Dioxide 21 mmol/L (21-33) 10/06/16 06:30 Anion Gap 20 (10-20) 10/06/16 06:30 BUN 118 mg/dL (7-21) H 10/06/16 06:30 Creatinine 5.6 mg/dL (0.5-1.4) H 10/06/16 06:30 Est GFR ( Amer) 13 10/06/16 06:30 Est GFR (Non-Af Amer) 10 10/06/16 06:30 POC Glucose (mg/dL) 94 mg/dL (65-110) 09/23/16 11:57 Random Glucose 206 mg/dL (70-110) H 10/06/16 06:30 Hemoglobin A1c 5.1 % (4.2-6.5) 09/24/16 06:10 Lactic Acid 9.5 mmol/L (0.7-2.1) H* 09/23/16 17:08 Uric Acid 9.8 mg/dL (3.5-8.5) H 09/29/16 06:15 Calcium 8.4 mg/dL (8.4-10.5) 10/06/16 06:30 Phosphorus 6.8 mg/dL (2.5-4.5) H 10/06/16 06:30 Magnesium 2.6 mg/dL (1.7-2.2) H 10/06/16 06:30 Total Bilirubin 2.4 mg/dL (0.2-1.3) H 10/06/16 06:30 AST 123 U/L (15-59) H 10/06/16 06:30 ALT 105 U/L (7-56) H 10/06/16 06:30 Alkaline Phosphatase 311 U/L (38-133) H 10/06/16 06:30 Ammonia 13 umol/L (9-33) 09/29/16 06:15 Lactate Dehydrogenase 686 U/L (333-699) 09/28/16 05:45 Total Creatine Kinase 66 U/L (35-230) 09/28/16 05:45 CK-MB (CK-2) 8.3 ng/mL (0.0-3.6) H 09/24/16 06:10 CK-MB (CK-2) % 1.7 % (2.5-3.0) L 09/24/16 06:10 Troponin I 0.25 ng/mL H* 09/28/16 05:45 NT-Pro-B Natriuret Pep 68908 pg/mL (0-450) H 09/23/16 13:00 Total Protein 6.7 g/dL (5.8-8.3) 10/06/16 06:30 Albumin 3.3 g/dL (3.0-4.8) 10/06/16 06:30 Globulin 3.3 gm/dL 10/06/16 06:30 Albumin/Globulin Ratio 1.0 (1.1-1.8) L 10/06/16 06:30 Triglycerides 161 mg/dL (35-160) H 09/24/16 06:00 Cholesterol 87 mg/dL (130-200) L 09/24/16 06:00 LDL Cholesterol Direct 36 mg/dL (0-129) 09/24/16 06:00 HDL Cholesterol 29 mg/dL (29-60) 09/24/16 06:00 25-OH Vitamin D Total < 12.8 NG/ML (30.0-100.0) L 10/04/16 13:00 Procalcitonin 12.38 NG/ML (0.19-0.49) H 10/01/16 16:43 TSH 3rd Generation 0.81 mIU/mL (0.46-4.68) 09/24/16 06:10 PTH Intact Whole [place] 362 pg/mL (14-64) H 10/04/16 13:00 Arterial Blood Potassium 4.1 mmol/L (3.6-5.2) 09/28/16 05:45 Venous Blood Potassium 3.9 mmol/L (3.6-5.2) 09/25/16 09:30 Urine Color Yellow (YELLOW) 09/27/16 21:43 Urine Appearance Cloudy (CLEAR) 09/27/16 21:43 Urine pH 5.5 (4.7-8.0) 09/27/16 21:43 Ur Specific [place] 1.010 (1.005-1.035) 09/27/16 21:43 Urine Protein 30 mg/dL (<30 mg/dL) H 09/27/16 21:43 Urine Glucose (UA) Negative mg/dL (NEGATIVE) 09/27/16 21:43 Urine Ketones Negative mg/dL (NEGATIVE) 09/27/16 21:43 Urine Blood Large (NEGATIVE) H 09/27/16 21:43 Urine Nitrate Negative (NEGATIVE) 09/27/16 21:43 Urine Bilirubin Negative (NEGATIVE) 09/27/16 21:43 Urine Urobilinogen 0.2 E.U./dL (<1 E.U./dL) 09/27/16 21:43 Ur Leukocyte Esterase Trace Alberto/uL (NEGATIVE) H 09/27/16 21:43 Urine RBC Tntc /hpf (0-2) 09/27/16 21:43 Urine WBC 1 - 3 /hpf (0-6) 09/27/16 21:43 Ur Epithelial Cells 0 - 2 /hpf (0-5) 09/27/16 21:43 Coarse Granular Casts Mod /hpf (0-2) H 09/23/16 16:35 Urine Other Usperm 09/23/16 16:35 Urine Eosinophils Positive 09/28/16 18:51 Ur Random Creatinine 48 mg/dL 09/28/16 18:51 Ur Random Sodium 64 meq/L 09/28/16 18:51 Stool Occult Blood Positive (NEGATIVE) H 09/29/16 12:30 Digoxin 1.4 ng/mL (0.8-2.0) 10/01/16 16:43 Cryoglobulin None detected (None Detected) 09/27/16 16:21 Rheumatoid Factor IgG <5 U (<=6) 09/27/16 16:21 Rheumatoid Factor IgA <5 U (<=6) 09/27/16 16:21 Rheumatoid Factor IgM 5 U (<=6) 09/27/16 16:21 WILSON Screen Negative (Negative) 09/27/16 16:21 ANCA Screen Negative (NEGATIVE) 09/27/16 16:21 c-ANCA Titer TNP 09/27/16 16:21 Proteinase 3 (PR3) <1.0 AI (<1.0) 09/27/16 16:21 p-ANCA Titer TNP 09/27/16 16:21 Atypical p-ANCA Titer TNP 09/27/16 16:21 Myeloperoxidase Ab <1.0 AI (<1.0) 09/27/16 16:21 Glomerular Base Mem IgG <1.0 AI (<1.0) 09/27/16 16:21 Complement C3 47.0 mg/dL (88.0-165.0) L 09/27/16 16:21 Complement C4 15.0 mg/dL (14.0-44.0) 09/27/16 16:21 Hepatitis A IgM Ab Negative (NEGATIVE) 09/27/16 16:21 Hep Bs Antigen Negative (NEGATIVE) 09/27/16 16:21 Hep B Core IgM Ab Negative (NEGATIVE) 09/27/16 16:21 Hepatitis C Antibody Negative (NEGATIVE) 09/27/16 16:21 HIV 1&2 Ag/Ab, 4th Gen Nonreactive (Nonreactive) 10/04/16 10:58 Ur L.pneumophila Ag Negative (NEGATIVE) 09/27/16 21:43 - Hospital Course Hospital Course: 61 yo male h/o alcoholic cardiomyopathy adm thru ED 09/24/16 with pulm edema required intubation. Course in ICU complicated by renal failure, seen by Dr. Enciso, started on hemodialysis, extubated. Has been seen in consultation by cardiology. Received course of IV Abx for pneumonia, likely due to aspiration. Pt in no distress at present, now medically stable for transfer to LTAC for further care. Discharge Exam - Head Exam Head Exam: NORMAL INSPECTION - Respiratory Exam Respiratory Exam: Clear to PA & Lateral, NORMAL BREATHING PATTERN - Cardiovascular Exam Cardiovascular Exam: REGULAR RHYTHM - GI/Abdominal Exam GI & Abdominal Exam: Normal Bowel Sounds - Extremities Exam Extremities exam: pedal edema - Neurological Exam Neurological exam: Alert, Altered - Skin Skin Exam: Dry, Warm Discharge Plan - Follow Up Plan Condition: STABLE Disposition: [facility]
--- NOTE | 2016-10-06 14:52 | CP.PCM.PN ---
Subjective - Date & Time of Evaluation Date of Evaluation: 10/06/16 Time of Evaluation: 11:25 - Subjective Subjective: Comfortable in bed, not in distress, afebrile, more awake and alert today. No SOB at rest. Feels thirsty and hungry. Objective - Vital Signs/Intake and Output Vital Signs (last 24 hours): Temp Pulse Resp BP Pulse Ox 98.4 F 73 13 121/86 98 10/05/16 16:55 10/05/16 19:08 10/05/16 16:55 10/05/16 19:08 10/05/16 16:55 Intake and Output: 10/06/16 10/06/16 06:59 18:59 Intake Total 0 Output Total 0 Balance 0 - Medications Medications: Current Medications Amiodarone HCl (Cordarone) 200 mg PO DAILY [facility] Last Admin: 10/05/16 11:14 Dose: 200 mg Artificial Tears (Artificial Tears Opht Oint) 0 gm OU Q2 PRN PRN Reason: Dry eyes Last Admin: 09/26/16 18:18 Dose: 1 applic Aspirin (Ecotrin) 81 mg PO DAILY [facility] Last Admin: 10/05/16 11:13 Dose: 81 mg Carvedilol (Coreg) 6.25 mg PO BID [facility] Last Admin: 10/05/16 19:08 Dose: 6.25 mg Digoxin (Lanoxin) 0.125 mg PO MWF [facility] Last Admin: 10/04/16 09:25 Dose: 0.125 mg Enoxaparin Sodium (Lovenox) 30 mg SC DAILY [facility] PRN Reason: Protocol Last Admin: 10/05/16 11:12 Dose: 30 mg Folic Acid (Folic Acid) 1 mg PO DAILY [facility] Last Admin: 10/05/16 11:14 Dose: 1 mg Multivitamins/Minerals (Therapeutic-M Tab) 1 tab PO 0800 [facility] Last Admin: 10/05/16 11:12 Dose: 1 tab Thiamine HCl (Vitamin B1 Inj) 100 mg IM DAILY [facility] Last Admin: 10/05/16 11:14 Dose: 100 mg - Labs Labs: 10/06/16 06:30 10/05/16 07:45 PT 16.5 Seconds (9.9-11.8) H 10/01/16 16:43 INR 1.53 (0.93-1.08) H 08/18/17 16:43 APTT 37.4 Seconds (23.7-30.8) H 09/30/16 06:20 - Constitutional Appears: Non-toxic, No Acute Distress - Head Exam Head Exam: NORMAL INSPECTION - Neck Exam Neck Exam: absent: Meningismus - Respiratory Exam Respiratory Exam: Decreased Breath Sounds - Cardiovascular Exam Cardiovascular Exam: +S1, +S2 - GI/Abdominal Exam GI & Abdominal Exam: Soft. absent: Tenderness Assessment and Plan - Assessment and Plan (Free Text) Plan: Assessment systemic inflammatory response syndrome, consider due to acute decompensated heart failure with pulmonary edema, R/O severe sepsis S/P ventilator-dependent respiratory failure and worsening acute renal failure from severe community- acquired pneumonia - clinically improved and now extubated and S/P treatment for pneumonia alcohol abuse and alcoholic liver disease CAD chronic CHF S/P pacemaker placement HTN Plan S/P 10 days of Cefepime and Zithromax and Flagyl - will continue to monitor off antibiotics (CT head also showing left sided mastoiditis - but should be treated with the 10 days of antibiotics); cultures have been negative; PCT is elevated (but probably because of the renal failure); reviewed CT chest/abdomen and pelvis yesterday which is still showing the bibasilar consolidations but patient is clinically improved, not hypoxic will continue to monitor clinically and trend WBC count which is still elevated patient is on intermittent dialysis for now reviewed Neurology evaluation for encephalopathy (toxic-metabolic encephalopathy )
--- NOTE | 2016-10-06 16:55 | PN ---
SUBJECTIVE: The patient is currently seen on 5R. He is actually communicating with me in sentences, but not making very much sense. He is status post placement of a right chest wall Perm-A-Cath. He had pulled out his right IJ ureteral catheter. The patient is scheduled for dialysis later today, after which he will be transferred to a long-term care facility, which will provide him with dialysis treatments. The patient continues to remain oliguric, status post his cardiac arrest and hypoxic respiratory failure. MEDICATIONS: Medication list reviewed. The patient is currently on artificial tears, amiodarone, Coreg, Ecotrin, folic acid, Lanoxin, Lovenox, multivitamins and B1 thiamine. PHYSICAL EXAMINATION: INTAKE/OUTPUT: Intake 550 and output 40 mL. VITAL SIGNS: Blood pressure 136/99, temperature 97.6, respiratory rate 22 with a pulse of 88. HEENT: Normocephalic and atraumatic. Conjunctivae pink. Sclerae nonicteric. NECK: Supple. No neck vein distention. CHEST: Decreased breath sounds at the bases. Scattered rhonchi. No wheezing. No rales. Positive right chest wall Perm-A-Cath. CARDIOVASCULAR: Shows normal S1 and S2 with no S3, no S4, and no rub. TR/MR. ABDOMEN: Soft. Bowel sounds normal. No rebound. No guarding. No masses. EXTREMITIES: Show 1+ to 2+ pitting edema of his lower extremity with his legs raised in bed. No cyanosis or clubbing. NEUROLOGIC: Shows him to be more responsive. He is communicating in sentences, but not making much sense. LABORATORY DATA AND IMAGING: Labs today, white blood cell count 17.0, hemoglobin 13.5 with a platelet count of 78,000. Chemistry showed normal electrolytes. BUN 118 with a creatinine of 5.6. Phosphorous is 6.8, calcium is 8.4, and magnesium level is 2.6. Moderate elevation of his liver enzymes. Albumin remains 3.3. Vitamin D level remains low at 12.8. PTH is elevated at 362. Microbiology, all cultures were negative. ASSESSMENT: 1. Acute renal failure in a patient with no past history of chronic kidney disease, this is in the setting of a cardiac arrest and hypoxic respiratory failure with possible anoxic encephalopathy. The patient had a cardiac arrest in the emergency room on admission with pulseless electrical activity. The patient at present remains dialysis dependent. There is hope that his episode of sustained acute tubular necrosis in the setting of his cardiac arrest will resolve over time. For right now, the patient is scheduled for dialysis today after which point in time, he will be transferred to long-term acute care, which will provide him dialysis on a Tuesday, Tuesday, and Tuesday schedule. 2. History of alcoholic cardiomyopathy with ejection fraction of 15%, status post permanent pacemaker, status post automatic implantable cardioverter-defibrillator. The patient has global hypokinesis. He has pulmonary hypertension. Tricuspid regurgitation/mitral regurgitation. 3. Negative serological workup for his acute renal failure. 4. Status post lower lobe infiltrate with community-acquired pneumonia, status post antibiotic therapy. 5. Thrombocytopenia, persists. Platelet count is 78,000. 6. The patient is currently eating with assistance. Nasogastric tube has been removed. 7. Secondary hyperparathyroidism. The patient will be started on PhosLo therapy, a phosphorous binder. PLAN: 1. Discussed with staff in the dialysis unit on 5R. The patient will need to continue 3 times a week dialysis for the foreseeable future. At present, he remains oliguric post his cardiac arrest and acute respiratory failure. 2. The patient will start binder therapy. 3. The patient will continue present cardiac medications. 4. The patient is stable for discharge from my standpoint. He has a Perm-A-Cath in the right chest wall. I expect him to have an uneventful dialysis today after which transfer to [facility] may take place. Kenan Davis MD
--- NOTE | 2016-10-06 22:06 | PN ---
DATE: 10/06/2016 LOCATION: Patient in room 575, bed 1. REASON FOR CONSULTATION: Followup status post respiratory failure, status post extubated, nonischemic cardiomyopathy, status post AICD insertion, status post acute kidney injury, status post dialysis. SUBJECTIVE: The patient lying flat in bed without chest pain, shortness of breath, or palpitation. PHYSICAL EXAMINATION: VITAL SIGNS: Blood pressure 136/99, respirations 22, pulse 88, temperature 97.6. HEENT: Head is normocephalic. Eyes, pupils normal. Conjunctivae normal. NECK: JVP low. Carotids equal. Thorax, AP diameter normal. LUNGS: No rales. CARDIOVASCULAR: S1 and S2. ABDOMEN: Soft, nontender. No organomegaly. Bowel sounds normal. EXTREMITIES: No clubbing. No cyanosis. LABORATORY DATA: WBC 17.0, hemoglobin 13.5, hematocrit 37.0, platelet 78. Sodium 139, potassium 4.2, BUN 118, creatinine 5.6, random sugar 206, phosphorus 6.8, magnesium 2.6, bilirubin 2.4, AST 123, ALT 105, alkaline phosphatase 311. Total protein and albumin normal. DIAGNOSES: Ischemic cardiomyopathy, possibly secondary to alcohol related, history of heavy alcohol abuse in the past. The patient had cardiac catheterization few days ago, being followed by Dr. Victoria Hobson and Dr. Beth. Cardiac catheterization 2 to 3 years ago showed nonischemic cardiomyopathy, history of AICD insertion, multilobar pneumonia; respiratory failure, intubated, now successfully extubated; recent echo 09/23/2016 showed ejection fraction 15%, mild aortic regurg, moderate mitral regurg, [id number] tricuspid regurg, right ventricle systolic pressure of 63 mmHg suggestive of [id number] pulmonary hypertension, thrombocytopenia, hepatic dysfunction. PLAN: The patient had dialysis catheter put in. The patient on amiodarone 200 daily, Coreg 6.25 b.i.d., aspirin 81 daily, folic acid 1 mg daily, digoxin 0.125 Tuesday, Tuesday and Tuesday, Lovenox 30 mg subcu daily, thiamine 100 mg IM daily, calcium acetate, PhosLo 667 mg p.o. Tuesday's and Tuesday's. Continue present therapy and we will follow. Meliton De La Vega MD [facility] # [id number]
--- NOTE | 2016-10-13 12:50 | EEG ---
DATE: 10/13/2016 CONDITION OF THE RECORDING: Drowsy EEG. DIAGNOSIS: Altered mental status. MEDICATIONS: Reviewed by nurse per reconciliation sheet. INTERPRETATION: This is a 16-channel international recording. The background activity of this patient was composed of 4 or 5 cycles per second. There was no evidence of any Beta activity of 16 to 20 cycles per second seen in this recording. There was increased amount of theta activity 5 to 7 cycles per second seen in this tracing, there was evidence of delta activity throughout the recording as well. Drowsiness was characterized by theta and delta activities and sleep was characterized by vertex transient, sleep spindle, and bilateral slowing. Photic stimulation showed no change in the tracing. There was diffuse polymorphic delta activity throughout the EEG. CONCLUSION: This is an abnormal EEG due to the presence of diffuse polymorphic delta throughout the EEG consistent with severe bilateral cerebral dysfunction. Godfrey Choi MD
== END 2016-10-06 20:32 | DRG 870 ==
LOC: EDBD → ED 11:35 → ERH 12:29 → CCU 16:06 → 5RSO 10-04 17:11
PROVIDERS: ADMIT Internal Medicine; ATTEND Internal Medicine
PROC: 5A1955Z Respiratory Ventilation, Greater than 96 Consecutive Hours (ICD-10-PCS; principal; 2016-09-23)
PROC: 5A12012 Performance of Cardiac Output, Single, Manual (ICD-10-PCS; 2016-09-23)
PROC: 0BH17EZ Insertion of Endotracheal Airway into Trachea, Via Natural or Artificial Opening (ICD-10-PCS; 2016-09-23)
PROC: 5A1D60Z (ICD-10-PCS; 2016-09-29)
PROC: 05HM33Z Insertion of Infusion Device into Right Internal Jugular Vein, Percutaneous Approach (ICD-10-PCS; 2016-09-29)
PROC: B543ZZA Ultrasonography of Right Jugular Veins, Guidance (ICD-10-PCS; 2016-09-29)
PROC: 02H633Z Insertion of Infusion Device into Right Atrium, Percutaneous Approach (ICD-10-PCS; 2016-10-05)
PROC: B244ZZZ Ultrasonography of Right Heart (ICD-10-PCS; 2016-10-05)
PROC: B513ZZA Fluoroscopy of Right Jugular Veins, Guidance (ICD-10-PCS; 2016-10-05)
DX: A41.9 Sepsis, unspecified organism (principal); D65 Disseminated intravascular coagulation [defibrination syndrome]; I21.4 Non-ST elevation (NSTEMI) myocardial infarction; J96.01 Acute respiratory failure with hypoxia; I46.9 Cardiac arrest, cause unspecified; N17.0 Acute kidney failure with tubular necrosis; J69.0 Pneumonitis due to inhalation of food and vomit; G93.41 Metabolic encephalopathy; I31.3 Pericardial effusion (noninflammatory); N18.6 End stage renal disease; K76.7 Hepatorenal syndrome; I50.21 Acute systolic (congestive) heart failure; I42.0 Dilated cardiomyopathy; G62.81 Critical illness polyneuropathy; G93.1 Anoxic brain damage, not elsewhere classified; E87.2 Acidosis; I13.2 Hypertensive heart and chronic kidney disease with heart failure and with stage 5 chronic kidney disease, or end stage renal disease; I42.6 Alcoholic cardiomyopathy; I47.2 Ventricular tachycardia; I48.92 Unspecified atrial flutter; N25.81 Secondary hyperparathyroidism of renal origin; E83.39 Other disorders of phosphorus metabolism; I27.2 Other secondary pulmonary hypertension; I08.3 Combined rheumatic disorders of mitral, aortic and tricuspid valves; D64.9 Anemia, unspecified; R65.20 Severe sepsis without septic shock; E87.6 Hypokalemia; F10.10 Alcohol abuse, uncomplicated; F17.210 Nicotine dependence, cigarettes, uncomplicated; I25.10 Atherosclerotic heart disease of native coronary artery without angina pectoris; I25.5 Ischemic cardiomyopathy; I45.4 Nonspecific intraventricular block; I77.6 Arteritis, unspecified; J06.9 Acute upper respiratory infection, unspecified; J44.9 Chronic obstructive pulmonary disease, unspecified; K70.11 Alcoholic hepatitis with ascites; K70.31 Alcoholic cirrhosis of liver with ascites; K76.1 Chronic passive congestion of liver; D72.829 Elevated white blood cell count, unspecified; T38.0X5A Adverse effect of glucocorticoids and synthetic analogues, initial encounter; Z91.14 Patient's other noncompliance with medication regimen; Z95.0 Presence of cardiac pacemaker; Z95.810 Presence of automatic (implantable) cardiac defibrillator; Z99.2 Dependence on renal dialysis; R80.9 Proteinuria, unspecified; R31.9 Hematuria, unspecified; Z78.1 Physical restraint status